=== PATIENT | male | born 2000 | race African-American/Black ===

== ENCOUNTER 2021-05-29 21:47 | Inpatient (IN) | payer OTHER, MEDICAID ==
[~2021-05-29] VITALS: Ht 195.6 cm; Wt 68.0 kg
[2021-05-29] MEDS ORDERED: LACTATED RINGER'S 2,000 ML IV ONE (22:15)
[2021-05-29 22:47] LABS: Basophils # (auto) 0 10 ^3/uL (0-0.2); Basophils % (auto) 0.7 % (0.0-2.0); Eosinophils # (auto) 0 10 ^3/uL (0-0.8); Hematocrit 45.6 % (41.0-53.0); Hemoglobin 15.2 g/dL (13.5-17.5); Lymphocytes # (auto) 0.6 10 ^3/uL (0.4-5.4); Mean Corpuscular Hemoglobin 27.8 pg (28.0-32.0); Mean Corpuscular Hgb Conc. 33.3 g/dL (32.0-36.0); Mean Corpuscular Volume 83.5 fL (80.0-100.0); Monocytes # (auto) 0.2 10 ^3/uL (0-1.3); Monocytes % (auto) 5.1 % (0.0-12.0); Neutrophils # (auto) 3.6 10 ^3/uL (1.6-8.6); Neutrophils % (auto) 81.2 % (37.0-80.0); Nucleated Red Blood Cells % 0.1 %; Red Blood Cells 5.46 10^6/uL (4.5-5.90); Red Cell Distribution Width 15.4 % (11.8-14.3); White Blood Cell 4.4 10^3/uL (4.4-10.8)
[2021-05-29 23:05] LABS: Albumin 3.8 g/dL (3.4-5.0); Calcium 9.1 mg/dL (8.5-10.1); Magnesium 2.1 mg/dL (1.6-2.6); Potassium 4.6 mmol/L (3.5-5.1)
[2021-05-29 23:06] LABS: BUN/Creatinine Ratio 9.9
[2021-05-29 23:19] LABS: Bilirubin, Total 0.6 mg/dL (0.2-1.0); Total Protein 8.1 g/dL (6.4-8.2)
[2021-05-29] MEDS ORDERED: InsuLIN R (HUMAN) 100 UNITS in SODIUM CHL 0.9% 99 ML IV SCH (23:30)
[2021-05-29] MEDS ORDERED: DEXTROSE (50%) 50ML SYRG IV PRN ×2 (23:30→23:45)
[2021-05-29 23:43] LABS: Urine Bacteria NONE SEEN /hpf (None Seen); Urine Blood Negative /uL (Negative); Urine Specific Gravity 1.028 (1.001-1.035); Urine WBC 1 /hpf (0 - 3)
[2021-05-29] MEDS ORDERED: MORPHINE SULFATE INJECTION 2 MG/ML SYRG IV PRN (23:45)
[2021-05-29] MEDS ORDERED: INSULIN LANTUS (GLARGINE) 1 /0.01ml (100units/ml) SC ONE (23:45)
[2021-05-29] MEDS ORDERED: NITROGLYCERIN 0.4 MG SL TAB SL PRN (23:45)
[2021-05-29] MEDS ORDERED: ONDANSETRON HCL 4 MG/2 ML VIAL IV PRN (23:45)
[2021-05-30] VITALS (36 sets, daily range): BP systolic 108–143; BP diastolic 52–94
[2021-05-30] MEDS ORDERED: InsuLIN REG 1unit/0.01ml Soln (100units/ml) ONE ×2 (00:53→00:57)
[2021-05-30] MEDS: ACCU-CHEK COMFORT CURVE STRIP VI SCH ×12 (01:03→20:23)
[2021-05-30] MEDS: SOD CHL 0.9%/ KCL 20MEQ 1,000 ML IV SCH ×3 (01:13→10:27)
[2021-05-30] MEDS: SODIUM CHLORIDE 0.9% 1,000 ML IV SCH ×2 (01:20→01:45)
[2021-05-30] MEDS ORDERED: SODIUM CHLORIDE 0.9% 1,000 ML IV SCH ×2 (03:45→05:45)
[2021-05-30 04:13] LABS: Basophils # (auto) 0 10 ^3/uL (0-0.2); Basophils % (auto) 0.7 % (0.0-2.0); Eosinophils # (auto) 0 10 ^3/uL (0-0.8); Eosinophils % (auto) 0.1 % (0.0-7.0); Hematocrit 38.3 % (41.0-53.0); Hemoglobin 13.4 g/dL (13.5-17.5); Lymphocytes # (auto) 1.7 10 ^3/uL (0.4-5.4); Lymphocytes % (auto) 29.3 % (10.0-50.0); Mean Corpuscular Hemoglobin 28.6 pg (28.0-32.0); Mean Corpuscular Hgb Conc. 34.9 g/dL (32.0-36.0); Mean Corpuscular Volume 81.9 fL (80.0-100.0); Monocytes # (auto) 0.5 10 ^3/uL (0-1.3); Monocytes % (auto) 8.9 % (0.0-12.0); Neutrophils # (auto) 3.5 10 ^3/uL (1.6-8.6); Red Blood Cells 4.68 10^6/uL (4.5-5.90); White Blood Cell 5.7 10^3/uL (4.4-10.8)
[2021-05-30 04:51] LABS: Bilirubin, Total 0.4 mg/dL (0.2-1.0); Calcium 7.8 mg/dL (8.5-10.1); Total Protein 6.5 g/dL (6.4-8.2)
[2021-05-30] MEDS: D5W/SOD CHL 0.45%/KCL 20MEQ 1,000 ML IV SCH ×2 (12:23→21:30)
[2021-05-30 12:43] LABS: BUN/Creatinine Ratio 5.8; Magnesium 1.8 mg/dL (1.6-2.6); Potassium 3.7 mmol/L (3.5-5.1)
[2021-05-30 12:58] LABS: Alcohol, Urine < 3.0 mg/dL (0-10); Amphetamine Screen, Urine POSITIVE (NEGATIVE); Barbiturate Scree,Urine NEGATIVE (NEGATIVE); Benzodiazephine Screen, Urine NEGATIVE (NEGATIVE); Cannabinoid Screen, Urine NEGATIVE (NEGATIVE); Cocaine Screen, Urine NEGATIVE (NEGATIVE); Phencyclidine Screen, Urine NEGATIVE (NEGATIVE)
[2021-05-30 13:07] LABS: Opiate Scree,Urine NEGATIVE (NEGATIVE)
[2021-05-30] MEDS ORDERED: DEXTROSE (50%) 50ML SYRG IV PRN (14:00)
[2021-05-30] MEDS: InsuLIN REG 1unit/0.01ml Soln (100units/ml) SC SCH ×2 (16:00→20:29)
[2021-05-30 18:29] LABS: Calcium 8.4 mg/dL (8.5-10.1); Potassium 3.6 mmol/L (3.5-5.1)
[2021-05-30 18:32] LABS: BUN/Creatinine Ratio 5.9
[2021-05-30] MEDS ORDERED: INSULIN LANTUS (GLARGINE) 1 /0.01ml (100units/ml) SC SCH ×2 (22:00)
[2021-05-31] MEDS: ACCU-CHEK COMFORT CURVE STRIP VI SCH ×2 (00:12→04:09)
[2021-05-31] MEDS: InsuLIN REG 1unit/0.01ml Soln (100units/ml) SC SCH ×2 (00:13→04:00)
[2021-05-31] MEDS: HYDROcodone-ACET 5/325MG TAB PO PRN ×2 (00:47→10:24)
[2021-05-31 05:00] VITALS: BP 115/65
[2021-05-31 06:28] LABS: Basophils # (auto) 0 10 ^3/uL (0-0.2); Basophils % (auto) 0.7 % (0.0-2.0); Eosinophils # (auto) 0 10 ^3/uL (0-0.8); Eosinophils % (auto) 0.7 % (0.0-7.0); Hematocrit 38.9 % (41.0-53.0); Hemoglobin 13.4 g/dL (13.5-17.5); Lymphocytes # (auto) 1.7 10 ^3/uL (0.4-5.4); Lymphocytes % (auto) 38.7 % (10.0-50.0); Mean Corpuscular Hemoglobin 27.5 pg (28.0-32.0); Mean Corpuscular Hgb Conc. 34.4 g/dL (32.0-36.0); Mean Corpuscular Volume 79.9 fL (80.0-100.0); Monocytes # (auto) 0.4 10 ^3/uL (0-1.3); Monocytes % (auto) 9.4 % (0.0-12.0); Neutrophils # (auto) 2.2 10 ^3/uL (1.6-8.6); Neutrophils % (auto) 50.5 % (37.0-80.0); Nucleated Red Blood Cells % 0.1 %; Red Blood Cells 4.87 10^6/uL (4.5-5.90); Red Cell Distribution Width 15.2 % (11.8-14.3); White Blood Cell 4.4 10^3/uL (4.4-10.8)
[2021-05-31 06:57] LABS: Calcium 8.6 mg/dL (8.5-10.1)
[2021-05-31 07:29] LABS: BUN/Creatinine Ratio 6.6
[2021-05-31 07:36] LABS: Potassium 2.7 mmol/L (3.5-5.1)
[2021-05-31 08:00] VITALS: BP 127/65
[2021-05-31] MEDS ORDERED: POTASSIUM CHL 20 Meq TABLET PO ONE (08:15)
[2021-05-31] MEDS ORDERED: INSLANTI SC (08:41)
[2021-05-31] MEDS ORDERED: INSU100I43 SC (08:41)
[2021-05-31] MEDS ORDERED: POTASSIUM CHL 20MEQ/100ML 100 ML IV ONE (08:45)
[2021-05-31] MEDS ORDERED: DEXTROSE (50%) 50ML SYRG IV PRN (08:45)
[2021-05-31] MEDS ORDERED: ACCU-CHEK COMFORT CURVE STRIP VI SCH (11:30)
[2021-05-31] MEDS ORDERED: InsuLIN REG 1unit/0.01ml Soln (100units/ml) SC SCH (11:30)
[2021-05-31 12:00] VITALS: BP 132/80
== END 2021-05-31 14:40 | disposition home health service (06) | DRG 420 ==
LOC: EDBD 21:47 → ER 21:50 → TELE 23:38 → ICU WEST 05-30 00:30 → TELE-CENTR 05-30 15:53
PROVIDERS: ADMIT Nurse Practitioner; ATTEND Hospitalist
DX: E11.10 Type 2 diabetes mellitus with ketoacidosis without coma (principal); E86.0 Dehydration; R00.0 Tachycardia, unspecified; Z20.822 Contact with and (suspected) exposure to COVID-19; Z79.4 Long term (current) use of insulin; Z91.19 Patient's noncompliance with other medical treatment and regimen
CPT/HCPCS: 36415; 36600; 71045; 80048; 80053; 80307; 81001; 82010; 82805; 82962; 83735; 83930; 84100; 85025; 87081; 87493; 96361; 96365; 96372; 99291; G0378; J1815; J2405; J3480

== ENCOUNTER 2021-06-22 20:47 | Inpatient (IN) | payer MEDICAID, OTHER ==
[~2021-06-22] VITALS: Ht 182.9 cm; Wt 68.0 kg
[~2021-06-22 20:47] MED LIST: INSLANTI SC; INSU100I43 SC
[2021-06-22] MEDS ORDERED: IOHEXOL 300 MG/ML 100ML BOTTLE IJ ONE (21:53)
[2021-06-22] MEDS ORDERED: fentaNYL CITRATE 100 MCG/2 ML VL IV ONE ×2 (22:00→23:30)
[2021-06-22 22:24] LABS: Urine Bacteria NONE SEEN /hpf (None Seen); Urine Blood Negative /uL (Negative); Urine Mucus FEW (None Seen); Urine Specific Gravity 1.028 (1.001-1.035); Urine WBC <1 /hpf (0 - 3)
[2021-06-22 22:29] LABS: Basophils # (auto) 0 10 ^3/uL (0-0.2); Basophils % (auto) 0.7 % (0.0-2.0); Eosinophils # (auto) 0 10 ^3/uL (0-0.8); Hematocrit 47.6 % (41.0-53.0); Hemoglobin 15.9 g/dL (13.5-17.5); Lymphocytes # (auto) 0.9 10 ^3/uL (0.4-5.4); Lymphocytes % (auto) 17.8 % (10.0-50.0); Mean Corpuscular Hemoglobin 27.8 pg (28.0-32.0); Mean Corpuscular Hgb Conc. 33.3 g/dL (32.0-36.0); Mean Corpuscular Volume 83.4 fL (80.0-100.0); Monocytes # (auto) 0.2 10 ^3/uL (0-1.3); Monocytes % (auto) 4.5 % (0.0-12.0); Neutrophils # (auto) 3.9 10 ^3/uL (1.6-8.6); Nucleated Red Blood Cells % 0.3 %; Red Blood Cells 5.71 10^6/uL (4.5-5.90); Red Cell Distribution Width 15.5 % (11.8-14.3); White Blood Cell 5.1 10^3/uL (4.4-10.8)
[2021-06-22 22:41] LABS: Potassium 4.6 mmol/L (3.5-5.1)
[2021-06-22 22:51] LABS: Albumin 3.7 g/dL (3.4-5.0); BUN/Creatinine Ratio 9.3; Bilirubin, Total 0.6 mg/dL (0.2-1.0); Calcium 8.7 mg/dL (8.5-10.1); Total Protein 7.9 g/dL (6.4-8.2)
[2021-06-22] MEDS ORDERED: SODIUM CHLORIDE 0.9% 1,000 ML IV ONE ×2 (23:15→23:30)
[2021-06-22] MEDS ORDERED: DEXTROSE (50%) 50ML SYRG IV PRN (23:30)
[2021-06-23] VITALS (16 sets, daily range): BP systolic 110–139; BP diastolic 66–92
[2021-06-23 00:17] LABS: Alcohol, Urine < 3.0 mg/dL (0-10); Amphetamine Screen, Urine NEGATIVE (NEGATIVE); Barbiturate Scree,Urine NEGATIVE (NEGATIVE); Benzodiazephine Screen, Urine NEGATIVE (NEGATIVE); Cannabinoid Screen, Urine NEGATIVE (NEGATIVE); Cocaine Screen, Urine NEGATIVE (NEGATIVE); Opiate Scree,Urine NEGATIVE (NEGATIVE); Phencyclidine Screen, Urine NEGATIVE (NEGATIVE)
[2021-06-23] MEDS ORDERED: InsuLIN REG 1unit/0.01ml Soln (100units/ml) ONE (00:20)
[2021-06-23] MEDS: InsuLIN R (HUMAN) 100 UNITS in SODIUM CHL 0.9% 99 ML IV SCH ×2 (00:25→01:40)
[2021-06-23] MEDS ORDERED: PIPERACILLIN-TAZOB 3.375GM 100 ML IV ONE ×2 (01:45→03:45)
[2021-06-23] MEDS ORDERED: ONDANSETRON HCL 4 MG/2 ML VIAL IV PRN ×2 (02:15→03:45)
[2021-06-23] MEDS ORDERED: NITROGLYCERIN 0.4 MG SL TAB SL PRN ×2 (02:15→03:45)
[2021-06-23] MEDS ORDERED: INSULIN LANTUS (GLARGINE) 1 /0.01ml (100units/ml) SC ONE ×2 (02:15→11:30)
[2021-06-23] MEDS ORDERED: DEXTROSE (50%) 50ML SYRG IV PRN ×3 (02:15→19:15)
[2021-06-23] MEDS ORDERED: MORPHINE SULFATE INJECTION 2 MG/ML SYRG IV PRN ×4 (02:15→14:00)
[2021-06-23 02:50] LABS: Calcium 8.1 mg/dL (8.5-10.1); Potassium 4.6 mmol/L (3.5-5.1)
[2021-06-23] MEDS ORDERED: ACCU-CHEK COMFORT CURVE STRIP VI SCH ×2 (03:00)
[2021-06-23] MEDS: ACCU-CHEK COMFORT CURVE STRIP VI SCH ×5 (03:37→20:57)
[2021-06-23] MEDS ORDERED: InsuLIN R (HUMAN) 100 UNITS in SODIUM CHL 0.9% 99 ML IV SCH (03:45)
[2021-06-23] MEDS: MORPHINE SULFATE INJECTION 2 MG/ML SYRG IV PRN ×4 (03:50→19:59)
[2021-06-23] MEDS ORDERED: SODIUM CHLORIDE 0.9% 1,000 ML IV SCH ×4 (06:15→08:15)
[2021-06-23] MEDS ORDERED: GOLYTELY 4L KIT PO ONE (09:45)
[2021-06-23] MEDS ORDERED: PANTOPRAZOLE 40 MG/10 ML VIAL INJ IV SCH ×2 (10:00)
[2021-06-23] MEDS ORDERED: D5W/SOD CHLO 0.9% 1,000 ML IV SCH ×2 (10:30→15:30)
[2021-06-23 11:03] LABS: BUN/Creatinine Ratio 8.9; Calcium 8.2 mg/dL (8.5-10.1)
[2021-06-23 11:07] LABS: INR 1.06 (0.9-1.15)
[2021-06-23] MEDS ORDERED: metroNIDAZOLE 500MG/100ML 100 ML IV ONE (15:30)
[2021-06-23] MEDS: InsuLIN REG 1unit/0.01ml Soln (100units/ml) SC SCH ×2 (19:00→21:07)
[2021-06-23] MEDS: VANCOMYCIN HCL 125MG/5ML ORAL SOL PO SCH (19:04)
[2021-06-23] MEDS: metroNIDAZOLE 500MG/100ML 100 ML IV SCH (20:57)
[2021-06-24] MEDS: VANCOMYCIN HCL 125MG/5ML ORAL SOL PO SCH ×4 (00:16→18:40)
[2021-06-24] MEDS: MORPHINE SULFATE INJECTION 2 MG/ML SYRG IV PRN ×2 (00:29→04:33)
[2021-06-24 05:00] VITALS: BP 127/83
[2021-06-24] MEDS: metroNIDAZOLE 500MG/100ML 100 ML IV SCH ×2 (05:33→14:11)
[2021-06-24] MEDS: ACCU-CHEK COMFORT CURVE STRIP VI SCH ×4 (06:48→22:00)
[2021-06-24] MEDS: InsuLIN REG 1unit/0.01ml Soln (100units/ml) SC SCH ×4 (06:50→23:11)
[2021-06-24] MEDS ORDERED: DexAMETHasone SOD PHOS 10MG/1ML VIAL INJ IV ONE (07:30)
[2021-06-24] MEDS ORDERED: SODIUM CHLORIDE LOCK 10 ML ONE (07:31)
[2021-06-24] MEDS ORDERED: PROPOFOL 10 MG/ML 20 ML IV ONE (07:31)
[2021-06-24] MEDS ORDERED: ONDANSETRON HCL 4 MG/2 ML VIAL ONE (07:31)
[2021-06-24] MEDS ORDERED: MIDAZOLAM HCL 2MG/2ML 2ml VIAL (1mg/ml) ONE (07:31)
[2021-06-24] MEDS ORDERED: fentaNYL CITRATE 100 MCG/2 ML VL ONE (07:31)
[2021-06-24 08:49] VITALS: BP 116/75
[2021-06-24] MEDS ORDERED: INSULIN LANTUS (GLARGINE) 1 /0.01ml (100units/ml) SC SCH ×3 (10:00→22:00)
[2021-06-24 13:00] VITALS: BP 127/89
[2021-06-24] MEDS: HYDROcodone-ACET 5/325MG TAB PO PRN ×2 (15:23→22:05)
[2021-06-24 17:00] VITALS: BP 105/67
[2021-06-24 21:47] VITALS: BP 123/80
[2021-06-25] MEDS: metroNIDAZOLE 500MG/100ML 100 ML IV SCH ×2 (00:24→06:30)
[2021-06-25] MEDS: VANCOMYCIN HCL 125MG/5ML ORAL SOL PO SCH ×3 (00:26→12:00)
[2021-06-25 05:00] VITALS: BP 114/68
[2021-06-25] MEDS: HYDROcodone-ACET 5/325MG TAB PO PRN ×2 (06:29→12:29)
[2021-06-25] MEDS: InsuLIN REG 1unit/0.01ml Soln (100units/ml) SC SCH ×3 (06:40→17:00)
[2021-06-25] MEDS: ACCU-CHEK COMFORT CURVE STRIP VI SCH ×3 (06:42→17:00)
[2021-06-25 08:19] VITALS: BP 126/89
[2021-06-25 12:56] VITALS: BP 131/87
[2021-06-25 16:38] VITALS: BP 131/87
[2021-06-25 17:08] VITALS: BP 131/99
== END 2021-06-25 18:20 | disposition home or self-care (01) | DRG 420 ==
LOC: ER 20:47 → EDBD 20:47 → ICU WEST 06-23 02:12 → ER 06-23 03:05 → TELE-EAST 06-23 22:15 → EAST 06-24 23:58
PROVIDERS: ADMIT Nurse Practitioner; ATTEND Internal Medicine
PROC: 0DJD8ZZ Inspection of Lower Intestinal Tract, Via Natural or Artificial Opening Endoscopic (ICD-10-PCS; principal; 2021-06-24 09:30)
PROC: 0DJ08ZZ Inspection of Upper Intestinal Tract, Via Natural or Artificial Opening Endoscopic (ICD-10-PCS; 2021-06-24 09:30)
DX: E11.10 Type 2 diabetes mellitus with ketoacidosis without coma (principal); F12.90 Cannabis use, unspecified, uncomplicated; K64.8 Other hemorrhoids; K92.1 Melena; R00.0 Tachycardia, unspecified; Z20.822 Contact with and (suspected) exposure to COVID-19
CPT/HCPCS: 36415; 36600; 74177; 80048; 80053; 80307; 81001; 82010; 82805; 82962; 83036; 83690; 83735; 83930; 84100; 85025; 85610; 87081; 87493; 93005; 96361; 96374; 96376; 99291; C9113; G0378; J1100; J1815; J2250; J2405; J2543; J2704; J3490

== ENCOUNTER 2021-07-02 11:50 | Inpatient (IN) | payer OTHER, MEDICAID ==
[2021-07-02] VITALS (11 sets, daily range): BP systolic 129–154; BP diastolic 79–112
[~2021-07-02] VITALS: Ht 190.5 cm; Wt 97.4 kg
[2021-07-02 13:05] LABS: Basophils # (auto) 0.1 10 ^3/uL (0-0.2); Eosinophils # (auto) 0 10 ^3/uL (0-0.8); Eosinophils % (auto) 0.4 % (0.0-7.0); Hematocrit 45.2 % (41.0-53.0); Hemoglobin 14.4 g/dL (13.5-17.5); Lymphocytes # (auto) 0.6 10 ^3/uL (0.4-5.4); Mean Corpuscular Hgb Conc. 31.9 g/dL (32.0-36.0); Mean Corpuscular Volume 84.5 fL (80.0-100.0); Monocytes # (auto) 0.2 10 ^3/uL (0-1.3); Neutrophils # (auto) 3.2 10 ^3/uL (1.6-8.6); Neutrophils % (auto) 78.6 % (37.0-80.0); Nucleated Red Blood Cells % 0.3 %; Red Blood Cells 5.35 10^6/uL (4.5-5.90); Red Cell Distribution Width 16.1 % (11.8-14.3); White Blood Cell 4.1 10^3/uL (4.4-10.8)
[2021-07-02 13:21] LABS: Total Protein 7.3 g/dL (6.4-8.2)
[2021-07-02] MEDS ORDERED: SODIUM CHLORIDE 0.9% 1,000 ML IV ONE ×2 (13:30→14:15)
[2021-07-02 13:45] LABS: Albumin 3.4 g/dL (3.4-5.0); BUN/Creatinine Ratio 13.3; Bilirubin, Total 0.7 mg/dL (0.2-1.0); Calcium 8.9 mg/dL (8.5-10.1); Magnesium 2.3 mg/dL (1.6-2.6); Potassium 5.2 mmol/L (3.5-5.1)
[2021-07-02 14:02] LABS: Urine Bacteria NONE SEEN /hpf (None Seen); Urine Blood Negative /uL (Negative); Urine Mucus FEW (None Seen); Urine Specific Gravity 1.026 (1.001-1.035); Urine WBC <1 /hpf (0 - 3)
[2021-07-02 14:08] LABS: Phosphorus 3.1 mg/dL (2.5-4.90)
[2021-07-02] MEDS ORDERED: fentaNYL CITRATE 100 MCG/2 ML VL IV ONE (14:15)
[2021-07-02] MEDS ORDERED: DEXTROSE (50%) 50ML SYRG IV PRN (14:15)
[2021-07-02] MEDS ORDERED: InsuLIN R (HUMAN) 100 UNITS in SODIUM CHL 0.9% 99 ML IV SCH (14:15)
[2021-07-02] MEDS ORDERED: SODIUM CHLORIDE 0.9% 1,000 ML IV SCH ×3 (14:15→20:15)
[2021-07-02] MEDS ORDERED: MORPHINE SULFATE INJECTION 2 MG/ML SYRG IV PRN (15:00)
[2021-07-02] MEDS ORDERED: D5W/SOD CHLO 0.9% 1,000 ML IV PRN (15:00)
[2021-07-02] MEDS ORDERED: LACTATED RINGER'S 2,000 ML IV ONE (15:00)
[2021-07-02] MEDS ORDERED: cefTRIAXone 1GM/50ML D5W 50 ML IV ONE (15:00)
[2021-07-02] MEDS ORDERED: NITROGLYCERIN 0.4 MG SL TAB SL PRN (15:00)
[2021-07-02] MEDS ORDERED: SODIUM CHLORIDE 0.9% 2,000 ML IV ONE (15:00)
[2021-07-02] MEDS ORDERED: SOD CHL 0.9%/ KCL 20MEQ 1,000 ML IV PRN (15:00)
[2021-07-02] MEDS: ACCU-CHEK COMFORT CURVE STRIP VI SCH ×6 (15:54→23:16)
[2021-07-02 16:35] LABS: INR 0.96 (0.9-1.15); Partial Thromboplastin Time 27.6 sec (23.6-33.0)
[2021-07-02 16:59] LABS: Anion Gap 29 (5-15); BUN/Creatinine Ratio 12.7; Blood Urea Nitrogen 15 mg/dL (7-18); Calcium 8.4 mg/dL (8.5-10.1); Chloride 100 mmol/L (98-107); GFR African American 101 mL/min; GFR Non-African American 84 mL/min; Potassium 5.1 mmol/L (3.5-5.1); Sodium 133 mmol/L (136-145)
[2021-07-02 17:06] LABS: Carbon Dioxide 4 mmol/L (21-32); Glucose 455 mg/dL (74-106)
[2021-07-02] MEDS ORDERED: LORazepam 0.5 MG TAB PO PRN (17:30)
[2021-07-02] MEDS ORDERED: DOCUSATE SOD 100 MG CAP PO PRN (17:30)
[2021-07-02] MEDS ORDERED: ACETAMINOPHEN 325 MG TAB PO PRN (17:30)
[2021-07-02] MEDS ORDERED: METOCLOPRAMIDE HCL 5MG/ml INJ 2ml VIAL IV PRN (17:30)
[2021-07-02] MEDS ORDERED: hydrALAZINE HCL 20 MG/ML VL IV PRN (17:30)
[2021-07-02] MEDS: SODIUM CHLORIDE 0.9% 1,000 ML IV SCH ×2 (18:24→21:33)
[2021-07-02] MEDS: MORPHINE SULFATE INJECTION 2 MG/ML SYRG IV PRN (19:02)
[2021-07-02 20:19] LABS: Calcium 7.8 mg/dL (8.5-10.1)
[2021-07-02 20:21] LABS: BUN/Creatinine Ratio 11.3
[2021-07-02] MEDS: ATORVASTATIN 20 MG TAB PO SCH (21:43)
[2021-07-03] VITALS (48 sets, daily range): BP systolic 104–144; BP diastolic 54–99
[2021-07-03] MEDS: MORPHINE SULFATE INJECTION 2 MG/ML SYRG IV PRN ×3 (00:44→16:39)
[2021-07-03] MEDS: ACCU-CHEK COMFORT CURVE STRIP VI SCH ×10 (01:03→17:29)
[2021-07-03 02:17] LABS: BUN/Creatinine Ratio 6.9; Calcium 8.2 mg/dL (8.5-10.1); Potassium 3.8 mmol/L (3.5-5.1)
[2021-07-03] MEDS: SODIUM CHLORIDE 0.9% 1,000 ML IV SCH ×5 (02:30→21:00)
[2021-07-03 03:50] LABS: Basophils # (auto) 0 10 ^3/uL (0-0.2); Basophils % (auto) 0.7 % (0.0-2.0); Eosinophils # (auto) 0 10 ^3/uL (0-0.8); Eosinophils % (auto) 0.3 % (0.0-7.0); Hematocrit 39.4 % (41.0-53.0); Hemoglobin 13.2 g/dL (13.5-17.5); Lymphocytes # (auto) 1.5 10 ^3/uL (0.4-5.4); Lymphocytes % (auto) 33.1 % (10.0-50.0); Mean Corpuscular Hemoglobin 27.1 pg (28.0-32.0); Mean Corpuscular Hgb Conc. 33.4 g/dL (32.0-36.0); Mean Corpuscular Volume 81.1 fL (80.0-100.0); Monocytes # (auto) 0.5 10 ^3/uL (0-1.3); Monocytes % (auto) 10.4 % (0.0-12.0); Neutrophils # (auto) 2.6 10 ^3/uL (1.6-8.6); Neutrophils % (auto) 55.5 % (37.0-80.0); Nucleated Red Blood Cells % 0.1 %; Red Blood Cells 4.86 10^6/uL (4.5-5.90); Red Cell Distribution Width 15.6 % (11.8-14.3); White Blood Cell 4.6 10^3/uL (4.4-10.8)
[2021-07-03 04:12] LABS: Potassium 3.6 mmol/L (3.5-5.1)
[2021-07-03 04:25] LABS: Albumin 2.8 g/dL (3.4-5.0); BUN/Creatinine Ratio 8.8; Bilirubin, Total 0.5 mg/dL (0.2-1.0); CRP High Sensitivity 0.02 mg/dL (< 0.3); Calcium 8.2 mg/dL (8.5-10.1); Magnesium 1.7 mg/dL (1.6-2.6); Phosphorus 1.7 mg/dL (2.5-4.90)
[2021-07-03 04:27] LABS: Thyroid Stimulating Hormone 0.63 uIU/mL (0.358-3.74)
[2021-07-03] MEDS: cefTRIAXone 1GM/50ML D5W 50 ML IV SCH (09:06)
[2021-07-03] MEDS: THIAMINE HCL 100 MG TAB PO SCH (10:00)
[2021-07-03] MEDS: ASPirin 81 mg TAB PO SCH (10:00)
[2021-07-03] MEDS: ENOXAPARIN SOD 40 MG/0.4 ML SYRINGE SC SCH (10:17)
[2021-07-03] MEDS ORDERED: DEXTROSE (50%) 50ML SYRG IV PRN (11:00)
[2021-07-03] MEDS: NEUTRA-PHOS TABLET PO SCH ×2 (12:00→18:00)
[2021-07-03] MEDS: InsuLIN REG 1unit/0.01ml Soln (100units/ml) SC SCH ×2 (12:00→17:28)
[2021-07-03] MEDS: DIPHENOXYLATE W/ATROPINE 2.5 MG TAB PO PRN ×2 (17:21→20:38)
[2021-07-03] MEDS: CALCIUM W/VIT D (600MG/400IU) TAB PO SCH (18:12)
[2021-07-03] MEDS: HYDROcodone-ACET 5/325MG TAB PO PRN (20:40)
[2021-07-03] MEDS: ATORVASTATIN 20 MG TAB PO SCH (22:09)
[2021-07-03] MEDS: INSULIN LANTUS (GLARGINE) 1 /0.01ml (100units/ml) SC SCH (22:10)
[2021-07-04] VITALS: BP 113/62
[2021-07-04] MEDS: SODIUM CHLORIDE 0.9% 1,000 ML IV SCH ×3 (02:00→12:00)
[2021-07-04] MEDS: HYDROcodone-ACET 5/325MG TAB PO PRN ×2 (03:40→09:54)
[2021-07-04] MEDS: DIPHENOXYLATE W/ATROPINE 2.5 MG TAB PO PRN (03:40)
[2021-07-04 04:00] VITALS: BP 114/71
[2021-07-04 04:15] LABS: Basophils # (auto) 0 10 ^3/uL (0-0.2); Basophils % (auto) 0.7 % (0.0-2.0); Eosinophils # (auto) 0 10 ^3/uL (0-0.8); Eosinophils % (auto) 0.3 % (0.0-7.0); Hematocrit 37.9 % (41.0-53.0); Hemoglobin 12.9 g/dL (13.5-17.5); Lymphocytes # (auto) 2.1 10 ^3/uL (0.4-5.4); Lymphocytes % (auto) 51.1 % (10.0-50.0); Mean Corpuscular Hemoglobin 27.3 pg (28.0-32.0); Mean Corpuscular Hgb Conc. 34.1 g/dL (32.0-36.0); Mean Corpuscular Volume 80.2 fL (80.0-100.0); Monocytes # (auto) 0.3 10 ^3/uL (0-1.3); Monocytes % (auto) 8.2 % (0.0-12.0); Neutrophils # (auto) 1.7 10 ^3/uL (1.6-8.6); Neutrophils % (auto) 39.7 % (37.0-80.0); Nucleated Red Blood Cells % 0.2 %; Red Blood Cells 4.73 10^6/uL (4.5-5.90); Red Cell Distribution Width 15.3 % (11.8-14.3); White Blood Cell 4.2 10^3/uL (4.4-10.8)
[2021-07-04 04:22] LABS: Potassium 3.4 mmol/L (3.5-5.1)
[2021-07-04 04:29] LABS: Albumin 2.5 g/dL (3.4-5.0); BUN/Creatinine Ratio 12.2; Bilirubin, Total 0.4 mg/dL (0.2-1.0); Calcium 8.3 mg/dL (8.5-10.1); INR 0.99 (0.9-1.15); Magnesium 1.9 mg/dL (1.6-2.6); Partial Thromboplastin Time 21.9 sec (23.6-33.0); Phosphorus 1.3 mg/dL (2.5-4.90); Total Protein 5.7 g/dL (6.4-8.2)
[2021-07-04] MEDS: InsuLIN REG 1unit/0.01ml Soln (100units/ml) SC SCH ×3 (06:00→12:33)
[2021-07-04] MEDS: ACCU-CHEK COMFORT CURVE STRIP VI SCH ×3 (06:00→12:00)
[2021-07-04] MEDS: INSULIN LANTUS (GLARGINE) 1 /0.01ml (100units/ml) SC SCH (06:42)
[2021-07-04] MEDS: CALCIUM W/VIT D (600MG/400IU) TAB PO SCH (08:00)
[2021-07-04] MEDS: NEUTRA-PHOS TABLET PO SCH ×2 (08:00→12:00)
[2021-07-04 09:00] VITALS: BP 132/91
[2021-07-04] MEDS: cefTRIAXone 1GM/50ML D5W 50 ML IV SCH (09:52)
[2021-07-04] MEDS: ASPirin 81 mg TAB PO SCH (09:53)
[2021-07-04] MEDS: ENOXAPARIN SOD 40 MG/0.4 ML SYRINGE SC SCH (09:53)
[2021-07-04] MEDS: THIAMINE HCL 100 MG TAB PO SCH (09:53)
[2021-07-04] MEDS ORDERED: FLORASTOR (S. BOULARDII) 250 MG CAP PO SCH (10:00)
[2021-07-04 12:00] VITALS: BP 136/92
[2021-07-04] MEDS ORDERED: NEUTRA PO (12:59)
[2021-07-04] MEDS ORDERED: PANT40TA2 PO (13:02)
[2021-07-04] MEDS ORDERED: METO-281 PO (13:02)
[2021-07-04] MEDS ORDERED: LOP2C PO (13:05)
[2021-07-04 13:36] VITALS: BP 131/96
== END 2021-07-04 14:15 | disposition home or self-care (01) | DRG 420 ==
LOC: EDBD 11:50 → ER 11:50 → ICU WEST 14:55 → DOU IN ICU 07-04 09:10
PROVIDERS: ADMIT Hospitalist; ATTEND Internal Medicine
DX: E10.10 Type 1 diabetes mellitus with ketoacidosis without coma (principal); K31.84 Gastroparesis; E10.43 Type 1 diabetes mellitus with diabetic autonomic (poly)neuropathy; E78.5 Hyperlipidemia, unspecified; Z20.822 Contact with and (suspected) exposure to COVID-19; F12.90 Cannabis use, unspecified, uncomplicated; K21.9 Gastro-esophageal reflux disease without esophagitis; G89.29 Other chronic pain; Z79.4 Long term (current) use of insulin; Z91.19 Patient's noncompliance with other medical treatment and regimen; Z68.26 Body mass index [BMI] 26.0-26.9, adult
CPT/HCPCS: 36415; 36600; 71045; 80048; 80053; 80061; 81001; 82010; 82270; 82550; 82728; 82805; 82962; 83605; 83615; 83690; 83735; 83880; 83930; 84100; 84443; 84484; 85025; 85379; 85610; 85652; 85730; 86141; 87040; 87081; 87086; 87493; 93005; 96361; 96365; 96368; 96375; G0378; J0696; J1815

== ENCOUNTER 2021-07-09 14:45 | Inpatient (IN) | payer MEDICAID, OTHER ==
[~2021-07-09] VITALS: Ht 190.5 cm; Wt 69.5 kg
[2021-07-09] MEDS: ACCU-CHEK COMFORT CURVE STRIP VI SCH ×3 (03:00→22:30)
[~2021-07-09 14:45] MED LIST changes: +LOP2C PO; +METO-281 PO; +NEUTRA PO; +PANT40TA2 PO
[2021-07-09] MEDS ORDERED: SODIUM CHLORIDE 0.9% 3,000 ML IV ONE (16:00)
[2021-07-09 16:21] LABS: Basophils # (auto) 0 10 ^3/uL (0-0.2); Basophils % (auto) 0.9 % (0.0-2.0); Eosinophils # (auto) 0 10 ^3/uL (0-0.8); Eosinophils % (auto) 0.1 % (0.0-7.0); Hematocrit 47.5 % (41.0-53.0); Hemoglobin 14.9 g/dL (13.5-17.5); Lymphocytes # (auto) 0.8 10 ^3/uL (0.4-5.4); Mean Corpuscular Hemoglobin 27.6 pg (28.0-32.0); Mean Corpuscular Hgb Conc. 31.4 g/dL (32.0-36.0); Mean Corpuscular Volume 88.2 fL (80.0-100.0); Monocytes # (auto) 0.1 10 ^3/uL (0-1.3); Monocytes % (auto) 2.7 % (0.0-12.0); Neutrophils % (auto) 80.3 % (37.0-80.0); Red Blood Cells 5.39 10^6/uL (4.5-5.90); Red Cell Distribution Width 16.5 % (11.8-14.3)
[2021-07-09] MEDS ORDERED: SODIUM CHLORIDE 0.9% 1,000 ML IVB ONE (16:30)
[2021-07-09] MEDS ORDERED: ONDANSETRON HCL 4 MG/2 ML VIAL IV ONE (16:30)
[2021-07-09 18:02] LABS: BUN/Creatinine Ratio 17.1; Bilirubin, Total 0.5 mg/dL (0.2-1.0); Calcium 8.6 mg/dL (8.5-10.1); Total Protein 7.2 g/dL (6.4-8.2)
[2021-07-09 18:03] LABS: Albumin 3.3 g/dL (3.4-5.0)
[2021-07-09 18:04] LABS: Potassium 5.9 mmol/L (3.5-5.1)
[2021-07-09 18:12] LABS: Magnesium 2.5 mg/dL (1.6-2.6)
[2021-07-09] MEDS ORDERED: InsuLIN REG 1unit/0.01ml Soln (100units/ml) IV ONE (18:15)
[2021-07-09] MEDS ORDERED: DEXTROSE (50%) 50ML SYRG IV PRN (18:15)
[2021-07-09] MEDS ORDERED: SODIUM BICARBONATE 8.4 % INJ 50ML VIAL IV ONE (18:30)
[2021-07-09] MEDS: InsuLIN R (HUMAN) 100 UNITS in SODIUM CHL 0.9% 99 ML IV SCH ×3 (19:43→23:17)
[2021-07-09] MEDS ORDERED: LABETALOL HCL 5 MG/ML 4ML SYRINGE IV PRN (19:45)
[2021-07-09] MEDS ORDERED: ACETAMINOPHEN 500 MG TAB PO PRN (19:45)
[2021-07-09] MEDS ORDERED: ONDANSETRON HCL 4 MG/2 ML VIAL IV PRN (19:45)
[2021-07-09] MEDS ORDERED: NITROGLYCERIN 0.4 MG SL TAB SL PRN (19:45)
[2021-07-09] MEDS ORDERED: MORPHINE SULFATE INJECTION 2 MG/ML SYRG IV PRN (19:45)
[2021-07-09] MEDS ORDERED: SODIUM CHLORIDE 0.9% 1,000 ML IV SCH (20:00)
[2021-07-09] MEDS: HYDROCORTISONE ACET 25 MG RECTAL SUPP PR SCH (22:00)
[2021-07-09 22:18] LABS: BUN/Creatinine Ratio 15.2; Calcium 8.9 mg/dL (8.5-10.1); Potassium 4.8 mmol/L (3.5-5.1)
[2021-07-10] MEDS: InsuLIN R (HUMAN) 100 UNITS in SODIUM CHL 0.9% 99 ML IV SCH ×3 (00:30→05:24)
[2021-07-10] MEDS: ACCU-CHEK COMFORT CURVE STRIP VI SCH ×10 (01:30→23:27)
[2021-07-10 01:38] LABS: BUN/Creatinine Ratio 15.5; Calcium 8.8 mg/dL (8.5-10.1); Potassium 4.6 mmol/L (3.5-5.1)
[2021-07-10] MEDS: D5W/SOD CHL 0.45% 1,000 ML IV SCH ×2 (02:52→12:57)
[2021-07-10] MEDS: MORPHINE SULFATE INJECTION 2 MG/ML SYRG IV PRN ×3 (02:55→12:46)
[2021-07-10 06:45] LABS: Basophils # (auto) 0.1 10 ^3/uL (0-0.2); Basophils % (auto) 1.3 % (0.0-2.0); Eosinophils # (auto) 0 10 ^3/uL (0-0.8); Eosinophils % (auto) 0.1 % (0.0-7.0); Hematocrit 37.3 % (41.0-53.0); Hemoglobin 12.5 g/dL (13.5-17.5); Lymphocytes # (auto) 1.2 10 ^3/uL (0.4-5.4); Lymphocytes % (auto) 22.4 % (10.0-50.0); Mean Corpuscular Hemoglobin 27.7 pg (28.0-32.0); Mean Corpuscular Hgb Conc. 33.5 g/dL (32.0-36.0); Mean Corpuscular Volume 82.7 fL (80.0-100.0); Monocytes # (auto) 0.5 10 ^3/uL (0-1.3); Monocytes % (auto) 10.1 % (0.0-12.0); Neutrophils # (auto) 3.5 10 ^3/uL (1.6-8.6); Neutrophils % (auto) 66.1 % (37.0-80.0); Red Blood Cells 4.52 10^6/uL (4.5-5.90); Red Cell Distribution Width 16.1 % (11.8-14.3); White Blood Cell 5.3 10^3/uL (4.4-10.8)
[2021-07-10 06:59] LABS: Albumin 2.9 g/dL (3.4-5.0); Calcium 8.4 mg/dL (8.5-10.1)
[2021-07-10 07:02] LABS: BUN/Creatinine Ratio 16.7
[2021-07-10 07:04] LABS: Bilirubin, Total 0.4 mg/dL (0.2-1.0); Total Protein 6.5 g/dL (6.4-8.2)
[2021-07-10 08:50] LABS: Urine Bacteria NONE SEEN /hpf (None Seen); Urine Blood Negative /uL (Negative); Urine Specific Gravity 1.019 (1.001-1.035); Urine WBC 1 /hpf (0 - 3)
[2021-07-10] MEDS ORDERED: INSULIN LANTUS (GLARGINE) 1 /0.01ml (100units/ml) SC SCH (10:00)
[2021-07-10] MEDS: PANTOPRAZOLE 40 MG/10 ML VIAL INJ IV SCH (10:35)
[2021-07-10] MEDS: ENOXAPARIN SOD 40 MG/0.4 ML SYRINGE SC SCH (10:36)
[2021-07-10] MEDS: HYDROCORTISONE ACET 25 MG RECTAL SUPP PR SCH ×2 (10:36→22:00)
[2021-07-10] MEDS ORDERED: DEXTROSE (50%) 50ML SYRG IV PRN (11:15)
[2021-07-10] MEDS ORDERED: ACCU-CHEK COMFORT CURVE STRIP VI SCH ×2 (12:00→16:00)
[2021-07-10] MEDS ORDERED: INSULIN LANTUS (GLARGINE) 1 /0.01ml (100units/ml) SC ONE (12:00)
[2021-07-10 12:37] VITALS: BP 114/73
[2021-07-10] MEDS: InsuLIN REG 1unit/0.01ml Soln (100units/ml) SC SCH ×4 (12:43→23:29)
[2021-07-10] MEDS ORDERED: LIDOCAINE HCL 5 % TOP OINT 35 GM TOP PRN (14:00)
[2021-07-10 14:22] LABS: BUN/Creatinine Ratio 15.2; Calcium 8.8 mg/dL (8.5-10.1); Potassium 3.9 mmol/L (3.5-5.1)
[2021-07-10 14:51] VITALS: BP 3/58
[2021-07-10 14:56] VITALS: BP 103/58
[2021-07-10 17:47] VITALS: BP 130/82
[2021-07-10 22:00] VITALS: BP 124/87
[2021-07-10] MEDS: INSULIN LANTUS (GLARGINE) 1 /0.01ml (100units/ml) SC SCH (23:28)
[2021-07-11] MEDS: ACCU-CHEK COMFORT CURVE STRIP VI SCH ×3 (04:32→11:53)
[2021-07-11] MEDS: InsuLIN REG 1unit/0.01ml Soln (100units/ml) SC SCH ×3 (04:49→11:52)
[2021-07-11 05:00] VITALS: BP 115/73
[2021-07-11] MEDS: INSULIN LANTUS (GLARGINE) 1 /0.01ml (100units/ml) SC SCH (06:49)
[2021-07-11] MEDS: PANTOPRAZOLE 40 MG/10 ML VIAL INJ IV SCH (08:59)
[2021-07-11] MEDS: ENOXAPARIN SOD 40 MG/0.4 ML SYRINGE SC SCH (08:59)
[2021-07-11] MEDS: HYDROCORTISONE ACET 25 MG RECTAL SUPP PR SCH (08:59)
[2021-07-11 09:00] VITALS: BP 110/56
[2021-07-11] MEDS ORDERED: NEUTRA PO (11:12)
[2021-07-11] MEDS: MORPHINE SULFATE INJECTION 2 MG/ML SYRG IV PRN (11:52)
[2021-07-11 12:22] VITALS: BP 110/82
== END 2021-07-11 15:35 | disposition home or self-care (01) | DRG 420 ==
LOC: ER 14:45 → EDBD 14:45 → TELE 19:38 → TELE-EAST 07-10 12:14
PROVIDERS: ADMIT Family Medicine; ATTEND Internal Medicine
DX: E10.11 Type 1 diabetes mellitus with ketoacidosis with coma (principal); E86.0 Dehydration; E86.1 Hypovolemia; E87.5 Hyperkalemia; K62.89 Other specified diseases of anus and rectum; Z20.822 Contact with and (suspected) exposure to COVID-19; Z91.19 Patient's noncompliance with other medical treatment and regimen; Z79.4 Long term (current) use of insulin
CPT/HCPCS: 36415; 36600; 71045; 80048; 80053; 81001; 82010; 82805; 82962; 83605; 83690; 83735; 84443; 85025; 93005; 96361; 96374; 96375; 99291; C9113; G0378; J1815; J2405

== ENCOUNTER 2021-08-14 09:07 | Inpatient (IN) | payer OTHER, MEDICAID ==
[~2021-08-14] VITALS: Ht 190.5 cm; Wt 72.1 kg
[2021-08-14] MEDS ORDERED: ACCU-CHEK COMFORT CURVE STRIP VI SCH (10:30)
[2021-08-14] MEDS ORDERED: SODIUM CHLORIDE 0.9% 1,000 ML IV ONE ×2 (10:30)
[2021-08-14] MEDS ORDERED: INSULIN LANTUS (GLARGINE) 1 /0.01ml (100units/ml) SC ONE ×2 (10:30→15:45)
[2021-08-14] MEDS ORDERED: InsuLIN R (HUMAN) 100 UNITS in SODIUM CHL 0.9% 99 ML IV SCH ×5 (10:30→15:45)
[2021-08-14] MEDS ORDERED: DEXTROSE (50%) 50ML SYRG IV PRN ×4 (10:30→23:30)
[2021-08-14] MEDS: SODIUM CHLORIDE 0.9% 1,000 ML IV SCH ×4 (12:38→18:31)
[2021-08-14] MEDS: ACCU-CHEK COMFORT CURVE STRIP VI SCH ×7 (12:40→22:52)
[2021-08-14] MEDS ORDERED: ONDANSETRON HCL 4 MG/2 ML VIAL IV ONE (12:45)
[2021-08-14 12:59] LABS: Basophils # (auto) 0.4 10 ^3/uL (0-0.2); Basophils % (auto) 3.7 % (0.0-2.0); Eosinophils # (auto) 0 10 ^3/uL (0-0.8); Eosinophils % (auto) 0.1 % (0.0-7.0); Hematocrit 45.8 % (41.0-53.0); Hemoglobin 14.5 g/dL (13.5-17.5); Lymphocytes # (auto) 0.9 10 ^3/uL (0.4-5.4); Lymphocytes % (auto) 8.2 % (10.0-50.0); Mean Corpuscular Hemoglobin 27.8 pg (28.0-32.0); Mean Corpuscular Hgb Conc. 31.7 g/dL (32.0-36.0); Mean Corpuscular Volume 87.9 fL (80.0-100.0); Monocytes # (auto) 0.8 10 ^3/uL (0-1.3); Monocytes % (auto) 7.4 % (0.0-12.0); Neutrophils # (auto) 8.4 10 ^3/uL (1.6-8.6); Neutrophils % (auto) 80.6 % (37.0-80.0); Red Blood Cells 5.21 10^6/uL (4.5-5.90); Red Cell Distribution Width 16.1 % (11.8-14.3); White Blood Cell 10.4 10^3/uL (4.4-10.8)
[2021-08-14 13:15] LABS: Calcium 9.2 mg/dL (8.5-10.1); Magnesium 3.3 mg/dL (1.6-2.6); Phosphorus 8.3 mg/dL (2.5-4.90)
[2021-08-14 13:23] LABS: BUN/Creatinine Ratio 17.6
[2021-08-14 13:53] LABS: Potassium 6.3 mmol/L (3.5-5.1)
[2021-08-14] MEDS ORDERED: SODIUM CHLORIDE 0.9% 1,000 ML IV SCH ×4 (14:30→21:45)
[2021-08-14] MEDS ORDERED: POTASSIUM CHL 20MEQ/100ML 200 ML IV PRN (15:45)
[2021-08-14] MEDS ORDERED: ALUM & MAG HYDROX-SIMETH LIQ(MAALOX) 30 ML PO PRN (15:45)
[2021-08-14] MEDS ORDERED: DOCUSATE SOD 100 MG CAP PO PRN (15:45)
[2021-08-14] MEDS ORDERED: MORPHINE SULFATE INJ 2 MG/ml SYRG IV PRN (15:45)
[2021-08-14] MEDS ORDERED: HYDROcodone-ACET 5/325MG TAB PO PRN (15:45)
[2021-08-14] MEDS ORDERED: MAGNESIUM SULFATE 1GM/100ML 200 ML IV ONE (15:45)
[2021-08-14] MEDS ORDERED: NITROGLYCERIN 0.4 MG SL TAB SL PRN (15:45)
[2021-08-14] MEDS ORDERED: ACETAMINOPHEN 325 MG TAB PO PRN (15:45)
[2021-08-14 16:28] LABS: Basophils # (auto) 0.1 10 ^3/uL (0-0.2); Basophils % (auto) 0.7 % (0.0-2.0); Eosinophils # (auto) 0 10 ^3/uL (0-0.8); Hematocrit 38.5 % (41.0-53.0); Hemoglobin 12.8 g/dL (13.5-17.5); Lymphocytes # (auto) 1.7 10 ^3/uL (0.4-5.4); Lymphocytes % (auto) 17.3 % (10.0-50.0); Mean Corpuscular Hemoglobin 27.6 pg (28.0-32.0); Mean Corpuscular Hgb Conc. 33.2 g/dL (32.0-36.0); Mean Corpuscular Volume 83.1 fL (80.0-100.0); Monocytes # (auto) 0.8 10 ^3/uL (0-1.3); Monocytes % (auto) 8.6 % (0.0-12.0); Neutrophils # (auto) 7.2 10 ^3/uL (1.6-8.6); Neutrophils % (auto) 73.4 % (37.0-80.0); Nucleated Red Blood Cells % 0.1 %; Red Blood Cells 4.63 10^6/uL (4.5-5.90); Red Cell Distribution Width 15.6 % (11.8-14.3); White Blood Cell 9.9 10^3/uL (4.4-10.8)
[2021-08-14 16:46] LABS: Calcium 7.4 mg/dL (8.5-10.1); Magnesium 2.4 mg/dL (1.6-2.6); Potassium 4.5 mmol/L (3.5-5.1)
[2021-08-14 16:48] LABS: BUN/Creatinine Ratio 19.1; Phosphorus 3.4 mg/dL (2.5-4.90)
[2021-08-14] MEDS ORDERED: InsuLIN REG 1unit/0.01ml Soln (100units/ml) SC SCH (17:00)
[2021-08-14 17:18] LABS: Cholesterol 227 mg/dL (< 200); HDL Cholesterol 71 mg/dL (40-59); Triglycerides 444 mg/dL (< 150)
[2021-08-14] MEDS: MORPHINE SULFATE INJ 2 MG/ml SYRG IV PRN (18:42)
[2021-08-14] MEDS: ONDANSETRON HCL 4 MG/2 ML VIAL IV PRN (18:43)
[2021-08-14] MEDS ORDERED: D5W/SOD CHL 0.45% 1,000 ML IV SCH (19:00)
[2021-08-14 21:29] LABS: BUN/Creatinine Ratio 16.8; Potassium 4.2 mmol/L (3.5-5.1)
[2021-08-15] MEDS: ACCU-CHEK COMFORT CURVE STRIP VI SCH ×4 (00:33→12:13)
[2021-08-15 01:32] LABS: Urine Bacteria FEW /hpf (None Seen); Urine Blood Negative /uL (Negative); Urine Hyaline Cast FEW /lpf (0 - 2); Urine Mucus FEW (None Seen); Urine Specific Gravity 1.018 (1.001-1.035); Urine WBC 24 /hpf (0 - 3); Urine WBC Clumps PRESENT /hpf (None Seen)
[2021-08-15] MEDS: InsuLIN REG 1unit/0.01ml Soln (100units/ml) SC SCH ×4 (04:00→12:13)
[2021-08-15] MEDS: ONDANSETRON HCL 4 MG/2 ML VIAL IV PRN (04:20)
[2021-08-15] MEDS: MORPHINE SULFATE INJ 2 MG/ml SYRG IV PRN ×2 (04:21→11:11)
[2021-08-15] MEDS ORDERED: INSULIN LANTUS (GLARGINE) 1 /0.01ml (100units/ml) SC SCH ×3 (07:00→10:00)
[2021-08-15 08:21] LABS: Basophils # (auto) 0.1 10 ^3/uL (0-0.2); Basophils % (auto) 1.2 % (0.0-2.0); Eosinophils # (auto) 0 10 ^3/uL (0-0.8); Eosinophils % (auto) 0.2 % (0.0-7.0); Hematocrit 36.8 % (41.0-53.0); Hemoglobin 12.8 g/dL (13.5-17.5); Lymphocytes # (auto) 1.1 10 ^3/uL (0.4-5.4); Lymphocytes % (auto) 16.7 % (10.0-50.0); Mean Corpuscular Hemoglobin 28.1 pg (28.0-32.0); Mean Corpuscular Hgb Conc. 34.7 g/dL (32.0-36.0); Mean Corpuscular Volume 81.1 fL (80.0-100.0); Monocytes # (auto) 0.8 10 ^3/uL (0-1.3); Monocytes % (auto) 11.9 % (0.0-12.0); Neutrophils # (auto) 4.4 10 ^3/uL (1.6-8.6); Nucleated Red Blood Cells % 0.1 %; Red Blood Cells 4.54 10^6/uL (4.5-5.90); White Blood Cell 6.4 10^3/uL (4.4-10.8)
[2021-08-15 08:41] LABS: Potassium 3.8 mmol/L (3.5-5.1)
[2021-08-15 08:49] LABS: BUN/Creatinine Ratio 16.3; Bilirubin, Total 0.4 mg/dL (0.2-1.0); Calcium 8.2 mg/dL (8.5-10.1); Total Protein 6.5 g/dL (6.4-8.2)
[2021-08-15] MEDS ORDERED: INSU100I43 SC (14:11)
[2021-08-15] MEDS ORDERED: INSLANTI SC (14:11)
[2021-08-15 14:18] VITALS: BP 127/85
== END 2021-08-15 14:47 | disposition home or self-care (01) | DRG 420 ==
LOC: EDBD 09:07 → ER 09:07 → TELE 15:45
PROVIDERS: ADMIT Family Medicine; ATTEND Hospitalist
DX: E10.10 Type 1 diabetes mellitus with ketoacidosis without coma (principal); N17.0 Acute kidney failure with tubular necrosis; E83.39 Other disorders of phosphorus metabolism; Z20.822 Contact with and (suspected) exposure to COVID-19; E86.0 Dehydration; K21.9 Gastro-esophageal reflux disease without esophagitis; E10.65 Type 1 diabetes mellitus with hyperglycemia; E83.41 Hypermagnesemia; Z79.4 Long term (current) use of insulin; Z91.14 Patient's other noncompliance with medication regimen; Z83.3 Family history of diabetes mellitus; Z91.19 Patient's noncompliance with other medical treatment and regimen
CPT/HCPCS: 36415; 36600; 51702; 71045; 74176; 80048; 80053; 80061; 81001; 82010; 82805; 82962; 83036; 83735; 83930; 84100; 84443; 85025; 93005; 96361; 96365; 96375; 99291; G0378; J1815; J2405

== ENCOUNTER 2021-09-14 08:24 | Inpatient (IN) | payer MEDICAID, OTHER ==
[~2021-09-14] VITALS: Ht 193 cm; Wt 74.7 kg
[2021-09-14] MEDS ORDERED: LACTATED RINGER'S 2,000 ML IV ONE (08:30)
[2021-09-14 09:34] LABS: Lactic Acid w/Reflex 3.3 mmol/L (0.4-2.0)
[2021-09-14 09:45] LABS: Albumin 3.5 g/dL (3.4-5.0)
[2021-09-14 09:49] LABS: BUN/Creatinine Ratio 17.4; Bilirubin, Total 0.5 mg/dL (0.2-1.0); Total Protein 8.1 g/dL (6.4-8.2)
[2021-09-14 09:51] LABS: Basophils # (auto) 0.1 10 ^3/uL (0-0.2); Eosinophils # (auto) 0 10 ^3/uL (0-0.8); Eosinophils % (auto) 0.4 % (0.0-7.0); Hematocrit 45.5 % (41.0-53.0); Hemoglobin 13.5 g/dL (13.5-17.5); Mean Corpuscular Hgb Conc. 29.6 g/dL (32.0-36.0); Mean Corpuscular Volume 87.9 fL (80.0-100.0); Monocytes # (auto) 0.6 10 ^3/uL (0-1.3); Monocytes % (auto) 5.3 % (0.0-12.0); Neutrophils # (auto) 8.8 10 ^3/uL (1.6-8.6); Neutrophils % (auto) 76.3 % (37.0-80.0); Nucleated Red Blood Cells % 0.1 %; Red Blood Cells 5.18 10^6/uL (4.5-5.90); Red Cell Distribution Width 15.8 % (11.8-14.3); White Blood Cell 11.5 10^3/uL (4.4-10.8)
[2021-09-14 10:24] LABS: Potassium 5.7 mmol/L (3.5-5.1)
[2021-09-14] MEDS ORDERED: InsuLIN R (HUMAN) 100 UNITS in SODIUM CHL 0.9% 99 ML IV SCH (10:30)
[2021-09-14] MEDS ORDERED: CALCIUM CHL 100MG/ML 1,000 MG in D5W 5% 100 ML IV ONE (11:30)
[2021-09-14] MEDS ORDERED: InsuLIN REG 1unit/0.01ml Soln (100units/ml) IV ONE (11:30)
[2021-09-14] MEDS ORDERED: ACETAMINOPHEN 325 MG TAB PO PRN (11:30)
[2021-09-14] MEDS ORDERED: ONDANSETRON HCL 4 MG/2 ML VIAL IV PRN (11:30)
[2021-09-14] MEDS ORDERED: D5W/SOD CHLO 0.9% 1,000 ML IV ONE (11:30)
[2021-09-14] MEDS ORDERED: SODIUM CHLORIDE 0.9% 1,000 ML IV ONE (11:30)
[2021-09-14] MEDS ORDERED: ALBUTEROL SULF 2.5 MG/0.5ML(0.5%) NEB SOLN NEB ONE (11:30)
[2021-09-14] MEDS ORDERED: SODIUM ZIRCONIUM CYCL 10 GM PAK PO ONE (11:30)
[2021-09-14] MEDS ORDERED: SODIUM BICARBONATE 8.4 % INJ 50ML VIAL IV ONE ×3 (11:30→14:41)
[2021-09-14 11:38] LABS: Urine Bacteria NONE SEEN /hpf (None Seen); Urine Blood Negative /uL (Negative); Urine Specific Gravity 1.023 (1.001-1.035); Urine WBC <1 /hpf (0 - 3)
[2021-09-14] MEDS: ACCU-CHEK COMFORT CURVE STRIP VI SCH ×9 (11:42→22:40)
[2021-09-14] MEDS ORDERED: ALBUTEROL SULF 2.5 MG/0.5ML(0.5%) NEB SOLN ONE (12:11)
[2021-09-14 13:01] LABS: Potassium 5.5 mmol/L (3.5-5.1)
[2021-09-14 13:09] LABS: BUN/Creatinine Ratio 16.7
[2021-09-14] MEDS ORDERED: METOPROLOL TARTRATE 1MG/1ML-5ML VIAL IV PRN (14:15)
[2021-09-14] MEDS: METOPROLOL TARTRATE 25 MG TAB PO SCH ×2 (14:15→22:32)
[2021-09-14] MEDS ORDERED: VANCOMYCIN 1GM/250ML 250 ML IV ONE (14:45)
[2021-09-14] MEDS: cefTRIAXone 1GM/50ML D5W 50 ML IV SCH (14:45)
[2021-09-14] MEDS ORDERED: VANCOMYCIN PER PHARMACY 0 MG IV SCH (14:45)
[2021-09-14] MEDS ORDERED: IOHEXOL 300 MG/ML 100ML BOTTLE IJ ONE (14:56)
[2021-09-14] MEDS ORDERED: SODIUM BICARBONATE 8.4% INJ 50ML SYRINGE ONE (15:03)
[2021-09-14 15:34] LABS: Magnesium 2.9 mg/dL (1.6-2.6); Phosphorus 7.3 mg/dL (2.5-4.90)
[2021-09-14] MEDS: HYDROcodone-ACET 5/325MG TAB PO PRN ×2 (15:43→21:39)
[2021-09-14 18:54] LABS: BUN/Creatinine Ratio 16.5; Potassium 4.1 mmol/L (3.5-5.1)
[2021-09-14] MEDS ORDERED: SODIUM BICARBONATE 50ML VIAL 100 ML in D5W 5% 1,000 ML IV ONE (20:45)
[2021-09-14 21:41] LABS: Alcohol, Urine < 3.0 mg/dL (0-10); Amphetamine Screen, Urine NEGATIVE (NEGATIVE); Barbiturate Scree,Urine NEGATIVE (NEGATIVE); Benzodiazephine Screen, Urine NEGATIVE (NEGATIVE); Cannabinoid Screen, Urine NEGATIVE (NEGATIVE); Cocaine Screen, Urine NEGATIVE (NEGATIVE); Opiate Scree,Urine NEGATIVE (NEGATIVE); Phencyclidine Screen, Urine NEGATIVE (NEGATIVE)
[2021-09-14 21:42] LABS: Protein, Urine 47.7 mg/dL (0.0-11.9)
[2021-09-14 21:46] LABS: Creatinine, Urine 22 mg/dL (30.0-125.0); Sodium Urine 59 mmol/L (40-220)
[2021-09-15] MEDS: ACCU-CHEK COMFORT CURVE STRIP VI SCH ×11 (00:35→20:51)
[2021-09-15] MEDS ORDERED: VANCOMYCIN 1GM/250ML 250 ML IV SCH (01:00)
[2021-09-15 01:11] LABS: BUN/Creatinine Ratio 15.2; Potassium 3.6 mmol/L (3.5-5.1)
[2021-09-15] MEDS: HYDROcodone-ACET 5/325MG TAB PO PRN ×3 (06:11→22:00)
[2021-09-15 07:08] LABS: BUN/Creatinine Ratio 15.6; Calcium 8.2 mg/dL (8.5-10.1); Phosphorus 1.9 mg/dL (2.5-4.90); Potassium 3.3 mmol/L (3.5-5.1)
[2021-09-15] MEDS ORDERED: POTASSIUM PHOSPHATE 26.4 MEQ in SODIUM CHL 0.9% 100 ML IV ONE (08:45)
[2021-09-15] MEDS: cefTRIAXone 1GM/50ML D5W 50 ML IV SCH (09:11)
[2021-09-15] MEDS: METOPROLOL TARTRATE 25 MG TAB PO SCH ×2 (09:11→21:59)
[2021-09-15] MEDS ORDERED: INSULIN LANTUS (GLARGINE) 1 /0.01ml (100units/ml) SC ONE (11:30)
[2021-09-15] MEDS ORDERED: DEXTROSE (50%) 50ML SYRG IV PRN (11:30)
[2021-09-15] MEDS: InsuLIN REG 1unit/0.01ml Soln (100units/ml) SC SCH ×3 (12:18→20:52)
[2021-09-15 12:50] LABS: BUN/Creatinine Ratio 15.1; Calcium 8.1 mg/dL (8.5-10.1); Potassium 3.3 mmol/L (3.5-5.1)
[2021-09-15] MEDS ORDERED: LOPERAMIDE 1 mg/7.5ml ORAL soln GT ONE (14:30)
[2021-09-15] MEDS ORDERED: POTASSIUM EFFERVESENT TAB 25 MEQ GT ONE (14:30)
[2021-09-15] MEDS ORDERED: LOPERAMIDE 1 mg/7.5ml ORAL soln GT PRN (14:30)
[2021-09-15] MEDS: POTASSIUM CHL 20MEQ/100ML 100 ML IV SCH ×2 (14:32→14:33)
[2021-09-15] MEDS ORDERED: LOPERAMIDE HCL 2 MG CAP/TAB PO ONE (14:45)
[2021-09-15 18:32] LABS: BUN/Creatinine Ratio 11.1; Calcium 8.2 mg/dL (8.5-10.1); Potassium 3.9 mmol/L (3.5-5.1)
[2021-09-15 22:00] VITALS: BP 144/93
[2021-09-16] MEDS: InsuLIN REG 1unit/0.01ml Soln (100units/ml) SC SCH ×7 (00:35→23:58)
[2021-09-16] MEDS: ACCU-CHEK COMFORT CURVE STRIP VI SCH ×7 (00:36→23:57)
[2021-09-16 01:29] LABS: BUN/Creatinine Ratio 14.6; Calcium 8.8 mg/dL (8.5-10.1); Potassium 3.7 mmol/L (3.5-5.1)
[2021-09-16 05:00] VITALS: BP 112/63
[2021-09-16 05:30] LABS: Basophils # (auto) 0 10 ^3/uL (0-0.2); Eosinophils # (auto) 0 10 ^3/uL (0-0.8); Eosinophils % (auto) 0.3 % (0.0-7.0); Monocytes # (auto) 0.4 10 ^3/uL (0-1.3); Nucleated Red Blood Cells % 0.1 %
[2021-09-16 05:33] LABS: Basophils % (auto) 0.6 % (0.0-2.0); Hematocrit 35.5 % (41.0-53.0); Lymphocytes # (auto) 1.3 10 ^3/uL (0.4-5.4); Mean Corpuscular Hemoglobin 27.2 pg (28.0-32.0); Mean Corpuscular Hgb Conc. 33.7 g/dL (32.0-36.0); Mean Corpuscular Volume 80.7 fL (80.0-100.0); Monocytes % (auto) 6.5 % (0.0-12.0); Neutrophils % (auto) 69.6 % (37.0-80.0); White Blood Cell 5.8 10^3/uL (4.4-10.8)
[2021-09-16 05:43] LABS: Calcium 8.3 mg/dL (8.5-10.1); Potassium 3.6 mmol/L (3.5-5.1)
[2021-09-16 05:44] LABS: BUN/Creatinine Ratio 17.3
[2021-09-16 08:00] VITALS: BP 118/70
[2021-09-16] MEDS: HYDROcodone-ACET 5/325MG TAB PO PRN ×2 (08:42→17:53)
[2021-09-16] MEDS: cefTRIAXone 1GM/50ML D5W 50 ML IV SCH (08:42)
[2021-09-16] MEDS: ASPirin 325 MG TAB PO SCH (08:42)
[2021-09-16] MEDS: METOPROLOL TARTRATE 25 MG TAB PO SCH ×2 (08:42→21:39)
[2021-09-16 09:00] VITALS: BP 118/70
[2021-09-16 12:48] VITALS: BP 121/76
[2021-09-16 17:00] VITALS: BP 117/78
[2021-09-16 21:59] VITALS: BP 146/108
[2021-09-17] MEDS: ACCU-CHEK COMFORT CURVE STRIP VI SCH ×3 (03:36→11:20)
[2021-09-17] MEDS: InsuLIN REG 1unit/0.01ml Soln (100units/ml) SC SCH ×3 (03:37→11:21)
[2021-09-17] MEDS: HYDROcodone-ACET 5/325MG TAB PO PRN ×2 (03:39→11:20)
[2021-09-17 04:50] VITALS: BP 120/83
[2021-09-17 05:46] LABS: Basophils # (auto) 0 10 ^3/uL (0-0.2); Eosinophils # (auto) 0 10 ^3/uL (0-0.8); Eosinophils % (auto) 0.6 % (0.0-7.0); Hemoglobin 12.7 g/dL (13.5-17.5); Lymphocytes # (auto) 1.2 10 ^3/uL (0.4-5.4); Lymphocytes % (auto) 31.5 % (10.0-50.0); Mean Corpuscular Hgb Conc. 32.8 g/dL (32.0-36.0); Monocytes # (auto) 0.3 10 ^3/uL (0-1.3); Neutrophils # (auto) 2.3 10 ^3/uL (1.6-8.6); White Blood Cell 3.9 10^3/uL (4.4-10.8)
[2021-09-17 05:49] LABS: Basophils % (auto) 0.9 % (0.0-2.0); Hematocrit 38.7 % (41.0-53.0); Mean Corpuscular Hemoglobin 26.6 pg (28.0-32.0); Mean Corpuscular Volume 81.1 fL (80.0-100.0); Monocytes % (auto) 7.7 % (0.0-12.0); Neutrophils % (auto) 59.3 % (37.0-80.0); Nucleated Red Blood Cells % 0.2 %; Red Blood Cells 4.77 10^6/uL (4.5-5.90); Red Cell Distribution Width 15.7 % (11.8-14.3)
[2021-09-17 05:59] LABS: Potassium 3.8 mmol/L (3.5-5.1)
[2021-09-17 06:05] LABS: BUN/Creatinine Ratio 22.7; Calcium 8.1 mg/dL (8.5-10.1)
[2021-09-17] MEDS ORDERED: LOPERAMIDE 1 mg/7.5ml ORAL soln PO PRN (08:30)
[2021-09-17] MEDS ORDERED: LOPERAMIDE HCL 2 MG CAP/TAB PO ONE (08:30)
[2021-09-17 09:00] VITALS: BP 132/84
[2021-09-17] MEDS: ASPirin 325 MG TAB PO SCH (09:08)
[2021-09-17] MEDS: cefTRIAXone 1GM/50ML D5W 50 ML IV SCH (09:08)
[2021-09-17] MEDS: METOPROLOL TARTRATE 25 MG TAB PO SCH (09:45)
[2021-09-17 12:09] VITALS: BP 132/84
[2021-09-17 13:00] VITALS: BP 138/94
== END 2021-09-17 14:06 | disposition home or self-care (01) | DRG 420 ==
LOC: ER 08:24 → EDBD 08:24 → EDUNIT# 08:24 → TELE 11:37 → TELE-WESTW 09-15 17:25
PROVIDERS: ADMIT Internal Medicine; ATTEND Internal Medicine Pulmonary Disease
DX: E10.10 Type 1 diabetes mellitus with ketoacidosis without coma (principal); N17.0 Acute kidney failure with tubular necrosis; I47.2 Ventricular tachycardia; E87.1 Hypo-osmolality and hyponatremia; E86.0 Dehydration; I48.91 Unspecified atrial fibrillation; N13.30 Unspecified hydronephrosis; Z20.822 Contact with and (suspected) exposure to COVID-19; N13.4 Hydroureter; E87.5 Hyperkalemia; R33.9 Retention of urine, unspecified; G89.29 Other chronic pain; E87.6 Hypokalemia; K21.9 Gastro-esophageal reflux disease without esophagitis; N17.9 Acute kidney failure, unspecified; N18.9 Chronic kidney disease, unspecified; K31.84 Gastroparesis; E10.65 Type 1 diabetes mellitus with hyperglycemia; E10.22 Type 1 diabetes mellitus with diabetic chronic kidney disease; E10.43 Type 1 diabetes mellitus with diabetic autonomic (poly)neuropathy; Z79.4 Long term (current) use of insulin; Z91.19 Patient's noncompliance with other medical treatment and regimen
CPT/HCPCS: 36415; 36600; 71045; 71250; 74176; 76775; 80048; 80053; 80202; 80307; 81001; 82306; 82570; 82805; 82962; 83036; 83605; 83690; 83735; 83880; 83970; 84100; 84156; 84300; 84484; 85025; 87040; 93005; 94640; 96365; 96375; 99291; G0378; J0696; J1815; J7060

== ENCOUNTER 2021-10-26 15:12 | Inpatient (IN) | payer MEDICAID ==
[~2021-10-26] VITALS: Ht 182.9 cm; Wt 62.0 kg
[~2021-10-26 15:12] MED LIST changes: -LOP2C PO; -METO-281 PO; -NEUTRA PO; -PANT40TA2 PO
[2021-10-26] MEDS ORDERED: SODIUM CHLORIDE 0.9% 3,000 ML IV ONE (16:20)
[2021-10-26 18:02] LABS: Eosinophils # (auto) 0 10 ^3/uL (0-0.8); Hemoglobin 12.7 g/dL (13.5-17.5); Mean Corpuscular Hemoglobin 26.2 pg (28.0-32.0); Monocytes # (auto) 0.3 10 ^3/uL (0-1.3); Neutrophils # (auto) 3.9 10 ^3/uL (1.6-8.6); Nucleated Red Blood Cells % 0.1 %; Red Cell Distribution Width 14.2 % (11.8-14.3); White Blood Cell 5.6 10^3/uL (4.4-10.8)
[2021-10-26 18:04] LABS: Basophils # (auto) 0.1 10 ^3/uL (0-0.2); Basophils % (auto) 1.2 % (0.0-2.0); Eosinophils % (auto) 0.5 % (0.0-7.0); Hematocrit 39.9 % (41.0-53.0); Lymphocytes # (auto) 1.2 10 ^3/uL (0.4-5.4); Lymphocytes % (auto) 21.8 % (10.0-50.0); Mean Corpuscular Volume 81.9 fL (80.0-100.0); Monocytes % (auto) 6.2 % (0.0-12.0); Neutrophils % (auto) 70.3 % (37.0-80.0); Red Blood Cells 4.87 10^6/uL (4.5-5.90)
[2021-10-26 18:19] LABS: Albumin 3.5 g/dL (3.4-5.0); BUN/Creatinine Ratio 17.8; Calcium 8.8 mg/dL (8.5-10.1); Potassium 4.2 mmol/L (3.5-5.1)
[2021-10-26 18:21] LABS: Bilirubin, Total 0.6 mg/dL (0.2-1.0); Total Protein 7.5 g/dL (6.4-8.2)
[2021-10-26] MEDS ORDERED: InsuLIN R (HUMAN) 100 UNITS in SODIUM CHL 0.9% 99 ML IV SCH (18:45)
[2021-10-26] MEDS ORDERED: DEXTROSE (50%) 50ML SYRG IV PRN (18:45)
[2021-10-26] MEDS ORDERED: SODIUM BICARBONATE 8.4 % INJ 50ML VIAL IV ONE (18:45)
[2021-10-26] MEDS ORDERED: InsuLIN REG 1unit/0.01ml Soln (100units/ml) IV ONE (19:00)
[2021-10-26] MEDS ORDERED: SODIUM CHLORIDE 0.9% 2,000 ML IV ONE (19:00)
[2021-10-26] MEDS ORDERED: ACETAMINOPHEN 325 MG TAB PO PRN (19:15)
[2021-10-26] MEDS ORDERED: D5W/SOD CHLO 0.9% 1,000 ML IV ONE (19:15)
[2021-10-26] MEDS ORDERED: DOCUSATE SOD 100 MG CAP PO PRN (19:15)
[2021-10-26] MEDS ORDERED: MORPHINE SULFATE INJ 2 MG/ml SYRG IV PRN (19:15)
[2021-10-26] MEDS: SODIUM CHLORIDE 0.9% 1,000 ML IV SCH ×2 (19:45→20:45)
[2021-10-26] MEDS: ACCU-CHEK COMFORT CURVE STRIP VI SCH ×3 (20:12→22:46)
[2021-10-26 21:29] LABS: Urine Bacteria NONE SEEN /hpf (None Seen); Urine Blood Negative /uL (Negative); Urine Specific Gravity 1.029 (1.001-1.035); Urine WBC <1 /hpf (0 - 3)
[2021-10-26 21:33] LABS: Magnesium 2.1 mg/dL (1.6-2.6); Phosphorus 2.9 mg/dL (2.5-4.90)
[2021-10-26] MEDS ORDERED: SODIUM CHLORIDE 0.9% 1,000 ML IV SCH (22:45)
[2021-10-27] MEDS ORDERED: SODIUM CHLORIDE 0.9% 1,000 ML IV SCH (00:45)
[2021-10-27] MEDS: ACCU-CHEK COMFORT CURVE STRIP VI SCH ×6 (01:34→16:00)
[2021-10-27 01:44] LABS: BUN/Creatinine Ratio 12.2; Potassium 3.7 mmol/L (3.5-5.1)
[2021-10-27] MEDS: HYDROcodone-ACET 5/325MG TAB PO PRN ×2 (02:41→09:44)
[2021-10-27] MEDS ORDERED: DEXTROSE (50%) 50ML SYRG IV PRN (02:45)
[2021-10-27] MEDS: InsuLIN REG 1unit/0.01ml Soln (100units/ml) SC SCH ×4 (04:20→16:00)
[2021-10-27 05:20] LABS: Basophils # (auto) 0.1 10 ^3/uL (0-0.2); Eosinophils # (auto) 0.1 10 ^3/uL (0-0.8); Eosinophils % (auto) 0.8 % (0.0-7.0); Monocytes # (auto) 0.7 10 ^3/uL (0-1.3); Red Cell Distribution Width 14.2 % (11.8-14.3)
[2021-10-27 05:24] LABS: Basophils % (auto) 0.8 % (0.0-2.0); Hematocrit 38.4 % (41.0-53.0); Hemoglobin 12.4 g/dL (13.5-17.5); Lymphocytes # (auto) 1.5 10 ^3/uL (0.4-5.4); Lymphocytes % (auto) 21.1 % (10.0-50.0); Mean Corpuscular Hemoglobin 26.3 pg (28.0-32.0); Mean Corpuscular Hgb Conc. 32.4 g/dL (32.0-36.0); Mean Corpuscular Volume 81.3 fL (80.0-100.0); Monocytes % (auto) 9.4 % (0.0-12.0); Neutrophils # (auto) 4.9 10 ^3/uL (1.6-8.6); Neutrophils % (auto) 67.9 % (37.0-80.0); Nucleated Red Blood Cells % 0.1 %; Red Blood Cells 4.72 10^6/uL (4.5-5.90); White Blood Cell 7.2 10^3/uL (4.4-10.8)
[2021-10-27 05:36] VITALS: BP 123/76
[2021-10-27 06:40] LABS: Potassium 3.5 mmol/L (3.5-5.1)
[2021-10-27 06:52] LABS: Albumin 2.8 g/dL (3.4-5.0); BUN/Creatinine Ratio 13.5; Bilirubin, Total 0.4 mg/dL (0.2-1.0); Calcium 7.9 mg/dL (8.5-10.1); Total Protein 6.4 g/dL (6.4-8.2)
[2021-10-27 08:40] VITALS: BP 145/106
[2021-10-27] MEDS ORDERED: ENOXAPARIN SOD 40 MG/0.4 ML SYRINGE SC SCH (10:00)
[2021-10-27] MEDS ORDERED: INSULIN LANTUS (GLARGINE) 1 /0.01ml (100units/ml) SC SCH (10:30)
[2021-10-27 12:00] VITALS: BP 136/91
[2021-10-27] MEDS ORDERED: BLOOKIT79 XX (12:48)
[2021-10-27 14:45] LABS: BUN/Creatinine Ratio 11.4; Calcium 8.8 mg/dL (8.5-10.1); Potassium 3.7 mmol/L (3.5-5.1)
[2021-10-27 16:38] VITALS: BP 158/118
[2021-10-27] MEDS ORDERED: MUPI2OIN2 EACHNOSTRI (17:11)
[2021-10-27 18:22] VITALS: BP 125/90
[2021-10-27] MEDS ORDERED: MUPIROCIN 2% OINT 15gm or 22gm FOR MRSA NARES EACHNOSTRI SCH (22:00)
== END 2021-10-27 19:00 | disposition home or self-care (01) | DRG 420 ==
LOC: ER 15:12 → EDBD 15:12 → TELE 19:05 → TELE-WESTW 10-27 05:57
PROVIDERS: ADMIT Internal Medicine; ATTEND Internal Medicine
DX: E10.10 Type 1 diabetes mellitus with ketoacidosis without coma (principal); E87.1 Hypo-osmolality and hyponatremia; E86.0 Dehydration; Z20.822 Contact with and (suspected) exposure to COVID-19; K21.9 Gastro-esophageal reflux disease without esophagitis; Z79.4 Long term (current) use of insulin; Z91.19 Patient's noncompliance with other medical treatment and regimen
CPT/HCPCS: 36415; 36600; 80048; 80053; 81001; 82010; 82805; 82962; 83735; 83930; 84100; 85025; 87081; 93005; 96360; G0378; J1815

== ENCOUNTER 2021-11-03 04:22 | Inpatient (IN) | payer OTHER, MEDICAID ==
[~2021-11-03] VITALS: Ht 193 cm; Wt 71.7 kg
[~2021-11-03 04:22] MED LIST changes: +BLOOKIT79 XX; +MUPI2OIN2 EACHNOSTRI
[2021-11-03] MEDS ORDERED: SODIUM CHLORIDE 0.9% 3,000 ML IV ONE (05:00)
[2021-11-03] MEDS ORDERED: InsuLIN REG 1unit/0.01ml Soln (100units/ml) IV ONE (05:00)
[2021-11-03 05:14] LABS: Urine Bacteria NONE SEEN /hpf (None Seen); Urine Blood Negative /uL (Negative); Urine Specific Gravity 1.027 (1.001-1.035); Urine WBC <1 /hpf (0 - 3)
[2021-11-03] MEDS ORDERED: SODIUM BICARBONATE 8.4 % INJ 50ML VIAL IV ONE (05:15)
[2021-11-03] MEDS ORDERED: SODIUM BICARBONATE 8.4% INJ 50ML SYRINGE ONE (05:17)
[2021-11-03 05:45] LABS: Basophils # (auto) 0.1 10 ^3/uL (0-0.2); Eosinophils # (auto) 0 10 ^3/uL (0-0.8); Lymphocytes # (auto) 0.9 10 ^3/uL (0.4-5.4); Mean Corpuscular Hemoglobin 26.2 pg (28.0-32.0); Monocytes # (auto) 0.3 10 ^3/uL (0-1.3)
[2021-11-03 05:49] LABS: Hematocrit 46.5 % (41.0-53.0); Hemoglobin 14.2 g/dL (13.5-17.5); Lymphocytes % (auto) 9.2 % (10.0-50.0); Mean Corpuscular Hgb Conc. 30.7 g/dL (32.0-36.0); Mean Corpuscular Volume 85.6 fL (80.0-100.0); Monocytes % (auto) 3.4 % (0.0-12.0); Neutrophils # (auto) 8.4 10 ^3/uL (1.6-8.6); Neutrophils % (auto) 86.4 % (37.0-80.0); Red Blood Cells 5.43 10^6/uL (4.5-5.90); Red Cell Distribution Width 14.7 % (11.8-14.3); White Blood Cell 9.7 10^3/uL (4.4-10.8)
[2021-11-03 05:56] LABS: Albumin 4.4 g/dL (3.4-5.0); Calcium 10.1 mg/dL (8.5-10.1); Potassium 5.3 mmol/L (3.5-5.1)
[2021-11-03 06:00] LABS: Bilirubin, Total 0.7 mg/dL (0.2-1.0); Total Protein 8.8 g/dL (6.4-8.2)
[2021-11-03] MEDS ORDERED: DEXTROSE (50%) 50ML SYRG IV PRN (07:00)
[2021-11-03] MEDS ORDERED: InsuLIN R (HUMAN) 100 UNITS in SODIUM CHL 0.9% 99 ML IV SCH (07:00)
[2021-11-03] MEDS: SODIUM CHLORIDE 0.9% 1,000 ML IV SCH ×4 (07:43→23:00)
[2021-11-03] MEDS: ACCU-CHEK COMFORT CURVE STRIP VI SCH ×11 (07:45→22:38)
[2021-11-03] MEDS ORDERED: SODIUM CHLORIDE 0.9% 1,000 ML IV SCH ×2 (11:00→13:00)
[2021-11-03] MEDS ORDERED: D5W/SOD CHLO 0.9% 1,000 ML IV PRN (13:00)
[2021-11-03] MEDS ORDERED: ONDANSETRON HCL 4 MG/2 ML VIAL IV PRN (13:00)
[2021-11-03] MEDS ORDERED: ACETAMINOPHEN 325 MG TAB PO PRN (13:00)
[2021-11-03 13:22] LABS: Calcium 8.4 mg/dL (8.5-10.1); Potassium 4.3 mmol/L (3.5-5.1)
[2021-11-03 19:27] LABS: BUN/Creatinine Ratio 13.4; Calcium 8.7 mg/dL (8.5-10.1)
[2021-11-03] MEDS: HYDROcodone-ACET 5/325MG TAB PO PRN (23:48)
[2021-11-04] MEDS: ACCU-CHEK COMFORT CURVE STRIP VI SCH ×9 (00:04→20:37)
[2021-11-04 01:40] LABS: BUN/Creatinine Ratio 14.1; Calcium 8.6 mg/dL (8.5-10.1); Potassium 3.5 mmol/L (3.5-5.1)
[2021-11-04] MEDS ORDERED: DEXTROSE (50%) 50ML SYRG IV PRN ×2 (05:00→14:15)
[2021-11-04] MEDS ORDERED: INSULIN LANTUS (GLARGINE) 1 /0.01ml (100units/ml) SC ONE (05:00)
[2021-11-04 07:29] LABS: Calcium 8.6 mg/dL (8.5-10.1); Potassium 3.2 mmol/L (3.5-5.1)
[2021-11-04 07:30] LABS: Basophils # (auto) 0.1 10 ^3/uL (0-0.2); Eosinophils # (auto) 0 10 ^3/uL (0-0.8); Mean Corpuscular Hgb Conc. 32.3 g/dL (32.0-36.0); Nucleated Red Blood Cells % 0.1 %
[2021-11-04 07:31] LABS: BUN/Creatinine Ratio 14.4
[2021-11-04 07:32] LABS: Eosinophils % (auto) 0.5 % (0.0-7.0); Hematocrit 38.2 % (41.0-53.0); Hemoglobin 12.3 g/dL (13.5-17.5); Lymphocytes # (auto) 1.7 10 ^3/uL (0.4-5.4); Lymphocytes % (auto) 22.3 % (10.0-50.0); Mean Corpuscular Volume 80.3 fL (80.0-100.0); Monocytes # (auto) 0.5 10 ^3/uL (0-1.3); Monocytes % (auto) 7.3 % (0.0-12.0); Neutrophils # (auto) 5.1 10 ^3/uL (1.6-8.6); Neutrophils % (auto) 68.9 % (37.0-80.0); Red Blood Cells 4.75 10^6/uL (4.5-5.90); Red Cell Distribution Width 14.4 % (11.8-14.3); White Blood Cell 7.5 10^3/uL (4.4-10.8)
[2021-11-04] MEDS: InsuLIN REG 1unit/0.01ml Soln (100units/ml) SC SCH ×4 (08:43→20:38)
[2021-11-04] MEDS: HYDROcodone-ACET 5/325MG TAB PO PRN ×2 (08:44→18:14)
[2021-11-04] MEDS: SODIUM CHLORIDE 0.9% 1,000 ML IV SCH (09:27)
[2021-11-04 17:14] VITALS: BP 153/110
[2021-11-04] MEDS ORDERED: hydrALAZINE HCL 20 MG/ML VL IV PRN (18:00)
[2021-11-04] MEDS ORDERED: POTASSIUM CHL 20 Meq TABLET PO ONE (18:00)
[2021-11-04 22:00] VITALS: BP 129/85
[2021-11-05] MEDS: HYDROcodone-ACET 5/325MG TAB PO PRN ×2 (01:11→08:12)
[2021-11-05] MEDS: ACCU-CHEK COMFORT CURVE STRIP VI SCH ×4 (01:12→11:50)
[2021-11-05] MEDS: InsuLIN REG 1unit/0.01ml Soln (100units/ml) SC SCH ×4 (01:14→11:58)
[2021-11-05 05:00] VITALS: BP 114/78
[2021-11-05 09:00] VITALS: BP 114/69
[2021-11-05] MEDS ORDERED: INSLANTI SC (10:50)
== END 2021-11-05 13:00 | disposition home or self-care (01) | DRG 420 ==
LOC: EDBD 04:22 → ER 04:22 → TELE 13:18 → TELE-WESTW 11-04 16:57
PROVIDERS: ADMIT Internal Medicine; ATTEND Family Medicine
DX: E10.10 Type 1 diabetes mellitus with ketoacidosis without coma (principal); E86.0 Dehydration; K21.9 Gastro-esophageal reflux disease without esophagitis; Z20.822 Contact with and (suspected) exposure to COVID-19; Z91.14 Patient's other noncompliance with medication regimen; Z79.4 Long term (current) use of insulin; Z91.19 Patient's noncompliance with other medical treatment and regimen; Z59.00 Homelessness unspecified
CPT/HCPCS: 36415; 36600; 74176; 80048; 80053; 81001; 82010; 82805; 82962; 83036; 83690; 83735; 83930; 84100; 85025; 87040; 96361; 96365; 96375; 99291; G0378; J1815; J7042

== ENCOUNTER 2021-11-20 10:50 | Inpatient (IN) | payer MEDICAID ==
[~2021-11-20] VITALS: Ht 182.9 cm; Wt 67.7 kg
[2021-11-20] MEDS ORDERED: SODIUM CHLORIDE 0.9% 1,000 ML IV ONE ×2 (11:00→13:15)
[2021-11-20] MEDS ORDERED: MORPHINE SULFATE 4 MG/ML SYR/VIAL IV ONE (11:00)
[2021-11-20] MEDS ORDERED: InsuLIN REG 1unit/0.01ml Soln (100units/ml) IV ONE (11:00)
[2021-11-20] MEDS ORDERED: PANTOPRAZOLE 40 MG/10 ML VIAL INJ IV ONE (11:00)
[2021-11-20] MEDS ORDERED: ONDANSETRON HCL 4 MG/2 ML VIAL IV ONE (11:00)
[2021-11-20 11:30] LABS: Urine WBC None Seen /hpf (0 - 3)
[2021-11-20 11:33] LABS: Eosinophils # (auto) 0 10 ^3/uL (0-0.8); Lymphocytes # (auto) 0.9 10 ^3/uL (0.4-5.4); Monocytes # (auto) 0.2 10 ^3/uL (0-1.3); Red Blood Cells 5.73 10^6/uL (4.5-5.90); White Blood Cell 5.2 10^3/uL (4.4-10.8)
[2021-11-20 11:35] LABS: Basophils # (auto) 0 10 ^3/uL (0-0.2); Basophils % (auto) 0.9 % (0.0-2.0); Eosinophils % (auto) 0.1 % (0.0-7.0); Hematocrit 46.7 % (41.0-53.0); Hemoglobin 14.9 g/dL (13.5-17.5); Lymphocytes % (auto) 16.7 % (10.0-50.0); Mean Corpuscular Hgb Conc. 31.9 g/dL (32.0-36.0); Mean Corpuscular Volume 81.5 fL (80.0-100.0); Monocytes % (auto) 3.8 % (0.0-12.0); Neutrophils # (auto) 4.1 10 ^3/uL (1.6-8.6); Neutrophils % (auto) 78.5 % (37.0-80.0); Nucleated Red Blood Cells % 0.2 %
[2021-11-20 11:48] LABS: BUN/Creatinine Ratio 12.3; Calcium 9.7 mg/dL (8.5-10.1); Magnesium 2.5 mg/dL (1.6-2.6)
[2021-11-20 11:58] LABS: Bilirubin, Total 0.7 mg/dL (0.2-1.0); INR 0.94 (0.9-1.15); Partial Thromboplastin Time 26.2 sec (24.6-33.4); Potassium 4.9 mmol/L (3.5-5.1); Total Protein 8.1 g/dL (6.4-8.2)
[2021-11-20] MEDS ORDERED: DEXTROSE (50%) 50ML SYRG IV PRN (12:15)
[2021-11-20] MEDS ORDERED: InsuLIN R (HUMAN) 100 UNITS in SODIUM CHL 0.9% 99 ML IV SCH (12:15)
[2021-11-20] MEDS ORDERED: INSULIN LANTUS (GLARGINE) 1 /0.01ml (100units/ml) SC ONE (12:15)
[2021-11-20 13:18] LABS: Urine Bacteria NONE SEEN /hpf (None Seen); Urine Blood Negative /uL (Negative); Urine Mucus FEW (None Seen); Urine Specific Gravity 1.029 (1.001-1.035)
[2021-11-20] MEDS: ACCU-CHEK COMFORT CURVE STRIP VI SCH ×7 (13:30→22:28)
[2021-11-20] MEDS ORDERED: DOCUSATE SOD 100 MG CAP PO PRN (15:30)
[2021-11-20] MEDS ORDERED: ONDANSETRON HCL 4 MG/2 ML VIAL IV PRN (15:30)
[2021-11-20] MEDS ORDERED: ACETAMINOPHEN 325 MG TAB PO PRN (15:30)
[2021-11-20] MEDS ORDERED: METOCLOPRAMIDE HCL 5MG/ml INJ 2ml VIAL IV PRN (15:30)
[2021-11-20] MEDS ORDERED: NITROGLYCERIN 0.4 MG SL TAB SL PRN (15:30)
[2021-11-20] MEDS ORDERED: MORPHINE SULFATE INJ 2 MG/ml SYRG IV PRN (15:30)
[2021-11-20] MEDS: SODIUM CHLORIDE 0.9% 1,000 ML IV SCH ×2 (16:15→22:30)
[2021-11-20 18:33] LABS: BUN/Creatinine Ratio 12.1; Calcium 8.6 mg/dL (8.5-10.1); Potassium 4.2 mmol/L (3.5-5.1)
[2021-11-21] MEDS: ACCU-CHEK COMFORT CURVE STRIP VI SCH ×9 (00:04→22:08)
[2021-11-21 01:26] LABS: Albumin 3.2 g/dL (3.4-5.0); Calcium 8.5 mg/dL (8.5-10.1); Potassium 3.8 mmol/L (3.5-5.1)
[2021-11-21 01:28] LABS: BUN/Creatinine Ratio 13.9
[2021-11-21 01:30] LABS: Bilirubin, Total 0.5 mg/dL (0.2-1.0); Total Protein 6.9 g/dL (6.4-8.2)
[2021-11-21 04:20] LABS: Basophils # (auto) 0.1 10 ^3/uL (0-0.2); Basophils % (auto) 1.2 % (0.0-2.0); Eosinophils # (auto) 0 10 ^3/uL (0-0.8); Eosinophils % (auto) 0.6 % (0.0-7.0); Hematocrit 40.8 % (41.0-53.0); Hemoglobin 13.1 g/dL (13.5-17.5); Lymphocytes # (auto) 1.3 10 ^3/uL (0.4-5.4); Lymphocytes % (auto) 29.3 % (10.0-50.0); Mean Corpuscular Hemoglobin 25.6 pg (28.0-32.0); Mean Corpuscular Hgb Conc. 32.2 g/dL (32.0-36.0); Mean Corpuscular Volume 79.5 fL (80.0-100.0); Monocytes # (auto) 0.4 10 ^3/uL (0-1.3); Monocytes % (auto) 7.8 % (0.0-12.0); Neutrophils # (auto) 2.8 10 ^3/uL (1.6-8.6); Neutrophils % (auto) 61.1 % (37.0-80.0); Nucleated Red Blood Cells % 0.1 %; Red Blood Cells 5.14 10^6/uL (4.5-5.90); Red Cell Distribution Width 14.1 % (11.8-14.3); White Blood Cell 4.5 10^3/uL (4.4-10.8)
[2021-11-21 04:39] LABS: Potassium 3.6 mmol/L (3.5-5.1)
[2021-11-21 04:44] LABS: Albumin 3.1 g/dL (3.4-5.0); BUN/Creatinine Ratio 13.5; Calcium 8.5 mg/dL (8.5-10.1)
[2021-11-21 04:47] LABS: Bilirubin, Total 0.5 mg/dL (0.2-1.0); Total Protein 6.8 g/dL (6.4-8.2)
[2021-11-21] MEDS: SODIUM CHLORIDE 0.9% 1,000 ML IV SCH (05:20)
[2021-11-21 06:10] LABS: BUN/Creatinine Ratio 13.5; Calcium 8.6 mg/dL (8.5-10.1); Potassium 3.5 mmol/L (3.5-5.1)
[2021-11-21] MEDS ORDERED: DEXTROSE (50%) 50ML SYRG IV PRN (09:15)
[2021-11-21] MEDS ORDERED: INSULIN LANTUS (GLARGINE) 1 /0.01ml (100units/ml) SC ONE (09:15)
[2021-11-21] MEDS ORDERED: INSULIN LANTUS (GLARGINE) 1 /0.01ml (100units/ml) SC SCH ×2 (10:00→22:00)
[2021-11-21] MEDS: InsuLIN REG 1unit/0.01ml Soln (100units/ml) SC SCH ×2 (11:47→17:00)
[2021-11-21 22:00] VITALS: BP 158/112
[2021-11-21] MEDS ORDERED: InsuLIN REG 1unit/0.01ml Soln (100units/ml) SC SCH (22:00)
[2021-11-21] MEDS: traMADol HCL 50 MG TAB PO PRN (22:53)
[2021-11-22 05:00] VITALS: BP 152/112
[2021-11-22 05:52] LABS: Calcium 8.9 mg/dL (8.5-10.1); Potassium 3.5 mmol/L (3.5-5.1)
[2021-11-22] MEDS: InsuLIN REG 1unit/0.01ml Soln (100units/ml) SC SCH ×2 (05:53→11:38)
[2021-11-22 05:56] LABS: BUN/Creatinine Ratio 13.5
[2021-11-22] MEDS: ACCU-CHEK COMFORT CURVE STRIP VI SCH ×2 (06:06→16:12)
[2021-11-22] MEDS: traMADol HCL 50 MG TAB PO PRN (06:17)
[2021-11-22] MEDS ORDERED: INSULIN LANTUS (GLARGINE) 1 /0.01ml (100units/ml) SC SCH ×3 (07:00→22:00)
[2021-11-22 09:00] VITALS: BP 164/120
[2021-11-22] MEDS ORDERED: cloNIDine HCL 0.1 MG TAB PO PRN (09:15)
[2021-11-22 13:00] VITALS: BP 153/110
[2021-11-22] MEDS ORDERED: VANC125C3 PO (13:58)
[2021-11-22 15:08] VITALS: BP 136/86
[2021-11-22] MEDS ORDERED: INSULIN LISPRO (HUMAN) 100 UNITS/ML ML SC SCH (18:00)
== END 2021-11-22 15:30 | disposition home or self-care (01) | DRG 420 ==
LOC: EDBD 10:50 → ER 10:55 → TELE 15:26 → TELE-WESTW 11-21 15:38
PROVIDERS: ADMIT Hospitalist; ATTEND Hospitalist
DX: E10.10 Type 1 diabetes mellitus with ketoacidosis without coma (principal); F17.210 Nicotine dependence, cigarettes, uncomplicated; J45.909 Unspecified asthma, uncomplicated; K21.9 Gastro-esophageal reflux disease without esophagitis; Z20.822 Contact with and (suspected) exposure to COVID-19; Z79.4 Long term (current) use of insulin; Z91.19 Patient's noncompliance with other medical treatment and regimen; Z83.3 Family history of diabetes mellitus; Z91.14 Patient's other noncompliance with medication regimen
CPT/HCPCS: 36415; 36600; 71045; 74176; 80048; 80053; 81001; 82010; 82805; 82962; 83735; 83930; 85025; 85610; 85730; 87493; 96361; 96374; 96375; 99291; C9113; G0378; J1815; J2405

== ENCOUNTER 2021-11-27 08:22 | Inpatient (IN) | payer OTHER, MEDICAID ==
[~2021-11-27] VITALS: Ht 188 cm; Wt 70.0 kg
[2021-11-27] VITALS (31 sets, daily range): BP systolic 84–133; BP diastolic 38–71
[~2021-11-27 08:22] MED LIST changes: +VANC125C3 PO
[2021-11-27] MEDS ORDERED: SODIUM CHLORIDE 0.9% 2,000 ML IV ONE ×2 (09:30→15:45)
[2021-11-27 10:19] LABS: Basophils # (auto) 0.1 10 ^3/uL (0-0.2); Eosinophils # (auto) 0 10 ^3/uL (0-0.8); Eosinophils % (auto) 0.1 % (0.0-7.0); Hematocrit 49.8 % (41.0-53.0); Hemoglobin 14.6 g/dL (13.5-17.5); Mean Corpuscular Hemoglobin 26.7 pg (28.0-32.0)
[2021-11-27 10:21] LABS: Basophils % (auto) 0.9 % (0.0-2.0); Lymphocytes % (auto) 9.2 % (10.0-50.0); Mean Corpuscular Hgb Conc. 29.3 g/dL (32.0-36.0); Mean Corpuscular Volume 91.1 fL (80.0-100.0); Neutrophils # (auto) 8.5 10 ^3/uL (1.6-8.6); Neutrophils % (auto) 80.8 % (37.0-80.0); Nucleated Red Blood Cells % 0.2 %; Red Blood Cells 5.47 10^6/uL (4.5-5.90); Red Cell Distribution Width 14.9 % (11.8-14.3); White Blood Cell 10.5 10^3/uL (4.4-10.8)
[2021-11-27] MEDS ORDERED: SODIUM CHLORIDE 0.9% 1,000 ML IVB ONE (10:30)
[2021-11-27] MEDS ORDERED: SODIUM BICARBONATE 50ML VIAL 100 ML in SOD CHL 0.45% 1,000 ML IV ONE (10:30)
[2021-11-27] MEDS ORDERED: ONDANSETRON HCL 4 MG/2 ML VIAL IV ONE (10:30)
[2021-11-27 11:34] LABS: Magnesium 3.2 mg/dL (1.6-2.6)
[2021-11-27] MEDS ORDERED: MIDAZOLAM HCL 5 MG/ML-1ML VIAL ONE (13:59)
[2021-11-27] MEDS ORDERED: MIDAZOLAM DRIP 50 mg/50mL 50 ML IV ONE (14:00)
[2021-11-27] MEDS ORDERED: SUCCINYLCHOLINE CHLORIDE 20 MG/ML 10ML VIAL IV ONE ×3 (14:06→14:30)
[2021-11-27] MEDS: MIDAZOLAM DRIP 50 mg/50mL 50 ML IV SCH ×2 (14:10→17:32)
[2021-11-27] MEDS ORDERED: MIDAZOLAM HCL 5 MG/ML-1ML VIAL IV ONE (14:30)
[2021-11-27] MEDS ORDERED: SODIUM CHLORIDE 0.9% 1,000 ML IV SCH (15:15)
[2021-11-27] MEDS ORDERED: DOCUSATE SOD 100 MG CAP PO PRN (15:15)
[2021-11-27] MEDS ORDERED: InsuLIN REG 1unit/0.01ml Soln (100units/ml) IV ONE (15:15)
[2021-11-27] MEDS ORDERED: ONDANSETRON HCL 4 MG/2 ML VIAL IV PRN (15:15)
[2021-11-27 15:18] LABS: Urine Bacteria NONE SEEN /hpf (None Seen); Urine Blood Negative /uL (Negative); Urine Hyaline Cast FEW /lpf (0 - 2); Urine Specific Gravity 1.025 (1.001-1.035); Urine WBC 2 /hpf (0 - 3)
[2021-11-27] MEDS: NOREPINEPHRINE 8 MG/250ML KIT 250 ML IV SCH ×2 (15:45→21:49)
[2021-11-27] MEDS ORDERED: INSULIN LANTUS (GLARGINE) 1 /0.01ml (100units/ml) SC ONE (16:30)
[2021-11-27] MEDS: SODIUM CHLORIDE 0.9% 1,000 ML IV SCH (16:30)
[2021-11-27 17:59] LABS: Potassium 3.7 mmol/L (3.5-5.1)
[2021-11-27 18:00] LABS: BUN/Creatinine Ratio 13.3; Bilirubin, Total 1.4 mg/dL (0.2-1.0)
[2021-11-27] MEDS: PROPOFOL 100 ML IV SCH (18:00)
[2021-11-27 18:01] LABS: Albumin 2.7 g/dL (3.4-5.0)
[2021-11-27 19:48] LABS: Anion Gap 15 (5-15); Blood Urea Nitrogen 34 mg/dL (7-18); Carbon Dioxide 27 mmol/L (21-32); Chloride 103 mmol/L (98-107); Potassium 4.2 mmol/L (3.5-5.1); Sodium 145 mmol/L (136-145)
[2021-11-27 19:56] LABS: GFR African American 100 mL/min; GFR Non-African American 83 mL/min
[2021-11-27 20:00] LABS: Glucose 586 mg/dL (74-106)
[2021-11-27 20:52] LABS: BUN/Creatinine Ratio 28.6
[2021-11-27 20:56] LABS: Calcium < 5.0 mg/dL (8.5-10.1)
[2021-11-27] MEDS ORDERED: SODIUM BICARBONATE 8.4 % INJ 50ML VIAL IV ONE (21:15)
[2021-11-27] MEDS ORDERED: DEXTROSE (50%) 50ML SYRG IV PRN (21:30)
[2021-11-27] MEDS ORDERED: SODIUM BICARBONATE 50ML VIAL 100 ML in SOD CHL 0.45% 1,000 ML IV SCH (21:30)
[2021-11-27] MEDS: CALCIUM GLUC 1,000mg/50ml-NS 50 ML IV SCH ×2 (23:00→23:30)
[2021-11-28] VITALS (94 sets, daily range): BP systolic 82–114; BP diastolic 44–69
[2021-11-28] MEDS ORDERED: InsuLIN REG 1unit/0.01ml Soln (100units/ml) SC SCH
[2021-11-28 00:20] LABS: BUN/Creatinine Ratio 22.6; Calcium 11.8 mg/dL (8.5-10.1)
[2021-11-28 00:31] LABS: Potassium 6.2 mmol/L (3.5-5.1)
[2021-11-28] MEDS ORDERED: DEXTROSE (50%) 50ML SYRG IV PRN ×3 (00:45→11:45)
[2021-11-28] MEDS ORDERED: InsuLIN R (HUMAN) 100 UNITS in SODIUM CHL 0.9% 99 ML IV SCH (00:45)
[2021-11-28] MEDS ORDERED: SODIUM BICARBONATE 50ML VIAL 150 ML in SOD CHL 0.45% 1,000 ML IV SCH (00:45)
[2021-11-28] MEDS ORDERED: SODIUM BICARBONATE 8.4 % INJ 50ML VIAL IV ONE (00:55)
[2021-11-28] MEDS ORDERED: ACCU-CHEK COMFORT CURVE STRIP VI SCH ×2 (01:30)
[2021-11-28] MEDS: SODIUM CHLORIDE 0.9% 1,000 ML IV SCH ×4 (01:30→10:42)
[2021-11-28] MEDS ORDERED: DexmedeTOMIDine 4 ML IV ONE (02:51)
[2021-11-28] MEDS: InsuLIN R (HUMAN) 100 UNITS in SODIUM CHL 0.9% 99 ML IV SCH ×2 (03:20→04:49)
[2021-11-28 04:35] LABS: Basophils # (auto) 0.1 10 ^3/uL (0-0.2); Eosinophils # (auto) 0 10 ^3/uL (0-0.8); Eosinophils % (auto) 0.1 % (0.0-7.0); Hemoglobin 12.6 g/dL (13.5-17.5); Monocytes # (auto) 0.8 10 ^3/uL (0-1.3); Red Cell Distribution Width 14.1 % (11.8-14.3)
[2021-11-28 04:37] LABS: Basophils % (auto) 0.7 % (0.0-2.0); Hematocrit 38.7 % (41.0-53.0); Lymphocytes # (auto) 2.1 10 ^3/uL (0.4-5.4); Lymphocytes % (auto) 21.8 % (10.0-50.0); Mean Corpuscular Hgb Conc. 32.6 g/dL (32.0-36.0); Mean Corpuscular Volume 79.7 fL (80.0-100.0); Monocytes % (auto) 8.3 % (0.0-12.0); Neutrophils # (auto) 6.7 10 ^3/uL (1.6-8.6); Neutrophils % (auto) 69.1 % (37.0-80.0); Nucleated Red Blood Cells % 0.1 %; Red Blood Cells 4.85 10^6/uL (4.5-5.90); White Blood Cell 9.6 10^3/uL (4.4-10.8)
[2021-11-28 04:43] LABS: INR 0.99 (0.9-1.15); Partial Thromboplastin Time 23.4 sec (24.6-33.4)
[2021-11-28 04:46] LABS: BUN/Creatinine Ratio 20.4; Calcium 8.7 mg/dL (8.5-10.1); Magnesium 2.7 mg/dL (1.6-2.6)
[2021-11-28] MEDS: ACCU-CHEK COMFORT CURVE STRIP VI SCH ×9 (04:55→23:34)
[2021-11-28] MEDS: MIDAZOLAM DRIP 50 mg/50mL 50 ML IV SCH (06:04)
[2021-11-28] MEDS ORDERED: D5W/SOD CHL 0.45% 1,000 ML IV SCH ×2 (07:45→12:15)
[2021-11-28] MEDS: ENOXAPARIN SOD 40 MG/0.4 ML SYRINGE SC SCH (09:57)
[2021-11-28] MEDS ORDERED: INSULIN LANTUS (GLARGINE) 1 /0.01ml (100units/ml) SC SCH (10:00)
[2021-11-28 10:19] LABS: Eosinophils # (auto) 0 10 ^3/uL (0-0.8); Eosinophils % (auto) 0.2 % (0.0-7.0); Hemoglobin 12.4 g/dL (13.5-17.5); Lymphocytes # (auto) 1.5 10 ^3/uL (0.4-5.4); Mean Corpuscular Hemoglobin 25.7 pg (28.0-32.0); Red Blood Cells 4.81 10^6/uL (4.5-5.90)
[2021-11-28 10:23] LABS: Basophils # (auto) 0.1 10 ^3/uL (0-0.2); Hematocrit 37.9 % (41.0-53.0); Lymphocytes % (auto) 16.1 % (10.0-50.0); Mean Corpuscular Hgb Conc. 32.6 g/dL (32.0-36.0); Mean Corpuscular Volume 78.8 fL (80.0-100.0); Neutrophils # (auto) 6.8 10 ^3/uL (1.6-8.6); Neutrophils % (auto) 71.7 % (37.0-80.0); Nucleated Red Blood Cells % 0.7 %; Red Cell Distribution Width 14.4 % (11.8-14.3); White Blood Cell 9.5 10^3/uL (4.4-10.8)
[2021-11-28 10:39] LABS: Albumin 2.8 g/dL (3.4-5.0); Calcium 8.4 mg/dL (8.5-10.1); Potassium 4.1 mmol/L (3.5-5.1)
[2021-11-28 10:44] LABS: BUN/Creatinine Ratio 19.4; Bilirubin, Total 0.3 mg/dL (0.2-1.0); Total Protein 5.9 g/dL (6.4-8.2)
[2021-11-28] MEDS ORDERED: D5W/SOD CHLO 0.9% 1,000 ML IV SCH (11:30)
[2021-11-28] MEDS: InsuLIN REG 1unit/0.01ml Soln (100units/ml) SC SCH ×4 (12:00→23:33)
[2021-11-28] MEDS: PROPOFOL 100 ML IV SCH ×2 (12:40→22:34)
[2021-11-28] MEDS: D5W/SOD CHL 0.45% 1,000 ML IV SCH ×2 (14:15→23:39)
[2021-11-28 15:58] LABS: Potassium 3.8 mmol/L (3.5-5.1)
[2021-11-28 17:10] LABS: BUN/Creatinine Ratio 19.9; Calcium 8.5 mg/dL (8.5-10.1)
[2021-11-28 20:59] LABS: Alcohol, Urine < 3.0 mg/dL (0-10); Amphetamine Screen, Urine NEGATIVE (NEGATIVE); Barbiturate Scree,Urine NEGATIVE (NEGATIVE); Benzodiazephine Screen, Urine POSITIVE (NEGATIVE); Cannabinoid Screen, Urine POSITIVE (NEGATIVE); Cocaine Screen, Urine NEGATIVE (NEGATIVE); Opiate Scree,Urine NEGATIVE (NEGATIVE); Phencyclidine Screen, Urine NEGATIVE (NEGATIVE)
[2021-11-29] VITALS (95 sets, daily range): BP systolic 91–153; BP diastolic 56–102
[2021-11-29] MEDS: MIDAZOLAM DRIP 50 mg/50mL 50 ML IV SCH (00:32)
[2021-11-29] MEDS: D5W/SOD CHL 0.45% 1,000 ML IV SCH ×3 (03:35→18:26)
[2021-11-29] MEDS: PROPOFOL 100 ML IV SCH ×3 (04:00→22:22)
[2021-11-29] MEDS: InsuLIN REG 1unit/0.01ml Soln (100units/ml) SC SCH ×6 (04:00→23:33)
[2021-11-29 04:20] LABS: Basophils # (auto) 0 10 ^3/uL (0-0.2); Eosinophils # (auto) 0 10 ^3/uL (0-0.8); Hemoglobin 11.6 g/dL (13.5-17.5); Monocytes # (auto) 0.3 10 ^3/uL (0-1.3); Neutrophils # (auto) 2.7 10 ^3/uL (1.6-8.6); White Blood Cell 3.7 10^3/uL (4.4-10.8)
[2021-11-29 04:28] LABS: Eosinophils % (auto) 0.3 % (0.0-7.0); Hematocrit 34.9 % (41.0-53.0); Lymphocytes # (auto) 0.7 10 ^3/uL (0.4-5.4); Lymphocytes % (auto) 17.9 % (10.0-50.0); Mean Corpuscular Hemoglobin 26.1 pg (28.0-32.0); Mean Corpuscular Hgb Conc. 33.3 g/dL (32.0-36.0); Mean Corpuscular Volume 78.4 fL (80.0-100.0); Monocytes % (auto) 8.2 % (0.0-12.0); Neutrophils % (auto) 72.6 % (37.0-80.0); Red Blood Cells 4.44 10^6/uL (4.5-5.90); Red Cell Distribution Width 14.3 % (11.8-14.3)
[2021-11-29 04:40] LABS: BUN/Creatinine Ratio 18.3; Calcium 8.6 mg/dL (8.5-10.1); Potassium 3.7 mmol/L (3.5-5.1)
[2021-11-29] MEDS: ACCU-CHEK COMFORT CURVE STRIP VI SCH ×6 (04:49→23:32)
[2021-11-29] MEDS: PANTOPRAZOLE 40 MG/10 ML VIAL INJ IV SCH (09:04)
[2021-11-29] MEDS: ENOXAPARIN SOD 40 MG/0.4 ML SYRINGE SC SCH (09:04)
[2021-11-29] MEDS ORDERED: INSULIN LANTUS (GLARGINE) 1 /0.01ml (100units/ml) SC SCH (10:00)
[2021-11-29] MEDS ORDERED: FUROSEMIDE 100 MG/10ML VIAL IV ONE (10:30)
[2021-11-29] MEDS: NOREPINEPHRINE 8 MG/250ML KIT 250 ML IV SCH ×2 (11:24→17:15)
[2021-11-29] MEDS: FREE WATER GT SCH (22:07)
[2021-11-30] VITALS (99 sets, daily range): BP systolic 102–175; BP diastolic 63–125
[2021-11-30] MEDS: SOD CHL 0.45% 1,000 ML IV SCH ×4 (01:01→16:03)
[2021-11-30] MEDS: FREE WATER GT SCH ×6 (01:32→22:00)
[2021-11-30] MEDS: ACCU-CHEK COMFORT CURVE STRIP VI SCH ×6 (03:58→23:42)
[2021-11-30] MEDS: InsuLIN REG 1unit/0.01ml Soln (100units/ml) SC SCH ×6 (04:00→23:37)
[2021-11-30 04:44] LABS: Basophils # (auto) 0 10 ^3/uL (0-0.2); Basophils % (auto) 0.5 % (0.0-2.0); Eosinophils # (auto) 0 10 ^3/uL (0-0.8); Eosinophils % (auto) 1.1 % (0.0-7.0); Hematocrit 36.2 % (41.0-53.0); Lymphocytes # (auto) 0.6 10 ^3/uL (0.4-5.4); Lymphocytes % (auto) 13.6 % (10.0-50.0); Mean Corpuscular Hemoglobin 26.6 pg (28.0-32.0); Mean Corpuscular Hgb Conc. 33.1 g/dL (32.0-36.0); Mean Corpuscular Volume 80.3 fL (80.0-100.0); Monocytes # (auto) 0.3 10 ^3/uL (0-1.3); Neutrophils # (auto) 3.2 10 ^3/uL (1.6-8.6); Neutrophils % (auto) 77.8 % (37.0-80.0); Red Cell Distribution Width 15.2 % (11.8-14.3); White Blood Cell 4.2 10^3/uL (4.4-10.8)
[2021-11-30] MEDS: PROPOFOL 100 ML IV SCH (04:48)
[2021-11-30 04:58] LABS: BUN/Creatinine Ratio 23.4; Calcium 8.7 mg/dL (8.5-10.1); Potassium 3.5 mmol/L (3.5-5.1)
[2021-11-30] MEDS: PANTOPRAZOLE 40 MG/10 ML VIAL INJ IV SCH (08:26)
[2021-11-30] MEDS: ENOXAPARIN SOD 40 MG/0.4 ML SYRINGE SC SCH (08:27)
[2021-11-30] MEDS ORDERED: EPINEPHrine HCL 0.5 ML NEB ONE (11:19)
[2021-11-30] MEDS ORDERED: methylPREDNISolone SOD SUCC 40 MG/ML VL IV ONE (11:30)
[2021-11-30] MEDS ORDERED: ALBUTEROL SULF 2.5 MG/0.5ML(0.5%) NEB SOLN ONE (11:30)
[2021-11-30] MEDS ORDERED: IPRATROPIUM BROM 0.5 MG/2.5ML INH SOL ONE (11:30)
[2021-11-30] MEDS ORDERED: methylPREDNISolone SOD SUCC 40 MG/ML VL ONE (11:35)
[2021-11-30] MEDS ORDERED: IPRATROPIUM BROM 0.5 MG/2.5ML INH SOL NEB PRN (11:45)
[2021-11-30] MEDS ORDERED: EPINEPHrine HCL 0.5 ML NEB NEB ONE (11:45)
[2021-11-30] MEDS: cefTRIAXone 1GM/50ML D5W 50 ML IV SCH (11:57)
[2021-11-30] MEDS: INSULIN LANTUS (GLARGINE) 1 /0.01ml (100units/ml) SC SCH (12:30)
[2021-11-30] MEDS ORDERED: METOPROLOL TARTRATE 25 MG TAB PO ONE (15:00)
[2021-11-30] MEDS: IPRATROPIUM BROM 0.5 MG/2.5ML INH SOL NEB SCH ×3 (15:48→22:02)
[2021-11-30] MEDS: ALBUTEROL SULF 2.5 MG/0.5ML(0.5%) NEB SOLN HHN SCH ×3 (15:48→22:02)
[2021-11-30] MEDS: METOPROLOL TARTRATE 1MG/1ML-5ML VIAL IV PRN (19:23)
[2021-11-30] MEDS: MORPHINE SULFATE INJ 2 MG/ml SYRG IV PRN (19:42)
[2021-11-30] MEDS: METOPROLOL TARTRATE 25 MG TAB PO SCH (22:16)
[2021-11-30] MEDS: methylPREDNISolone SOD SUCC 40 MG/ML VL IV SCH (22:16)
[2021-12-01] VITALS (29 sets, daily range): BP systolic 117–162; BP diastolic 59–108
[2021-12-01] MEDS: MORPHINE SULFATE INJ 2 MG/ml SYRG IV PRN ×5 (00:09→21:58)
[2021-12-01] MEDS: FREE WATER GT SCH ×6 (01:46→21:58)
[2021-12-01] MEDS: InsuLIN REG 1unit/0.01ml Soln (100units/ml) SC SCH ×4 (03:43→16:33)
[2021-12-01] MEDS: ACCU-CHEK COMFORT CURVE STRIP VI SCH ×5 (03:46→22:11)
[2021-12-01 05:04] LABS: Basophils # (auto) 0 10 ^3/uL (0-0.2); Eosinophils # (auto) 0 10 ^3/uL (0-0.8); Hemoglobin 11.9 g/dL (13.5-17.5); Lymphocytes # (auto) 0.3 10 ^3/uL (0.4-5.4)
[2021-12-01 05:06] LABS: Basophils % (auto) 0.1 % (0.0-2.0); Hematocrit 36.9 % (41.0-53.0); Lymphocytes % (auto) 4.7 % (10.0-50.0); Mean Corpuscular Hemoglobin 26.1 pg (28.0-32.0); Mean Corpuscular Hgb Conc. 32.4 g/dL (32.0-36.0); Mean Corpuscular Volume 80.5 fL (80.0-100.0); Monocytes # (auto) 0.2 10 ^3/uL (0-1.3); Monocytes % (auto) 4.4 % (0.0-12.0); Neutrophils % (auto) 90.8 % (37.0-80.0); Nucleated Red Blood Cells % 0.2 %; Red Blood Cells 4.58 10^6/uL (4.5-5.90); Red Cell Distribution Width 15.3 % (11.8-14.3); White Blood Cell 5.5 10^3/uL (4.4-10.8)
[2021-12-01 05:25] LABS: BUN/Creatinine Ratio 22.9; Calcium 9.7 mg/dL (8.5-10.1); Potassium 3.3 mmol/L (3.5-5.1)
[2021-12-01] MEDS: IPRATROPIUM BROM 0.5 MG/2.5ML INH SOL NEB SCH (07:53)
[2021-12-01] MEDS: ALBUTEROL SULF 2.5 MG/0.5ML(0.5%) NEB SOLN HHN SCH (07:53)
[2021-12-01] MEDS: SOD CHL 0.45% 1,000 ML IV SCH (09:10)
[2021-12-01] MEDS: cefTRIAXone 1GM/50ML D5W 50 ML IV SCH (09:10)
[2021-12-01] MEDS: METOPROLOL TARTRATE 25 MG TAB PO SCH ×2 (09:11→21:57)
[2021-12-01] MEDS: PANTOPRAZOLE 40 MG/10 ML VIAL INJ IV SCH (09:11)
[2021-12-01] MEDS: methylPREDNISolone SOD SUCC 40 MG/ML VL IV SCH (09:11)
[2021-12-01] MEDS ORDERED: ALBUTEROL SULF 2.5 MG/0.5ML(0.5%) NEB SOLN NEB PRN (09:15)
[2021-12-01] MEDS ORDERED: IPRATROPIUM BROM 0.5 MG/2.5ML INH SOL NEB PRN (09:15)
[2021-12-01] MEDS: ENOXAPARIN SOD 40 MG/0.4 ML SYRINGE SC SCH (11:02)
[2021-12-01] MEDS: INSULIN LANTUS (GLARGINE) 1 /0.01ml (100units/ml) SC SCH (11:06)
[2021-12-01] MEDS: POTASSIUM CHL 20MEQ/100ML 100 ML IV SCH ×2 (13:15→15:55)
[2021-12-01] MEDS ORDERED: INSULIN LANTUS (GLARGINE) 1 /0.01ml (100units/ml) SC ONE (14:30)
[2021-12-01] MEDS ORDERED: METOPROLOL TARTRATE 25 MG TAB PO ONE (14:30)
[2021-12-01] MEDS ORDERED: DEXTROSE (50%) 50ML SYRG IV PRN (14:30)
[2021-12-01] MEDS ORDERED: LABE100T4 PO (14:39)
[2021-12-01] MEDS ORDERED: VANC125C3 PO (14:51)
[2021-12-01] MEDS: VANCOMYCIN HCL 125MG/5ML ORAL SOL PO SCH ×3 (15:57→21:58)
[2021-12-01] MEDS: METOPROLOL TARTRATE 1MG/1ML-5ML VIAL IV PRN (16:49)
[2021-12-01] MEDS ORDERED: InsuLIN REG 1unit/0.01ml Soln (100units/ml) SC SCH (22:00)
[2021-12-02] VITALS (21 sets, daily range): BP systolic 134–182; BP diastolic 74–132
[2021-12-02] MEDS: FREE WATER GT SCH ×5 (02:00→17:25)
[2021-12-02] MEDS: MORPHINE SULFATE INJ 2 MG/ml SYRG IV PRN (02:23)
[2021-12-02] MEDS: METOPROLOL TARTRATE 1MG/1ML-5ML VIAL IV PRN ×2 (02:25→14:29)
[2021-12-02] MEDS: ACCU-CHEK COMFORT CURVE STRIP VI SCH ×3 (06:17→17:26)
[2021-12-02] MEDS: VANCOMYCIN HCL 125MG/5ML ORAL SOL PO SCH ×3 (06:17→17:26)
[2021-12-02] MEDS: InsuLIN REG 1unit/0.01ml Soln (100units/ml) SC SCH ×3 (06:20→17:39)
[2021-12-02 07:39] LABS: Basophils # (auto) 0 10 ^3/uL (0-0.2); Eosinophils # (auto) 0 10 ^3/uL (0-0.8); Eosinophils % (auto) 0.1 % (0.0-7.0); Lymphocytes # (auto) 1.4 10 ^3/uL (0.4-5.4); Lymphocytes % (auto) 23.3 % (10.0-50.0); Monocytes # (auto) 0.6 10 ^3/uL (0-1.3)
[2021-12-02 07:42] LABS: Basophils % (auto) 0.5 % (0.0-2.0); Hemoglobin 11.9 g/dL (13.5-17.5); Mean Corpuscular Hemoglobin 26.4 pg (28.0-32.0); Mean Corpuscular Volume 79.9 fL (80.0-100.0); Monocytes % (auto) 10.1 % (0.0-12.0); Neutrophils # (auto) 3.8 10 ^3/uL (1.6-8.6); Red Cell Distribution Width 14.9 % (11.8-14.3); White Blood Cell 5.8 10^3/uL (4.4-10.8)
[2021-12-02 07:54] LABS: Potassium 3.2 mmol/L (3.5-5.1)
[2021-12-02 07:59] LABS: BUN/Creatinine Ratio 28.2; Calcium 9.7 mg/dL (8.5-10.1)
[2021-12-02] MEDS: PANTOPRAZOLE 40 MG/10 ML VIAL INJ IV SCH (09:49)
[2021-12-02] MEDS: METOPROLOL TARTRATE 25 MG TAB PO SCH (09:49)
[2021-12-02] MEDS: ENOXAPARIN SOD 40 MG/0.4 ML SYRINGE SC SCH (09:50)
[2021-12-02] MEDS ORDERED: INSULIN LANTUS (GLARGINE) 1 /0.01ml (100units/ml) SC SCH (10:00)
[2021-12-02] MEDS ORDERED: POTASSIUM CHL 20 Meq TABLET PO ONE (18:15)
[2021-12-02] MEDS ORDERED: METOPROLOL TARTRATE 1MG/1ML-5ML VIAL IV PRN (18:15)
[2021-12-02] MEDS ORDERED: LISINOPRIL 20 MG TAB PO SCH (18:15)
[2021-12-02] MEDS ORDERED: LABETALOL HCL 200 MG TAB PO SCH (18:15)
[2021-12-02] MEDS ORDERED: POTASSIUM CHL 20MEQ/100ML 100 ML IV ONE (18:15)
== END 2021-12-02 20:29 | disposition home or self-care (01) | DRG 52 ==
LOC: ER 08:22 → EDBD 08:22 → ICU WEST 15:18
PROVIDERS: ADMIT Internal Medicine; ATTEND Internal Medicine
PROC: 5A1945Z Respiratory Ventilation, 24-96 Consecutive Hours (ICD-10-PCS; principal; 2021-11-27)
PROC: 0BH17EZ Insertion of Endotracheal Airway into Trachea, Via Natural or Artificial Opening (ICD-10-PCS; 2021-11-27)
DX: G93.41 Metabolic encephalopathy (principal); J96.01 Acute respiratory failure with hypoxia; R57.1 Hypovolemic shock; E10.11 Type 1 diabetes mellitus with ketoacidosis with coma; K85.90 Acute pancreatitis without necrosis or infection, unspecified; A04.72 Enterocolitis due to Clostridium difficile, not specified as recurrent; E87.0 Hyperosmolality and hypernatremia; J81.1 Chronic pulmonary edema; Z20.822 Contact with and (suspected) exposure to COVID-19; N17.9 Acute kidney failure, unspecified; F17.210 Nicotine dependence, cigarettes, uncomplicated; J45.909 Unspecified asthma, uncomplicated; K21.9 Gastro-esophageal reflux disease without esophagitis; E87.5 Hyperkalemia; I10 Essential (primary) hypertension; Z83.3 Family history of diabetes mellitus; Z79.4 Long term (current) use of insulin; Z91.19 Patient's noncompliance with other medical treatment and regimen; Z91.14 Patient's other noncompliance with medication regimen; Z82.49 Family history of ischemic heart disease and other diseases of the circulatory system
CPT/HCPCS: 31500; 36415; 36600; 71045; 80048; 80053; 80307; 81001; 82010; 82805; 82962; 83605; 83690; 83735; 83930; 85025; 85610; 85730; 87040; 87070; 87077; 87081; 87186; 87205; 92610; 94003; 94640; 96361; 96374; 96375; 97116; 97163; 97530; 99291; C9113; G0378; J0330; J0696; J1815; J2250; J2405; J2704; J3480; J7060

== ENCOUNTER 2021-12-22 18:00 | Inpatient (IN) | payer OTHER, MEDICAID ==
[~2021-12-22] VITALS: Ht 190.5 cm; Wt 66.8 kg
[~2021-12-22 18:00] MED LIST changes: +LABE100T4 PO
[2021-12-22] MEDS ORDERED: SODIUM CHLORIDE 0.9% 1,000 ML IV ONE ×3 (18:15→20:15)
[2021-12-22] MEDS ORDERED: InsuLIN REG 1unit/0.01ml Soln (100units/ml) IV ONE ×2 (18:15→21:15)
[2021-12-22] MEDS ORDERED: ONDANSETRON HCL 4 MG/2 ML VIAL IV ONE (18:30)
[2021-12-22 19:10] LABS: Basophils # (auto) 0.1 10 ^3/uL (0-0.2); Eosinophils # (auto) 0 10 ^3/uL (0-0.8); Eosinophils % (auto) 0.1 % (0.0-7.0); Hemoglobin 13.5 g/dL (13.5-17.5); Lymphocytes # (auto) 0.7 10 ^3/uL (0.4-5.4); Lymphocytes % (auto) 13.6 % (10.0-50.0); Monocytes # (auto) 0.2 10 ^3/uL (0-1.3); Neutrophils # (auto) 4.4 10 ^3/uL (1.6-8.6); White Blood Cell 5.4 10^3/uL (4.4-10.8)
[2021-12-22 19:12] LABS: Basophils % (auto) 1.2 % (0.0-2.0); Hematocrit 43.7 % (41.0-53.0); Mean Corpuscular Hemoglobin 25.4 pg (28.0-32.0); Mean Corpuscular Volume 81.9 fL (80.0-100.0); Monocytes % (auto) 4.2 % (0.0-12.0); Neutrophils % (auto) 80.9 % (37.0-80.0); Red Blood Cells 5.33 10^6/uL (4.5-5.90); Red Cell Distribution Width 14.3 % (11.8-14.3)
[2021-12-22] MEDS ORDERED: SODIUM BICARBONATE 8.4 % INJ 50ML VIAL IV ONE ×3 (19:15→23:45)
[2021-12-22 19:43] LABS: Lactic Acid w/Reflex 3.2 mmol/L (0.4-2.0)
[2021-12-22 20:16] LABS: Sodium 128 mmol/L (136-145)
[2021-12-22 20:24] LABS: Alanine Aminotransferase 53 U/L (16-61); Alkaline Phosphatase 130 U/L (45-117); Anion Gap 32 (5-15); Aspartate Aminotransferase 24 U/L (15-37); BUN/Creatinine Ratio 26.7; Blood Urea Nitrogen 36 mg/dL (7-18); Chloride 91 mmol/L (98-107); GFR African American 87 mL/min; GFR Non-African American 72 mL/min; Phosphorus 6.2 mg/dL (2.5-4.90)
[2021-12-22 20:25] LABS: Albumin 3.7 g/dL (3.4-5.0); Bilirubin, Total 0.7 mg/dL (0.2-1.0); Lipase 162 U/L (73-393); Magnesium 2.4 mg/dL (1.6-2.6)
[2021-12-22 20:27] LABS: Carbon Dioxide 5 mmol/L (21-32); Potassium 6.3 mmol/L (3.5-5.1)
[2021-12-22 20:28] LABS: Glucose 583 mg/dL (74-106)
[2021-12-22] MEDS ORDERED: DEXTROSE (50%) 50ML SYRG IV PRN (20:45)
[2021-12-22] MEDS ORDERED: InsuLIN R (HUMAN) 100 UNITS in SODIUM CHL 0.9% 99 ML IV SCH (20:45)
[2021-12-22] MEDS ORDERED: MORPHINE SULFATE INJ 2 MG/ml SYRG IV PRN (21:00)
[2021-12-22] MEDS ORDERED: NITROGLYCERIN 0.4 MG SL TAB SL PRN (21:00)
[2021-12-22] MEDS ORDERED: PANTOPRAZOLE 40 MG/10 ML VIAL INJ IV ONE (21:00)
[2021-12-22] MEDS ORDERED: ONDANSETRON HCL 4 MG/2 ML VIAL IV PRN (21:00)
[2021-12-22] MEDS ORDERED: SODIUM ZIRCONIUM CYCL 10 GM PAK PO ONE (21:15)
[2021-12-22] MEDS ORDERED: ALBUTEROL SULF 2.5 MG/0.5ML(0.5%) NEB SOLN NEB ONE (21:15)
[2021-12-22] MEDS ORDERED: FUROSEMIDE 20 MG/2 ML VIAL IV ONE (21:15)
[2021-12-22] MEDS ORDERED: DEXTROSE (50%) 50ML SYRG IV ONE (21:15)
[2021-12-22] MEDS ORDERED: SODIUM BICARBONATE 8.4% INJ 50ML SYRINGE IV ONE (21:15)
[2021-12-22] MEDS ORDERED: CALCIUM GLUC 1,000mg/50ml-NS 50 ML IV ONE (21:30)
[2021-12-22 23:15] LABS: Potassium 4.9 mmol/L (3.5-5.1)
[2021-12-23] VITALS (34 sets, daily range): BP systolic 110–153; BP diastolic 48–102
[2021-12-23] MEDS: SODIUM CHLORIDE 0.9% 1,000 ML IV SCH ×3 (00:42→07:00)
[2021-12-23] MEDS ORDERED: SODIUM CHLORIDE 0.9% 1,000 ML IV SCH ×2 (00:45→02:45)
[2021-12-23 01:21] LABS: Urine Bacteria NONE SEEN /hpf (None Seen); Urine Blood Negative /uL (Negative); Urine Specific Gravity 1.022 (1.001-1.035); Urine WBC 1 /hpf (0 - 3)
[2021-12-23 01:38] LABS: Amphetamine Screen, Urine NEGATIVE (NEGATIVE); Barbiturate Scree,Urine NEGATIVE (NEGATIVE); Benzodiazephine Screen, Urine NEGATIVE (NEGATIVE); Cannabinoid Screen, Urine NEGATIVE (NEGATIVE); Cocaine Screen, Urine NEGATIVE (NEGATIVE); Opiate Scree,Urine NEGATIVE (NEGATIVE); Phencyclidine Screen, Urine NEGATIVE (NEGATIVE)
[2021-12-23] MEDS: ACCU-CHEK COMFORT CURVE STRIP VI SCH ×8 (03:31→21:54)
[2021-12-23 03:35] LABS: BUN/Creatinine Ratio 19.9; Calcium 8.3 mg/dL (8.5-10.1)
[2021-12-23 04:57] LABS: Basophils # (auto) 0.1 10 ^3/uL (0-0.2); Basophils % (auto) 1.1 % (0.0-2.0); Eosinophils # (auto) 0 10 ^3/uL (0-0.8); Hemoglobin 11.7 g/dL (13.5-17.5); Monocytes # (auto) 0.8 10 ^3/uL (0-1.3); Nucleated Red Blood Cells % 0.1 %; Red Blood Cells 4.61 10^6/uL (4.5-5.90); White Blood Cell 8.2 10^3/uL (4.4-10.8)
[2021-12-23 05:00] LABS: Lymphocytes # (auto) 1.3 10 ^3/uL (0.4-5.4); Lymphocytes % (auto) 16.1 % (10.0-50.0); Mean Corpuscular Hemoglobin 25.3 pg (28.0-32.0); Mean Corpuscular Hgb Conc. 32.4 g/dL (32.0-36.0); Mean Corpuscular Volume 78.1 fL (80.0-100.0); Monocytes % (auto) 9.8 % (0.0-12.0); Neutrophils # (auto) 5.9 10 ^3/uL (1.6-8.6); Red Cell Distribution Width 14.6 % (11.8-14.3)
[2021-12-23 05:17] LABS: Albumin 2.9 g/dL (3.4-5.0); Calcium 8.4 mg/dL (8.5-10.1); Potassium 3.8 mmol/L (3.5-5.1)
[2021-12-23 05:30] LABS: Bilirubin, Total 0.4 mg/dL (0.2-1.0); Total Protein 6.5 g/dL (6.4-8.2)
[2021-12-23] MEDS ORDERED: DEXTROSE (50%) 50ML SYRG IV PRN (10:30)
[2021-12-23] MEDS: ENOXAPARIN SOD 40 MG/0.4 ML SYRINGE SC SCH (10:53)
[2021-12-23] MEDS: PANTOPRAZOLE 40 MG/10 ML VIAL INJ IV SCH (10:53)
[2021-12-23] MEDS: LACTATED RINGER'S 1,000 ML IV SCH ×2 (10:53→18:31)
[2021-12-23] MEDS: INSULIN LANTUS (GLARGINE) 1 /0.01ml (100units/ml) SC SCH (10:54)
[2021-12-23] MEDS: InsuLIN REG 1unit/0.01ml Soln (100units/ml) SC SCH ×3 (11:42→21:54)
[2021-12-23 14:44] LABS: BUN/Creatinine Ratio 19.8; Calcium 8.3 mg/dL (8.5-10.1); Potassium 3.7 mmol/L (3.5-5.1)
[2021-12-24] MEDS: LACTATED RINGER'S 1,000 ML IV SCH ×2 (02:41→11:36)
[2021-12-24 04:38] LABS: BUN/Creatinine Ratio 17.4; Calcium 8.4 mg/dL (8.5-10.1)
[2021-12-24 05:00] VITALS: BP 119/81
[2021-12-24] MEDS: ACCU-CHEK COMFORT CURVE STRIP VI SCH ×2 (06:31→11:46)
[2021-12-24] MEDS: InsuLIN REG 1unit/0.01ml Soln (100units/ml) SC SCH ×2 (06:35→11:30)
[2021-12-24 09:00] VITALS: BP 148/101
[2021-12-24] MEDS: ENOXAPARIN SOD 40 MG/0.4 ML SYRINGE SC SCH (09:59)
[2021-12-24] MEDS: PANTOPRAZOLE 40 MG/10 ML VIAL INJ IV SCH (09:59)
[2021-12-24] MEDS: INSULIN LANTUS (GLARGINE) 1 /0.01ml (100units/ml) SC SCH (10:00)
[2021-12-24] MEDS ORDERED: LABETALOL HCL 200 MG TAB PO ONE (12:00)
[2021-12-24 12:10] VITALS: BP 157/113
[2021-12-24 14:54] VITALS: BP 157/113
== END 2021-12-24 16:10 | disposition home or self-care (01) | DRG 420 ==
LOC: EDBD 18:00 → ER 18:00 → TELE 21:00 → ICU WEST 12-23 06:25 → TELE-CENTR 12-23 15:42
PROVIDERS: ADMIT Nurse Practitioner Family; ATTEND Nurse Practitioner Acute Care
DX: E10.10 Type 1 diabetes mellitus with ketoacidosis without coma (principal); N17.9 Acute kidney failure, unspecified; R64 Cachexia; E83.39 Other disorders of phosphorus metabolism; E86.0 Dehydration; E87.1 Hypo-osmolality and hyponatremia; E87.5 Hyperkalemia; F17.210 Nicotine dependence, cigarettes, uncomplicated; J45.909 Unspecified asthma, uncomplicated; K52.9 Noninfective gastroenteritis and colitis, unspecified; Z79.4 Long term (current) use of insulin; Z83.3 Family history of diabetes mellitus; Z91.14 Patient's other noncompliance with medication regimen; Z91.199 Patient's noncompliance with other medical treatment and regimen due to unspecified reason; Z68.1 Body mass index [BMI] 19.9 or less, adult; Z88.8 Allergy status to other drugs, medicaments and biological substances; Z82.49 Family history of ischemic heart disease and other diseases of the circulatory system
CPT/HCPCS: 36415; 36600; 80048; 80053; 80307; 81001; 82010; 82805; 82962; 83605; 83690; 83735; 83930; 84100; 85025; 87081; 87426; 93005; 94640; 96361; 96365; 96375; 99291; C9113; G0378; J1815; J2405

== ENCOUNTER 2022-01-28 08:16 | Inpatient (IN) | payer OTHER, MEDICAID ==
[~2022-01-28] VITALS: Ht 188 cm; Wt 70.1 kg
[2022-01-28] MEDS ORDERED: SODIUM CHLORIDE 0.9% 1,000 ML IV ONE (09:30)
[2022-01-28] MEDS ORDERED: ONDANSETRON HCL 4 MG/2 ML VIAL IV ONE (09:30)
[2022-01-28 10:37] LABS: Basophils # (auto) 0 10 ^3/uL (0-0.2); Basophils % (auto) 0.5 % (0.0-2.0); Eosinophils # (auto) 0 10 ^3/uL (0-0.8); Hemoglobin 13.9 g/dL (13.5-17.5); Monocytes # (auto) 0.3 10 ^3/uL (0-1.3)
[2022-01-28 10:38] LABS: Eosinophils % (auto) 0.1 % (0.0-7.0); Hematocrit 46.7 % (41.0-53.0); Lymphocytes # (auto) 0.9 10 ^3/uL (0.4-5.4); Lymphocytes % (auto) 11.6 % (10.0-50.0); Mean Corpuscular Hemoglobin 25.7 pg (28.0-32.0); Mean Corpuscular Hgb Conc. 29.8 g/dL (32.0-36.0); Mean Corpuscular Volume 86.2 fL (80.0-100.0); Neutrophils # (auto) 6.6 10 ^3/uL (1.6-8.6); Neutrophils % (auto) 83.8 % (37.0-80.0); Nucleated Red Blood Cells % 0.1 %; Red Blood Cells 5.41 10^6/uL (4.5-5.90); Red Cell Distribution Width 16.3 % (11.8-14.3); White Blood Cell 7.9 10^3/uL (4.4-10.8)
[2022-01-28 11:21] LABS: Albumin 3.6 g/dL (3.4-5.0); Calcium 9.6 mg/dL (8.5-10.1)
[2022-01-28 11:22] LABS: Bilirubin, Total 0.6 mg/dL (0.2-1.0); Total Protein 7.8 g/dL (6.4-8.2)
[2022-01-28 11:40] LABS: Potassium 6.7 mmol/L (3.5-5.1)
[2022-01-28] MEDS ORDERED: InsuLIN REG 1unit/0.01ml Soln (100units/ml) IV ONE (11:45)
[2022-01-28] MEDS ORDERED: DEXTROSE (50%) 50ML SYRG IV PRN (11:45)
[2022-01-28] MEDS ORDERED: SODIUM BICARBONATE 8.4 % INJ 50ML VIAL IV ONE ×2 (11:51→23:58)
[2022-01-28 12:01] LABS: Urine Bacteria FEW /hpf (None Seen); Urine Blood Negative /uL (Negative); Urine Specific Gravity 1.022 (1.001-1.035); Urine WBC 1 /hpf (0 - 3)
[2022-01-28] MEDS: SODIUM CHLORIDE 0.9% 1,000 ML IV SCH ×3 (12:07→17:52)
[2022-01-28] MEDS: ACCU-CHEK COMFORT CURVE STRIP VI SCH ×8 (12:09→22:36)
[2022-01-28] MEDS: SODIUM BICARB 50ML SYR 100 ML in SOD CHL 0.45% 1,000 ML IV SCH ×2 (12:15→18:31)
[2022-01-28] MEDS: InsuLIN R (HUMAN) 100 UNITS in SODIUM CHL 0.9% 99 ML IV SCH ×2 (12:15→13:15)
[2022-01-28] MEDS ORDERED: SODIUM CHLORIDE 0.9% 1,000 ML IV SCH (15:45)
[2022-01-28 16:42] LABS: Basophils # (auto) 0.1 10 ^3/uL (0-0.2); Eosinophils # (auto) 0 10 ^3/uL (0-0.8); Lymphocytes # (auto) 1.6 10 ^3/uL (0.4-5.4); Mean Corpuscular Hemoglobin 25.4 pg (28.0-32.0)
[2022-01-28 16:43] LABS: Basophils % (auto) 1.1 % (0.0-2.0); Hematocrit 41.1 % (41.0-53.0); Hemoglobin 12.9 g/dL (13.5-17.5); Lymphocytes % (auto) 13.4 % (10.0-50.0); Mean Corpuscular Hgb Conc. 31.5 g/dL (32.0-36.0); Mean Corpuscular Volume 80.7 fL (80.0-100.0); Monocytes # (auto) 0.9 10 ^3/uL (0-1.3); Monocytes % (auto) 7.3 % (0.0-12.0); Neutrophils # (auto) 9.5 10 ^3/uL (1.6-8.6); Neutrophils % (auto) 78.2 % (37.0-80.0); Red Cell Distribution Width 15.9 % (11.8-14.3); White Blood Cell 12.2 10^3/uL (4.4-10.8)
[2022-01-28 17:00] LABS: Albumin 3.1 g/dL (3.4-5.0); BUN/Creatinine Ratio 23.7; Calcium 8.4 mg/dL (8.5-10.1); Potassium 4.4 mmol/L (3.5-5.1)
[2022-01-28 17:03] LABS: Bilirubin, Total 0.4 mg/dL (0.2-1.0); Total Protein 6.8 g/dL (6.4-8.2)
[2022-01-28 18:18] LABS: BUN/Creatinine Ratio 21.6; Calcium 8.4 mg/dL (8.5-10.1); Potassium 4.3 mmol/L (3.5-5.1)
[2022-01-28] MEDS ORDERED: ACETAMINOPHEN 325 MG TAB PO PRN (18:30)
[2022-01-28] MEDS ORDERED: MORPHINE SULFATE INJ 2 MG/ml SYRG IV PRN (18:30)
[2022-01-28] MEDS ORDERED: ONDANSETRON HCL 4 MG/2 ML VIAL IV PRN (18:30)
[2022-01-28] MEDS ORDERED: NITROGLYCERIN 0.4 MG SL TAB SL PRN (18:30)
[2022-01-28 23:56] LABS: BUN/Creatinine Ratio 22.4; Calcium 8.3 mg/dL (8.5-10.1); Potassium 4.1 mmol/L (3.5-5.1)
[2022-01-29] MEDS: ACCU-CHEK COMFORT CURVE STRIP VI SCH ×10 (00:05→23:28)
[2022-01-29] MEDS: SODIUM BICARB 50ML SYR 100 ML in SOD CHL 0.45% 1,000 ML IV SCH ×5 (00:39→21:28)
[2022-01-29] MEDS: SODIUM CHLORIDE 0.9% 1,000 ML IV SCH (02:37)
[2022-01-29] MEDS ORDERED: SODIUM BICARBONATE 8.4 % INJ 50ML VIAL IV ONE (05:34)
[2022-01-29 05:52] LABS: Basophils # (auto) 0 10 ^3/uL (0-0.2); Basophils % (auto) 0.4 % (0.0-2.0); Eosinophils # (auto) 0 10 ^3/uL (0-0.8); Eosinophils % (auto) 0.1 % (0.0-7.0); Hemoglobin 11.5 g/dL (13.5-17.5); Lymphocytes # (auto) 1.6 10 ^3/uL (0.4-5.4); Neutrophils # (auto) 6.5 10 ^3/uL (1.6-8.6)
[2022-01-29 05:54] LABS: Hematocrit 35.2 % (41.0-53.0); Lymphocytes % (auto) 17.2 % (10.0-50.0); Mean Corpuscular Hemoglobin 25.6 pg (28.0-32.0); Mean Corpuscular Hgb Conc. 32.6 g/dL (32.0-36.0); Mean Corpuscular Volume 78.4 fL (80.0-100.0); Monocytes # (auto) 0.9 10 ^3/uL (0-1.3); Monocytes % (auto) 10.1 % (0.0-12.0); Neutrophils % (auto) 72.2 % (37.0-80.0); Red Blood Cells 4.48 10^6/uL (4.5-5.90); Red Cell Distribution Width 16.2 % (11.8-14.3)
[2022-01-29 06:02] LABS: Albumin 2.7 g/dL (3.4-5.0); BUN/Creatinine Ratio 20.7; Calcium 8.3 mg/dL (8.5-10.1); Potassium 3.7 mmol/L (3.5-5.1)
[2022-01-29 06:04] LABS: Bilirubin, Total 0.3 mg/dL (0.2-1.0); Total Protein 5.9 g/dL (6.4-8.2)
[2022-01-29] MEDS ORDERED: D5W/SOD CHL 0.45% 1,000 ML IV SCH (07:00)
[2022-01-29] MEDS ORDERED: DEXTROSE (50%) 50ML SYRG IV PRN (07:00)
[2022-01-29] MEDS: InsuLIN REG 1unit/0.01ml Soln (100units/ml) SC SCH ×5 (08:21→23:26)
[2022-01-29] MEDS: ENOXAPARIN SOD 40 MG/0.4 ML SYRINGE SC SCH (10:00)
[2022-01-29] MEDS ORDERED: SODIUM CHLORIDE 0.9% 1,000 ML IV ONE (14:00)
[2022-01-29] MEDS ORDERED: INSULIN LANTUS (GLARGINE) 1 /0.01ml (100units/ml) SC ONE ×2 (14:00→15:15)
[2022-01-29 17:41] LABS: Calcium 8.1 mg/dL (8.5-10.1); Potassium 3.9 mmol/L (3.5-5.1)
[2022-01-29 20:53] VITALS: BP 144/96
[2022-01-29 21:04] VITALS: BP 144/96
[2022-01-29 22:00] VITALS: BP 133/39
[2022-01-29] MEDS ORDERED: HYDROcodone-ACET 5/325MG TAB PO PRN (22:15)
[2022-01-30] MEDS: SODIUM BICARB 50ML SYR 100 ML in SOD CHL 0.45% 1,000 ML IV SCH ×3 (02:30→13:30)
[2022-01-30] MEDS: InsuLIN REG 1unit/0.01ml Soln (100units/ml) SC SCH ×4 (03:59→16:00)
[2022-01-30] MEDS: ACCU-CHEK COMFORT CURVE STRIP VI SCH ×4 (03:59→16:00)
[2022-01-30 05:00] VITALS: BP 145/104
[2022-01-30 08:32] VITALS: BP 145/109
[2022-01-30] MEDS: ENOXAPARIN SOD 40 MG/0.4 ML SYRINGE SC SCH (10:00)
[2022-01-30 13:00] VITALS: BP 121/86
[2022-01-30 16:30] VITALS: BP 145/114
[2022-01-30] MEDS ORDERED: INSULIN LANTUS (GLARGINE) 1 /0.01ml (100units/ml) SC SCH (22:00)
== END 2022-01-30 19:05 | disposition home or self-care (01) | DRG 420 ==
LOC: ER 08:16 → EDUNIT# 08:16 → EDBD 08:16 → TELE 18:25 → WEST WING 01-29 19:12 → TELE-WESTW 01-29 20:23
PROVIDERS: ADMIT Nurse Practitioner Family; ATTEND Student in an Organized Health Care Education/Training Program
PROC: 05HA33Z Insertion of Infusion Device into Left Brachial Vein, Percutaneous Approach (ICD-10-PCS; principal; 2022-01-28)
PROC: B54NZZA Ultrasonography of Left Upper Extremity Veins, Guidance (ICD-10-PCS; 2022-01-28)
DX: E10.10 Type 1 diabetes mellitus with ketoacidosis without coma (principal); N17.9 Acute kidney failure, unspecified; E46 Unspecified protein-calorie malnutrition; R65.10 Systemic inflammatory response syndrome (SIRS) of non-infectious origin without acute organ dysfunction; E10.21 Type 1 diabetes mellitus with diabetic nephropathy; E87.5 Hyperkalemia; Z68.1 Body mass index [BMI] 19.9 or less, adult; Z20.822 Contact with and (suspected) exposure to COVID-19; F17.210 Nicotine dependence, cigarettes, uncomplicated; I10 Essential (primary) hypertension; J45.909 Unspecified asthma, uncomplicated; E87.6 Hypokalemia; K21.9 Gastro-esophageal reflux disease without esophagitis; K52.9 Noninfective gastroenteritis and colitis, unspecified; Z82.49 Family history of ischemic heart disease and other diseases of the circulatory system; Z83.3 Family history of diabetes mellitus; Z91.14 Patient's other noncompliance with medication regimen; Z88.1 Allergy status to other antibiotic agents; Z88.8 Allergy status to other drugs, medicaments and biological substances
CPT/HCPCS: 36415; 36600; 71045; 80048; 80053; 81001; 82010; 82805; 82962; 83036; 83690; 83735; 83930; 84100; 85025; 85652; 86141; 87040; 87045; 87081; 87177; 87426; 87427; 87493; 93005; 96361; 96374; 96375; G0378; J1815; J2405

== ENCOUNTER 2022-05-28 10:59 | Inpatient (IN) | payer MEDICAID ==
[~2022-05-28] VITALS: Ht 190.5 cm; Wt 63.0 kg
[2022-05-28] MEDS: InsuLIN R (HUMAN) 100 UNITS in SODIUM CHL 0.9% 99 ML IV SCH ×2 (11:15→14:43)
[2022-05-28] MEDS ORDERED: SODIUM CHLORIDE 0.9% 1,000 ML IVB ONE (11:15)
[2022-05-28] MEDS ORDERED: DEXTROSE (50%) 50ML SYRG IV PRN (11:15)
[2022-05-28] MEDS ORDERED: INSULIN LANTUS (GLARGINE) 1 /0.01ml (100units/ml) SC ONE (11:15)
[2022-05-28] MEDS: ACCU-CHEK COMFORT CURVE STRIP VI SCH ×8 (12:00→23:02)
[2022-05-28 12:04] LABS: Albumin 3.4 g/dL (3.4-5.0); Anion Gap 28 (5-15); Blood Alcohol < 3.0 mg/dL (0-5); Blood Urea Nitrogen 20 mg/dL (7-18); Calcium 9.8 mg/dL (8.5-10.1); Chloride 92 mmol/L (98-107); Potassium 5.1 mmol/L (3.5-5.1); Sodium 129 mmol/L (136-145)
[2022-05-28 12:08] LABS: Alanine Aminotransferase 36 U/L (16-61); Alkaline Phosphatase 159 U/L (45-117); Aspartate Aminotransferase 16 U/L (15-37); BUN/Creatinine Ratio 16.9; Bilirubin, Total 0.8 mg/dL (0.2-1.0); GFR African American 100 mL/min; GFR Non-African American 83 mL/min; Total Protein 8.6 g/dL (6.4-8.2)
[2022-05-28 12:12] LABS: Basophils # (auto) 0.1 10 ^3/uL (0-0.2); Eosinophils # (auto) 0 10 ^3/uL (0-0.8); Hemoglobin 14.1 g/dL (13.5-17.5); Lymphocytes # (auto) 1.2 10 ^3/uL (0.4-5.4); Red Cell Distribution Width 17.8 % (11.8-14.3)
[2022-05-28 12:14] LABS: Basophils % (auto) 0.8 % (0.0-2.0); Hematocrit 45.9 % (41.0-53.0); Lymphocytes % (auto) 11.8 % (10.0-50.0); Mean Corpuscular Hemoglobin 25.4 pg (28.0-32.0); Mean Corpuscular Hgb Conc. 30.7 g/dL (32.0-36.0); Mean Corpuscular Volume 82.8 fL (80.0-100.0); Monocytes # (auto) 0.6 10 ^3/uL (0-1.3); Monocytes % (auto) 5.5 % (0.0-12.0); Neutrophils # (auto) 8.5 10 ^3/uL (1.6-8.6); Neutrophils % (auto) 81.9 % (37.0-80.0); Red Blood Cells 5.55 10^6/uL (4.5-5.90); White Blood Cell 10.3 10^3/uL (4.4-10.8)
[2022-05-28 12:47] LABS: Carbon Dioxide 9 mmol/L (21-32); Glucose 461 mg/dL (74-106)
[2022-05-28 12:53] LABS: Urine Bacteria NONE SEEN /hpf (None Seen); Urine Blood Negative /uL (Negative); Urine Specific Gravity 1.025 (1.001-1.035); Urine WBC <1 /hpf (0 - 3)
[2022-05-28 13:22] LABS: Cholesterol 183 mg/dL (< 200)
[2022-05-28 13:24] LABS: HDL Cholesterol 78 mg/dL (40-59); LDL Cholesterol 55 mg/dL (< 100); Triglycerides 272 mg/dL (< 150)
[2022-05-28] MEDS ORDERED: MORPHINE SULFATE INJ 2 MG/ml SYRG IV PRN (14:15)
[2022-05-28] MEDS ORDERED: ALBUTEROL SULF 2.5 MG/0.5ML(0.5%) NEB SOLN NEB PRN (14:15)
[2022-05-28] MEDS ORDERED: NITROGLYCERIN 0.4 MG SL TAB SL PRN (14:15)
[2022-05-28] MEDS ORDERED: hydrALAZINE HCL 20 MG/ML VL IV PRN (14:15)
[2022-05-28] MEDS ORDERED: PANTOPRAZOLE 40 MG/10 ML VIAL INJ IV ONE ×2 (14:15→14:30)
[2022-05-28] MEDS ORDERED: NICOTINE 7MG/24HR TOPICAL PATCH TD ONE (14:30)
[2022-05-28] MEDS: SODIUM CHLORIDE 0.9% 1,000 ML IV SCH ×2 (14:30→21:31)
[2022-05-28] MEDS ORDERED: IOHEXOL 350 MG/ML 100ML IJ ONE (15:07)
[2022-05-28 19:13] LABS: Anion Gap 16 (5-15); Blood Urea Nitrogen 17 mg/dL (7-18); Calcium 9.1 mg/dL (8.5-10.1); Carbon Dioxide 16 mmol/L (21-32); Chloride 103 mmol/L (98-107); GFR African American 89 mL/min; GFR Non-African American 73 mL/min; Glucose 206 mg/dL (74-106); Potassium 4.5 mmol/L (3.5-5.1); Sodium 135 mmol/L (136-145)
[2022-05-28 20:40] LABS: Eosinophils # (auto) 0 10 ^3/uL (0-0.8); Hemoglobin 15.3 g/dL (13.5-17.5); Lymphocytes # (auto) 1.6 10 ^3/uL (0.4-5.4); Lymphocytes % (auto) 17.7 % (10.0-50.0)
[2022-05-28 20:43] LABS: Basophils # (auto) 0.1 10 ^3/uL (0-0.2); Basophils % (auto) 0.8 % (0.0-2.0); Eosinophils % (auto) 0.1 % (0.0-7.0); Mean Corpuscular Hemoglobin 25.3 pg (28.0-32.0); Mean Corpuscular Hgb Conc. 32.5 g/dL (32.0-36.0); Mean Corpuscular Volume 77.6 fL (80.0-100.0); Monocytes # (auto) 0.9 10 ^3/uL (0-1.3); Monocytes % (auto) 9.4 % (0.0-12.0); Neutrophils # (auto) 6.5 10 ^3/uL (1.6-8.6); Nucleated Red Blood Cells % 0.1 %; Red Blood Cells 6.05 10^6/uL (4.5-5.90); Red Cell Distribution Width 17.8 % (11.8-14.3)
[2022-05-28 20:53] VITALS: BP 126/89
[2022-05-28 21:00] LABS: Potassium 4.2 mmol/L (3.5-5.1)
[2022-05-28 21:04] LABS: Albumin 3.6 g/dL (3.4-5.0); BUN/Creatinine Ratio 13.3
[2022-05-28 21:07] LABS: Bilirubin, Total 0.5 mg/dL (0.2-1.0); Total Protein 9.6 g/dL (6.4-8.2)
[2022-05-29] MEDS: ACCU-CHEK COMFORT CURVE STRIP VI SCH ×7 (00:31→22:00)
[2022-05-29 00:55] LABS: BUN/Creatinine Ratio 18.5; Calcium 9.1 mg/dL (8.5-10.1); Potassium 4.2 mmol/L (3.5-5.1)
[2022-05-29] MEDS ORDERED: DEXTROSE (50%) 50ML SYRG IV PRN ×2 (01:45→15:30)
[2022-05-29] MEDS: D5W/SOD CHLO 0.9% 1,000 ML IV SCH ×2 (02:54→11:45)
[2022-05-29] MEDS: InsuLIN REG 1unit/0.01ml Soln (100units/ml) SC SCH ×4 (04:00→17:26)
[2022-05-29 05:43] LABS: Hematocrit 39.6 % (41.0-53.0); Hemoglobin 12.7 g/dL (13.5-17.5); Mean Corpuscular Hemoglobin 25.1 pg (28.0-32.0); Mean Corpuscular Hgb Conc. 32.2 g/dL (32.0-36.0); Red Blood Cells 5.07 10^6/uL (4.5-5.90); Red Cell Distribution Width 17.7 % (11.8-14.3); White Blood Cell 10.5 10^3/uL (4.4-10.8)
[2022-05-29 05:45] LABS: Band Neutrophils % (manual) 0; Basophils % (manual) 0 (0.0-2.0); Blast Cells 0; Metamyelocytes % 0; Myelocytes % 0; Promyelocytes % 0; Reactive Lymphocytes 0
[2022-05-29 06:13] LABS: Albumin 2.9 g/dL (3.4-5.0); BUN/Creatinine Ratio 22.2; Bilirubin, Total 0.6 mg/dL (0.2-1.0); Calcium 8.9 mg/dL (8.5-10.1); Total Protein 7.1 g/dL (6.4-8.2)
[2022-05-29] MEDS ORDERED: PANTOPRAZOLE 40 MG/10 ML VIAL INJ IV SCH ×2 (10:00)
[2022-05-29] MEDS ORDERED: ENOXAPARIN SOD 40 MG/0.4 ML SYRINGE SC SCH (10:00)
[2022-05-29] MEDS ORDERED: INSULIN LANTUS (GLARGINE) 1 /0.01ml (100units/ml) SC SCH ×2 (10:00→22:00)
[2022-05-29 10:34] LABS: Eosinophils % (manual) 1 (0-7); Lymphocytes % (manual) 11 (10.0-50.0); Monocytes % (manual) 11 (0-12)
[2022-05-29] MEDS: NICOTINE 7MG/24HR TOPICAL PATCH TD SCH (10:58)
[2022-05-29] MEDS: SODIUM CHLORIDE 0.9% 1,000 ML IV SCH (15:30)
[2022-05-29] MEDS ORDERED: InsuLIN REG 1unit/0.01ml Soln (100units/ml) SC SCH (22:00)
[2022-05-29 22:18] VITALS: BP 140/88
[2022-05-30] MEDS: SODIUM CHLORIDE 0.9% 1,000 ML IV SCH ×2 (01:30→11:30)
[2022-05-30 05:00] VITALS: BP 136/92
[2022-05-30 06:19] LABS: Calcium 8.4 mg/dL (8.5-10.1); Potassium 3.6 mmol/L (3.5-5.1)
[2022-05-30 06:22] LABS: BUN/Creatinine Ratio 20.3 (10.0-20.0)
[2022-05-30] MEDS: ACCU-CHEK COMFORT CURVE STRIP VI SCH ×2 (06:30→12:23)
[2022-05-30] MEDS: InsuLIN REG 1unit/0.01ml Soln (100units/ml) SC SCH ×2 (06:32→12:24)
[2022-05-30 08:00] VITALS: BP 139/88
[2022-05-30] MEDS: NICOTINE 7MG/24HR TOPICAL PATCH TD SCH (08:45)
[2022-05-30] MEDS ORDERED: LEVO500T31 PO (10:44)
[2022-05-30] MEDS ORDERED: levoFLOXacin 500MG 100 ML IV ONE (10:45)
[2022-05-30 13:00] VITALS: BP 136/90
== END 2022-05-30 17:30 | disposition home or self-care (01) | DRG 420 ==
LOC: EDBD 10:59 → ER 10:59 → TELE 14:19 → EAST 05-29 21:52
PROVIDERS: ADMIT Registered Nurse; ATTEND Internal Medicine
DX: E11.10 Type 2 diabetes mellitus with ketoacidosis without coma (principal); N17.0 Acute kidney failure with tubular necrosis; J18.9 Pneumonia, unspecified organism; E87.8 Other disorders of electrolyte and fluid balance, not elsewhere classified; E87.1 Hypo-osmolality and hyponatremia; F17.210 Nicotine dependence, cigarettes, uncomplicated; I10 Essential (primary) hypertension; R19.7 Diarrhea, unspecified; Z20.822 Contact with and (suspected) exposure to COVID-19; J45.909 Unspecified asthma, uncomplicated; K21.9 Gastro-esophageal reflux disease without esophagitis; Z88.6 Allergy status to analgesic agent; Z83.3 Family history of diabetes mellitus; Z91.199 Patient's noncompliance with other medical treatment and regimen due to unspecified reason; Z71.6 Tobacco abuse counseling
CPT/HCPCS: 36415; 36600; 71045; 71275; 80048; 80053; 80061; 80320; 81001; 82010; 82805; 82962; 83036; 83605; 84443; 85007; 85025; 85027; 87040; 87426; 93005; 96360; 96372; C9113; G0378; J1815; J1956

== ENCOUNTER 2022-08-25 09:36 | Emergency (ER) | payer MEDICAID ==
[~2022-08-25] VITALS: Ht 190.5 cm; Wt 56.8 kg
[~2022-08-25 09:36] MED LIST changes: +LEVO500T31 PO
[2022-08-25 10:39] VITALS: BP 136/87
[2022-08-25] MEDS ORDERED: cefTRIAXone 1GM/50ML D5W 50 ML IV ONE (11:15)
[2022-08-25] MEDS ORDERED: KETOROLAC TROMETH 30 MG/ML 1ML VIAL IV ONE (11:15)
[2022-08-25] MEDS ORDERED: HYDR-4902 PO (12:36)
[2022-08-25] MEDS ORDERED: CLIN300C70 PO (12:36)
== END 2022-08-25 12:57 | disposition home or self-care (01) ==
LOC: EDBD 09:36 → ER 09:36
DX: K04.7 Periapical abscess without sinus (principal); F17.210 Nicotine dependence, cigarettes, uncomplicated; F12.10 Cannabis abuse, uncomplicated; J45.909 Unspecified asthma, uncomplicated; E11.9 Type 2 diabetes mellitus without complications; K21.9 Gastro-esophageal reflux disease without esophagitis; I10 Essential (primary) hypertension; Z88.1 Allergy status to other antibiotic agents
CPT/HCPCS: 96365; 96375; 99284; J0696; J1885

== ENCOUNTER 2022-10-19 18:59 | Inpatient (IN) | payer MEDICAID ==
[~2022-10-19] VITALS: Ht 182.9 cm; Wt 55.1 kg
[~2022-10-19 18:59] MED LIST changes: +CLIN300C70 PO; +HYDR-4902 PO
[2022-10-19] MEDS ORDERED: InsuLIN R (HUMAN) 100 UNITS in SODIUM CHL 0.9% 99 ML IV SCH (19:15)
[2022-10-19] MEDS ORDERED: SODIUM CHLORIDE 0.9% 1,000 ML IVB ONE (19:15)
[2022-10-19] MEDS ORDERED: DEXTROSE (50%) 50ML SYRG IV PRN (19:15)
[2022-10-19] MEDS ORDERED: INSULIN LANTUS (GLARGINE) 1 /0.01ml (100units/ml) SC ONE (19:15)
[2022-10-19 19:20] VITALS: PULSE 116; RESP 30; O2SAT 99
[2022-10-19] MEDS ORDERED: SODIUM BICARBONATE 8.4 % INJ 50ML VIAL IV ONE (19:45)
[2022-10-19] MEDS: ACCU-CHEK COMFORT CURVE STRIP VI SCH ×3 (19:53→22:55)
[2022-10-19 20:01] LABS: Albumin 3.6 g/dL (3.4-5.0); Anion Gap 43 (5-15); Blood Urea Nitrogen 42 mg/dL (7-18); Calcium 8.9 mg/dL (8.5-10.1); Chloride 86 mmol/L (98-107); Magnesium 3.9 mg/dL (1.6-2.6); Sodium 134 mmol/L (136-145)
[2022-10-19 20:05] LABS: Lactic Acid w/Reflex 8.4 mmol/L (0.4-2.0)
[2022-10-19 20:07] LABS: Carbon Dioxide 5 mmol/L (21-32); Potassium 5.7 mmol/L (3.5-5.1)
[2022-10-19 20:10] LABS: Alanine Aminotransferase 38 U/L (16-61); Alkaline Phosphatase 143 U/L (45-117); Aspartate Aminotransferase 15 U/L (15-37); BUN/Creatinine Ratio 15.9 (10.0-20.0); Bilirubin, Total 0.6 mg/dL (0.2-1.0); Blood Alcohol < 3.0 mg/dL (<10); GFR African American 40 mL/min; GFR Non-African American 33 mL/min; Total Protein 7.4 g/dL (6.4-8.2)
[2022-10-19 20:11] LABS: Basophils # (auto) 0 10 ^3/uL (0-0.2); Basophils % (auto) 0.3 % (0.0-2.0); Eosinophils # (auto) 0 10 ^3/uL (0-0.8); Mean Corpuscular Volume 92.7 fL (80.0-100.0); Monocytes # (auto) 0.7 10 ^3/uL (0-1.3)
[2022-10-19 20:13] LABS: Eosinophils % (auto) 0.1 % (0.0-7.0); Hematocrit 46.9 % (41.0-53.0); Lymphocytes # (auto) 0.5 10 ^3/uL (0.4-5.4); Lymphocytes % (auto) 5.2 % (10.0-50.0); Mean Corpuscular Hemoglobin 25.6 pg (28.0-32.0); Mean Corpuscular Hgb Conc. 27.6 g/dL (32.0-36.0); Neutrophils # (auto) 9.2 10 ^3/uL (1.6-8.6); Neutrophils % (auto) 87.4 % (37.0-80.0); Red Blood Cells 5.06 10^6/uL (4.5-5.90); Red Cell Distribution Width 18.4 % (11.8-14.3); White Blood Cell 10.5 10^3/uL (4.4-10.8)
[2022-10-19 20:16] LABS: Glucose 1485 mg/dL (74-106)
[2022-10-19] MEDS ORDERED: InsuLIN REG 1unit/0.01ml Soln (100units/ml) IV ONE ×2 (20:30→23:45)
[2022-10-19] MEDS ORDERED: SODIUM CHLORIDE 0.9% 1,000 ML IV ONE ×2 (20:30→21:00)
[2022-10-19] MEDS: InsuLIN R (HUMAN) 100 UNITS in SODIUM CHL 0.9% 99 ML IV SCH (20:33)
[2022-10-19] MEDS: SODIUM CHLORIDE 0.9% 1,000 ML IV SCH (20:45)
[2022-10-19] MEDS ORDERED: ACETAMINOPHEN 325 MG TAB PO PRN (20:45)
[2022-10-19] MEDS ORDERED: ONDANSETRON HCL 4 MG/2 ML VIAL IV PRN (20:45)
[2022-10-19] MEDS ORDERED: MORPHINE SULFATE INJ 2 MG/ml SYRG IV PRN (20:45)
[2022-10-19] MEDS ORDERED: NITROGLYCERIN 0.4 MG SL TAB SL PRN (20:45)
[2022-10-19] MEDS ORDERED: VANCOMYCIN PER PHARMACY 0 MG IV SCH (21:00)
[2022-10-19] MEDS ORDERED: CEFEPIME 1GM/ 50ML 50 ML IV ONE (21:00)
[2022-10-19] MEDS ORDERED: PANTOPRAZOLE 40 MG/10 ML VIAL INJ IV ONE (21:00)
[2022-10-19] MEDS ORDERED: ALBUTEROL SULF 2.5 MG/0.5ML(0.5%) NEB SOLN NEB PRN (21:00)
[2022-10-19] MEDS ORDERED: hydrALAZINE HCL 20 MG/ML VL IV PRN (21:15)
[2022-10-19 21:30] VITALS: BP 98/39; PULSE 122; RESP 18; O2SAT 100
[2022-10-19] MEDS ORDERED: VANCOMYCIN 1GM/250ML 250 ML IV ONE (21:30)
[2022-10-19 21:38] LABS: Urine Bacteria FEW /hpf (None Seen); Urine Blood Negative /uL (Negative); Urine Clarity Clear (Clear); Urine Color Colorless (Yellow); Urine Hyaline Cast FEW /lpf (0 - 2); Urine Protein, UAD Negative (Negative); Urine Specific Gravity 1.025 (1.001-1.035); Urine Urobilinogen Normal (Negative); Urine WBC 1 /hpf (0 - 3)
[2022-10-19] MEDS ORDERED: VANCOMYCIN 750mg/250ml 250 ML IV ONE (21:45)
[2022-10-19 21:52] LABS: Alcohol, Urine < 3.0 mg/dL (0-10); Amphetamine Screen, Urine NEGATIVE (NEGATIVE); Barbiturate Scree,Urine NEGATIVE (NEGATIVE); Benzodiazephine Screen, Urine NEGATIVE (NEGATIVE); Cannabinoid Screen, Urine NEGATIVE (NEGATIVE); Cocaine Screen, Urine NEGATIVE (NEGATIVE); Opiate Scree,Urine NEGATIVE (NEGATIVE); Phencyclidine Screen, Urine NEGATIVE (NEGATIVE)
[2022-10-19] MEDS: HEPARIN SODIUM (PORCINE) 5000 UNITS/ML 1ML VIAL SC SCH (23:23)
[2022-10-20] VITALS (55 sets, daily range): BP systolic 120–166; BP diastolic 71–114; PULSE 104–128; RESP 10–23; TEMP 97.8–98.3; O2SAT 91–100
[2022-10-20] MEDS: ACCU-CHEK COMFORT CURVE STRIP VI SCH ×11 (00:11→21:13)
[2022-10-20 00:21] LABS: Base Excess -5.6 mmol/L (-2.0-2.0)
[2022-10-20 02:30] LABS: Lactic Acid w/Reflex 2.8 mmol/L (0.4-2.0)
[2022-10-20 04:22] LABS: Basophils # (auto) 0 10 ^3/uL (0-0.2); Basophils % (auto) 0.4 % (0.0-2.0); Eosinophils # (auto) 0 10 ^3/uL (0-0.8); Hematocrit 38.2 % (41.0-53.0); Hemoglobin 12.5 g/dL (13.5-17.5); Lymphocytes # (auto) 1.6 10 ^3/uL (0.4-5.4); Mean Corpuscular Hemoglobin 25.6 pg (28.0-32.0); Mean Corpuscular Hgb Conc. 32.8 g/dL (32.0-36.0); Mean Corpuscular Volume 78.1 fL (80.0-100.0); Monocytes # (auto) 1.4 10 ^3/uL (0-1.3); Monocytes % (auto) 11.7 % (0.0-12.0); Neutrophils % (auto) 74.9 % (37.0-80.0); Nucleated Red Blood Cells % 0.1 %; Red Blood Cells 4.89 10^6/uL (4.5-5.90); Red Cell Distribution Width 16.9 % (11.8-14.3)
[2022-10-20 04:33] LABS: Calcium 8.5 mg/dL (8.5-10.1); Potassium 3.3 mmol/L (3.5-5.1)
[2022-10-20 04:36] LABS: BUN/Creatinine Ratio 19.9 (10.0-20.0); Bilirubin, Total 0.3 mg/dL (0.2-1.0)
[2022-10-20] MEDS: InsuLIN R (HUMAN) 100 UNITS in SODIUM CHL 0.9% 99 ML IV SCH (04:41)
[2022-10-20] MEDS ORDERED: POTASSIUM CHL 20MEQ/100ML 100 ML IV ONE (07:00)
[2022-10-20] MEDS: SODIUM CHLORIDE 0.9% 1,000 ML IV SCH (07:30)
[2022-10-20] MEDS: CEFEPIME 1GM/ 50ML 50 ML IV SCH ×2 (10:24→22:11)
[2022-10-20] MEDS: PANTOPRAZOLE 40 MG/10 ML VIAL INJ IV SCH (10:24)
[2022-10-20] MEDS: HEPARIN SODIUM (PORCINE) 5000 UNITS/ML 1ML VIAL SC SCH ×2 (10:25→21:16)
[2022-10-20] MEDS: INSULIN LANTUS (GLARGINE) 1 /0.01ml (100units/ml) SC SCH (10:26)
[2022-10-20] MEDS: SOD CHL 0.45% 1,000 ML IV SCH ×2 (10:45→21:13)
[2022-10-20 11:27] LABS: Calcium 8.5 mg/dL (8.5-10.1); Potassium 3.7 mmol/L (3.5-5.1)
[2022-10-20] MEDS: InsuLIN REG 1unit/0.01ml Soln (100units/ml) SC SCH ×2 (11:58→21:15)
[2022-10-20] MEDS ORDERED: VANCOMYCIN 1GM/250ML 250 ML IV SCH (15:00)
[2022-10-20] MEDS ORDERED: VANCOMYCIN PER PHARMACY 0 MG IV SCH (19:45)
[2022-10-20] MEDS ORDERED: VANCOMYCIN 1GM/250ML 250 ML IV ONE (20:15)
[2022-10-20] MEDS: oxyCODONE HCL 5MG TAB PO PRN (20:50)
[2022-10-20] MEDS: MUPIROCIN 2% OINT 15gm or 22gm FOR MRSA NARES EACHNOSTRI SCH (22:12)
[2022-10-21] VITALS (38 sets, daily range): BP systolic 121–161; BP diastolic 71–125; PULSE 86–114; RESP 8–20; TEMP 97.6–98.8; O2SAT 93–100
[2022-10-21] MEDS: ACCU-CHEK COMFORT CURVE STRIP VI SCH ×6 (00:50→20:00)
[2022-10-21] MEDS: InsuLIN REG 1unit/0.01ml Soln (100units/ml) SC SCH ×6 (04:00→20:42)
[2022-10-21 04:09] LABS: Basophils # (auto) 0 10 ^3/uL (0-0.2); Eosinophils # (auto) 0 10 ^3/uL (0-0.8); Lymphocytes # (auto) 1.9 10 ^3/uL (0.4-5.4); Monocytes # (auto) 0.5 10 ^3/uL (0-1.3); Monocytes % (auto) 6.2 % (0.0-12.0)
[2022-10-21 04:12] LABS: Basophils % (auto) 0.5 % (0.0-2.0); Eosinophils % (auto) 0.1 % (0.0-7.0); Hematocrit 36.3 % (41.0-53.0); Hemoglobin 11.7 g/dL (13.5-17.5); Lymphocytes % (auto) 22.1 % (10.0-50.0); Mean Corpuscular Hemoglobin 25.6 pg (28.0-32.0); Mean Corpuscular Hgb Conc. 32.4 g/dL (32.0-36.0); Mean Corpuscular Volume 79.1 fL (80.0-100.0); Neutrophils % (auto) 71.1 % (37.0-80.0); Nucleated Red Blood Cells % 0.1 %; Red Blood Cells 4.59 10^6/uL (4.5-5.90); Red Cell Distribution Width 17.1 % (11.8-14.3); White Blood Cell 8.5 10^3/uL (4.4-10.8)
[2022-10-21 04:32] LABS: Potassium 3.7 mmol/L (3.5-5.1)
[2022-10-21 04:39] LABS: Albumin 2.7 g/dL (3.4-5.0); BUN/Creatinine Ratio 19.8 (10.0-20.0); Bilirubin, Total 0.3 mg/dL (0.2-1.0); Calcium 8.7 mg/dL (8.5-10.1); Total Protein 6.1 g/dL (6.4-8.2)
[2022-10-21] MEDS: oxyCODONE HCL 5MG TAB PO PRN ×3 (05:10→22:24)
[2022-10-21] MEDS: SOD CHL 0.45% 1,000 ML IV SCH (06:28)
[2022-10-21] MEDS: MUPIROCIN 2% OINT 15gm or 22gm FOR MRSA NARES EACHNOSTRI SCH ×3 (09:24→22:24)
[2022-10-21 09:42] LABS: Erythrocyte Sedimentation Rate 9 mm/hr (0-20)
[2022-10-21] MEDS: PANTOPRAZOLE 40 MG/10 ML VIAL INJ IV SCH (09:47)
[2022-10-21] MEDS: CEFEPIME 1GM/ 50ML 50 ML IV SCH ×2 (09:48→22:33)
[2022-10-21] MEDS: HEPARIN SODIUM (PORCINE) 5000 UNITS/ML 1ML VIAL SC SCH ×2 (09:51→22:26)
[2022-10-21] MEDS: INSULIN LANTUS (GLARGINE) 1 /0.01ml (100units/ml) SC SCH (09:51)
[2022-10-21] MEDS ORDERED: VANCOMYCIN 1GM/250ML 250 ML IV SCH (13:00)
[2022-10-22] VITALS (9 sets, daily range): BP systolic 124–156; BP diastolic 80–114; PULSE 86–91; RESP 16–21; TEMP 36.5; O2SAT 96–100
[2022-10-22] MEDS: InsuLIN REG 1unit/0.01ml Soln (100units/ml) SC SCH ×4 (00:50→12:00)
[2022-10-22] MEDS: ACCU-CHEK COMFORT CURVE STRIP VI SCH ×4 (04:00→12:00)
[2022-10-22] MEDS: MUPIROCIN 2% OINT 15gm or 22gm FOR MRSA NARES EACHNOSTRI SCH (09:30)
[2022-10-22] MEDS: PANTOPRAZOLE 40 MG/10 ML VIAL INJ IV SCH (09:30)
[2022-10-22] MEDS: CEFEPIME 1GM/ 50ML 50 ML IV SCH (09:30)
[2022-10-22] MEDS: INSULIN LANTUS (GLARGINE) 1 /0.01ml (100units/ml) SC SCH (09:31)
[2022-10-22] MEDS: HEPARIN SODIUM (PORCINE) 5000 UNITS/ML 1ML VIAL SC SCH (09:31)
== END 2022-10-22 15:25 | disposition home or self-care (01) | DRG 420 ==
LOC: EDBD 18:59 → ER 19:17 → TELE 20:46 → ICU WEST 10-20 03:13 → TELE-EAST 10-21 17:35
PROVIDERS: ADMIT Internal Medicine; ATTEND Internal Medicine
DX: E11.10 Type 2 diabetes mellitus with ketoacidosis without coma (principal); N17.0 Acute kidney failure with tubular necrosis; G92.8 Other toxic encephalopathy; E87.0 Hyperosmolality and hypernatremia; E86.0 Dehydration; E87.5 Hyperkalemia; J45.909 Unspecified asthma, uncomplicated; K21.9 Gastro-esophageal reflux disease without esophagitis; F17.210 Nicotine dependence, cigarettes, uncomplicated; E87.6 Hypokalemia; Z82.49 Family history of ischemic heart disease and other diseases of the circulatory system; Z83.3 Family history of diabetes mellitus; Z88.6 Allergy status to analgesic agent; Z91.199 Patient's noncompliance with other medical treatment and regimen due to unspecified reason; Z88.1 Allergy status to other antibiotic agents
CPT/HCPCS: 36415; 36600; 71045; 72070; 80048; 80053; 80307; 80320; 81001; 82150; 82805; 82962; 83036; 83605; 83690; 83735; 84132; 85025; 85652; 86141; 87040; 87081; 93005; 94640; C9113; G0378; J1815; J2405; J3480

== ENCOUNTER 2022-11-02 04:19 | Inpatient (IN) | payer MEDICAID ==
[~2022-11-02] VITALS: Ht 182.9 cm; Wt 58.7 kg
[2022-11-02 04:45] VITALS: PULSE 117; RESP 24; O2SAT 100
[2022-11-02] MEDS ORDERED: SODIUM CHLORIDE 0.9% 1,000 ML IV ONE ×2 (04:45)
[2022-11-02 05:07] LABS: Basophils # (auto) 0.1 10 ^3/uL (0-0.2); Eosinophils # (auto) 0 10 ^3/uL (0-0.8); Monocytes # (auto) 0.5 10 ^3/uL (0-1.3); Red Cell Distribution Width 17.5 % (11.8-14.3)
[2022-11-02 05:10] LABS: Basophils % (auto) 0.6 % (0.0-2.0); Hemoglobin 13.3 g/dL (13.5-17.5); Lymphocytes # (auto) 0.7 10 ^3/uL (0.4-5.4); Lymphocytes % (auto) 5.8 % (10.0-50.0); Mean Corpuscular Hemoglobin 25.8 pg (28.0-32.0); Mean Corpuscular Volume 83.5 fL (80.0-100.0); Neutrophils # (auto) 11.2 10 ^3/uL (1.6-8.6); Neutrophils % (auto) 89.6 % (37.0-80.0); Red Blood Cells 5.15 10^6/uL (4.5-5.90); White Blood Cell 12.6 10^3/uL (4.4-10.8)
[2022-11-02 05:19] LABS: Alanine Aminotransferase 61 U/L (7-40); Albumin 4.7 g/dL (3.2-4.8); Alkaline Phosphatase 157 U/L (46-116); Anion Gap 30.00001 (5-15); Aspartate Aminotransferase 20 U/L (13-40); BUN/Creatinine Ratio 13.8 (10.0-20.0); Blood Urea Nitrogen 21 mg/dL (9-23); Calcium 9.5 mg/dL (8.7-10.4); Chloride 96 mmol/L (98-107); Potassium 5.5 mmol/L (3.5-5.1); Sodium 136 mmol/L (136-145)
[2022-11-02 05:20] LABS: Bilirubin, Total 0.4 mg/dL (0.2-1.0); Lactic Acid w/Reflex 3.3 mmol/L (0.4-2.0); Total Protein 7.8 g/dL (5.7-8.2)
[2022-11-02 05:39] LABS: Carbon Dioxide < 10.0 mmol/L (20-30); Glucose 638 mg/dL (74-106)
[2022-11-02] MEDS ORDERED: INSULIN LANTUS (GLARGINE) 1 /0.01ml (100units/ml) SC ONE (05:45)
[2022-11-02] MEDS ORDERED: InsuLIN R (HUMAN) 100 UNITS in SODIUM CHL 0.9% 99 ML IV SCH (05:45)
[2022-11-02] MEDS ORDERED: DEXTROSE (50%) 50ML SYRG IV PRN (05:45)
[2022-11-02 05:58] LABS: Urine Bacteria NONE SEEN /hpf (None Seen); Urine Blood Negative /uL (Negative); Urine Clarity Clear (Clear); Urine Color Colorless (Yellow); Urine Protein, UAD Negative (Negative); Urine Specific Gravity 1.021 (1.001-1.035); Urine Urobilinogen Normal (Negative); Urine WBC <1 /hpf (0 - 3)
[2022-11-02] MEDS ORDERED: LORazepam 2MG/ML-1ML VIAL ONE (06:18)
[2022-11-02] MEDS ORDERED: LORazepam 2MG/ML-1ML VIAL IV ONE (06:18)
[2022-11-02] MEDS ORDERED: InsuLIN REG 1unit/0.01ml Soln (100units/ml) ONE (06:26)
[2022-11-02] MEDS: ACCU-CHEK COMFORT CURVE STRIP VI SCH ×10 (06:33→20:04)
[2022-11-02 07:55] VITALS: PULSE 115; RESP 25; O2SAT 100
[2022-11-02] MEDS ORDERED: ONDANSETRON HCL 4 MG/2 ML VIAL IV PRN (09:45)
[2022-11-02] MEDS ORDERED: DOCUSATE SOD 100 MG CAP PO PRN (09:45)
[2022-11-02] MEDS ORDERED: MORPHINE SULFATE INJ 2 MG/ml SYRG IV PRN (09:45)
[2022-11-02 10:40] LABS: Eosinophils # (auto) 0 10 ^3/uL (0-0.8); Hemoglobin 12.9 g/dL (13.5-17.5); Monocytes # (auto) 0.6 10 ^3/uL (0-1.3); Red Cell Distribution Width 17.5 % (11.8-14.3)
[2022-11-02 10:42] LABS: Basophils # (auto) 0.1 10 ^3/uL (0-0.2); Basophils % (auto) 1.1 % (0.0-2.0); Hematocrit 43.3 % (41.0-53.0); Lymphocytes # (auto) 0.8 10 ^3/uL (0.4-5.4); Lymphocytes % (auto) 6.4 % (10.0-50.0); Mean Corpuscular Hemoglobin 25.5 pg (28.0-32.0); Mean Corpuscular Hgb Conc. 29.7 g/dL (32.0-36.0); Mean Corpuscular Volume 85.8 fL (80.0-100.0); Monocytes % (auto) 5.1 % (0.0-12.0); Neutrophils # (auto) 10.8 10 ^3/uL (1.6-8.6); Neutrophils % (auto) 87.4 % (37.0-80.0); Nucleated Red Blood Cells % 0.1 %; Red Blood Cells 5.05 10^6/uL (4.5-5.90); White Blood Cell 12.4 10^3/uL (4.4-10.8)
[2022-11-02] MEDS: SODIUM CHLORIDE 0.9% 1,000 ML IV SCH ×2 (10:49→13:06)
[2022-11-02] MEDS: PANTOPRAZOLE 40 MG/10 ML VIAL INJ IV SCH (10:49)
[2022-11-02 12:10] LABS: Potassium 3.9 mmol/L (3.5-5.1); Sodium 144 mmol/L (136-145)
[2022-11-02 12:11] LABS: Anion Gap 22.00001 (5-15)
[2022-11-02 12:12] LABS: Calcium 8.7 mg/dL (8.5-10.1)
[2022-11-02 12:17] LABS: Blood Urea Nitrogen 16 mg/dL (9-23)
[2022-11-02 12:39] LABS: Chloride 112 mmol/L (98-107); Glucose 209 mg/dL (74-106)
[2022-11-02 12:40] LABS: Carbon Dioxide < 10.0 mmol/L (20-30)
[2022-11-02 13:43] LABS: Chloride 98 mmol/L (98-107); Sodium 137 mmol/L (136-145)
[2022-11-02 13:44] LABS: Anion Gap 29.00001 (5-15); Calcium 9.6 mg/dL (8.7-10.4)
[2022-11-02] MEDS ORDERED: SODIUM CHLORIDE 0.9% 1,000 ML IV SCH ×2 (13:45→15:45)
[2022-11-02 13:49] LABS: BUN/Creatinine Ratio 14.7 (10.0-20.0); Blood Urea Nitrogen 22 mg/dL (9-23)
[2022-11-02 13:50] LABS: Magnesium 2.2 mg/dL (1.6-2.6)
[2022-11-02 13:51] LABS: Phosphorus 6.7 mg/dL (2.4-5.1)
[2022-11-02 14:03] LABS: Glucose 645 mg/dL (74-106); Potassium 5.6 mmol/L (3.5-5.1)
[2022-11-02 14:04] LABS: Carbon Dioxide < 10.0 mmol/L (20-30)
[2022-11-02] MEDS ORDERED: D5W/SOD CHL 0.45% 1,000 ML IV ONE (14:45)
[2022-11-02 14:50] LABS: Base Excess -11.5 mmol/L (-2.0-2.0)
[2022-11-02 15:29] LABS: Anion Gap 15.6 (5-15); Carbon Dioxide 14.4 mmol/L (20-30); Chloride 116 mmol/L (98-107); Potassium 4.1 mmol/L (3.5-5.1); Sodium 146 mmol/L (136-145)
[2022-11-02 15:30] LABS: Calcium 8.6 mg/dL (8.7-10.4)
[2022-11-02 15:35] LABS: BUN/Creatinine Ratio 22.4 (10.0-20.0); Blood Urea Nitrogen 22 mg/dL (9-23); Glucose 83 mg/dL (74-106)
[2022-11-02 18:43] LABS: Chloride 115 mmol/L (98-107); Potassium 3.8 mmol/L (3.5-5.1); Sodium 145 mmol/L (136-145)
[2022-11-02 18:44] LABS: Calcium 8.4 mg/dL (8.7-10.4)
[2022-11-02 18:49] LABS: BUN/Creatinine Ratio 17.7 (10.0-20.0); Blood Urea Nitrogen 17 mg/dL (9-23); Glucose 152 mg/dL (74-106)
[2022-11-02] MEDS ORDERED: D5W/SOD CHL 0.45% 1,000 ML IV SCH (19:00)
[2022-11-02 20:00] VITALS: PULSE 116; RESP 15; O2SAT 100
[2022-11-03] LABS: Chloride 116 mmol/L (98-107); Potassium 3.5 mmol/L (3.5-5.1); Sodium 146 mmol/L (136-145)
[2022-11-03] MEDS ORDERED: ACCU-CHEK COMFORT CURVE STRIP VI SCH
[2022-11-03] MEDS ORDERED: D5W/SOD CHL 0.45% 1,000 ML IV SCH
[2022-11-03 00:01] LABS: Anion Gap 9.7 (5-15); Carbon Dioxide 20.3 mmol/L (20-30)
[2022-11-03 00:02] LABS: Calcium 8.6 mg/dL (8.5-10.1)
[2022-11-03 00:06] LABS: BUN/Creatinine Ratio 17.9 (10.0-20.0); Blood Urea Nitrogen 15 mg/dL (9-23); Glucose 138 mg/dL (74-106)
[2022-11-03] MEDS: ACCU-CHEK COMFORT CURVE STRIP VI SCH ×6 (02:10→20:00)
[2022-11-03] MEDS: InsuLIN REG 1unit/0.01ml Soln (100units/ml) SC SCH ×6 (06:00→23:44)
[2022-11-03 06:08] LABS: Basophils # (auto) 0.1 10 ^3/uL (0-0.2); Eosinophils # (auto) 0 10 ^3/uL (0-0.8); Eosinophils % (auto) 0.1 % (0.0-7.0); Hemoglobin 12.3 g/dL (13.5-17.5); Red Cell Distribution Width 17.4 % (11.8-14.3)
[2022-11-03 06:10] LABS: Basophils % (auto) 0.8 % (0.0-2.0); Lymphocytes # (auto) 1.2 10 ^3/uL (0.4-5.4); Lymphocytes % (auto) 15.1 % (10.0-50.0); Mean Corpuscular Hemoglobin 25.6 pg (28.0-32.0); Mean Corpuscular Hgb Conc. 32.4 g/dL (32.0-36.0); Mean Corpuscular Volume 79.1 fL (80.0-100.0); Monocytes # (auto) 0.5 10 ^3/uL (0-1.3); Monocytes % (auto) 5.6 % (0.0-12.0); Neutrophils # (auto) 6.3 10 ^3/uL (1.6-8.6); Neutrophils % (auto) 78.4 % (37.0-80.0); White Blood Cell 8.1 10^3/uL (4.4-10.8)
[2022-11-03 06:21] LABS: Alanine Aminotransferase 93 U/L (7-40); Albumin 3.8 g/dL (3.2-4.8); Alkaline Phosphatase 141 U/L (46-116); Anion Gap 9.6 (5-15); Aspartate Aminotransferase 74 U/L (13-40); BUN/Creatinine Ratio 16.9 (10.0-20.0); Blood Urea Nitrogen 14 mg/dL (9-23); Carbon Dioxide 21.4 mmol/L (20-30); Chloride 113 mmol/L (98-107); Glucose 136 mg/dL (74-106); Potassium 3.4 mmol/L (3.5-5.1); Sodium 144 mmol/L (136-145)
[2022-11-03 06:23] LABS: Bilirubin, Total 0.3 mg/dL (0.2-1.0); Total Protein 6.3 g/dL (5.7-8.2)
[2022-11-03] MEDS ORDERED: DEXTROSE (50%) 50ML SYRG IV PRN ×2 (07:30)
[2022-11-03] MEDS ORDERED: POTASSIUM EFFERVESENT TAB 25 MEQ PO ONE (07:45)
[2022-11-03 08:00] VITALS: PULSE 105; RESP 19; O2SAT 96
[2022-11-03] MEDS: PANTOPRAZOLE 40 MG/10 ML VIAL INJ IV SCH (08:21)
[2022-11-03] MEDS ORDERED: INSULIN LANTUS (GLARGINE) 1 /0.01ml (100units/ml) SC SCH (10:00)
[2022-11-03] MEDS: SOD CHL 0.45% 1,000 ML IV SCH ×2 (12:39→21:45)
[2022-11-03 13:40] VITALS: BP 156/117; PULSE 110; RESP 18; TEMP 97.6; O2SAT 100
[2022-11-03 16:00] VITALS: BP 127/88; PULSE 98; RESP 16; TEMP 98.1; O2SAT 99
[2022-11-03 22:00] VITALS: BP 126/83; PULSE 102; RESP 17; TEMP 97.9; O2SAT 100
[2022-11-04] MEDS: InsuLIN REG 1unit/0.01ml Soln (100units/ml) SC SCH ×2 (03:38→08:00)
[2022-11-04] MEDS: ACCU-CHEK COMFORT CURVE STRIP VI SCH ×3 (04:00→08:46)
[2022-11-04 05:00] VITALS: BP 175/126; PULSE 96; RESP 18; TEMP 98; O2SAT 100
[2022-11-04 05:58] LABS: Basophils # (auto) 0 10 ^3/uL (0-0.2); Basophils % (auto) 0.9 % (0.0-2.0); Eosinophils # (auto) 0 10 ^3/uL (0-0.8); Eosinophils % (auto) 0.5 % (0.0-7.0); Lymphocytes # (auto) 1.3 10 ^3/uL (0.4-5.4); Monocytes # (auto) 0.4 10 ^3/uL (0-1.3); Nucleated Red Blood Cells % 0.1 %
[2022-11-04 06:01] LABS: Hemoglobin 12.6 g/dL (13.5-17.5); Lymphocytes % (auto) 32.2 % (10.0-50.0); Mean Corpuscular Hemoglobin 25.9 pg (28.0-32.0); Mean Corpuscular Hgb Conc. 32.2 g/dL (32.0-36.0); Mean Corpuscular Volume 80.4 fL (80.0-100.0); Monocytes % (auto) 9.5 % (0.0-12.0); Neutrophils # (auto) 2.2 10 ^3/uL (1.6-8.6); Neutrophils % (auto) 56.9 % (37.0-80.0); Red Blood Cells 4.85 10^6/uL (4.5-5.90); Red Cell Distribution Width 17.2 % (11.8-14.3); White Blood Cell 3.9 10^3/uL (4.4-10.8)
[2022-11-04 06:13] LABS: Chloride 109 mmol/L (98-107); Sodium 139 mmol/L (136-145)
[2022-11-04 06:14] LABS: Anion Gap 7.8 (5-15); Calcium 8.8 mg/dL (8.7-10.4); Carbon Dioxide 22.2 mmol/L (20-30)
[2022-11-04 06:19] LABS: BUN/Creatinine Ratio 9.5 (10.0-20.0); Blood Urea Nitrogen 7 mg/dL (9-23); Glucose 118 mg/dL (74-106); Magnesium 1.8 mg/dL (1.6-2.6)
[2022-11-04 06:21] LABS: Phosphorus 1.8 mg/dL (2.4-5.1)
[2022-11-04] MEDS: SOD CHL 0.45% 1,000 ML IV SCH (07:45)
[2022-11-04 08:00] VITALS: BP 123/77; PULSE 95; RESP 18; TEMP 98.2; O2SAT 97
== END 2022-11-04 08:45 | disposition left against medical advice (07) | DRG 420 ==
LOC: ER 04:19 → EDBD 04:19 → TELE 09:52 → EAST 11-03 12:46
PROVIDERS: ADMIT Nurse Practitioner Family; ATTEND Nurse Practitioner Acute Care
DX: E10.10 Type 1 diabetes mellitus with ketoacidosis without coma (principal); N17.0 Acute kidney failure with tubular necrosis; G93.41 Metabolic encephalopathy; R64 Cachexia; E87.5 Hyperkalemia; E87.1 Hypo-osmolality and hyponatremia; F17.210 Nicotine dependence, cigarettes, uncomplicated; I10 Essential (primary) hypertension; J45.909 Unspecified asthma, uncomplicated; Z53.29 Procedure and treatment not carried out because of patient's decision for other reasons; K21.9 Gastro-esophageal reflux disease without esophagitis; R74.01 Elevation of levels of liver transaminase levels; Z88.6 Allergy status to analgesic agent; Z91.148 Patient's other noncompliance with medication regimen for other reason; Z88.1 Allergy status to other antibiotic agents; Z68.1 Body mass index [BMI] 19.9 or less, adult
CPT/HCPCS: 36415; 36600; 71045; 80048; 80053; 81001; 82010; 82805; 82962; 83605; 83735; 83930; 84100; 85025; 87040; 87081; 93005; 99291; C9113; G0378; J1815

== ENCOUNTER 2022-11-07 09:09 | Inpatient (IN) | payer MEDICAID ==
[2022-11-07] VITALS (10 sets, daily range): BP systolic 136–155; BP diastolic 93–115; PULSE 94–108; RESP 10–22; TEMP 98–98.2; O2SAT 92–100
[~2022-11-07] VITALS: Ht 182.9 cm; Wt 65.8 kg
[2022-11-07] MEDS ORDERED: DEXTROSE (50%) 50ML SYRG IV PRN (09:15)
[2022-11-07] MEDS ORDERED: SODIUM CHLORIDE 0.9% 1,000 ML IV ONE ×4 (09:15→09:45)
[2022-11-07] MEDS ORDERED: INSULIN LANTUS (GLARGINE) 1 /0.01ml (100units/ml) SC ONE (09:15)
[2022-11-07] MEDS ORDERED: InsuLIN R (HUMAN) 100 UNITS in SODIUM CHL 0.9% 99 ML IV SCH (09:15)
[2022-11-07] MEDS ORDERED: SODIUM BICARBONATE 8.4 % INJ 50ML VIAL IV ONE (09:45)
[2022-11-07 10:15] LABS: Basophils # (auto) 0 10 ^3/uL (0-0.2); Eosinophils # (auto) 0 10 ^3/uL (0-0.8); Lymphocytes # (auto) 0.8 10 ^3/uL (0.4-5.4); Monocytes # (auto) 0.4 10 ^3/uL (0-1.3)
[2022-11-07 10:21] LABS: Basophils % (auto) 0.5 % (0.0-2.0); Hematocrit 41.5 % (41.0-53.0); Hemoglobin 12.5 g/dL (13.5-17.5); Lymphocytes % (auto) 10.6 % (10.0-50.0); Mean Corpuscular Hemoglobin 25.5 pg (28.0-32.0); Mean Corpuscular Hgb Conc. 30.2 g/dL (32.0-36.0); Mean Corpuscular Volume 84.5 fL (80.0-100.0); Monocytes % (auto) 5.7 % (0.0-12.0); Neutrophils # (auto) 6.5 10 ^3/uL (1.6-8.6); Neutrophils % (auto) 83.2 % (37.0-80.0); Nucleated Red Blood Cells % 0.1 %; Red Blood Cells 4.91 10^6/uL (4.5-5.90); Red Cell Distribution Width 16.7 % (11.8-14.3); White Blood Cell 7.8 10^3/uL (4.4-10.8)
[2022-11-07] MEDS: SODIUM CHLORIDE 0.9% 1,000 ML IV SCH ×4 (10:44→21:55)
[2022-11-07 10:45] LABS: Urine WBC None Seen /hpf (0 - 3)
[2022-11-07] MEDS: ACCU-CHEK COMFORT CURVE STRIP VI SCH ×9 (10:48→22:36)
[2022-11-07 11:05] LABS: Urine Bacteria FEW /hpf (None Seen); Urine Blood Negative /uL (Negative); Urine Clarity Clear (Clear); Urine Protein, UAD TRACE (Negative); Urine Specific Gravity 1.022 (1.001-1.035); Urine Urobilinogen Normal (Negative); Urine pH 5.5 (5.0-8.0)
[2022-11-07 11:07] LABS: Urine Color Straw (Yellow)
[2022-11-07] MEDS ORDERED: MORPHINE SULFATE INJ 2 MG/ml SYRG IV PRN (11:30)
[2022-11-07] MEDS ORDERED: PANTOPRAZOLE 40 MG/10 ML VIAL INJ IV ONE (11:30)
[2022-11-07] MEDS ORDERED: NITROGLYCERIN 0.4 MG SL TAB SL PRN (11:30)
[2022-11-07] MEDS ORDERED: ONDANSETRON HCL 4 MG/2 ML VIAL IV PRN (11:30)
[2022-11-07] MEDS ORDERED: SODIUM CHLORIDE 0.9% 1,000 ML IV SCH ×2 (11:30→13:15)
[2022-11-07] MEDS ORDERED: ACETAMINOPHEN 325 MG TAB PO PRN (11:30)
[2022-11-07 13:09] LABS: Anion Gap 24.00001 (5-15); BUN/Creatinine Ratio 13.1 (10.0-20.0); Blood Urea Nitrogen 16 mg/dL (9-23); Calcium 8.4 mg/dL (8.5-10.1); Chloride 105 mmol/L (98-107); Magnesium 2.2 mg/dL (1.6-2.6); Potassium 4.6 mmol/L (3.5-5.1); Sodium 139 mmol/L (136-145)
[2022-11-07 13:14] LABS: Glucose 506 mg/dL (74-106)
[2022-11-07 13:15] LABS: Carbon Dioxide < 10.0 mmol/L (20-30)
[2022-11-07] MEDS ORDERED: D5W/SOD CHL 0.45% 1,000 ML IV SCH (16:45)
[2022-11-07 17:55] LABS: Chloride 113 mmol/L (98-107); Sodium 141 mmol/L (136-145)
[2022-11-07 17:58] LABS: Calcium 7.5 mg/dL (8.7-10.4)
[2022-11-07 18:03] LABS: Blood Urea Nitrogen 9 mg/dL (9-23)
[2022-11-07 18:04] LABS: Alkaline Phosphatase 115 U/L (46-116)
[2022-11-07 18:05] LABS: Alanine Aminotransferase 39 U/L (7-40); Albumin 3.4 g/dL (3.2-4.8); Aspartate Aminotransferase < 8 U/L (13-40)
[2022-11-07 18:06] LABS: Bilirubin, Total 0.2 mg/dL (0.2-1.0); Total Protein 5.6 g/dL (5.7-8.2)
[2022-11-07 18:18] LABS: Glucose 141 mg/dL (74-106)
[2022-11-07 18:20] LABS: Anion Gap 14.2 (5-15); Carbon Dioxide 13.8 mmol/L (20-30); Potassium 3.6 mmol/L (3.5-5.1)
[2022-11-07] MEDS ORDERED: POTASSIUM EFFERVESENT TAB 25 MEQ ONE (18:27)
[2022-11-07] MEDS ORDERED: POTASSIUM EFFERVESENT TAB 25 MEQ PO ONE (18:30)
[2022-11-07 18:44] LABS: Chloride 112 mmol/L (98-107); Potassium 3.8 mmol/L (3.5-5.1); Sodium 140 mmol/L (136-145)
[2022-11-07 18:45] LABS: Anion Gap 12.3 (5-15); Calcium 7.7 mg/dL (8.7-10.4); Carbon Dioxide 15.7 mmol/L (20-30)
[2022-11-07 18:50] LABS: BUN/Creatinine Ratio 11.5 (10.0-20.0); Blood Urea Nitrogen 9 mg/dL (9-23); Glucose 129 mg/dL (74-106)
[2022-11-07] MEDS: D5W/SOD CHL 0.45% 1,000 ML IV SCH ×2 (21:31→22:36)
[2022-11-07 22:13] LABS: Chloride 108 mmol/L (98-107); Sodium 136 mmol/L (136-145)
[2022-11-07 22:14] LABS: Anion Gap 11.1 (5-15); Calcium 7.9 mg/dL (8.7-10.4); Carbon Dioxide 16.9 mmol/L (20-30)
[2022-11-07 22:19] LABS: BUN/Creatinine Ratio 9.9 (10.0-20.0); Blood Urea Nitrogen 8 mg/dL (9-23); Glucose 271 mg/dL (74-106)
[2022-11-08] VITALS (40 sets, daily range): BP systolic 122–174; BP diastolic 35–118; PULSE 90–111; RESP 12–21; TEMP 98–99; O2SAT 89–100
[2022-11-08] MEDS ORDERED: DEXTROSE (50%) 50ML SYRG IV PRN (00:45)
[2022-11-08 01:02] LABS: Chloride 108 mmol/L (98-107); Potassium 3.7 mmol/L (3.5-5.1); Sodium 135 mmol/L (136-145)
[2022-11-08 01:03] LABS: Anion Gap 7.3 (5-15); Calcium 8.2 mg/dL (8.7-10.4); Carbon Dioxide 19.7 mmol/L (20-30)
[2022-11-08 01:08] LABS: BUN/Creatinine Ratio 7.3 (10.0-20.0); Blood Urea Nitrogen 6 mg/dL (9-23); Glucose 223 mg/dL (74-106)
[2022-11-08] MEDS: ACCU-CHEK COMFORT CURVE STRIP VI SCH ×4 (03:45→11:42)
[2022-11-08] MEDS: InsuLIN REG 1unit/0.01ml Soln (100units/ml) SC SCH ×3 (03:46→11:44)
[2022-11-08 05:47] LABS: Basophils # (auto) 0 10 ^3/uL (0-0.2); Eosinophils # (auto) 0 10 ^3/uL (0-0.8); Hemoglobin 11.8 g/dL (13.5-17.5); Lymphocytes # (auto) 1.3 10 ^3/uL (0.4-5.4); Mean Corpuscular Hemoglobin 25.6 pg (28.0-32.0); Monocytes # (auto) 0.5 10 ^3/uL (0-1.3); Neutrophils # (auto) 4.2 10 ^3/uL (1.6-8.6)
[2022-11-08 05:49] LABS: Basophils % (auto) 0.3 % (0.0-2.0); Eosinophils % (auto) 0.8 % (0.0-7.0); Hematocrit 36.3 % (41.0-53.0); Lymphocytes % (auto) 21.1 % (10.0-50.0); Mean Corpuscular Hgb Conc. 32.4 g/dL (32.0-36.0); Monocytes % (auto) 7.9 % (0.0-12.0); Neutrophils % (auto) 69.9 % (37.0-80.0); Nucleated Red Blood Cells % 0.3 %; Red Cell Distribution Width 16.5 % (11.8-14.3)
[2022-11-08 05:55] LABS: Base Excess -4.8 mmol/L (-2.0-2.0)
[2022-11-08 06:04] LABS: Alanine Aminotransferase 38 U/L (7-40); Albumin 3.4 g/dL (3.2-4.8); Alkaline Phosphatase 119 U/L (46-116); Anion Gap 9.1 (5-15); Aspartate Aminotransferase 8 U/L (13-40); BUN/Creatinine Ratio 7.2 (10.0-20.0); Bilirubin, Total 0.3 mg/dL (0.2-1.0); Blood Urea Nitrogen 6 mg/dL (9-23); Calcium 8.5 mg/dL (8.7-10.4); Carbon Dioxide 20.9 mmol/L (20-30); Chloride 108 mmol/L (98-107); Potassium 3.3 mmol/L (3.5-5.1); Sodium 138 mmol/L (136-145); Total Protein 5.7 g/dL (5.7-8.2)
[2022-11-08 06:25] LABS: Glucose 206 mg/dL (74-106)
[2022-11-08] MEDS ORDERED: PANTOPRAZOLE 40 MG/10 ML VIAL INJ IV SCH (10:00)
[2022-11-08] MEDS ORDERED: ENOXAPARIN SOD 40 MG/0.4 ML SYRINGE SC SCH (10:00)
[2022-11-08] MEDS ORDERED: INSULIN LANTUS (GLARGINE) 1 /0.01ml (100units/ml) SC SCH (10:00)
[2022-11-08 12:36] LABS: Chloride 107 mmol/L (98-107); Potassium 3.4 mmol/L (3.5-5.1); Sodium 135 mmol/L (136-145)
[2022-11-08 12:37] LABS: Anion Gap 7.4 (5-15); Carbon Dioxide 20.6 mmol/L (20-30)
[2022-11-08 12:38] LABS: Calcium 8.2 mg/dL (8.5-10.1)
[2022-11-08 12:43] LABS: BUN/Creatinine Ratio 6.1 (10.0-20.0); Blood Urea Nitrogen 5 mg/dL (9-23); Glucose 259 mg/dL (74-106)
[2022-11-08] MEDS ORDERED: POTASSIUM CHL 20 Meq TABLET PO ONE (14:15)
== END 2022-11-08 16:49 | disposition left against medical advice (07) | DRG 420 ==
LOC: ER 09:09 → EDBD 09:09 → TELE 11:29 → DOU IN ICU 22:10
PROVIDERS: ADMIT Nurse Practitioner Family; ATTEND Family Medicine
DX: E10.10 Type 1 diabetes mellitus with ketoacidosis without coma (principal); E86.0 Dehydration; I10 Essential (primary) hypertension; K21.9 Gastro-esophageal reflux disease without esophagitis; J45.909 Unspecified asthma, uncomplicated; Z53.29 Procedure and treatment not carried out because of patient's decision for other reasons; Z91.199 Patient's noncompliance with other medical treatment and regimen due to unspecified reason; Z88.8 Allergy status to other drugs, medicaments and biological substances
CPT/HCPCS: 36415; 36600; 80048; 80053; 81001; 82010; 82805; 82962; 83735; 83930; 84100; 85025; 87081; 93005; 99291; C9113; G0378; J1815

== ENCOUNTER 2022-11-28 10:54 | Inpatient (IN) | payer MEDICAID ==
[~2022-11-28] VITALS: Ht 175.3 cm; Wt 54.5 kg
[2022-11-28 11:04] VITALS: RESP 97; O2SAT 100
[2022-11-28] MEDS ORDERED: SODIUM CHLORIDE 0.9% 2,000 ML IV ONE (11:15)
[2022-11-28] MEDS ORDERED: InsuLIN REG 1unit/0.01ml Soln (100units/ml) IV ONE (11:15)
[2022-11-28] MEDS ORDERED: DEXTROSE (50%) 50ML SYRG IV PRN (11:30)
[2022-11-28] MEDS: ACCU-CHEK COMFORT CURVE STRIP VI SCH ×8 (12:05→22:32)
[2022-11-28] MEDS ORDERED: SODIUM BICARBONATE 8.4 % INJ 50ML VIAL IV ONE (12:30)
[2022-11-28 12:32] LABS: Eosinophils # (auto) 0 10 ^3/uL (0-0.8); Hemoglobin 13.7 g/dL (13.5-17.5); Monocytes # (auto) 0.2 10 ^3/uL (0-1.3); Neutrophils # (auto) 5.1 10 ^3/uL (1.6-8.6)
[2022-11-28 12:33] LABS: Basophils # (auto) 0 10 ^3/uL (0-0.2); Basophils % (auto) 0.4 % (0.0-2.0); Eosinophils % (auto) 0.2 % (0.0-7.0); Lymphocytes % (auto) 15.4 % (10.0-50.0); Mean Corpuscular Hemoglobin 26.4 pg (28.0-32.0); Mean Corpuscular Hgb Conc. 29.1 g/dL (32.0-36.0); Mean Corpuscular Volume 90.5 fL (80.0-100.0); Monocytes % (auto) 3.5 % (0.0-12.0); Neutrophils % (auto) 80.5 % (37.0-80.0); Nucleated Red Blood Cells % 0.3 %; Red Blood Cells 5.19 10^6/uL (4.5-5.90); Red Cell Distribution Width 19.1 % (11.8-14.3); White Blood Cell 6.3 10^3/uL (4.4-10.8)
[2022-11-28 12:35] LABS: Alanine Aminotransferase 77 U/L (7-40); Albumin 4.4 g/dL (3.2-4.8); Alkaline Phosphatase 129 U/L (46-116); Aspartate Aminotransferase 42 U/L (13-40); BUN/Creatinine Ratio 9.9 (10.0-20.0); Blood Urea Nitrogen 18 mg/dL (9-23); Calcium 9.5 mg/dL (8.5-10.1)
[2022-11-28 12:36] LABS: Bilirubin, Total 0.2 mg/dL (0.2-1.0); Total Protein 7.5 g/dL (5.7-8.2)
[2022-11-28 12:47] LABS: Urine Bacteria NONE SEEN /hpf (None Seen); Urine Blood TRACE /uL (Negative); Urine Clarity Clear (Clear); Urine Color Colorless (Yellow); Urine Protein, UAD TRACE (Negative); Urine Specific Gravity 1.025 (1.001-1.035); Urine Urobilinogen Normal (Negative); Urine WBC 1 /hpf (0 - 3); Urine pH 5.5 (5.0-8.0)
[2022-11-28 12:59] LABS: Large Platelets FEW; Platelet Estimate Decreased; RBC Morphology Normal
[2022-11-28 13:10] LABS: Carbon Dioxide < 10 mmol/L (20-30); Glucose 754 mg/dL (74-106)
[2022-11-28 13:13] LABS: Anion Gap 24.00001 (5-15); Chloride 100 mmol/L (98-107); Sodium 134 mmol/L (136-145)
[2022-11-28] MEDS: InsuLIN R (HUMAN) 100 UNITS in SODIUM CHL 0.9% 99 ML IV SCH (13:14)
[2022-11-28 13:29] LABS: Potassium 6.4 mmol/L (3.5-5.1)
[2022-11-28] MEDS ORDERED: ACETAMINOPHEN 325 MG TAB PO PRN (17:00)
[2022-11-28] MEDS ORDERED: NITROGLYCERIN 0.4 MG SL TAB SL PRN (17:00)
[2022-11-28] MEDS ORDERED: ONDANSETRON HCL 4 MG/2 ML VIAL IV PRN (17:00)
[2022-11-28] MEDS ORDERED: MORPHINE SULFATE INJ 2 MG/ml SYRG IV PRN (17:00)
[2022-11-28] MEDS ORDERED: PANTOPRAZOLE 40 MG/10 ML VIAL INJ IV ONE (17:30)
[2022-11-28 17:57] LABS: Potassium 3.9 mmol/L (3.5-5.1)
[2022-11-28 17:58] LABS: Anion Gap 25 (5-15); Carbon Dioxide 10 mmol/L (20-30)
[2022-11-28 17:59] LABS: Calcium 8.9 mg/dL (8.7-10.4)
[2022-11-28] MEDS ORDERED: VANCOMYCIN HCL 125 MG PO SCH (18:00)
[2022-11-28 18:03] LABS: BUN/Creatinine Ratio 15.1 (10.0-20.0); Blood Urea Nitrogen 19 mg/dL (9-23)
[2022-11-28 18:19] LABS: Chloride 112 mmol/L (98-107); Glucose 266 mg/dL (74-106); Sodium 147 mmol/L (136-145)
[2022-11-28 19:30] VITALS: PULSE 112; RESP 18; O2SAT 95
[2022-11-28] MEDS ORDERED: D5W/SOD CHL 0.45% 1,000 ML IV SCH (20:00)
[2022-11-28] MEDS ORDERED: CLINDAMYCIN HCL PO SCH (22:00)
[2022-11-28] MEDS ORDERED: HEPARIN SODIUM (PORCINE) 5000 UNITS/ML 1ML VIAL SC SCH (22:00)
[2022-11-28 22:30] LABS: Chloride 115 mmol/L (98-107); Sodium 147 mmol/L (136-145)
[2022-11-28 22:31] LABS: Anion Gap 11 (5-15); Calcium 9.1 mg/dL (8.7-10.4); Carbon Dioxide 21 mmol/L (20-30)
[2022-11-28 22:36] LABS: BUN/Creatinine Ratio 11.8 (10.0-20.0); Blood Urea Nitrogen 14 mg/dL (9-23); Glucose 180 mg/dL (74-106)
[2022-11-28] MEDS: D5W/SOD CHL 0.45% 1,000 ML IV SCH (23:26)
[2022-11-29] MEDS: ACCU-CHEK COMFORT CURVE STRIP VI SCH ×12 (00:15→23:21)
[2022-11-29 02:21] LABS: Chloride 115 mmol/L (98-107); Potassium 3.7 mmol/L (3.5-5.1); Sodium 147 mmol/L (136-145)
[2022-11-29 02:22] LABS: Anion Gap 9 (5-15); Carbon Dioxide 23 mmol/L (20-30)
[2022-11-29 02:23] LABS: Calcium 8.9 mg/dL (8.7-10.4)
[2022-11-29 02:27] LABS: Glucose 152 mg/dL (74-106)
[2022-11-29 02:28] LABS: BUN/Creatinine Ratio 15.3 (10.0-20.0); Blood Urea Nitrogen 17 mg/dL (9-23)
[2022-11-29 05:54] LABS: Basophils # (auto) 0 10 ^3/uL (0-0.2); Eosinophils # (auto) 0 10 ^3/uL (0-0.8); Lymphocytes # (auto) 1.3 10 ^3/uL (0.4-5.4); Monocytes # (auto) 0.5 10 ^3/uL (0-1.3); Neutrophils # (auto) 4.7 10 ^3/uL (1.6-8.6); White Blood Cell 6.6 10^3/uL (4.4-10.8)
[2022-11-29 05:57] LABS: Basophils % (auto) 0.3 % (0.0-2.0); Eosinophils % (auto) 0.2 % (0.0-7.0); Hematocrit 34.8 % (41.0-53.0); Hemoglobin 11.8 g/dL (13.5-17.5); Lymphocytes % (auto) 19.6 % (10.0-50.0); Mean Corpuscular Hemoglobin 26.9 pg (28.0-32.0); Mean Corpuscular Hgb Conc. 33.8 g/dL (32.0-36.0); Mean Corpuscular Volume 79.6 fL (80.0-100.0); Monocytes % (auto) 7.9 % (0.0-12.0); Red Blood Cells 4.37 10^6/uL (4.5-5.90); Red Cell Distribution Width 17.9 % (11.8-14.3)
[2022-11-29 06:14] LABS: Alanine Aminotransferase 52 U/L (7-40); Albumin 4.1 g/dL (3.2-4.8); Alkaline Phosphatase 98 U/L (46-116); Anion Gap 9 (5-15); Aspartate Aminotransferase 15 U/L (13-40); BUN/Creatinine Ratio 14.4 (10.0-20.0); Bilirubin, Total 0.2 mg/dL (0.2-1.0); Blood Urea Nitrogen 15 mg/dL (9-23); Calcium 8.9 mg/dL (8.7-10.4); Carbon Dioxide 24 mmol/L (20-30); Chloride 115 mmol/L (98-107); Glucose 110 mg/dL (74-106); Potassium 3.5 mmol/L (3.5-5.1); Sodium 148 mmol/L (136-145); Total Protein 6.2 g/dL (5.7-8.2)
[2022-11-29 08:00] VITALS: PULSE 93; RESP 13; O2SAT 100
[2022-11-29] MEDS: InsuLIN R (HUMAN) 100 UNITS in SODIUM CHL 0.9% 99 ML IV SCH ×2 (08:09→09:42)
[2022-11-29] MEDS: D5W/SOD CHL 0.45% 1,000 ML IV SCH (08:12)
[2022-11-29 10:52] LABS: Chloride 112 mmol/L (98-107); Potassium 3.6 mmol/L (3.5-5.1); Sodium 143 mmol/L (136-145)
[2022-11-29 10:53] LABS: Anion Gap 9 (5-15); Calcium 9.1 mg/dL (8.7-10.4); Carbon Dioxide 22 mmol/L (20-30)
[2022-11-29 10:58] LABS: BUN/Creatinine Ratio 11.1 (10.0-20.0); Blood Urea Nitrogen 11 mg/dL (9-23); Glucose 173 mg/dL (74-106)
[2022-11-29] MEDS ORDERED: DEXTROSE (50%) 50ML SYRG IV PRN (11:30)
[2022-11-29] MEDS: PANTOPRAZOLE 40 MG/10 ML VIAL INJ IV SCH (11:57)
[2022-11-29] MEDS: LABETALOL HCL 200 MG TAB PO SCH (11:58)
[2022-11-29] MEDS: InsuLIN REG 1unit/0.01ml Soln (100units/ml) SC SCH ×4 (12:56→23:44)
[2022-11-29 15:02] VITALS: PULSE 85; RESP 20; O2SAT 100
[2022-11-29 15:03] VITALS: BP 142/91; PULSE 85; RESP 20; TEMP 97.5; O2SAT 100
[2022-11-29] MEDS ORDERED: KETOROLAC TROMETH 30 MG/ML 1ML VIAL IV PRN (16:15)
[2022-11-29] MEDS ORDERED: traMADol HCL 50 MG TAB PO PRN (17:30)
[2022-11-29 18:23] LABS: Calcium 8.9 mg/dL (8.7-10.4); Chloride 107 mmol/L (98-107); Potassium 3.4 mmol/L (3.5-5.1); Sodium 136 mmol/L (136-145)
[2022-11-29 18:24] LABS: Anion Gap 9 (5-15); Carbon Dioxide 20 mmol/L (20-30)
[2022-11-29 18:29] LABS: BUN/Creatinine Ratio 9.3 (10.0-20.0); Blood Urea Nitrogen 10 mg/dL (9-23)
[2022-11-29 18:53] LABS: Glucose 330 mg/dL (74-106)
[2022-11-29 21:50] LABS: Chloride 105 mmol/L (98-107); Potassium 3.6 mmol/L (3.5-5.1); Sodium 133 mmol/L (136-145)
[2022-11-29 21:51] LABS: Anion Gap 11 (5-15); Carbon Dioxide 17 mmol/L (20-30)
[2022-11-29 21:52] LABS: Calcium 8.4 mg/dL (8.7-10.4)
[2022-11-29 21:57] LABS: Blood Urea Nitrogen 10 mg/dL (9-23); Glucose 346 mg/dL (74-106)
[2022-11-29 22:00] VITALS: BP 121/77; PULSE 96; RESP 17; TEMP 98.4; O2SAT 100
[2022-11-30 01:21] LABS: Chloride 108 mmol/L (98-107); Potassium 3.3 mmol/L (3.5-5.1); Sodium 136 mmol/L (136-145)
[2022-11-30 01:22] LABS: Anion Gap 9 (5-15); Carbon Dioxide 19 mmol/L (20-30)
[2022-11-30 01:23] LABS: Calcium 8.7 mg/dL (8.7-10.4)
[2022-11-30 01:27] LABS: BUN/Creatinine Ratio 6.7 (10.0-20.0); Blood Urea Nitrogen 7 mg/dL (9-23)
[2022-11-30 01:32] LABS: Glucose 243 mg/dL (74-106)
[2022-11-30] MEDS: ACCU-CHEK COMFORT CURVE STRIP VI SCH ×3 (04:46→12:25)
[2022-11-30] MEDS: InsuLIN REG 1unit/0.01ml Soln (100units/ml) SC SCH ×3 (04:56→12:26)
[2022-11-30 05:00] VITALS: BP 111/66; PULSE 89; RESP 17; TEMP 98.4; O2SAT 98
[2022-11-30 08:00] VITALS: PULSE 86; RESP 19; O2SAT 99
[2022-11-30 09:00] VITALS: BP 124/92; PULSE 86; RESP 19; TEMP 98.1; O2SAT 99
[2022-11-30] MEDS: LABETALOL HCL 200 MG TAB PO SCH (12:29)
[2022-11-30] MEDS: PANTOPRAZOLE 40 MG/10 ML VIAL INJ IV SCH (12:29)
[2022-11-30 13:00] VITALS: BP 149/114; PULSE 90; RESP 19; TEMP 97.6; O2SAT 100
[2022-11-30 14:14] VITALS: BP 142/89; PULSE 86; RESP 17; TEMP 36.4; O2SAT 100
== END 2022-11-30 14:50 | disposition home or self-care (01) | DRG 420 ==
LOC: ER 10:54 → EDBD 10:54 → TELE 16:51 → EAST 11-29 14:58
PROVIDERS: ADMIT Nurse Practitioner Family; ATTEND Nurse Practitioner Acute Care
DX: E11.10 Type 2 diabetes mellitus with ketoacidosis without coma (principal); N17.0 Acute kidney failure with tubular necrosis; E87.5 Hyperkalemia; F17.210 Nicotine dependence, cigarettes, uncomplicated; F32.A Depression, unspecified; F41.1 Generalized anxiety disorder; I10 Essential (primary) hypertension; J45.909 Unspecified asthma, uncomplicated; K21.9 Gastro-esophageal reflux disease without esophagitis; Z91.148 Patient's other noncompliance with medication regimen for other reason; Z88.8 Allergy status to other drugs, medicaments and biological substances; Z79.4 Long term (current) use of insulin; Z83.3 Family history of diabetes mellitus; Z88.6 Allergy status to analgesic agent; Z91.199 Patient's noncompliance with other medical treatment and regimen due to unspecified reason
CPT/HCPCS: 36415; 36600; 80048; 80053; 81001; 82010; 82805; 82962; 83036; 85025; 87077; 87186; 87205; 96361; 96365; 96375; 99291; 99292; C9113; G0378; J1815

== ENCOUNTER 2023-02-03 01:55 | Inpatient (IN) | payer MEDICAID ==
[~2023-02-03] VITALS: Ht 193 cm; Wt 72.2 kg
[2023-02-03 03:04] LABS: Basophils # (auto) 0.1 10 ^3/uL (0-0.2); Eosinophils # (auto) 0 10 ^3/uL (0-0.8); Hematocrit 43.5 % (41.0-53.0); Hemoglobin 12.6 g/dL (13.5-17.5); Lymphocytes # (auto) 0.7 10 ^3/uL (0.4-5.4); Mean Corpuscular Hemoglobin 26.8 pg (28.0-32.0); Monocytes # (auto) 0.2 10 ^3/uL (0-1.3); Nucleated Red Blood Cells % 0.1 %; Red Cell Distribution Width 18.6 % (11.8-14.3)
[2023-02-03 03:06] LABS: Basophils % (auto) 1.3 % (0.0-2.0); Eosinophils % (auto) 0.1 % (0.0-7.0); Lymphocytes % (auto) 11.5 % (10.0-50.0); Mean Corpuscular Hgb Conc. 28.9 g/dL (32.0-36.0); Mean Corpuscular Volume 92.8 fL (80.0-100.0); Neutrophils # (auto) 5.4 10 ^3/uL (1.6-8.6); Neutrophils % (auto) 84.1 % (37.0-80.0); Red Blood Cells 4.69 10^6/uL (4.5-5.90); White Blood Cell 6.5 10^3/uL (4.4-10.8)
[2023-02-03 03:15] LABS: Alanine Aminotransferase 104 U/L (7-40); Albumin 4.8 g/dL (3.2-4.8); Alkaline Phosphatase 185 U/L (46-116); Anion Gap 27.00001 (5-15); Aspartate Aminotransferase 38 U/L (13-40); BUN/Creatinine Ratio 15.3 (10.0-20.0); Bilirubin, Total 0.2 mg/dL (0.2-1.0); Blood Urea Nitrogen 23 mg/dL (9-23); Calcium 9.3 mg/dL (8.7-10.4); Chloride 96 mmol/L (98-107); Potassium 5.4 mmol/L (3.5-5.1); Sodium 133 mmol/L (136-145)
[2023-02-03 03:40] LABS: Carbon Dioxide < 10 mmol/L (20-30); Glucose 705 mg/dL (74-106)
[2023-02-03] MEDS ORDERED: POTASSIUM CHL 20MEQ/100ML 200 ML IV PRN (05:00)
[2023-02-03] MEDS ORDERED: MAGNESIUM SULFATE 1GM/100ML 200 ML IV ONE ×2 (05:00→10:15)
[2023-02-03] MEDS ORDERED: InsuLIN REG 1unit/0.01ml Soln (100units/ml) IV ONE (05:00)
[2023-02-03] MEDS ORDERED: DEXTROSE (50%) 50ML SYRG IV PRN ×2 (05:00→10:15)
[2023-02-03] MEDS ORDERED: SODIUM CHLORIDE 0.9% 1,000 ML IV ONE (05:00)
[2023-02-03] MEDS ORDERED: INSULIN DRIP 100 UNIT/100ML 100 ML IV SCH ×2 (05:00→10:15)
[2023-02-03 05:04] LABS: Lactic Acid w/Reflex 4.7 mmol/L (0.4-2.0)
[2023-02-03 05:42] LABS: Base Excess -31.9 mmol/L (-2.0-2.0)
[2023-02-03 05:44] LABS: Blood Alcohol 3.6 mg/dL (<10); Magnesium 2.7 mg/dL (1.6-2.6)
[2023-02-03] MEDS ORDERED: ACCU-CHEK COMFORT CURVE STRIP VI SCH (06:00)
[2023-02-03] MEDS: SODIUM CHLORIDE 0.9% 1,000 ML IV SCH ×5 (06:15→14:55)
[2023-02-03] MEDS ORDERED: NITROGLYCERIN 0.4 MG SL TAB SL PRN (07:00)
[2023-02-03] MEDS ORDERED: SODIUM BICARBONATE 8.4 % INJ 50ML VIAL IV ONE ×3 (07:00→12:45)
[2023-02-03] MEDS ORDERED: SODIUM CHLORIDE 0.9% 1,000 ML IV SCH ×3 (07:00→16:15)
[2023-02-03] MEDS ORDERED: DOCUSATE SOD 100 MG CAP PO PRN (07:00)
[2023-02-03 07:44] LABS: Alanine Aminotransferase 101 U/L (7-40); Alkaline Phosphatase 146 U/L (46-116); Anion Gap 27.00001 (5-15); BUN/Creatinine Ratio 17.1 (10.0-20.0); Blood Urea Nitrogen 27 mg/dL (9-23); Calcium 9.4 mg/dL (8.5-10.1); Chloride 97 mmol/L (98-107); Sodium 134 mmol/L (136-145)
[2023-02-03 07:45] LABS: Albumin 4.1 g/dL (3.2-4.8); Aspartate Aminotransferase 35 U/L (13-40); Bilirubin, Total < 0.2 mg/dL (0.2-1.0); Total Protein 6.6 g/dL (5.7-8.2)
[2023-02-03 07:50] LABS: INR 0.98 (0.9-1.15); Partial Thromboplastin Time 37.1 SEC (24.5-34.5); Prothrombin Time 10.3 sec (9.3-11.8)
[2023-02-03 07:59] LABS: Carbon Dioxide < 10 mmol/L (20-30); Glucose 849 mg/dL (74-106); Potassium 5.8 mmol/L (3.5-5.1)
[2023-02-03] MEDS: ACCU-CHEK COMFORT CURVE STRIP VI SCH ×11 (08:29→22:22)
[2023-02-03 08:45] VITALS: PULSE 105; RESP 15; O2SAT 100
[2023-02-03] MEDS ORDERED: NOREPINEPHRINE 8 MG/250ML KIT 250 ML IV ONE (08:55)
[2023-02-03] MEDS ORDERED: NOREPINEPHRINE 8 MG/250ML KIT 250 ML IV SCH (09:00)
[2023-02-03 09:39] LABS: Urine Bacteria NONE SEEN /hpf (None Seen); Urine Blood Negative /uL (Negative); Urine Clarity Clear (Clear); Urine Color Colorless (Yellow); Urine Mucus FEW (None Seen); Urine Protein, UAD TRACE (Negative); Urine Specific Gravity 1.023 (1.001-1.035); Urine Urobilinogen Normal (Negative); Urine WBC <1 /hpf (0 - 3)
[2023-02-03 09:40] LABS: Amphetamine Screen, Urine Neg (NEGATIVE); Barbiturate Scree,Urine Neg (NEGATIVE); Benzodiazephine Screen, Urine Neg (NEGATIVE); Cocaine Screen, Urine Neg (NEGATIVE); Opiate Scree,Urine Neg (NEGATIVE)
[2023-02-03 09:41] LABS: Cannabinoid Screen, Urine Neg (NEGATIVE); Phencyclidine Screen, Urine Neg (NEGATIVE)
[2023-02-03] MEDS ORDERED: SODIUM CHLORIDE 0.9% 2,000 ML IV ONE (10:15)
[2023-02-03] MEDS ORDERED: INSULIN LANTUS (GLARGINE) 1 /0.01ml (100units/ml) SC ONE (10:15)
[2023-02-03 10:28] LABS: Base Excess -24.7 mmol/L (-2.0-2.0)
[2023-02-03] MEDS ORDERED: MAGNESIUM SULFATE 1GM/100ML 100 ML IV SCH (11:00)
[2023-02-03] MEDS ORDERED: SODIUM BICARBONATE 50ML VIAL 150 ML in SOD CHL 0.45% 1,000 ML IV ONE (11:00)
[2023-02-03 11:01] LABS: Chloride 103 mmol/L (98-107); Potassium 4.3 mmol/L (3.5-5.1); Sodium 139 mmol/L (136-145)
[2023-02-03 11:02] LABS: Anion Gap 26.00001 (5-15); Calcium 8.6 mg/dL (8.7-10.4)
[2023-02-03] MEDS: SODIUM CHLORIDE 0.9% 2,000 ML IV ONE ×2 (11:04→15:06)
[2023-02-03 11:07] LABS: BUN/Creatinine Ratio 15.8 (10.0-20.0); Blood Urea Nitrogen 28 mg/dL (9-23); Magnesium 2.6 mg/dL (1.6-2.6)
[2023-02-03 11:09] LABS: Phosphorus 8.4 mg/dL (2.4-5.1)
[2023-02-03 11:24] LABS: Basophils # (auto) 0.1 10 ^3/uL (0-0.2); Eosinophils # (auto) 0 10 ^3/uL (0-0.8); Hemoglobin 12.4 g/dL (13.5-17.5); Lymphocytes # (auto) 1.3 10 ^3/uL (0.4-5.4)
[2023-02-03 11:26] LABS: Basophils % (auto) 1.1 % (0.0-2.0); Eosinophils % (auto) 0.1 % (0.0-7.0); Hematocrit 43.2 % (41.0-53.0); Lymphocytes % (auto) 10.4 % (10.0-50.0); Mean Corpuscular Hemoglobin 26.8 pg (28.0-32.0); Mean Corpuscular Hgb Conc. 28.8 g/dL (32.0-36.0); Mean Corpuscular Volume 92.8 fL (80.0-100.0); Monocytes # (auto) 0.5 10 ^3/uL (0-1.3); Monocytes % (auto) 3.8 % (0.0-12.0); Neutrophils # (auto) 10.6 10 ^3/uL (1.6-8.6); Neutrophils % (auto) 84.6 % (37.0-80.0); Nucleated Red Blood Cells % 0.1 %; Red Blood Cells 4.65 10^6/uL (4.5-5.90); Red Cell Distribution Width 18.2 % (11.8-14.3); White Blood Cell 12.6 10^3/uL (4.4-10.8)
[2023-02-03 11:28] LABS: Carbon Dioxide < 10 mmol/L (20-30); Glucose 745 mg/dL (74-106)
[2023-02-03] MEDS ORDERED: AMIODARONE BOLUS KIT 100 ML IV ONE (12:15)
[2023-02-03] MEDS ORDERED: AMIODARONE 450mg/250ml AE 250 ML IV SCH (12:30)
[2023-02-03 12:32] LABS: Base Excess -19.9 mmol/L (-2.0-2.0)
[2023-02-03] MEDS ORDERED: MAGNESIUM SULFATE 1GM/100ML 100 ML IV ONE (12:45)
[2023-02-03 14:08] LABS: Chloride 111 mmol/L (98-107); Potassium 3.7 mmol/L (3.5-5.1)
[2023-02-03 14:09] LABS: Anion Gap 25.00001 (5-15); Calcium 8.1 mg/dL (8.5-10.1)
[2023-02-03 14:14] LABS: BUN/Creatinine Ratio 15.8 (10.0-20.0); Blood Urea Nitrogen 21 mg/dL (9-23)
[2023-02-03 14:15] LABS: Sodium 146 mmol/L (136-145)
[2023-02-03 14:16] LABS: Carbon Dioxide < 10 mmol/L (20-30)
[2023-02-03 14:17] LABS: Glucose 513 mg/dL (74-106)
[2023-02-03 16:04] LABS: Base Excess -7.4 mmol/L (-2.0-2.0)
[2023-02-03 17:02] LABS: Chloride 115 mmol/L (98-107); Potassium 3.5 mmol/L (3.5-5.1); Sodium 149 mmol/L (136-145)
[2023-02-03 17:04] LABS: Anion Gap 15 (5-15); Carbon Dioxide 19 mmol/L (20-30)
[2023-02-03 17:09] LABS: BUN/Creatinine Ratio 18.3 (10.0-20.0); Blood Urea Nitrogen 22 mg/dL (9-23); Glucose 246 mg/dL (74-106)
[2023-02-03] MEDS: D5W/SOD CHL 0.45% 1,000 ML IV SCH (19:51)
[2023-02-03] MEDS: ONDANSETRON HCL 4 MG/2 ML VIAL IV PRN (20:21)
[2023-02-03] MEDS: MORPHINE SULFATE INJ 2 MG/ml SYRG IV PRN (20:22)
[2023-02-04 01:06] LABS: Chloride 112 mmol/L (98-107); Potassium 3.4 mmol/L (3.5-5.1); Sodium 146 mmol/L (136-145)
[2023-02-04 01:07] LABS: Anion Gap 8 (5-15); Calcium 7.8 mg/dL (8.7-10.4); Carbon Dioxide 26 mmol/L (20-30)
[2023-02-04] MEDS: ACCU-CHEK COMFORT CURVE STRIP VI SCH ×8 (01:08→20:14)
[2023-02-04 01:12] LABS: BUN/Creatinine Ratio 21.4 (10.0-20.0); Blood Urea Nitrogen 22 mg/dL (9-23)
[2023-02-04 01:15] LABS: Glucose 108 mg/dL (74-106)
[2023-02-04] MEDS: D5W/SOD CHL 0.45% 1,000 ML IV SCH ×3 (03:35→20:48)
[2023-02-04 04:01] LABS: Basophils # (auto) 0 10 ^3/uL (0-0.2); Basophils % (auto) 0.5 % (0.0-2.0); Eosinophils # (auto) 0 10 ^3/uL (0-0.8); Hematocrit 31.9 % (41.0-53.0); Hemoglobin 10.5 g/dL (13.5-17.5); Lymphocytes # (auto) 1.5 10 ^3/uL (0.4-5.4); Lymphocytes % (auto) 17.3 % (10.0-50.0); Mean Corpuscular Hemoglobin 27.1 pg (28.0-32.0); Mean Corpuscular Volume 82.1 fL (80.0-100.0); Monocytes # (auto) 0.6 10 ^3/uL (0-1.3); Monocytes % (auto) 6.6 % (0.0-12.0); Neutrophils # (auto) 6.7 10 ^3/uL (1.6-8.6); Neutrophils % (auto) 75.6 % (37.0-80.0); Red Blood Cells 3.88 10^6/uL (4.5-5.90); Red Cell Distribution Width 17.2 % (11.8-14.3); White Blood Cell 8.9 10^3/uL (4.4-10.8)
[2023-02-04 04:39] LABS: Alanine Aminotransferase 98 U/L (7-40); Albumin 3.6 g/dL (3.2-4.8); Alkaline Phosphatase 133 U/L (46-116); Anion Gap 7 (5-15); Aspartate Aminotransferase 233 U/L (13-40); BUN/Creatinine Ratio 18.4 (10.0-20.0); Blood Urea Nitrogen 19 mg/dL (9-23); Calcium 7.8 mg/dL (8.7-10.4); Carbon Dioxide 27 mmol/L (20-30); Chloride 111 mmol/L (98-107); Glucose 123 mg/dL (74-106); Potassium 3.2 mmol/L (3.5-5.1); Sodium 145 mmol/L (136-145)
[2023-02-04 04:40] LABS: Bilirubin, Total 0.2 mg/dL (0.2-1.0); Total Protein 5.8 g/dL (5.7-8.2)
[2023-02-04] MEDS ORDERED: DEXTROSE (50%) 50ML SYRG IV PRN (05:15)
[2023-02-04] MEDS ORDERED: POTASSIUM CHLORIDE 60 MEQ, LIDOCAINE 1% (LOCAL ANESTH.) 6 ML in SODIUM CHL 0.9% 500 ML IV ONE (08:00)
[2023-02-04 08:20] VITALS: PULSE 83; RESP 12; O2SAT 100
[2023-02-04] MEDS: InsuLIN REG 1unit/0.01ml Soln (100units/ml) SC SCH ×4 (08:26→20:00)
[2023-02-04] MEDS: INSULIN LANTUS (GLARGINE) 1 /0.01ml (100units/ml) SC SCH (08:27)
[2023-02-04 08:33] LABS: Base Excess -0.7 mmol/L (-2.0-2.0)
[2023-02-04 09:26] VITALS: PULSE 83; RESP 12; O2SAT 100
[2023-02-04] MEDS: ENOXAPARIN SOD 40 MG/0.4 ML SYRINGE SC SCH (10:17)
[2023-02-04] MEDS: ONDANSETRON HCL 4 MG/2 ML VIAL IV PRN (18:13)
[2023-02-04] MEDS: MORPHINE SULFATE INJ 2 MG/ml SYRG IV PRN (18:17)
[2023-02-04 19:25] VITALS: PULSE 94; RESP 9; O2SAT 97
[2023-02-05] MEDS: InsuLIN REG 1unit/0.01ml Soln (100units/ml) SC SCH ×6 (00:03→21:02)
[2023-02-05] MEDS: ACCU-CHEK COMFORT CURVE STRIP VI SCH ×6 (04:09→20:59)
[2023-02-05] MEDS: D5W/SOD CHL 0.45% 1,000 ML IV SCH ×2 (04:51→12:55)
[2023-02-05 08:10] VITALS: PULSE 104; RESP 20; O2SAT 97
[2023-02-05] MEDS ORDERED: FUROSEMIDE 20 MG/2 ML VIAL IV ONE (09:00)
[2023-02-05] MEDS: INSULIN LANTUS (GLARGINE) 1 /0.01ml (100units/ml) SC SCH (10:38)
[2023-02-05] MEDS: ENOXAPARIN SOD 40 MG/0.4 ML SYRINGE SC SCH (10:38)
[2023-02-05] MEDS: KETOROLAC TROMETH 30 MG/ML 1ML VIAL IV PRN ×2 (10:59→20:10)
[2023-02-05] MEDS: LOPERAMIDE HCL 2 MG CAP/TAB PO PRN ×2 (11:26→20:19)
[2023-02-05 18:56] VITALS: PULSE 92; RESP 18
[2023-02-05 20:00] VITALS: BP 130/95; PULSE 101; PULSE 104; RESP 16; TEMP 98.1; O2SAT 100
[2023-02-05 21:10] VITALS: BP 111/71; PULSE 93; RESP 18; TEMP 98.1; O2SAT 100
[2023-02-05 21:38] VITALS: BP 111/71; PULSE 93; RESP 18; TEMP 98.1
[2023-02-05 22:00] VITALS: BP 130/95; PULSE 104; RESP 16; TEMP 98.1; O2SAT 100
[2023-02-06] MEDS: ACCU-CHEK COMFORT CURVE STRIP VI SCH ×3 (00:53→08:37)
[2023-02-06] MEDS: InsuLIN REG 1unit/0.01ml Soln (100units/ml) SC SCH ×3 (00:55→08:37)
[2023-02-06] MEDS: KETOROLAC TROMETH 30 MG/ML 1ML VIAL IV PRN (03:30)
[2023-02-06 05:00] VITALS: BP 111/62; PULSE 89; RESP 18; TEMP 98.2; O2SAT 97
[2023-02-06 08:00] VITALS: PULSE 83
[2023-02-06 08:52] VITALS: BP 120/88; PULSE 86; RESP 17; TEMP 97.8; O2SAT 99
[2023-02-06] MEDS: INSULIN LANTUS (GLARGINE) 1 /0.01ml (100units/ml) SC SCH (10:27)
[2023-02-06 13:00] VITALS: BP 148/119; PULSE 89; RESP 17; TEMP 97.6; O2SAT 96
[2023-02-06 13:19] VITALS: BP 148/81; PULSE 89; RESP 17; TEMP 97.6; O2SAT 96
== END 2023-02-06 15:36 | disposition home or self-care (01) | DRG 420 ==
LOC: ER 01:55 → EDBD 01:55 → TELE 06:52 → TELE-CENTR 02-05 07:12
PROVIDERS: ADMIT Nurse Practitioner Family; ATTEND Family Medicine
PROC: 06HM33Z Insertion of Infusion Device into Right Femoral Vein, Percutaneous Approach (ICD-10-PCS; principal; 2023-02-03)
DX: E10.10 Type 1 diabetes mellitus with ketoacidosis without coma (principal); R57.1 Hypovolemic shock; I21.A1 Myocardial infarction type 2; N17.9 Acute kidney failure, unspecified; G93.41 Metabolic encephalopathy; E87.1 Hypo-osmolality and hyponatremia; R00.0 Tachycardia, unspecified; I10 Essential (primary) hypertension; R64 Cachexia; F17.210 Nicotine dependence, cigarettes, uncomplicated; J45.909 Unspecified asthma, uncomplicated; K21.9 Gastro-esophageal reflux disease without esophagitis; E86.0 Dehydration; R07.89 Other chest pain; Z91.148 Patient's other noncompliance with medication regimen for other reason; Z68.1 Body mass index [BMI] 19.9 or less, adult; Z82.49 Family history of ischemic heart disease and other diseases of the circulatory system; Z88.6 Allergy status to analgesic agent; Z88.1 Allergy status to other antibiotic agents
CPT/HCPCS: 36415; 36600; 71045; 80048; 80053; 80307; 80320; 81001; 82010; 82805; 82962; 83036; 83605; 83735; 83880; 83930; 84100; 84484; 85025; 85610; 85730; 87040; 87086; 93005; 93306; 97163; 99291; G0378; J1815; J1885; J2001; J2405

== ENCOUNTER → 2023-03-01 | Outpatient (CLI) | payer MEDICAID ==
[~2023-03-01] MED LIST changes: -CLIN300C70 PO; -LEVO500T31 PO; -MUPI2OIN2 EACHNOSTRI; -VANC125C3 PO
== END | disposition home or self-care (01) ==
LOC: XYW 10:58
DX: R10.9 Unspecified abdominal pain (principal)
CPT/HCPCS: 78264; A9541

== ENCOUNTER 2023-03-19 11:50 | Inpatient (IN) | payer MEDICAID ==
[~2023-03-19] VITALS: Ht 193 cm; Wt 70.0 kg
[2023-03-19] MEDS ORDERED: InsuLIN REG 1unit/0.01ml Soln (100units/ml) IV ONE (12:30)
[2023-03-19] MEDS ORDERED: SODIUM CHLORIDE 0.9% 1,000 ML IV ONE ×4 (12:30→15:30)
[2023-03-19 14:05] LABS: Basophils # (auto) 0 10 ^3/uL (0-0.2); Basophils % (auto) 0.7 % (0.0-2.0); Eosinophils # (auto) 0 10 ^3/uL (0-0.8); Eosinophils % (auto) 0.2 % (0.0-7.0); Hematocrit 38.2 % (41.0-53.0); Hemoglobin 11.6 g/dL (13.5-17.5); Lymphocytes # (auto) 0.8 10 ^3/uL (0.4-5.4); Lymphocytes % (auto) 17.9 % (10.0-50.0); Mean Corpuscular Hemoglobin 26.3 pg (28.0-32.0); Mean Corpuscular Hgb Conc. 30.3 g/dL (32.0-36.0); Mean Corpuscular Volume 86.8 fL (80.0-100.0); Monocytes # (auto) 0.2 10 ^3/uL (0-1.3); Monocytes % (auto) 5.6 % (0.0-12.0); Neutrophils # (auto) 3.3 10 ^3/uL (1.6-8.6); Neutrophils % (auto) 75.6 % (37.0-80.0); Nucleated Red Blood Cells % 0.2 %; Red Cell Distribution Width 18.1 % (11.8-14.3); White Blood Cell 4.4 10^3/uL (4.4-10.8)
[2023-03-19 14:18] LABS: Chloride 92 mmol/L (98-107); Potassium 4.5 mmol/L (3.5-5.1); Sodium 129 mmol/L (136-145)
[2023-03-19 14:19] LABS: Anion Gap 27.00001 (5-15); Calcium 9.3 mg/dL (8.5-10.1)
[2023-03-19 14:24] LABS: BUN/Creatinine Ratio 8.5 (10.0-20.0); Blood Urea Nitrogen 13 mg/dL (9-23)
[2023-03-19 14:45] LABS: Carbon Dioxide < 10 mmol/L (20-30); Glucose 599 mg/dL (74-106)
[2023-03-19] MEDS ORDERED: DEXTROSE (50%) 50ML SYRG IV PRN ×2 (15:30→19:00)
[2023-03-19] MEDS ORDERED: INSULIN DRIP 100 UNIT/100ML 100 ML IV SCH (15:30)
[2023-03-19] MEDS ORDERED: INSULIN LANTUS (GLARGINE) 1 /0.01ml (100units/ml) SC ONE (15:30)
[2023-03-19] MEDS ORDERED: SODIUM BICARBONATE 8.4 % INJ 50ML VIAL IV ONE (15:30)
[2023-03-19 15:54] VITALS: PULSE 95; RESP 12; O2SAT 100
[2023-03-19] MEDS: ACCU-CHEK COMFORT CURVE STRIP VI SCH ×5 (16:57→23:36)
[2023-03-19] MEDS: SODIUM CHLORIDE 0.9% 1,000 ML IV SCH ×2 (19:00→20:31)
[2023-03-19] MEDS ORDERED: ALBUTEROL SULF 2.5 MG/0.5ML(0.5%) NEB SOLN NEB PRN (19:00)
[2023-03-19] MEDS ORDERED: DOCUSATE SOD 100 MG CAP PO PRN (19:00)
[2023-03-19] MEDS ORDERED: IPRATROPIUM BROM 0.5 MG/2.5ML INH SOL NEB PRN (19:00)
[2023-03-19 19:35] VITALS: PULSE 99; RESP 16; O2SAT 99
[2023-03-19 19:35] LABS: Base Excess -9.8 mmol/L (-2.0-2.0)
[2023-03-19 20:10] VITALS: PULSE 97; RESP 16; O2SAT 100
[2023-03-19 20:11] LABS: Chloride 102 mmol/L (98-107); Potassium 3.3 mmol/L (3.5-5.1); Sodium 138 mmol/L (136-145)
[2023-03-19 20:12] LABS: Anion Gap 23 (5-15); Calcium 8.5 mg/dL (8.7-10.4); Carbon Dioxide 13 mmol/L (20-30)
[2023-03-19 20:17] LABS: BUN/Creatinine Ratio 9.6 (10.0-20.0); Blood Urea Nitrogen 12 mg/dL (9-23); Glucose 333 mg/dL (74-106); Magnesium 1.6 mg/dL (1.6-2.6)
[2023-03-19] MEDS: ONDANSETRON HCL 4 MG/2 ML VIAL IV PRN (20:26)
[2023-03-19] MEDS: ENOXAPARIN SOD 40 MG/0.4 ML SYRINGE SC SCH (20:26)
[2023-03-19] MEDS: MORPHINE SULFATE INJ 2 MG/ml SYRG IV PRN (20:27)
[2023-03-19] MEDS ORDERED: SODIUM CHLORIDE 0.9% 1,000 ML IV SCH (23:00)
[2023-03-20] MEDS: ACCU-CHEK COMFORT CURVE STRIP VI SCH ×10 (00:30→22:00)
[2023-03-20 00:57] LABS: Potassium 3.4 mmol/L (3.5-5.1); Sodium 143 mmol/L (136-145)
[2023-03-20 00:58] LABS: Anion Gap 14 (5-15); Carbon Dioxide 17 mmol/L (20-30)
[2023-03-20 01:03] LABS: BUN/Creatinine Ratio 7.4 (10.0-20.0); Blood Urea Nitrogen 10 mg/dL (9-23); Glucose 339 mg/dL (74-106)
[2023-03-20 01:17] LABS: Chloride 112 mmol/L (98-107)
[2023-03-20] MEDS: SODIUM CHLORIDE 0.9% 1,000 ML IV SCH ×4 (01:40→23:29)
[2023-03-20] MEDS: ONDANSETRON HCL 4 MG/2 ML VIAL IV PRN ×2 (01:42→08:56)
[2023-03-20] MEDS: MORPHINE SULFATE INJ 2 MG/ml SYRG IV PRN ×2 (01:42→08:57)
[2023-03-20 05:56] LABS: COVID19 ANTIGEN SOFIA FIA NEGATIVE (NEGATIVE); Rapid Influenza A Negative (Negative); Rapid Influenza B Negative (Negative)
[2023-03-20] MEDS: LORazepam 2MG/ML-1ML VIAL IV PRN (05:56)
[2023-03-20 06:12] LABS: Urine Epithelial Cast None Seen /hpf (<5)
[2023-03-20 06:30] LABS: Urine Bacteria NONE SEEN /hpf (None Seen); Urine Blood Negative /uL (Negative); Urine Clarity Clear (Clear); Urine Protein, UAD Negative (Negative); Urine Specific Gravity 1.026 (1.001-1.035); Urine Urobilinogen Normal (Negative); Urine WBC 2 /hpf (0 - 3)
[2023-03-20 06:40] LABS: Urine Color Straw (Yellow)
[2023-03-20 06:43] LABS: Amphetamine Screen, Urine Neg (NEGATIVE)
[2023-03-20 06:44] LABS: Barbiturate Scree,Urine Neg (NEGATIVE); Benzodiazephine Screen, Urine Neg (NEGATIVE); Cocaine Screen, Urine Neg (NEGATIVE); Opiate Scree,Urine Neg (NEGATIVE); Phencyclidine Screen, Urine Neg (NEGATIVE)
[2023-03-20 06:45] LABS: Cannabinoid Screen, Urine Neg (NEGATIVE)
[2023-03-20 07:29] VITALS: PULSE 88; RESP 17; O2SAT 97
[2023-03-20 07:29] LABS: Anion Gap 7 (5-15); Carbon Dioxide 25 mmol/L (20-30); Chloride 112 mmol/L (98-107); Potassium 3.7 mmol/L (3.5-5.1); Sodium 144 mmol/L (136-145)
[2023-03-20 07:30] LABS: Calcium 8.7 mg/dL (8.5-10.1)
[2023-03-20 07:34] LABS: Glucose 79 mg/dL (74-106)
[2023-03-20 07:35] LABS: BUN/Creatinine Ratio 9.8 (10.0-20.0); Blood Urea Nitrogen 12 mg/dL (9-23)
[2023-03-20] MEDS: PANTOPRAZOLE 40 MG/10 ML VIAL INJ IV SCH (09:28)
[2023-03-20] MEDS: ENOXAPARIN SOD 40 MG/0.4 ML SYRINGE SC SCH (09:28)
[2023-03-20 09:30] VITALS: O2SAT 97
[2023-03-20] MEDS ORDERED: INSULIN LANTUS (GLARGINE) 1 /0.01ml (100units/ml) SC SCH ×3 (10:00→22:00)
[2023-03-20] MEDS ORDERED: DEXTROSE (50%) 50ML SYRG IV PRN (11:15)
[2023-03-20] MEDS ORDERED: InsuLIN REG 1unit/0.01ml Soln (100units/ml) SC SCH (11:30)
[2023-03-20 14:27] LABS: Chloride 109 mmol/L (98-107); Potassium 3.2 mmol/L (3.5-5.1); Sodium 142 mmol/L (136-145)
[2023-03-20 14:28] LABS: Anion Gap 13 (5-15); Calcium 8.6 mg/dL (8.7-10.4); Carbon Dioxide 20 mmol/L (20-30)
[2023-03-20 14:33] LABS: BUN/Creatinine Ratio 8.3 (10.0-20.0); Blood Urea Nitrogen 9 mg/dL (9-23); Glucose 134 mg/dL (74-106)
[2023-03-20] MEDS: InsuLIN REG 1unit/0.01ml Soln (100units/ml) SC SCH (17:00)
[2023-03-20 20:25] VITALS: O2SAT 97
[2023-03-20] MEDS ORDERED: CITALOPRAM HYDROBR 20 MG TAB PO ONE (21:45)
[2023-03-20] MEDS ORDERED: LABETALOL HCL 5 MG/ML 4ML SYRINGE IV ONE (22:15)
[2023-03-20] MEDS: traZODone HCL 50 MG TAB PO SCH (23:27)
[2023-03-21] VITALS (9 sets, daily range): BP systolic 142–165; BP diastolic 90–121; PULSE 87–109; RESP 16–20; TEMP 97.4–98.7; O2SAT 98–100
[2023-03-21] MEDS: MORPHINE SULFATE INJ 2 MG/ml SYRG IV PRN ×4 (01:35→22:17)
[2023-03-21] MEDS: SODIUM CHLORIDE 0.9% 1,000 ML IV SCH ×2 (03:40→10:20)
[2023-03-21 05:59] LABS: Alanine Aminotransferase 44 U/L (7-40); Albumin 3.4 g/dL (3.2-4.8); Alkaline Phosphatase 123 U/L (46-116); Anion Gap 11 (5-15); Aspartate Aminotransferase 49 U/L (13-40); BUN/Creatinine Ratio 9.6 (10.0-20.0); Blood Urea Nitrogen 9 mg/dL (9-23); Calcium 8.6 mg/dL (8.5-10.1); Carbon Dioxide 22 mmol/L (20-30); Chloride 106 mmol/L (98-107); Potassium 3.9 mmol/L (3.5-5.1); Sodium 139 mmol/L (136-145)
[2023-03-21 06:00] LABS: Basophils # (auto) 0 10 ^3/uL (0-0.2); Basophils % (auto) 0.5 % (0.0-2.0); Bilirubin, Total 0.2 mg/dL (0.2-1.0); Eosinophils # (auto) 0 10 ^3/uL (0-0.8); Eosinophils % (auto) 0.3 % (0.0-7.0); Hematocrit 30.5 % (41.0-53.0); Hemoglobin 9.9 g/dL (13.5-17.5); Lymphocytes % (auto) 31.7 % (10.0-50.0); Mean Corpuscular Hemoglobin 26.8 pg (28.0-32.0); Mean Corpuscular Hgb Conc. 32.5 g/dL (32.0-36.0); Mean Corpuscular Volume 82.6 fL (80.0-100.0); Monocytes # (auto) 0.4 10 ^3/uL (0-1.3); Monocytes % (auto) 11.6 % (0.0-12.0); Neutrophils # (auto) 1.7 10 ^3/uL (1.6-8.6); Neutrophils % (auto) 55.9 % (37.0-80.0); Nucleated Red Blood Cells % 0.1 %; Red Cell Distribution Width 17.2 % (11.8-14.3); Total Protein 5.5 g/dL (5.7-8.2)
[2023-03-21 06:04] LABS: Glucose 331 mg/dL (74-106)
[2023-03-21] MEDS: ACCU-CHEK COMFORT CURVE STRIP VI SCH ×4 (06:12→22:19)
[2023-03-21] MEDS: InsuLIN REG 1unit/0.01ml Soln (100units/ml) SC SCH ×3 (06:38→17:05)
[2023-03-21] MEDS: PANTOPRAZOLE 40 MG/10 ML VIAL INJ IV SCH (09:55)
[2023-03-21] MEDS: ENOXAPARIN SOD 40 MG/0.4 ML SYRINGE SC SCH (09:55)
[2023-03-21] MEDS ORDERED: DEXTROSE (50%) 50ML SYRG IV PRN (11:00)
[2023-03-21] MEDS ORDERED: LABETALOL HCL 200 MG TAB PO ONE (11:15)
[2023-03-21] MEDS ORDERED: InsuLIN REG 1unit/0.01ml Soln (100units/ml) SC SCH (11:30)
[2023-03-21] MEDS ORDERED: INSLANTI SC (14:24)
[2023-03-21] MEDS ORDERED: INSULIN LANTUS (GLARGINE) 1 /0.01ml (100units/ml) SC SCH ×2 (22:00)
[2023-03-21] MEDS: levoFLOXacin 500 MG TAB PO SCH (22:16)
[2023-03-21] MEDS: metroNIDAZOLE 500 MG TAB PO SCH (22:16)
[2023-03-21] MEDS: traZODone HCL 50 MG TAB PO SCH (22:16)
[2023-03-22] VITALS (8 sets, daily range): BP systolic 117–153; BP diastolic 69–113; PULSE 93–105; RESP 16–20; TEMP 97.6–98.5; O2SAT 96–100
[2023-03-22] MEDS ORDERED: LABETALOL HCL 5 MG/ML 4ML SYRINGE IV PRN (01:45)
[2023-03-22 05:49] LABS: Basophils # (auto) 0 10 ^3/uL (0-0.2); Eosinophils # (auto) 0 10 ^3/uL (0-0.8); Eosinophils % (auto) 0.2 % (0.0-7.0); Hemoglobin 10.3 g/dL (13.5-17.5); Monocytes # (auto) 0.4 10 ^3/uL (0-1.3); Neutrophils # (auto) 1.6 10 ^3/uL (1.6-8.6)
[2023-03-22 05:52] LABS: Hematocrit 31.9 % (41.0-53.0); Lymphocytes # (auto) 1.1 10 ^3/uL (0.4-5.4); Lymphocytes % (auto) 35.9 % (10.0-50.0); Mean Corpuscular Hemoglobin 26.4 pg (28.0-32.0); Mean Corpuscular Hgb Conc. 32.2 g/dL (32.0-36.0); Monocytes % (auto) 12.3 % (0.0-12.0); Neutrophils % (auto) 50.6 % (37.0-80.0); Nucleated Red Blood Cells % 0.4 %; Red Blood Cells 3.89 10^6/uL (4.5-5.90); White Blood Cell 3.1 10^3/uL (4.4-10.8)
[2023-03-22 06:06] LABS: Alanine Aminotransferase 53 U/L (7-40); Albumin 3.7 g/dL (3.2-4.8); Alkaline Phosphatase 131 U/L (46-116); Anion Gap 9 (5-15); Aspartate Aminotransferase 102 U/L (13-40); Bilirubin, Total 0.2 mg/dL (0.2-1.0); Blood Urea Nitrogen 10 mg/dL (9-23); Calcium 9.4 mg/dL (8.5-10.1); Carbon Dioxide 29 mmol/L (20-30); Chloride 99 mmol/L (98-107); Glucose 383 mg/dL (74-106); Potassium 4.3 mmol/L (3.5-5.1); Sodium 137 mmol/L (136-145); Total Protein 6.1 g/dL (5.7-8.2)
[2023-03-22] MEDS: metroNIDAZOLE 500 MG TAB PO SCH ×3 (06:43→21:03)
[2023-03-22] MEDS: MORPHINE SULFATE INJ 2 MG/ml SYRG IV PRN ×2 (06:44→21:04)
[2023-03-22] MEDS: ACCU-CHEK COMFORT CURVE STRIP VI SCH ×4 (06:44→21:03)
[2023-03-22] MEDS: InsuLIN REG 1unit/0.01ml Soln (100units/ml) SC SCH ×4 (06:45→21:02)
[2023-03-22 08:33] LABS: Hepatitis B Surface Antigen Negative (Negative)
[2023-03-22 08:35] LABS: Hepatitis B Surface Antigen Negative (Negative)
[2023-03-22 08:54] LABS: Hepatitis A Ab IgM Negative
[2023-03-22 08:55] LABS: Hepatitis B Core IgM Negative; Hepatitis C Antibody Negative (Negative)
[2023-03-22 08:56] LABS: Hepatitis C Antibody Negative (Negative)
[2023-03-22] MEDS: ENOXAPARIN SOD 40 MG/0.4 ML SYRINGE SC SCH (09:01)
[2023-03-22] MEDS: levoFLOXacin 500 MG TAB PO SCH (09:01)
[2023-03-22] MEDS: PANTOPRAZOLE 40 MG/10 ML VIAL INJ IV SCH (09:01)
[2023-03-22] MEDS: FLUoxetine HCL 20 MG CAP PO SCH (09:02)
[2023-03-22] MEDS: dilTIAZem 120MG ER CAP PO SCH ×2 (09:03→10:00)
[2023-03-22] MEDS: LORazepam 2MG/ML-1ML VIAL IV PRN (12:49)
[2023-03-22] MEDS: INSULIN LANTUS (GLARGINE) 1 /0.01ml (100units/ml) SC SCH (21:02)
[2023-03-22] MEDS: traZODone HCL 50 MG TAB PO SCH (21:03)
[2023-03-23] VITALS (9 sets, daily range): BP systolic 115–143; BP diastolic 78–100; PULSE 56–95; RESP 16–19; TEMP 98.1–98.6; O2SAT 97–100
[2023-03-23] MEDS: InsuLIN REG 1unit/0.01ml Soln (100units/ml) SC SCH ×4 (06:37→21:35)
[2023-03-23] MEDS: metroNIDAZOLE 500 MG TAB PO SCH ×3 (06:37→21:29)
[2023-03-23] MEDS: ACCU-CHEK COMFORT CURVE STRIP VI SCH ×4 (06:37→21:48)
[2023-03-23] MEDS: MORPHINE SULFATE INJ 2 MG/ml SYRG IV PRN ×3 (06:38→21:49)
[2023-03-23 07:03] LABS: Basophils # (auto) 0 10 ^3/uL (0-0.2); Eosinophils # (auto) 0 10 ^3/uL (0-0.8); Lymphocytes # (auto) 1.3 10 ^3/uL (0.4-5.4); Monocytes # (auto) 0.4 10 ^3/uL (0-1.3); Neutrophils # (auto) 1.2 10 ^3/uL (1.6-8.6); White Blood Cell 2.9 10^3/uL (4.4-10.8)
[2023-03-23 07:06] LABS: Basophils % (auto) 0.9 % (0.0-2.0); Eosinophils % (auto) 0.6 % (0.0-7.0); Hematocrit 32.1 % (41.0-53.0); Hemoglobin 10.4 g/dL (13.5-17.5); Mean Corpuscular Hemoglobin 26.8 pg (28.0-32.0); Mean Corpuscular Hgb Conc. 32.2 g/dL (32.0-36.0); Mean Corpuscular Volume 83.1 fL (80.0-100.0); Monocytes % (auto) 13.5 % (0.0-12.0); Nucleated Red Blood Cells % 0.3 %; Red Blood Cells 3.86 10^6/uL (4.5-5.90)
[2023-03-23 07:40] LABS: Alanine Aminotransferase 115 U/L (7-40); Alkaline Phosphatase 137 U/L (46-116); Anion Gap 10 (5-15); Aspartate Aminotransferase 399 U/L (13-40); Bilirubin, Total 0.2 mg/dL (0.2-1.0); Blood Urea Nitrogen 13 mg/dL (9-23); Calcium 9.2 mg/dL (8.7-10.4); Carbon Dioxide 29 mmol/L (20-30); Chloride 100 mmol/L (98-107); Potassium 4.4 mmol/L (3.5-5.1); Sodium 139 mmol/L (136-145); Total Protein 6.1 g/dL (5.7-8.2)
[2023-03-23 07:44] LABS: Glucose 192 mg/dL (74-106)
[2023-03-23 08:01] LABS: Albumin 3.7 g/dL (3.2-4.8)
[2023-03-23] MEDS: PANTOPRAZOLE 40 MG/10 ML VIAL INJ IV SCH (09:14)
[2023-03-23] MEDS: ENOXAPARIN SOD 40 MG/0.4 ML SYRINGE SC SCH (09:14)
[2023-03-23] MEDS: levoFLOXacin 500 MG TAB PO SCH (09:14)
[2023-03-23] MEDS: dilTIAZem 120MG ER CAP PO SCH (09:15)
[2023-03-23] MEDS: FLUoxetine HCL 20 MG CAP PO SCH (09:15)
[2023-03-23] MEDS ORDERED: OMNIPAQUE 12mg/ml 500ml ORAL SOLUTION PO ONE (13:40)
[2023-03-23] MEDS ORDERED: IOHEXOL 300 MG/ML 100ML BOTTLE IJ ONE (15:39)
[2023-03-23] MEDS: traZODone HCL 50 MG TAB PO SCH (21:29)
[2023-03-23] MEDS: INSULIN LANTUS (GLARGINE) 1 /0.01ml (100units/ml) SC SCH (21:48)
[2023-03-24] VITALS (8 sets, daily range): BP systolic 112–147; BP diastolic 72–102; PULSE 87–93; RESP 18–19; TEMP 97.6–98.1; O2SAT 98–100
[2023-03-24] MEDS: metroNIDAZOLE 500 MG TAB PO SCH ×2 (05:56→13:31)
[2023-03-24] MEDS: ACCU-CHEK COMFORT CURVE STRIP VI SCH ×2 (05:58→11:30)
[2023-03-24] MEDS: InsuLIN REG 1unit/0.01ml Soln (100units/ml) SC SCH ×2 (06:19→11:30)
[2023-03-24 09:21] LABS: Basophils # (auto) 0 10 ^3/uL (0-0.2); Eosinophils # (auto) 0 10 ^3/uL (0-0.8); Eosinophils % (auto) 0.8 % (0.0-7.0); Hemoglobin 10.8 g/dL (13.5-17.5); Monocytes # (auto) 0.3 10 ^3/uL (0-1.3); White Blood Cell 3.2 10^3/uL (4.4-10.8)
[2023-03-24 09:23] LABS: Basophils % (auto) 0.7 % (0.0-2.0); Hematocrit 34.7 % (41.0-53.0); Lymphocytes # (auto) 1.3 10 ^3/uL (0.4-5.4); Lymphocytes % (auto) 41.1 % (10.0-50.0); Mean Corpuscular Hemoglobin 26.1 pg (28.0-32.0); Mean Corpuscular Hgb Conc. 31.2 g/dL (32.0-36.0); Mean Corpuscular Volume 83.4 fL (80.0-100.0); Neutrophils # (auto) 1.5 10 ^3/uL (1.6-8.6); Neutrophils % (auto) 47.4 % (37.0-80.0); Nucleated Red Blood Cells % 0.2 %; Red Blood Cells 4.16 10^6/uL (4.5-5.90)
[2023-03-24 09:38] LABS: Alanine Aminotransferase 115 U/L (7-40); Albumin 3.9 g/dL (3.2-4.8); Alkaline Phosphatase 126 U/L (46-116); Anion Gap 4 (5-15); Aspartate Aminotransferase 232 U/L (13-40); BUN/Creatinine Ratio 14.4 (10.0-20.0); Blood Urea Nitrogen 13 mg/dL (9-23); Calcium 9.4 mg/dL (8.5-10.1); Carbon Dioxide 34 mmol/L (20-30); Chloride 102 mmol/L (98-107); Glucose 78 mg/dL (74-106); Potassium 4.3 mmol/L (3.5-5.1); Sodium 140 mmol/L (136-145)
[2023-03-24 09:39] LABS: Bilirubin, Total 0.3 mg/dL (0.2-1.0); Total Protein 6.4 g/dL (5.7-8.2)
[2023-03-24] MEDS: FLUoxetine HCL 20 MG CAP PO SCH (10:00)
[2023-03-24] MEDS ORDERED: LEVO500T91 PO (13:25)
[2023-03-24] MEDS ORDERED: METR-344 PO (13:26)
[2023-03-24] MEDS: ENOXAPARIN SOD 40 MG/0.4 ML SYRINGE SC SCH (13:30)
[2023-03-24] MEDS: PANTOPRAZOLE 40 MG/10 ML VIAL INJ IV SCH (13:30)
[2023-03-24] MEDS: dilTIAZem 120MG ER CAP PO SCH (13:30)
[2023-03-24] MEDS: levoFLOXacin 500 MG TAB PO SCH (13:31)
[2023-03-24] MEDS ORDERED: DILT120T8 PO (19:50)
== END 2023-03-24 18:25 | disposition home or self-care (01) | DRG 248 ==
LOC: EDBD 11:50 → ER 11:50 → TELE 19:04 → TELE-EAST 03-20 23:16 → EAST 03-21 17:04
PROVIDERS: ADMIT Internal Medicine; ATTEND Internal Medicine
DX: E86.0 Dehydration (principal); A04.72 Enterocolitis due to Clostridium difficile, not specified as recurrent; N17.0 Acute kidney failure with tubular necrosis; E10.10 Type 1 diabetes mellitus with ketoacidosis without coma; R45.851 Suicidal ideations; R65.10 Systemic inflammatory response syndrome (SIRS) of non-infectious origin without acute organ dysfunction; E87.1 Hypo-osmolality and hyponatremia; F32.A Depression, unspecified; D64.9 Anemia, unspecified; I10 Essential (primary) hypertension; F17.210 Nicotine dependence, cigarettes, uncomplicated; K21.9 Gastro-esophageal reflux disease without esophagitis; J45.909 Unspecified asthma, uncomplicated; F41.1 Generalized anxiety disorder; Z88.6 Allergy status to analgesic agent; R79.89 Other specified abnormal findings of blood chemistry; R74.01 Elevation of levels of liver transaminase levels
CPT/HCPCS: 36415; 36600; 74177; 80048; 80053; 80074; 80307; 81001; 82010; 82533; 82550; 82805; 82962; 83036; 83735; 83930; 83935; 84100; 84439; 84443; 85025; 86803; 87045; 87340; 87426; 87427; 87493; 87804; 96361; 96372; 96374; 96375; C9113; G0378; J1815; J2405; J3490

== ENCOUNTER 2023-04-12 21:22 | Inpatient (IN) | payer MEDICAID ==
[~2023-04-12] VITALS: Ht 193 cm; Wt 55.9 kg
[~2023-04-12 21:22] MED LIST changes: +DILT120T8 PO; -INSU100I43 SC; +LEVO500T91 PO; +METR-344 PO
[2023-04-12] MEDS ORDERED: SODIUM CHLORIDE 0.9% 1,000 ML IV ONE (21:45)
[2023-04-12] MEDS ORDERED: INSULIN LISPRO (HUMAN) 100 UNITS/ML ML SC ONE (21:45)
[2023-04-12 22:13] LABS: Basophils # (auto) 0.1 10 ^3/uL (0-0.2); Basophils % (auto) 0.9 % (0.0-2.0); Eosinophils # (auto) 0 10 ^3/uL (0-0.8); Hematocrit 41.2 % (41.0-53.0); Hemoglobin 12.1 g/dL (13.5-17.5); Lymphocytes # (auto) 0.8 10 ^3/uL (0.4-5.4); Lymphocytes % (auto) 12.5 % (10.0-50.0); Mean Corpuscular Hemoglobin 26.4 pg (28.0-32.0); Mean Corpuscular Hgb Conc. 29.2 g/dL (32.0-36.0); Mean Corpuscular Volume 90.3 fL (80.0-100.0); Monocytes # (auto) 0.5 10 ^3/uL (0-1.3); Monocytes % (auto) 7.5 % (0.0-12.0); Neutrophils # (auto) 5.3 10 ^3/uL (1.6-8.6); Neutrophils % (auto) 79.1 % (37.0-80.0); Red Blood Cells 4.57 10^6/uL (4.5-5.90); Red Cell Distribution Width 16.9 % (11.8-14.3); White Blood Cell 6.7 10^3/uL (4.4-10.8)
[2023-04-12 22:20] LABS: Alanine Aminotransferase 94 U/L (7-40); Albumin 4.7 g/dL (3.2-4.8); Alkaline Phosphatase 242 U/L (46-116); Anion Gap 26.00001 (5-15); Aspartate Aminotransferase 39 U/L (13-40); BUN/Creatinine Ratio 12.3 (10.0-20.0); Bilirubin, Total 0.2 mg/dL (0.2-1.0); Blood Urea Nitrogen 21 mg/dL (9-23); Calcium 9.4 mg/dL (8.7-10.4); Chloride 91 mmol/L (98-107); Lipase 25 U/L (12-53); Sodium 127 mmol/L (136-145); Total Protein 8.1 g/dL (5.7-8.2)
[2023-04-12 22:22] VITALS: PULSE 103; RESP 17; O2SAT 100
[2023-04-12 22:39] LABS: Carbon Dioxide < 10 mmol/L (20-30); Glucose 829 mg/dL (74-106); Potassium 5.6 mmol/L (3.5-5.1)
[2023-04-12] MEDS ORDERED: INSULIN LANTUS (GLARGINE) 1 /0.01ml (100units/ml) SC ONE (23:15)
[2023-04-12] MEDS ORDERED: INSULIN DRIP 100 UNIT/100ML 100 ML IV SCH (23:15)
[2023-04-12] MEDS ORDERED: DEXTROSE (50%) 50ML SYRG IV PRN (23:15)
[2023-04-12 23:25] LABS: Magnesium 2.5 mg/dL (1.6-2.6)
[2023-04-12 23:26] LABS: Phosphorus 7.1 mg/dL (2.4-5.1)
[2023-04-12 23:39] LABS: Urine Bacteria FEW /hpf (None Seen); Urine Blood Negative /uL (Negative); Urine Clarity Clear (Clear); Urine Protein, UAD Negative (Negative); Urine Specific Gravity 1.023 (1.001-1.035); Urine Urobilinogen Normal (Negative); Urine WBC 13 /hpf (0 - 3)
[2023-04-12 23:45] LABS: Amphetamine Screen, Urine Neg (NEGATIVE); Barbiturate Scree,Urine Neg (NEGATIVE); Benzodiazephine Screen, Urine Neg (NEGATIVE); Cocaine Screen, Urine Neg (NEGATIVE)
[2023-04-12] MEDS ORDERED: ONDANSETRON HCL 4 MG/2 ML VIAL IV PRN (23:45)
[2023-04-12] MEDS ORDERED: DOCUSATE SOD 100 MG CAP PO PRN (23:45)
[2023-04-12] MEDS ORDERED: MORPHINE SULFATE INJ 2 MG/ml SYRG IV PRN (23:45)
[2023-04-12] MEDS ORDERED: NITROGLYCERIN 0.4 MG SL TAB SL PRN (23:45)
[2023-04-12 23:46] LABS: Cannabinoid Screen, Urine Neg (NEGATIVE); Opiate Scree,Urine Neg (NEGATIVE); Phencyclidine Screen, Urine Neg (NEGATIVE); Urine Color STRAW (Yellow)
[2023-04-12] MEDS: SODIUM CHLORIDE 0.9% 1,000 ML IV SCH (23:49)
[2023-04-12] MEDS: ACCU-CHEK COMFORT CURVE STRIP VI SCH (23:52)
[2023-04-13] MEDS ORDERED: InsuLIN REG 1unit/0.01ml Soln (100units/ml) ONE (00:07)
[2023-04-13] MEDS: SODIUM CHLORIDE 0.9% 1,000 ML IV SCH ×5 (01:15→20:00)
[2023-04-13] MEDS: ACCU-CHEK COMFORT CURVE STRIP VI SCH ×11 (01:38→20:00)
[2023-04-13] MEDS ORDERED: SODIUM CHLORIDE 0.9% 1,000 ML IV SCH (03:15)
[2023-04-13 05:23] LABS: Eosinophils # (auto) 0 10 ^3/uL (0-0.8); Eosinophils % (auto) 0.1 % (0.0-7.0); Monocytes # (auto) 1.1 10 ^3/uL (0-1.3); Neutrophils # (auto) 5.5 10 ^3/uL (1.6-8.6); White Blood Cell 8.7 10^3/uL (4.4-10.8)
[2023-04-13 05:26] LABS: Basophils # (auto) 0.1 10 ^3/uL (0-0.2); Basophils % (auto) 0.7 % (0.0-2.0); Hematocrit 33.4 % (41.0-53.0); Hemoglobin 10.9 g/dL (13.5-17.5); Mean Corpuscular Hgb Conc. 32.5 g/dL (32.0-36.0); Mean Corpuscular Volume 79.9 fL (80.0-100.0); Monocytes % (auto) 12.7 % (0.0-12.0); Neutrophils % (auto) 63.5 % (37.0-80.0); Red Blood Cells 4.18 10^6/uL (4.5-5.90)
[2023-04-13 05:31] LABS: Alanine Aminotransferase 79 U/L (7-40); Albumin 4.3 g/dL (3.2-4.8); Alkaline Phosphatase 203 U/L (46-116); Anion Gap 15 (5-15); Aspartate Aminotransferase 27 U/L (13-40); BUN/Creatinine Ratio 14.2 (10.0-20.0); Blood Urea Nitrogen 17 mg/dL (9-23); Calcium 8.8 mg/dL (8.7-10.4); Carbon Dioxide 17 mmol/L (20-30); Potassium 4.1 mmol/L (3.5-5.1); Sodium 142 mmol/L (136-145)
[2023-04-13 05:32] LABS: Bilirubin, Total 0.2 mg/dL (0.2-1.0); Total Protein 7.4 g/dL (5.7-8.2)
[2023-04-13 05:42] LABS: Chloride 110 mmol/L (98-107); Glucose 214 mg/dL (74-106)
[2023-04-13 07:30] VITALS: PULSE 95; RESP 11; O2SAT 99
[2023-04-13] MEDS ORDERED: DEXTROSE (50%) 50ML SYRG IV PRN (10:00)
[2023-04-13] MEDS: INSULIN LANTUS (GLARGINE) 1 /0.01ml (100units/ml) SC SCH (10:26)
[2023-04-13 11:35] LABS: Chloride 111 mmol/L (98-107); Sodium 142 mmol/L (136-145)
[2023-04-13 11:36] LABS: Anion Gap 8 (5-15); Carbon Dioxide 23 mmol/L (20-30)
[2023-04-13 11:37] LABS: Calcium 9.2 mg/dL (8.5-10.1)
[2023-04-13 11:41] LABS: BUN/Creatinine Ratio 12.7 (10.0-20.0); Blood Urea Nitrogen 14 mg/dL (9-23); Glucose 131 mg/dL (74-106)
[2023-04-13] MEDS: InsuLIN REG 1unit/0.01ml Soln (100units/ml) SC SCH ×3 (12:26→20:00)
[2023-04-13] MEDS ORDERED: HYDROcodone-ACET 5/325MG TAB PO PRN (14:00)
[2023-04-13] MEDS ORDERED: ACETAMINOPHEN 500 MG TAB PO PRN (14:00)
[2023-04-13] MEDS ORDERED: HYDR-4798 PO (14:02)
[2023-04-13] MEDS ORDERED: TRAZ1TAB12 PO (14:02)
[2023-04-13 14:18] VITALS: BP 127/91; PULSE 98; RESP 16; TEMP 97.5; O2SAT 99
[2023-04-13] MEDS: MORPHINE SULFATE INJ 2 MG/ml SYRG IV PRN (14:57)
[2023-04-13 16:00] VITALS: BP 117/64; PULSE 95; RESP 16; TEMP 97.6; O2SAT 98
[2023-04-13 17:45] LABS: Chloride 107 mmol/L (98-107); Potassium 4.5 mmol/L (3.5-5.1); Sodium 137 mmol/L (136-145)
[2023-04-13] MEDS ORDERED: hydrOXYzine 25 MG TAB or CAP PO ONE (17:45)
[2023-04-13 17:46] LABS: Anion Gap 9 (5-15); Carbon Dioxide 21 mmol/L (20-30)
[2023-04-13 17:51] LABS: BUN/Creatinine Ratio 13.4 (10.0-20.0); Blood Urea Nitrogen 15 mg/dL (9-23)
[2023-04-13 18:01] LABS: Glucose 270 mg/dL (74-106)
[2023-04-13 20:00] VITALS: BP 141/102; PULSE 94; RESP 18; TEMP 97.5
[2023-04-13 22:25] VITALS: BP 141/102; PULSE 94; RESP 18; TEMP 97.5; O2SAT 100
[2023-04-14] MEDS: ACCU-CHEK COMFORT CURVE STRIP VI SCH ×4 (00:25→11:25)
[2023-04-14] MEDS: InsuLIN REG 1unit/0.01ml Soln (100units/ml) SC SCH ×4 (04:31→11:24)
[2023-04-14 05:22] VITALS: BP 122/75; PULSE 97; RESP 18; TEMP 98.5; O2SAT 99
[2023-04-14] MEDS: SODIUM CHLORIDE 0.9% 1,000 ML IV SCH ×2 (05:55→06:55)
[2023-04-14 08:00] VITALS: PULSE 89; RESP 18
[2023-04-14] MEDS: MORPHINE SULFATE INJ 2 MG/ml SYRG IV PRN (08:32)
[2023-04-14] MEDS: INSULIN LANTUS (GLARGINE) 1 /0.01ml (100units/ml) SC SCH (08:40)
[2023-04-14 09:00] VITALS: BP 140/107; PULSE 89; RESP 20; TEMP 97.4; O2SAT 100
[2023-04-14 12:55] VITALS: BP 138/82; PULSE 90; RESP 20; TEMP 97.8; O2SAT 100
== END 2023-04-14 14:50 | disposition home or self-care (01) | DRG 420 ==
LOC: EDSEX 21:22 → ER 21:22 → EDBD 21:22 → TELE 23:46 → EAST 23:46 → TELE-EAST 04-13 13:19 → EAST 04-13 13:37
PROVIDERS: ADMIT Nurse Practitioner Family; ATTEND Nurse Practitioner Acute Care
DX: E11.10 Type 2 diabetes mellitus with ketoacidosis without coma (principal); N17.0 Acute kidney failure with tubular necrosis; R64 Cachexia; I10 Essential (primary) hypertension; J45.909 Unspecified asthma, uncomplicated; K21.9 Gastro-esophageal reflux disease without esophagitis; F17.210 Nicotine dependence, cigarettes, uncomplicated; E87.5 Hyperkalemia; Z88.6 Allergy status to analgesic agent; Z83.3 Family history of diabetes mellitus; Z91.148 Patient's other noncompliance with medication regimen for other reason; Z68.1 Body mass index [BMI] 19.9 or less, adult
CPT/HCPCS: 36415; 36600; 80048; 80053; 80307; 81001; 82010; 82805; 82962; 83690; 83735; 83880; 83930; 84100; 84484; 85025; 87081; 87493; 93005; 99291; G0378; J1815

== ENCOUNTER 2023-09-15 05:31 | Inpatient (IN) | payer MEDICAID ==
[~2023-09-15] VITALS: Ht 193 cm; Wt 75.0 kg
[~2023-09-15 05:31] MED LIST changes: +HYDR-4798 PO; -HYDR-4902 PO; -LABE100T4 PO; +LABE100T7 PO; -LEVO500T91 PO; -METR-344 PO; +TRAZ1TAB12 PO
[2023-09-15 06:07] LABS: Base Excess -7.9 mmol/L (-2.0-2.0)
[2023-09-15 06:15] VITALS: PULSE 112; RESP 18; O2SAT 86
[2023-09-15 06:17] LABS: Basophils # (auto) 0 10 ^3/uL (0-0.2); Basophils % (auto) 0.7 % (0.0-2.0); Eosinophils # (auto) 0 10 ^3/uL (0-0.8); Lymphocytes # (auto) 0.9 10 ^3/uL (0.4-5.4); Mean Corpuscular Volume 72.9 fL (80.0-100.0); Monocytes # (auto) 0.2 10 ^3/uL (0-1.3); White Blood Cell 3.3 10^3/uL (4.4-10.8)
[2023-09-15 06:20] LABS: Eosinophils % (auto) 0.3 % (0.0-7.0); Hematocrit 39.6 % (41.0-53.0); Hemoglobin 12.6 g/dL (13.5-17.5); Mean Corpuscular Hemoglobin 23.3 pg (28.0-32.0); Mean Corpuscular Hgb Conc. 31.9 g/dL (32.0-36.0); Monocytes % (auto) 6.8 % (0.0-12.0); Neutrophils # (auto) 2.2 10 ^3/uL (1.6-8.6); Neutrophils % (auto) 65.2 % (37.0-80.0); Nucleated Red Blood Cells % 0.2 %; Red Blood Cells 5.44 10^6/uL (4.5-5.90); Red Cell Distribution Width 18.6 % (11.8-14.3)
[2023-09-15 06:33] LABS: Alanine Aminotransferase 33 U/L (7-40); Alkaline Phosphatase 111 U/L (46-116); Anion Gap 16 (5-15); Aspartate Aminotransferase 24 U/L (13-40); BUN/Creatinine Ratio 23.4 (10.0-20.0); Bilirubin, Total 0.3 mg/dL (0.2-1.0); Blood Urea Nitrogen 34 mg/dL (9-23); Calcium 9.9 mg/dL (8.7-10.4); Carbon Dioxide 18 mmol/L (20-30); Chloride 98 mmol/L (98-107); Potassium 4.5 mmol/L (3.5-5.1); Sodium 132 mmol/L (136-145); Total Protein 6.4 g/dL (5.7-8.2)
[2023-09-15] MEDS: SODIUM CHLORIDE 0.9% 1,000 ML IV ONE ×2 (06:42→07:58)
[2023-09-15] MEDS ORDERED: DEXTROSE (50%) 50ML SYRG IV PRN ×3 (06:45→13:15)
[2023-09-15] MEDS: INSULIN LANTUS (GLARGINE) 1 /0.01ml (100units/ml) SC ONE (06:48)
[2023-09-15 07:07] LABS: Glucose 615 mg/dL (74-106)
[2023-09-15 07:40] VITALS: PULSE 101; RESP 15; O2SAT 97
[2023-09-15 07:46] LABS: Urine Bacteria None Seen /hpf (None Seen)
[2023-09-15] MEDS: ACCU-CHEK COMFORT CURVE STRIP VI SCH ×3 (07:58→16:10)
[2023-09-15] MEDS: INSULIN DRIP 100 UNIT/100ML 100 ML IV SCH (08:00)
[2023-09-15 08:07] LABS: Urine Blood TRACE /uL (Negative); Urine Clarity Clear (Clear); Urine Color Colorless (Yellow); Urine Protein, UAD Negative (Negative); Urine Specific Gravity 1.026 (1.001-1.035); Urine Urobilinogen Normal (Negative); Urine WBC <1 /hpf (0 - 3)
[2023-09-15] MEDS: ONDANSETRON HCL 4 MG/2 ML VIAL IV ONE (08:18)
[2023-09-15] MEDS: MORPHINE SULFATE 4 MG/ML SYR/VIAL IV ONE (08:18)
[2023-09-15] MEDS: D5W/SOD CHLO 0.9% 1,000 ML IV ONE (10:37)
[2023-09-15] MEDS ORDERED: NITROGLYCERIN 0.4 MG SL TAB SL PRN (11:00)
[2023-09-15] MEDS ORDERED: MORPHINE SULFATE INJ 2 MG/ml SYRG IV PRN (11:00)
[2023-09-15] MEDS ORDERED: ONDANSETRON HCL 4 MG/2 ML VIAL IV PRN (11:00)
[2023-09-15] MEDS: PANTOPRAZOLE 40 MG/10 ML VIAL INJ IV ONE (11:12)
[2023-09-15 11:30] LABS: Basophils # (auto) 0.1 10 ^3/uL (0-0.2); Basophils % (auto) 1.7 % (0.0-2.0); Eosinophils # (auto) 0 10 ^3/uL (0-0.8); Eosinophils % (auto) 0.9 % (0.0-7.0); Hematocrit 37.7 % (41.0-53.0); Hemoglobin 12.2 g/dL (13.5-17.5); Lymphocytes # (auto) 1.3 10 ^3/uL (0.4-5.4); Lymphocytes % (auto) 38.3 % (10.0-50.0); Mean Corpuscular Hemoglobin 23.2 pg (28.0-32.0); Mean Corpuscular Hgb Conc. 32.5 g/dL (32.0-36.0); Mean Corpuscular Volume 71.5 fL (80.0-100.0); Monocytes # (auto) 0.4 10 ^3/uL (0-1.3); Neutrophils # (auto) 1.6 10 ^3/uL (1.6-8.6); Neutrophils % (auto) 46.1 % (37.0-80.0); Nucleated Red Blood Cells % 0.4 %; Red Blood Cells 5.27 10^6/uL (4.5-5.90); Red Cell Distribution Width 19.3 % (11.8-14.3); White Blood Cell 3.4 10^3/uL (4.4-10.8)
[2023-09-15 11:46] LABS: Sodium 139 mmol/L (136-145)
[2023-09-15 11:47] LABS: Anion Gap 6 (5-15); Calcium 9.4 mg/dL (8.7-10.4); Carbon Dioxide 25 mmol/L (20-30)
[2023-09-15 11:52] LABS: BUN/Creatinine Ratio 22.2 (10.0-20.0); Blood Urea Nitrogen 20 mg/dL (9-23); Magnesium 1.9 mg/dL (1.6-2.6)
[2023-09-15 11:54] LABS: Phosphorus 4.8 mg/dL (2.4-5.1)
[2023-09-15 12:05] LABS: Chloride 108 mmol/L (98-107); Glucose 173 mg/dL (74-106)
[2023-09-15] MEDS: SODIUM CHLORIDE 0.9% 1,000 ML IV SCH (13:48)
[2023-09-15] MEDS: InsuLIN REG 1unit/0.01ml Soln (100units/ml) SC SCH (16:11)
[2023-09-15 17:51] LABS: Chloride 103 mmol/L (98-107); Potassium 4.7 mmol/L (3.5-5.1)
[2023-09-15 17:52] LABS: Anion Gap 8 (5-15); Carbon Dioxide 23 mmol/L (20-30)
[2023-09-15 17:53] LABS: Calcium 9.4 mg/dL (8.7-10.4)
[2023-09-15 17:58] LABS: BUN/Creatinine Ratio 15.8 (10.0-20.0); Blood Urea Nitrogen 18 mg/dL (9-23)
[2023-09-15 18:01] LABS: Glucose 338 mg/dL (74-106); Sodium 134 mmol/L (136-145)
[2023-09-15 19:30] VITALS: PULSE 112; RESP 14; O2SAT 96
[2023-09-15] MEDS: MORPHINE SULFATE 4 MG/ML SYR/VIAL IV PRN (20:29)
[2023-09-15 22:07] VITALS: PULSE 102; RESP 18
[2023-09-15 23:13] LABS: Chloride 104 mmol/L (98-107); Sodium 135 mmol/L (136-145)
[2023-09-15 23:14] LABS: Anion Gap 8 (5-15); Calcium 9.7 mg/dL (8.7-10.4); Carbon Dioxide 23 mmol/L (20-30)
[2023-09-15 23:19] LABS: BUN/Creatinine Ratio 12.7 (10.0-20.0); Blood Urea Nitrogen 17 mg/dL (9-23)
[2023-09-15 23:30] LABS: Glucose 509 mg/dL (74-106)
[2023-09-16] VITALS (8 sets, daily range): BP systolic 143–159; BP diastolic 90–107; PULSE 93–102; RESP 17–20; TEMP 98–98.5; O2SAT 98–100
[2023-09-16 05:53] LABS: Basophils # (auto) 0 10 ^3/uL (0-0.2); Basophils % (auto) 0.6 % (0.0-2.0); Eosinophils # (auto) 0.1 10 ^3/uL (0-0.8); Lymphocytes # (auto) 1.6 10 ^3/uL (0.4-5.4); Neutrophils # (auto) 1.8 10 ^3/uL (1.6-8.6); Nucleated Red Blood Cells % 0.1 %; White Blood Cell 3.9 10^3/uL (4.4-10.8)
[2023-09-16 06:03] LABS: Eosinophils % (auto) 1.5 % (0.0-7.0); Hemoglobin 12.1 g/dL (13.5-17.5); Lymphocytes % (auto) 41.1 % (10.0-50.0); Mean Corpuscular Hemoglobin 23.3 pg (28.0-32.0); Mean Corpuscular Hgb Conc. 32.7 g/dL (32.0-36.0); Mean Corpuscular Volume 71.3 fL (80.0-100.0); Monocytes # (auto) 0.4 10 ^3/uL (0-1.3); Monocytes % (auto) 11.1 % (0.0-12.0); Neutrophils % (auto) 45.7 % (37.0-80.0); Red Blood Cells 5.18 10^6/uL (4.5-5.90); Red Cell Distribution Width 18.8 % (11.8-14.3)
[2023-09-16 06:19] LABS: Alanine Aminotransferase 23 U/L (7-40); Albumin 3.7 g/dL (3.2-4.8); Alkaline Phosphatase 101 U/L (46-116); Anion Gap 6 (5-15); Aspartate Aminotransferase 13 U/L (13-40); BUN/Creatinine Ratio 16.2 (10.0-20.0); Blood Urea Nitrogen 16 mg/dL (9-23); Calcium 9.3 mg/dL (8.5-10.1); Carbon Dioxide 24 mmol/L (20-30); Chloride 103 mmol/L (98-107); Sodium 133 mmol/L (136-145)
[2023-09-16 06:20] LABS: Bilirubin, Total 0.3 mg/dL (0.2-1.0)
[2023-09-16 06:48] LABS: Glucose 315 mg/dL (74-106)
[2023-09-16 09:35] LABS: Base Excess -3.6 mmol/L (-2.0-2.0)
[2023-09-16] MEDS ORDERED: INSULIN LANTUS (GLARGINE) 1 /0.01ml (100units/ml) SC SCH (10:00)
[2023-09-16] MEDS: dilTIAZem 120MG ER CAP PO SCH (10:38)
[2023-09-16] MEDS: PANTOPRAZOLE 40 MG/10 ML VIAL INJ IV SCH (10:39)
[2023-09-16] MEDS: LABETALOL HCL 200 MG TAB PO SCH (10:39)
[2023-09-16] MEDS: INSULIN LANTUS (GLARGINE) 1 /0.01ml (100units/ml) SC SCH (10:52)
[2023-09-16] MEDS: MUPIROCIN 2% OINT 15gm or 22gm EACHNOSTRI SCH (16:19)
[2023-09-17] VITALS (9 sets, daily range): BP systolic 128–154; BP diastolic 83–110; PULSE 91–102; RESP 16–20; TEMP 97.3–98.3; O2SAT 95–100
[2023-09-18 01:00] VITALS: BP 135/90; PULSE 86; RESP 18; TEMP 98.1; O2SAT 99
[2023-09-18 05:00] VITALS: BP 158/110; PULSE 94; RESP 18; TEMP 97.9; O2SAT 97
[2023-09-18 05:54] VITALS: BP 158/110; PULSE 94; RESP 18; TEMP 97.9; O2SAT 97
[2023-09-18 06:18] VITALS: BP 134/84
[2023-09-18 08:00] VITALS: BP 125/78; PULSE 96; RESP 20; TEMP 97.6; O2SAT 100
== END 2023-09-18 07:55 | disposition home or self-care (01) | DRG 420 ==
LOC: EDUNIT# 05:31 → EDBD 05:31 → ER 05:31 → TELE 10:59 → TELE-EAST 22:00
PROVIDERS: ADMIT Nurse Practitioner Family; ATTEND Internal Medicine
DX: E10.10 Type 1 diabetes mellitus with ketoacidosis without coma (principal); N17.0 Acute kidney failure with tubular necrosis; E87.1 Hypo-osmolality and hyponatremia; E86.0 Dehydration; I10 Essential (primary) hypertension; J45.909 Unspecified asthma, uncomplicated; K21.9 Gastro-esophageal reflux disease without esophagitis; F12.10 Cannabis abuse, uncomplicated; K62.89 Other specified diseases of anus and rectum; F17.210 Nicotine dependence, cigarettes, uncomplicated; Z88.1 Allergy status to other antibiotic agents; Z79.891 Long term (current) use of opiate analgesic; Z79.899 Other long term (current) drug therapy; Z79.4 Long term (current) use of insulin; Z91.199 Patient's noncompliance with other medical treatment and regimen due to unspecified reason; Z88.6 Allergy status to analgesic agent
CPT/HCPCS: 36415; 36600; 80048; 80053; 81001; 82010; 82805; 82962; 83036; 83605; 83735; 83930; 84100; 84484; 85025; 87040; 87081; 96361; 96365; 96372; 96375; 99291; G0378; J1815; J2405; J2470

== ENCOUNTER 2023-09-21 16:01 | Inpatient (IN) | payer MEDICAID ==
[~2023-09-21] VITALS: Ht 182.9 cm; Wt 68.0 kg
[2023-09-21 16:43] LABS: Basophils # (auto) 0 10 ^3/uL (0-0.2); Eosinophils # (auto) 0 10 ^3/uL (0-0.8); Hematocrit 38.2 % (41.0-53.0); Hemoglobin 12.3 g/dL (13.5-17.5); Mean Corpuscular Hemoglobin 23.6 pg (28.0-32.0); Mean Corpuscular Hgb Conc. 32.2 g/dL (32.0-36.0)
[2023-09-21 16:45] LABS: Basophils % (auto) 0.6 % (0.0-2.0); Eosinophils % (auto) 0.2 % (0.0-7.0); Lymphocytes % (auto) 18.1 % (10.0-50.0); Mean Corpuscular Volume 73.1 fL (80.0-100.0); Monocytes # (auto) 0.2 10 ^3/uL (0-1.3); Monocytes % (auto) 4.4 % (0.0-12.0); Neutrophils % (auto) 76.7 % (37.0-80.0); Nucleated Red Blood Cells % 0.1 %; Red Blood Cells 5.23 10^6/uL (4.5-5.90); Red Cell Distribution Width 19.6 % (11.8-14.3); White Blood Cell 5.3 10^3/uL (4.4-10.8)
[2023-09-21 16:46] LABS: Base Excess -11.6 mmol/L (-2.0-2.0)
[2023-09-21 17:04] LABS: Alanine Aminotransferase 34 U/L (7-40); Albumin 4.3 g/dL (3.2-4.8); Alkaline Phosphatase 117 U/L (46-116); Anion Gap 21 (5-15); Aspartate Aminotransferase 24 U/L (13-40); BUN/Creatinine Ratio 13.9 (10.0-20.0); Blood Urea Nitrogen 17 mg/dL (9-23); Calcium 10.1 mg/dL (8.7-10.4); Chloride 99 mmol/L (98-107); Potassium 4.7 mmol/L (3.5-5.1); Sodium 134 mmol/L (136-145)
[2023-09-21 17:05] LABS: Bilirubin, Total 0.6 mg/dL (0.2-1.0)
[2023-09-21 17:06] LABS: Carbon Dioxide 14 mmol/L (20-30)
[2023-09-21 17:08] LABS: Glucose 544 mg/dL (74-106)
[2023-09-21 17:40] LABS: Urine Bacteria None Seen /hpf (None Seen)
[2023-09-21] MEDS: SODIUM CHLORIDE 0.9% 1,000 ML IV ONE (17:48)
[2023-09-21] MEDS ORDERED: DEXTROSE (50%) 50ML SYRG IV PRN (18:00)
[2023-09-21 18:12] LABS: Amphetamine Screen, Urine Neg (NEGATIVE)
[2023-09-21 18:13] LABS: Barbiturate Scree,Urine Neg (NEGATIVE); Benzodiazephine Screen, Urine Neg (NEGATIVE); Cannabinoid Screen, Urine Neg (NEGATIVE); Cocaine Screen, Urine Neg (NEGATIVE); Opiate Scree,Urine Neg (NEGATIVE); Phencyclidine Screen, Urine Neg (NEGATIVE)
[2023-09-21] MEDS: INSULIN LANTUS (GLARGINE) 1 /0.01ml (100units/ml) SC ONE (18:14)
[2023-09-21 18:21] LABS: Urine Blood TRACE /uL (Negative); Urine Clarity Clear (Clear); Urine Color Light-Yellow (Yellow); Urine Protein, UAD TRACE (Negative); Urine Specific Gravity 1.031 (1.001-1.035); Urine Urobilinogen Normal (Negative); Urine WBC <1 /hpf (0 - 3); Urine pH 5.5 (5.0-9.0)
[2023-09-21] MEDS: INSULIN DRIP 100 UNIT/100ML 100 ML IV SCH (18:50)
[2023-09-21] MEDS: ACCU-CHEK COMFORT CURVE STRIP VI SCH (18:50)
[2023-09-21 19:45] VITALS: PULSE 115; RESP 22; O2SAT 98
[2023-09-21] MEDS ORDERED: ACETAMINOPHEN 325 MG TAB PO PRN (22:30)
[2023-09-21] MEDS ORDERED: DOCUSATE SOD 100 MG CAP PO PRN (22:30)
[2023-09-21] MEDS: SODIUM CHLORIDE 0.9% 1,000 ML IV SCH (22:49)
[2023-09-22] VITALS: BP 157/109; PULSE 91; RESP 17; TEMP 98.3; O2SAT 99
[2023-09-22] MEDS ORDERED: NITROGLYCERIN 0.4 MG SL TAB SL PRN
[2023-09-22 03:01] LABS: Alanine Aminotransferase 33 U/L (7-40); Albumin 4.1 g/dL (3.2-4.8); Alkaline Phosphatase 110 U/L (46-116); Anion Gap 17 (5-15); Aspartate Aminotransferase 21 U/L (13-40); BUN/Creatinine Ratio 16.2 (10.0-20.0); Bilirubin, Total 0.4 mg/dL (0.2-1.0); Blood Urea Nitrogen 16 mg/dL (9-23); Calcium 9.6 mg/dL (8.7-10.4); Carbon Dioxide 17 mmol/L (20-30); Chloride 105 mmol/L (98-107); Potassium 3.8 mmol/L (3.5-5.1); Sodium 139 mmol/L (136-145); Total Protein 6.8 g/dL (5.7-8.2)
[2023-09-22 03:05] LABS: Glucose 162 mg/dL (74-106)
[2023-09-22] MEDS: D5W/SOD CHLO 0.9% 1,000 ML IV SCH (03:53)
[2023-09-22] MEDS: HYDROcodone-ACET 5/325MG TAB PO PRN (04:14)
[2023-09-22] MEDS: ONDANSETRON HCL 4 MG/2 ML VIAL IV PRN (04:14)
[2023-09-22 05:04] LABS: Basophils # (auto) 0.1 10 ^3/uL (0-0.2); Basophils % (auto) 0.7 % (0.0-2.0); Eosinophils # (auto) 0 10 ^3/uL (0-0.8); Eosinophils % (auto) 0.1 % (0.0-7.0); Hemoglobin 12.2 g/dL (13.5-17.5); Monocytes # (auto) 0.7 10 ^3/uL (0-1.3); Monocytes % (auto) 8.7 % (0.0-12.0); Nucleated Red Blood Cells % 0.1 %
[2023-09-22 05:06] LABS: Hematocrit 37.9 % (41.0-53.0); Lymphocytes # (auto) 1.5 10 ^3/uL (0.4-5.4); Lymphocytes % (auto) 19.5 % (10.0-50.0); Mean Corpuscular Hemoglobin 23.2 pg (28.0-32.0); Mean Corpuscular Hgb Conc. 32.2 g/dL (32.0-36.0); Mean Corpuscular Volume 72.2 fL (80.0-100.0); Neutrophils # (auto) 5.6 10 ^3/uL (1.6-8.6); Red Blood Cells 5.24 10^6/uL (4.5-5.90); Red Cell Distribution Width 19.5 % (11.8-14.3); White Blood Cell 7.9 10^3/uL (4.4-10.8)
[2023-09-22 05:30] LABS: Alanine Aminotransferase 34 U/L (7-40); Albumin 4.2 g/dL (3.2-4.8); Alkaline Phosphatase 110 U/L (46-116); Anion Gap 19 (5-15); Aspartate Aminotransferase 17 U/L (13-40); BUN/Creatinine Ratio 15.2 (10.0-20.0); Bilirubin, Total 0.5 mg/dL (0.2-1.0); Blood Urea Nitrogen 16 mg/dL (9-23); Calcium 9.6 mg/dL (8.7-10.4); Carbon Dioxide 16 mmol/L (20-30); Chloride 104 mmol/L (98-107); Glucose 206 mg/dL (74-106); Potassium 3.9 mmol/L (3.5-5.1); Sodium 139 mmol/L (136-145); Total Protein 6.8 g/dL (5.7-8.2)
[2023-09-22] MEDS: FAMOTIDINE (10MG/ML) 2ML VL IV SCH (10:50)
[2023-09-22] MEDS: INSULIN LANTUS (GLARGINE) 1 /0.01ml (100units/ml) SC SCH ×2 (10:50→17:25)
[2023-09-22 16:09] LABS: Chloride 104 mmol/L (98-107); Potassium 3.5 mmol/L (3.5-5.1); Sodium 137 mmol/L (136-145)
[2023-09-22 16:10] LABS: Calcium 9.6 mg/dL (8.7-10.4); Carbon Dioxide 24 mmol/L (20-30)
[2023-09-22 16:15] LABS: BUN/Creatinine Ratio 13.7 (10.0-20.0); Blood Urea Nitrogen 13 mg/dL (9-23); Glucose 118 mg/dL (74-106)
[2023-09-22 16:45] LABS: Anion Gap 9 (5-15)
[2023-09-22] MEDS ORDERED: DEXTROSE (50%) 50ML SYRG IV PRN (17:15)
[2023-09-22] MEDS: MORPHINE SULFATE INJ 2 MG/ml SYRG IV PRN (18:48)
[2023-09-22 19:25] VITALS: PULSE 96; RESP 16; O2SAT 96
[2023-09-22] MEDS: InsuLIN REG 1unit/0.01ml Soln (100units/ml) SC SCH (20:28)
[2023-09-22] MEDS: ACCU-CHEK COMFORT CURVE STRIP VI SCH (20:28)
[2023-09-23] VITALS (7 sets, daily range): BP systolic 111–168; BP diastolic 64–124; PULSE 91–105; RESP 17–20; TEMP 36.7; O2SAT 97–99
[2023-09-23] MEDS: hydrALAZINE HCL 20 MG/ML VL IV PRN (02:39)
[2023-09-23] MEDS ORDERED: BUSP5TAB51 PO (03:37)
[2023-09-23] MEDS ORDERED: HYDR1SYP3 PO (03:37)
[2023-09-24 08:31] LABS: Hepatitis B Surface Antigen Negative (Negative)
[2023-09-24 08:52] LABS: Hepatitis C Antibody Negative (Negative)
== END 2023-09-23 16:00 | disposition home or self-care (01) | DRG 420 ==
LOC: EDSEX 16:01 → ER 16:01 → EDBD 16:01 → TELE 23:51 → CENTRAL 09-22 23:11
PROVIDERS: ADMIT Nurse Practitioner Family; ATTEND Nurse Practitioner Family
DX: E11.10 Type 2 diabetes mellitus with ketoacidosis without coma (principal); G93.41 Metabolic encephalopathy; D64.9 Anemia, unspecified; I10 Essential (primary) hypertension; J45.909 Unspecified asthma, uncomplicated; K21.9 Gastro-esophageal reflux disease without esophagitis; F17.210 Nicotine dependence, cigarettes, uncomplicated; Z88.6 Allergy status to analgesic agent; Z83.3 Family history of diabetes mellitus; Z91.199 Patient's noncompliance with other medical treatment and regimen due to unspecified reason; Z79.4 Long term (current) use of insulin
CPT/HCPCS: 36415; 36600; 80048; 80053; 80307; 81001; 82010; 82805; 82962; 83690; 83735; 84132; 84484; 85025; 86803; 87081; 87340; G0378; J1815; J2405; J3490

== ENCOUNTER 2023-10-05 07:48 | Inpatient (IN) | payer MEDICAID ==
[~2023-10-05] VITALS: Ht 193 cm; Wt 72.8 kg
[~2023-10-05 07:48] MED LIST changes: +BUSP5TAB51 PO; -DILT120T8 PO; +HYDR1SYP3 PO; -LABE100T7 PO
[2023-10-05] MEDS: SODIUM CHLORIDE 0.9% 1,000 ML IVB ONE (08:11)
[2023-10-05] MEDS: ONDANSETRON HCL 4 MG/2 ML VIAL IV ONE (08:11)
[2023-10-05 08:25] LABS: Basophils # (auto) 0 10 ^3/uL (0-0.2); Eosinophils # (auto) 0 10 ^3/uL (0-0.8); Eosinophils % (auto) 0.3 % (0.0-7.0); Hemoglobin 12.6 g/dL (13.5-17.5); Lymphocytes # (auto) 1.1 10 ^3/uL (0.4-5.4); Nucleated Red Blood Cells % 0.1 %; White Blood Cell 4.8 10^3/uL (4.4-10.8)
[2023-10-05 08:26] LABS: Basophils % (auto) 0.6 % (0.0-2.0); Hematocrit 39.3 % (41.0-53.0); Lymphocytes % (auto) 23.7 % (10.0-50.0); Mean Corpuscular Hemoglobin 23.7 pg (28.0-32.0); Mean Corpuscular Volume 74.1 fL (80.0-100.0); Monocytes # (auto) 0.2 10 ^3/uL (0-1.3); Monocytes % (auto) 5.1 % (0.0-12.0); Neutrophils # (auto) 3.3 10 ^3/uL (1.6-8.6); Neutrophils % (auto) 70.3 % (37.0-80.0); Red Blood Cells 5.31 10^6/uL (4.5-5.90); Red Cell Distribution Width 18.8 % (11.8-14.3)
[2023-10-05 08:27] LABS: Base Excess -16.8 mmol/L (-2.0-2.0)
[2023-10-05 08:45] LABS: Alanine Aminotransferase 45 U/L (7-40); Albumin 4.3 g/dL (3.2-4.8); Alkaline Phosphatase 150 U/L (46-116); Anion Gap 24 (5-15); Aspartate Aminotransferase 36 U/L (13-40); BUN/Creatinine Ratio 23.8 (10.0-20.0); Blood Urea Nitrogen 29 mg/dL (9-23); Calcium 10.2 mg/dL (8.7-10.4); Carbon Dioxide 11 mmol/L (20-30); Chloride 100 mmol/L (98-107); Magnesium 1.9 mg/dL (1.6-2.6); Potassium 5.4 mmol/L (3.5-5.1); Sodium 135 mmol/L (136-145)
[2023-10-05 08:46] LABS: Bilirubin, Total 0.6 mg/dL (0.2-1.0); Total Protein 6.8 g/dL (5.7-8.2)
[2023-10-05 08:47] VITALS: PULSE 115; O2SAT 96
[2023-10-05 08:48] LABS: Glucose 558 mg/dL (74-106)
[2023-10-05] MEDS ORDERED: DEXTROSE (50%) 50ML SYRG IV PRN ×2 (09:15→16:45)
[2023-10-05] MEDS: SODIUM CHLORIDE 0.9% 1,000 ML IV SCH ×2 (09:15→14:10)
[2023-10-05 09:21] LABS: Lipase 16 U/L (12-53)
[2023-10-05] MEDS: InsuLIN REG 1unit/0.01ml Soln (100units/ml) IV ONE (09:32)
[2023-10-05] MEDS: INSULIN DRIP 100 UNIT/100ML 100 ML IV SCH (09:34)
[2023-10-05] MEDS: ACCU-CHEK COMFORT CURVE STRIP VI SCH ×2 (11:10→20:39)
[2023-10-05 13:39] LABS: Urine Bacteria None Seen /hpf (None Seen)
[2023-10-05 13:47] LABS: Urine Blood TRACE /uL (Negative); Urine Clarity Clear (Clear); Urine Color Light-Yellow (Yellow); Urine Protein, UAD Negative (Negative); Urine Specific Gravity 1.025 (1.001-1.035); Urine Urobilinogen Normal (Negative); Urine WBC <1 /hpf (0 - 3)
[2023-10-05 13:59] LABS: Amphetamine Screen, Urine Pos (NEGATIVE); Barbiturate Scree,Urine Neg (NEGATIVE); Benzodiazephine Screen, Urine Neg (NEGATIVE); Cocaine Screen, Urine Neg (NEGATIVE)
[2023-10-05 14:00] LABS: Cannabinoid Screen, Urine Pos (NEGATIVE); Opiate Scree,Urine Neg (NEGATIVE); Phencyclidine Screen, Urine Neg (NEGATIVE)
[2023-10-05] MEDS ORDERED: MORPHINE SULFATE INJ 2 MG/ml SYRG IV PRN (14:45)
[2023-10-05] MEDS ORDERED: NITROGLYCERIN 0.4 MG SL TAB SL PRN (14:45)
[2023-10-05 15:15] LABS: Potassium 4.1 mmol/L (3.5-5.1); Sodium 140 mmol/L (136-145)
[2023-10-05] MEDS ORDERED: SODIUM CHLORIDE 0.9% 1,000 ML IV SCH (15:15)
[2023-10-05 15:16] LABS: Anion Gap 11 (5-15); Carbon Dioxide 18 mmol/L (20-30)
[2023-10-05 15:17] LABS: Calcium 8.9 mg/dL (8.7-10.4)
[2023-10-05 15:22] LABS: BUN/Creatinine Ratio 25.8 (10.0-20.0); Blood Urea Nitrogen 23 mg/dL (9-23)
[2023-10-05 15:26] LABS: Chloride 111 mmol/L (98-107); Glucose 136 mg/dL (74-106)
[2023-10-05] MEDS: InsuLIN REG 1unit/0.01ml Soln (100units/ml) SC SCH (20:42)
[2023-10-06] VITALS (42 sets, daily range): BP systolic 100–178; BP diastolic 29–111; PULSE 101–133; RESP 11–21; TEMP 98.2–98.4; O2SAT 98–100
[2023-10-06] MEDS: ONDANSETRON HCL 4 MG/2 ML VIAL IV PRN (04:09)
[2023-10-06 06:44] LABS: Eosinophils # (auto) 0 10 ^3/uL (0-0.8); Eosinophils % (auto) 0.5 % (0.0-7.0); Hemoglobin 11.2 g/dL (13.5-17.5); Monocytes # (auto) 0.4 10 ^3/uL (0-1.3); Nucleated Red Blood Cells % 0.1 %
[2023-10-06 06:59] LABS: Basophils # (auto) 0 10 ^3/uL (0-0.2); Basophils % (auto) 0.7 % (0.0-2.0); Hematocrit 34.7 % (41.0-53.0); Lymphocytes # (auto) 1.1 10 ^3/uL (0.4-5.4); Mean Corpuscular Hgb Conc. 32.3 g/dL (32.0-36.0); Mean Corpuscular Volume 74.4 fL (80.0-100.0); Monocytes % (auto) 5.6 % (0.0-12.0); Neutrophils # (auto) 5.1 10 ^3/uL (1.6-8.6); Neutrophils % (auto) 77.2 % (37.0-80.0); Red Blood Cells 4.67 10^6/uL (4.5-5.90); White Blood Cell 6.6 10^3/uL (4.4-10.8)
[2023-10-06 07:00] LABS: Alanine Aminotransferase 34 U/L (7-40); Alkaline Phosphatase 113 U/L (46-116); Anion Gap 21 (5-15); BUN/Creatinine Ratio 22.4 (10.0-20.0); Blood Urea Nitrogen 19 mg/dL (9-23); Calcium 8.9 mg/dL (8.7-10.4); Carbon Dioxide 15 mmol/L (20-30); Chloride 104 mmol/L (98-107); Glucose 176 mg/dL (74-106); Potassium 4.4 mmol/L (3.5-5.1); Sodium 140 mmol/L (136-145)
[2023-10-06 07:01] LABS: Albumin 3.5 g/dL (3.2-4.8)
[2023-10-06 07:02] LABS: Aspartate Aminotransferase 19 U/L (13-40); Bilirubin, Total 0.5 mg/dL (0.2-1.0); Total Protein 5.7 g/dL (5.7-8.2)
[2023-10-06] MEDS: SODIUM CHLORIDE 0.9% 1,000 ML IV STA (09:39)
[2023-10-06] MEDS: SODIUM CHLORIDE 0.9% 1,000 ML IV SCH (10:30)
[2023-10-06] MEDS: cefTRIAXone 1GM/50ML D5W 50 ML IV ONE (10:33)
[2023-10-06] MEDS: PANTOPRAZOLE 40 MG/10 ML VIAL INJ IV ONE (10:35)
[2023-10-06] MEDS ORDERED: DEXTROSE (50%) 50ML SYRG IV PRN (12:15)
[2023-10-06 12:33] LABS: Anion Gap 18 (5-15); Carbon Dioxide 16 mmol/L (20-30); Chloride 106 mmol/L (98-107); Potassium 4.2 mmol/L (3.5-5.1); Sodium 140 mmol/L (136-145)
[2023-10-06 12:34] LABS: Calcium 9.4 mg/dL (8.7-10.4)
[2023-10-06 12:39] LABS: BUN/Creatinine Ratio 15.8 (10.0-20.0); Blood Urea Nitrogen 15 mg/dL (9-23); Glucose 200 mg/dL (74-106)
[2023-10-06] MEDS: SODIUM CHLORIDE 0.9% 250 ML IV ONE (14:29)
[2023-10-06] MEDS: ACCU-CHEK COMFORT CURVE STRIP VI SCH (15:00)
[2023-10-06] MEDS: SPIRONOLACTONE 25 MG TAB PO ONE (16:00)
[2023-10-06] MEDS: INSULIN DRIP 100 UNIT/100ML 100 ML IV SCH (16:27)
[2023-10-06] MEDS: ALBUMIN 25% 100 ML IV SCH (16:38)
[2023-10-06 18:30] LABS: Chloride 105 mmol/L (98-107); Potassium 4.1 mmol/L (3.5-5.1); Sodium 142 mmol/L (136-145)
[2023-10-06 18:31] LABS: Anion Gap 26 (5-15); Calcium 9.7 mg/dL (8.7-10.4); Carbon Dioxide 11 mmol/L (20-30)
[2023-10-06 18:36] LABS: BUN/Creatinine Ratio 13.4 (10.0-20.0); Blood Urea Nitrogen 16 mg/dL (9-23); Glucose 290 mg/dL (74-106)
[2023-10-06] MEDS: D5W 5% 1,000 ML IV SCH (21:30)
[2023-10-06] MEDS: HYDROcodone-ACET 5/325MG TAB PO PRN (21:36)
[2023-10-06] MEDS: D5W/SOD CHLO 0.9% 1,000 ML IV SCH (21:42)
[2023-10-06] MEDS: hydrALAZINE HCL 20 MG/ML VL ONE (22:17)
[2023-10-06] MEDS: hydrALAZINE HCL 20 MG/ML VL IV ONE (22:19)
[2023-10-06] MEDS ORDERED: ENOXAPARIN SOD 30 MG/0.3 ML SYRINGE SC ONE (22:30)
[2023-10-06] MEDS: ENOXAPARIN SOD 40 MG/0.4 ML SYRINGE SC ONE (23:38)
[2023-10-07] VITALS (24 sets, daily range): BP systolic 111–154; BP diastolic 60–108; PULSE 86–118; RESP 10–18; TEMP 97.8–99.2; O2SAT 92–100
[2023-10-07 00:32] LABS: Anion Gap 18 (5-15); Carbon Dioxide 16 mmol/L (20-30); Chloride 106 mmol/L (98-107); Potassium 5.5 mmol/L (3.5-5.1); Sodium 140 mmol/L (136-145)
[2023-10-07 00:33] LABS: Calcium 9.2 mg/dL (8.7-10.4)
[2023-10-07 00:38] LABS: BUN/Creatinine Ratio 13.2 (10.0-20.0); Blood Urea Nitrogen 14 mg/dL (9-23); Magnesium 1.7 mg/dL (1.6-2.6)
[2023-10-07 00:41] LABS: Glucose 145 mg/dL (74-106)
[2023-10-07 05:11] LABS: Basophils # (auto) 0 10 ^3/uL (0-0.2); Basophils % (auto) 0.6 % (0.0-2.0); Eosinophils # (auto) 0 10 ^3/uL (0-0.8); Lymphocytes # (auto) 1.5 10 ^3/uL (0.4-5.4); Red Cell Distribution Width 19.4 % (11.8-14.3)
[2023-10-07 05:15] LABS: Eosinophils % (auto) 0.2 % (0.0-7.0); Hemoglobin 11.5 g/dL (13.5-17.5); Mean Corpuscular Hgb Conc. 32.7 g/dL (32.0-36.0); Mean Corpuscular Volume 73.1 fL (80.0-100.0); Monocytes # (auto) 0.5 10 ^3/uL (0-1.3); Monocytes % (auto) 7.6 % (0.0-12.0); Neutrophils # (auto) 4.4 10 ^3/uL (1.6-8.6); Neutrophils % (auto) 68.6 % (37.0-80.0); Red Blood Cells 4.78 10^6/uL (4.5-5.90); White Blood Cell 6.4 10^3/uL (4.4-10.8)
[2023-10-07 05:22] LABS: Chloride 105 mmol/L (98-107); Sodium 141 mmol/L (136-145)
[2023-10-07 05:23] LABS: Anion Gap 19 (5-15); Calcium 9.3 mg/dL (8.7-10.4); Carbon Dioxide 17 mmol/L (20-30)
[2023-10-07 05:28] LABS: BUN/Creatinine Ratio 15.9 (10.0-20.0); Blood Urea Nitrogen 17 mg/dL (9-23); Glucose 203 mg/dL (74-106)
[2023-10-07] MEDS: PNEUMOCOCCAL VACC POLYS 25 MCG/0.5 ML VIAL IM ONE (07:30)
[2023-10-07] MEDS: NIFEdipine ER 30 MG TAB PO ONE (08:46)
[2023-10-07] MEDS: cefTRIAXone 1GM/50ML D5W 50 ML IV SCH (09:52)
[2023-10-07] MEDS: NIFEdipine ER 30 MG TAB PO SCH (09:54)
[2023-10-07] MEDS: PANTOPRAZOLE 40 MG/10 ML VIAL INJ IV SCH (09:54)
[2023-10-07] MEDS ORDERED: ENOXAPARIN SOD 30 MG/0.3 ML SYRINGE SC SCH (10:00)
[2023-10-07] MEDS ORDERED: SPIRONOLACTONE 25 MG TAB PO SCH (10:00)
[2023-10-07] MEDS ORDERED: DEXTROSE (50%) 50ML SYRG IV PRN ×2 (11:00→19:00)
[2023-10-07] MEDS: INSULIN DRIP 100 UNIT/100ML 100 ML IV SCH ×3 (11:00→18:15)
[2023-10-07] MEDS: ACCU-CHEK COMFORT CURVE STRIP VI SCH (11:53)
[2023-10-07 14:39] LABS: Chloride 105 mmol/L (98-107); Potassium 3.2 mmol/L (3.5-5.1); Sodium 136 mmol/L (136-145)
[2023-10-07 14:40] LABS: Anion Gap 8 (5-15); Calcium 9.1 mg/dL (8.7-10.4); Carbon Dioxide 23 mmol/L (20-30)
[2023-10-07 14:45] LABS: BUN/Creatinine Ratio 10.7 (10.0-20.0); Blood Urea Nitrogen 11 mg/dL (9-23); Glucose 178 mg/dL (74-106)
[2023-10-07] MEDS ORDERED: D5W 5% 1,000 ML IV SCH (14:45)
[2023-10-07] MEDS: D5W/SOD CHL 0.45%/KCL 20MEQ 1,000 ML IV ONE (16:45)
[2023-10-07 18:24] LABS: Chloride 104 mmol/L (98-107); Potassium 3.2 mmol/L (3.5-5.1); Sodium 137 mmol/L (136-145)
[2023-10-07 18:25] LABS: Anion Gap 9 (5-15); Carbon Dioxide 24 mmol/L (20-30)
[2023-10-07 18:30] LABS: BUN/Creatinine Ratio 7.7 (10.0-20.0); Blood Urea Nitrogen 8 mg/dL (9-23); Glucose 154 mg/dL (74-106)
[2023-10-07] MEDS: InsuLIN REG 1unit/0.01ml Soln (100units/ml) SC ONE (19:49)
[2023-10-07] MEDS: INSULIN LANTUS (GLARGINE) 1 /0.01ml (100units/ml) SC SCH (19:50)
[2023-10-07] MEDS: POTASSIUM EFFERVESENT TAB 25 MEQ PO ONE (19:59)
[2023-10-07] MEDS ORDERED: ENOXAPARIN SOD 40 MG/0.4 ML SYRINGE SC SCH (21:00)
[2023-10-08] VITALS (18 sets, daily range): BP systolic 113–185; BP diastolic 74–130; PULSE 81–113; RESP 10–25; TEMP 97.8–98.3; O2SAT 97–100
[2023-10-08] MEDS: ACCU-CHEK COMFORT CURVE STRIP VI SCH (00:01)
[2023-10-08] MEDS: InsuLIN REG 1unit/0.01ml Soln (100units/ml) SC SCH (00:01)
[2023-10-08 04:56] LABS: Basophils # (auto) 0.1 10 ^3/uL (0-0.2); Eosinophils # (auto) 0 10 ^3/uL (0-0.8); Lymphocytes # (auto) 1.5 10 ^3/uL (0.4-5.4); Monocytes # (auto) 0.3 10 ^3/uL (0-1.3); Red Blood Cells 5.04 10^6/uL (4.5-5.90); Red Cell Distribution Width 18.8 % (11.8-14.3)
[2023-10-08 05:00] LABS: Basophils % (auto) 1.7 % (0.0-2.0); Eosinophils % (auto) 1.3 % (0.0-7.0); Hematocrit 36.6 % (41.0-53.0); Lymphocytes % (auto) 39.8 % (10.0-50.0); Mean Corpuscular Hemoglobin 23.8 pg (28.0-32.0); Mean Corpuscular Hgb Conc. 32.8 g/dL (32.0-36.0); Mean Corpuscular Volume 72.6 fL (80.0-100.0); Monocytes % (auto) 7.2 % (0.0-12.0); Neutrophils # (auto) 1.9 10 ^3/uL (1.6-8.6); Nucleated Red Blood Cells % 0.3 %; White Blood Cell 3.7 10^3/uL (4.4-10.8)
[2023-10-08 05:12] LABS: Chloride 107 mmol/L (98-107); Potassium 3.6 mmol/L (3.5-5.1); Sodium 140 mmol/L (136-145)
[2023-10-08 05:13] LABS: Anion Gap 9 (5-15); Carbon Dioxide 24 mmol/L (20-30)
[2023-10-08 05:18] LABS: BUN/Creatinine Ratio 7.5 (10.0-20.0); Blood Urea Nitrogen 7 mg/dL (9-23); Glucose 250 mg/dL (74-106)
[2023-10-08] MEDS ORDERED: MORPHINE SULFATE INJ 2 MG/ml SYRG IV PRN (13:30)
[2023-10-08] MEDS: MORPHINE SULFATE INJ 2 MG/ml SYRG IV PRN ×2 (13:45→22:44)
[2023-10-08] MEDS: hydrALAZINE HCL 20 MG/ML VL IV PRN (14:30)
[2023-10-08] MEDS: Glucerna Carbsteady SHAKE Vanilla 8oz PO SCH (18:00)
[2023-10-08] MEDS: METOPROLOL TARTRATE 25 MG TAB PO SCH (18:29)
[2023-10-08] MEDS: traZODone HCL 50 MG TAB PO SCH (22:13)
[2023-10-08] MEDS: hydrOXYzine HCL 10 MG TAB PO SCH (22:16)
[2023-10-08] MEDS: MUPIROCIN 2% OINT 15gm or 22gm FOR MRSA NARES EACHNOSTRI SCH (22:17)
[2023-10-08] MEDS: busPIRone HCL 10 MG TAB PO SCH (22:18)
[2023-10-09] VITALS (12 sets, daily range): BP systolic 109–148; BP diastolic 69–110; PULSE 76–98; RESP 12–19; TEMP 97.2–98.9; O2SAT 98–100
[2023-10-09 04:50] LABS: Basophils # (auto) 0 10 ^3/uL (0-0.2); Lymphocytes # (auto) 1.8 10 ^3/uL (0.4-5.4); Mean Corpuscular Hgb Conc. 32.8 g/dL (32.0-36.0); Monocytes # (auto) 0.3 10 ^3/uL (0-1.3); White Blood Cell 3.5 10^3/uL (4.4-10.8)
[2023-10-09 04:52] LABS: Basophils % (auto) 1.1 % (0.0-2.0); Eosinophils # (auto) 0.1 10 ^3/uL (0-0.8); Eosinophils % (auto) 1.8 % (0.0-7.0); Hematocrit 35.9 % (41.0-53.0); Hemoglobin 11.8 g/dL (13.5-17.5); Lymphocytes % (auto) 52.2 % (10.0-50.0); Mean Corpuscular Hemoglobin 23.7 pg (28.0-32.0); Mean Corpuscular Volume 72.2 fL (80.0-100.0); Monocytes % (auto) 9.8 % (0.0-12.0); Neutrophils # (auto) 1.2 10 ^3/uL (1.6-8.6); Neutrophils % (auto) 35.1 % (37.0-80.0); Red Blood Cells 4.98 10^6/uL (4.5-5.90); Red Cell Distribution Width 18.2 % (11.8-14.3)
[2023-10-09 05:09] LABS: Alanine Aminotransferase 20 U/L (7-40); Albumin 3.6 g/dL (3.2-4.8); Alkaline Phosphatase 99 U/L (46-116); Anion Gap 5 (5-15); Aspartate Aminotransferase < 8 U/L (13-40); BUN/Creatinine Ratio 18.1 (10.0-20.0); Bilirubin, Total 0.4 mg/dL (0.2-1.0); Blood Urea Nitrogen 13 mg/dL (9-23); Calcium 9.2 mg/dL (8.7-10.4); Carbon Dioxide 28 mmol/L (20-30); Chloride 106 mmol/L (98-107); Potassium 3.6 mmol/L (3.5-5.1); Sodium 139 mmol/L (136-145); Total Protein 5.8 g/dL (5.7-8.2)
[2023-10-09 05:27] LABS: Glucose 140 mg/dL (74-106)
[2023-10-09] MEDS ORDERED: MUPI2OIN2 EX (15:33)
[2023-10-10 01:00] VITALS: BP 126/76; PULSE 103; RESP 18; TEMP 98; O2SAT 100
[2023-10-10 05:00] VITALS: BP 122/70; PULSE 82; RESP 18; TEMP 97.5; O2SAT 100
[2023-10-10 08:00] VITALS: RESP 18; O2SAT 99
== END 2023-10-10 08:45 | disposition home or self-care (01) | DRG 420 ==
LOC: EDBD 07:48 → ER 07:52 → TELE 14:48 → TELE-WESTW 10-06 02:52 → DOU IN ICU 10-06 14:51 → EAST 10-09 05:02
PROVIDERS: ADMIT Internal Medicine Geriatric Medicine; ATTEND Internal Medicine Geriatric Medicine
PROC: 05H933Z Insertion of Infusion Device into Right Brachial Vein, Percutaneous Approach (ICD-10-PCS; principal; 2023-10-06)
PROC: B54MZZA Ultrasonography of Right Upper Extremity Veins, Guidance (ICD-10-PCS; 2023-10-06)
DX: E10.10 Type 1 diabetes mellitus with ketoacidosis without coma (principal); G93.41 Metabolic encephalopathy; K83.8 Other specified diseases of biliary tract; E86.0 Dehydration; I10 Essential (primary) hypertension; K21.9 Gastro-esophageal reflux disease without esophagitis; F19.10 Other psychoactive substance abuse, uncomplicated; F17.210 Nicotine dependence, cigarettes, uncomplicated; J45.909 Unspecified asthma, uncomplicated; Z22.322 Carrier or suspected carrier of Methicillin resistant Staphylococcus aureus; Z88.6 Allergy status to analgesic agent; Z91.199 Patient's noncompliance with other medical treatment and regimen due to unspecified reason; Z82.49 Family history of ischemic heart disease and other diseases of the circulatory system; Z79.899 Other long term (current) drug therapy; E87.6 Hypokalemia
CPT/HCPCS: 36415; 36600; 71045; 76700; 80048; 80053; 80307; 81001; 82010; 82140; 82805; 82962; 83690; 83735; 83930; 84100; 84132; 85025; 87081; 93005; 96361; 96365; 96375; 99291; G0378; J1815; J2405; J2470; P9047

== ENCOUNTER 2023-11-10 22:20 | Inpatient (IN) | payer MEDICAID ==
[~2023-11-10] VITALS: Ht 182.9 cm; Wt 70.0 kg
[~2023-11-10 22:20] MED LIST changes: +HYDR10SY18 PO; -HYDR1SYP3 PO; +MUPI2OIN2 EX
[2023-11-10] MEDS ORDERED: DEXTROSE (50%) 50ML SYRG IV PRN (22:45)
[2023-11-10 23:01] LABS: Base Excess -13.3 mmol/L (-2.0-3.0)
[2023-11-10 23:02] LABS: Basophils # (auto) 0.1 10 ^3/uL (0-0.2); Basophils % (auto) 0.6 % (0.0-2.0); Eosinophils # (auto) 0 10 ^3/uL (0-0.8); Hematocrit 36.9 % (41.0-53.0); Hemoglobin 11.5 g/dL (13.5-17.5); Lymphocytes % (auto) 9.4 % (10.0-50.0); Mean Corpuscular Hemoglobin 23.7 pg (28.0-32.0); Mean Corpuscular Hgb Conc. 31.2 g/dL (32.0-36.0); Monocytes # (auto) 0.8 10 ^3/uL (0-1.3); Monocytes % (auto) 7.9 % (0.0-12.0); Neutrophils # (auto) 8.3 10 ^3/uL (1.6-8.6); Neutrophils % (auto) 82.1 % (37.0-80.0); Platelet Count (auto) 402 10^3/uL (140-450); Red Blood Cells 4.86 10^6/uL (4.5-5.90); Red Cell Distribution Width 18.9 % (11.8-14.3); White Blood Cell 10.1 10^3/uL (4.4-10.8)
[2023-11-10 23:27] LABS: Alanine Aminotransferase 27 U/L (7-40); Albumin 4.6 g/dL (3.2-4.8); Alkaline Phosphatase 215 U/L (46-116); Anion Gap 28 (5-15); Aspartate Aminotransferase 16 U/L (13-40); BUN/Creatinine Ratio 20.7 (10.0-20.0); Bilirubin, Total 0.5 mg/dL (0.2-1.0); Blood Alcohol < 3.0 mg/dL (<10); Blood Urea Nitrogen 40 mg/dL (9-23); Calcium 9.9 mg/dL (8.7-10.4); Carbon Dioxide 11 mmol/L (20-30); Chloride 96 mmol/L (98-107); Magnesium 2.6 mg/dL (1.6-2.6); Phosphorus 6.5 mg/dL (2.4-5.1); Potassium 4.6 mmol/L (3.5-5.1); Sodium 135 mmol/L (136-145); Total Protein 7.9 g/dL (5.7-8.2)
[2023-11-10 23:45] VITALS: PULSE 108; O2SAT 99
[2023-11-10] MEDS: ONDANSETRON HCL 4 MG/2 ML VIAL IV ONE (23:50)
[2023-11-10] MEDS: INSULIN LANTUS (GLARGINE) 1 /0.01ml (100units/ml) SC ONE (23:51)
[2023-11-10] MEDS: InsuLIN REG 1unit/0.01ml Soln (100units/ml) IV ONE (23:52)
[2023-11-10] MEDS: SODIUM CHLORIDE 0.9% 1,000 ML IV SCH (23:54)
[2023-11-11 00:17] LABS: Urine Bacteria None Seen /hpf (None Seen)
[2023-11-11 00:18] LABS: Glucose 601 mg/dL (74-106)
[2023-11-11] MEDS: PIPERACILLIN-TAZO 4.5GM 100 ML IV ONE (00:40)
[2023-11-11] MEDS: ACCU-CHEK COMFORT CURVE STRIP VI SCH ×3 (00:45→17:00)
[2023-11-11 00:48] LABS: Urine Blood TRACE /uL (Negative); Urine Clarity Clear (Clear); Urine Color Light-Yellow (Yellow); Urine Hyaline Cast FEW /lpf (0 - 2); Urine Protein, UAD Negative (Negative); Urine Urobilinogen Normal (Negative); Urine WBC 1 /hpf (0 - 3)
[2023-11-11 01:23] LABS: Amphetamine Screen, Urine Neg (NEGATIVE); Barbiturate Scree,Urine Neg (NEGATIVE); Benzodiazephine Screen, Urine Neg (NEGATIVE); Cannabinoid Screen, Urine Neg (NEGATIVE); Cocaine Screen, Urine Neg (NEGATIVE); Opiate Scree,Urine Neg (NEGATIVE); Phencyclidine Screen, Urine Neg (NEGATIVE)
[2023-11-11] MEDS ORDERED: DOCUSATE SOD 100 MG CAP PO PRN (01:30)
[2023-11-11] MEDS ORDERED: HYDROmorphone HCL 2 MG/ML VL/or syr IV PRN (01:30)
[2023-11-11 01:47] LABS: Creatinine, Urine 46.01 mg/dL (30.0-125.0)
[2023-11-11] MEDS: INSULIN DRIP 100 UNIT/100ML 100 ML IV SCH ×2 (02:58→05:07)
[2023-11-11 04:23] LABS: Eosinophils # (auto) 0 10 ^3/uL (0-0.8); Monocytes # (auto) 0.6 10 ^3/uL (0-1.3)
[2023-11-11 04:27] LABS: Basophils # (auto) 0.1 10 ^3/uL (0-0.2); Basophils % (auto) 0.7 % (0.0-2.0); Hematocrit 35.5 % (41.0-53.0); Hemoglobin 10.9 g/dL (13.5-17.5); Lymphocytes # (auto) 0.8 10 ^3/uL (0.4-5.4); Lymphocytes % (auto) 7.7 % (10.0-50.0); Mean Corpuscular Hemoglobin 24.1 pg (28.0-32.0); Mean Corpuscular Hgb Conc. 30.8 g/dL (32.0-36.0); Mean Corpuscular Volume 78.3 fL (80.0-100.0); Monocytes % (auto) 5.9 % (0.0-12.0); Neutrophils # (auto) 8.7 10 ^3/uL (1.6-8.6); Neutrophils % (auto) 85.7 % (37.0-80.0); Platelet Count (auto) 362 10^3/uL (140-450); Red Blood Cells 4.53 10^6/uL (4.5-5.90); Red Cell Distribution Width 18.9 % (11.8-14.3); White Blood Cell 10.2 10^3/uL (4.4-10.8)
[2023-11-11] MEDS ORDERED: DEXTROSE (50%) 50ML SYRG IV PRN ×2 (04:45→13:45)
[2023-11-11] MEDS: ONDANSETRON HCL 4 MG/2 ML VIAL IV PRN (05:03)
[2023-11-11] MEDS: SODIUM CHLORIDE 0.9% 1,000 ML IV SCH ×2 (05:04→09:31)
[2023-11-11 07:07] LABS: Chloride 104 mmol/L (98-107); Potassium 4.3 mmol/L (3.5-5.1); Sodium 140 mmol/L (136-145)
[2023-11-11 07:08] LABS: Anion Gap 26 (5-15); Carbon Dioxide 10 mmol/L (20-30)
[2023-11-11 07:09] LABS: Calcium 8.8 mg/dL (8.7-10.4)
[2023-11-11 07:13] LABS: BUN/Creatinine Ratio 20.5 (10.0-20.0); Blood Urea Nitrogen 38 mg/dL (9-23)
[2023-11-11 07:24] LABS: Glucose 516 mg/dL (74-106)
[2023-11-11] MEDS: SODIUM CHLOR 0.9% PF (SALINE LOCK) 10ML VIAL/SYR IV SCH (07:26)
[2023-11-11 07:40] VITALS: RESP 15; O2SAT 98
[2023-11-11 07:40] LABS: COVID19 ANTIGEN SOFIA FIA NEGATIVE (NEGATIVE)
[2023-11-11 07:41] LABS: Rapid Influenza A Negative (Negative); Rapid Influenza B Negative (Negative)
[2023-11-11 08:00] VITALS: PULSE 82; RESP 20; O2SAT 98
[2023-11-11 08:06] LABS: Lactic Acid w/Reflex 2.7 mmol/L (0.4-2.0)
[2023-11-11] MEDS: LACTATED RINGER'S 1,000 ML IV ONE (09:30)
[2023-11-11] MEDS: PANTOPRAZOLE 40 MG/10 ML VIAL INJ IV SCH (11:05)
[2023-11-11 11:16] LABS: Anion Gap 13 (5-15); Carbon Dioxide 21 mmol/L (20-30); Chloride 113 mmol/L (98-107)
[2023-11-11 11:17] LABS: Calcium 9.2 mg/dL (8.7-10.4)
[2023-11-11 11:22] LABS: BUN/Creatinine Ratio 23.7 (10.0-20.0); Blood Urea Nitrogen 33 mg/dL (9-23)
[2023-11-11 11:37] LABS: Glucose 139 mg/dL (74-106); Sodium 147 mmol/L (136-145)
[2023-11-11] MEDS: D5W 5% 1,000 ML IV SCH (11:48)
[2023-11-11] MEDS: INSULIN LANTUS (GLARGINE) 1 /0.01ml (100units/ml) SC SCH (12:21)
[2023-11-11 15:53] VITALS: BP 164/103; PULSE 118; RESP 16; TEMP 97.5; O2SAT 99
[2023-11-11 16:09] VITALS: BP 164/105; PULSE 118; RESP 18; TEMP 97.5; O2SAT 100
[2023-11-11 17:00] VITALS: BP 143/97; PULSE 118; RESP 18; TEMP 97.8; O2SAT 98
[2023-11-11] MEDS: InsuLIN REG 1unit/0.01ml Soln (100units/ml) SC SCH (17:47)
[2023-11-11] MEDS: amLODIPine BESYLATE 5 MG TAB PO ONE (17:48)
[2023-11-11 17:58] LABS: Chloride 107 mmol/L (98-107); Potassium 4.3 mmol/L (3.5-5.1); Sodium 139 mmol/L (136-145)
[2023-11-11 17:59] LABS: Calcium 9.3 mg/dL (8.7-10.4)
[2023-11-11 18:04] LABS: BUN/Creatinine Ratio 18.7 (10.0-20.0); Blood Urea Nitrogen 23 mg/dL (9-23)
[2023-11-11 18:09] LABS: Glucose 259 mg/dL (74-106)
[2023-11-11 18:14] LABS: Anion Gap 16 (5-15); Carbon Dioxide 16 mmol/L (20-30)
[2023-11-11 21:00] VITALS: BP 140/84; PULSE 116; RESP 20; TEMP 98.4; O2SAT 97
[2023-11-12] VITALS (7 sets, daily range): BP systolic 132–154; BP diastolic 82–105; PULSE 100–113; RESP 18–20; TEMP 98.1–98.8; O2SAT 97–100
[2023-11-12 06:37] LABS: Hemoglobin 10.8 g/dL (13.5-17.5); Lymphocytes # (auto) 1.7 10 ^3/uL (0.4-5.4); Monocytes # (auto) 0.7 10 ^3/uL (0-1.3)
[2023-11-12 06:42] LABS: Basophils # (auto) 0.1 10 ^3/uL (0-0.2); Basophils % (auto) 0.8 % (0.0-2.0); Eosinophils # (auto) 0 10 ^3/uL (0-0.8); Eosinophils % (auto) 0.4 % (0.0-7.0); Hematocrit 32.3 % (41.0-53.0); Lymphocytes % (auto) 22.9 % (10.0-50.0); Mean Corpuscular Hemoglobin 24.6 pg (28.0-32.0); Mean Corpuscular Hgb Conc. 33.3 g/dL (32.0-36.0); Mean Corpuscular Volume 73.8 fL (80.0-100.0); Monocytes % (auto) 8.9 % (0.0-12.0); Neutrophils # (auto) 5.1 10 ^3/uL (1.6-8.6); Nucleated Red Blood Cells % 0.1 %; Platelet Count (auto) 368 10^3/uL (140-450); Red Blood Cells 4.38 10^6/uL (4.5-5.90); Red Cell Distribution Width 18.5 % (11.8-14.3); White Blood Cell 7.6 10^3/uL (4.4-10.8)
[2023-11-12 06:44] LABS: Anion Gap 7 (5-15); Carbon Dioxide 26 mmol/L (20-30); Chloride 106 mmol/L (98-107); Potassium 3.8 mmol/L (3.5-5.1); Sodium 139 mmol/L (136-145)
[2023-11-12 06:45] LABS: Calcium 9.7 mg/dL (8.7-10.4)
[2023-11-12 06:50] LABS: Blood Urea Nitrogen 16 mg/dL (9-23); Triglycerides 80 mg/dL (< 150)
[2023-11-12 06:51] LABS: LDL Cholesterol 54 mg/dL (< 100)
[2023-11-12 06:52] LABS: Cholesterol 174 mg/dL (< 200); HDL Cholesterol 92 mg/dL (40-59)
[2023-11-12 06:53] LABS: Glucose 135 mg/dL (74-106)
[2023-11-12] MEDS: amLODIPine BESYLATE 5 MG TAB PO SCH (09:41)
[2023-11-12 10:25] LABS: Chloride 107 mmol/L (98-107); Potassium 4.6 mmol/L (3.5-5.1); Sodium 137 mmol/L (136-145)
[2023-11-12 10:26] LABS: Anion Gap 7 (5-15); Calcium 9.6 mg/dL (8.7-10.4); Carbon Dioxide 23 mmol/L (20-30)
[2023-11-12 10:31] LABS: BUN/Creatinine Ratio 11.7 (10.0-20.0); Blood Urea Nitrogen 11 mg/dL (9-23); Glucose 148 mg/dL (74-106)
[2023-11-12] MEDS: SODIUM CHLORIDE 0.9% 1,000 ML IV SCH ×2 (11:39→18:32)
[2023-11-12] MEDS: SUCRALFATE 1 GM TAB PO SCH (11:39)
[2023-11-12] MEDS: TETANUS-DIPTH-ACEL PERTUSSIS 0.5ML SYR Tdap IM ONE (11:43)
[2023-11-12] MEDS ORDERED: DEXTROSE (50%) 50ML SYRG IV PRN (14:45)
[2023-11-12 14:55] LABS: Free T3 4.14 pg/mL (2.3-4.2)
[2023-11-12 14:56] LABS: Free T4 (Free Thyroxine) 1.87 ng/dL (0.89-1.76)
[2023-11-12 16:38] LABS: Chloride 104 mmol/L (98-107); Potassium 4.6 mmol/L (3.5-5.1)
[2023-11-12 16:39] LABS: Anion Gap 4 (5-15); Carbon Dioxide 24 mmol/L (20-30)
[2023-11-12 16:40] LABS: Calcium 9.3 mg/dL (8.7-10.4); Sodium 132 mmol/L (136-145)
[2023-11-12 16:44] LABS: BUN/Creatinine Ratio 8.7 (10.0-20.0); Blood Urea Nitrogen 9 mg/dL (9-23)
[2023-11-12 16:48] LABS: Glucose 382 mg/dL (74-106)
[2023-11-12] MEDS: ACCU-CHEK COMFORT CURVE STRIP VI SCH (17:00)
[2023-11-12] MEDS: LISINOPRIL 5 MG TAB PO ONE ×2 (17:46→18:28)
[2023-11-12] MEDS: ACETAMINOPHEN 325 MG TAB PO PRN (17:46)
[2023-11-12] MEDS ORDERED: HYDROcodone-ACET 10/325MG TAB PO PRN (18:15)
[2023-11-12] MEDS: INSULIN LANTUS (GLARGINE) 1 /0.01ml (100units/ml) SC ONE (18:24)
[2023-11-12] MEDS: InsuLIN REG 1unit/0.01ml Soln (100units/ml) SC SCH ×2 (18:26→21:12)
[2023-11-12 19:04] LABS: % Iron Saturation 26.1 % (20-55)
[2023-11-12] MEDS: traZODone HCL 50 MG TAB PO SCH (21:04)
[2023-11-13 05:00] VITALS: BP 115/79; PULSE 85; RESP 17; TEMP 97.6; O2SAT 100
[2023-11-13 06:46] LABS: Alanine Aminotransferase 18 U/L (7-40); Albumin 4.3 g/dL (3.2-4.8); Alkaline Phosphatase 168 U/L (46-116); Anion Gap 6 (5-15); Aspartate Aminotransferase 11 U/L (13-40); BUN/Creatinine Ratio 13.2 (10.0-20.0); Bilirubin, Total 0.5 mg/dL (0.2-1.0); Blood Urea Nitrogen 9 mg/dL (9-23); Calcium 9.7 mg/dL (8.7-10.4); Carbon Dioxide 27 mmol/L (20-30); Chloride 106 mmol/L (98-107); Glucose 77 mg/dL (74-106); Potassium 3.6 mmol/L (3.5-5.1); Sodium 139 mmol/L (136-145); Total Protein 7.2 g/dL (5.7-8.2)
[2023-11-13 06:47] LABS: Basophils # (auto) 0 10 ^3/uL (0-0.2); Eosinophils # (auto) 0 10 ^3/uL (0-0.8); Hemoglobin 11.7 g/dL (13.5-17.5); Monocytes # (auto) 0.5 10 ^3/uL (0-1.3); Neutrophils # (auto) 2.3 10 ^3/uL (1.6-8.6); White Blood Cell 4.3 10^3/uL (4.4-10.8)
[2023-11-13 06:51] LABS: Basophils % (auto) 1.1 % (0.0-2.0); Eosinophils % (auto) 0.8 % (0.0-7.0); Hematocrit 34.9 % (41.0-53.0); Lymphocytes # (auto) 1.3 10 ^3/uL (0.4-5.4); Lymphocytes % (auto) 31.7 % (10.0-50.0); Mean Corpuscular Hemoglobin 24.8 pg (28.0-32.0); Mean Corpuscular Hgb Conc. 33.4 g/dL (32.0-36.0); Mean Corpuscular Volume 74.2 fL (80.0-100.0); Neutrophils % (auto) 54.4 % (37.0-80.0); Nucleated Red Blood Cells % 0.2 %; Platelet Count (auto) 323 10^3/uL (140-450); Red Cell Distribution Width 17.9 % (11.8-14.3)
[2023-11-13 09:00] VITALS: BP 149/103; PULSE 103; RESP 18; TEMP 98.1; O2SAT 99
[2023-11-13] MEDS: LISINOPRIL 20 MG TAB PO SCH (09:00)
[2023-11-13] MEDS: busPIRone HCL 10 MG TAB PO SCH (09:00)
[2023-11-13] MEDS ORDERED: LISINOPRIL 5 MG TAB PO SCH (10:00)
[2023-11-13 13:00] VITALS: BP 134/91; PULSE 96; RESP 20; TEMP 98; O2SAT 100
[2023-11-13] MEDS ORDERED: INSU100I49 SC (13:38)
[2023-11-13] MEDS ORDERED: INSLANTI SC (13:38)
[2023-11-13] MEDS ORDERED: AUG875T PO (13:38)
[2023-11-13] MEDS ORDERED: MUPI2CRE17 EX (15:54)
[2023-11-13 17:00] VITALS: BP 111/87; PULSE 98; RESP 20; TEMP 97.9; O2SAT 100
[2023-11-13 18:31] VITALS: BP 111/87; PULSE 98; RESP 20; TEMP 97.9; O2SAT 100
[2023-11-13] MEDS ORDERED: INSULIN LANTUS (GLARGINE) 1 /0.01ml (100units/ml) SC SCH (22:00)
[2023-11-14 11:40] LABS: Thyrotropin Receptor Antibody 2.82 IU/L (0.00-1.75)
== END 2023-11-13 20:12 | disposition home or self-care (01) | DRG 420 ==
LOC: EDUNIT# 22:20 → EDBD 22:20 → ER 22:20 → TELE 11-11 01:27 → TELE-CENTR 11-11 15:59 → CENTRAL 11-12 01:33
PROVIDERS: ADMIT Internal Medicine; ATTEND Internal Medicine
DX: E10.11 Type 1 diabetes mellitus with ketoacidosis with coma (principal); N17.0 Acute kidney failure with tubular necrosis; G93.41 Metabolic encephalopathy; F17.210 Nicotine dependence, cigarettes, uncomplicated; E03.9 Hypothyroidism, unspecified; D50.9 Iron deficiency anemia, unspecified; E86.0 Dehydration; K21.9 Gastro-esophageal reflux disease without esophagitis; J45.909 Unspecified asthma, uncomplicated; I10 Essential (primary) hypertension; F19.10 Other psychoactive substance abuse, uncomplicated; J06.9 Acute upper respiratory infection, unspecified; Z82.49 Family history of ischemic heart disease and other diseases of the circulatory system; Z88.6 Allergy status to analgesic agent; Z91.199 Patient's noncompliance with other medical treatment and regimen due to unspecified reason; Y92.89 Other specified places as the place of occurrence of the external cause; T63.301A Toxic effect of unspecified spider venom, accidental (unintentional), initial encounter
CPT/HCPCS: 36415; 36600; 70450; 71045; 74176; 76536; 80048; 80053; 80061; 80307; 80320; 81001; 82010; 82570; 82728; 82805; 82962; 83036; 83540; 83550; 83605; 83735; 83930; 84100; 84300; 84439; 84443; 84481; 85025; 85045; 86376; 87081; 87426; 87804; 90715; 93005; 99291; G0378; J1815; J2405; J2470; J2543

== ENCOUNTER 2023-11-26 23:37 | Inpatient (IN) | payer MEDICAID ==
[~2023-11-26] VITALS: Ht 190.5 cm; Wt 63.0 kg
[~2023-11-26 23:37] MED LIST changes: +AUG875T PO; +INSU100I49 SC; +MUPI2CRE17 EX
[2023-11-27] MEDS: SODIUM CHLORIDE 0.9% 2,000 ML IV ONE (00:02)
[2023-11-27 00:52] LABS: Basophils # (auto) 0.2 10 ^3/uL (0-0.2); Eosinophils # (auto) 0 10 ^3/uL (0-0.8); Lymphocytes # (auto) 0.4 10 ^3/uL (0.4-5.4); Monocytes # (auto) 0.3 10 ^3/uL (0-1.3)
[2023-11-27 00:54] LABS: Basophils % (auto) 1.4 % (0.0-2.0); Hematocrit 41.3 % (41.0-53.0); Hemoglobin 11.5 g/dL (13.5-17.5); Lymphocytes % (auto) 3.2 % (10.0-50.0); Mean Corpuscular Hemoglobin 24.3 pg (28.0-32.0); Mean Corpuscular Hgb Conc. 27.8 g/dL (32.0-36.0); Mean Corpuscular Volume 87.4 fL (80.0-100.0); Monocytes % (auto) 2.3 % (0.0-12.0); Neutrophils # (auto) 11.9 10 ^3/uL (1.6-8.6); Neutrophils % (auto) 93.1 % (37.0-80.0); Platelet Count (auto) 292 10^3/uL (140-450); Red Blood Cells 4.72 10^6/uL (4.5-5.90); Red Cell Distribution Width 19.1 % (11.8-14.3); White Blood Cell 12.8 10^3/uL (4.4-10.8)
[2023-11-27 01:10] LABS: Alanine Aminotransferase 33 U/L (7-40); Albumin 4.1 g/dL (3.2-4.8); Alkaline Phosphatase 195 U/L (46-116); Anion Gap 36.00001 (5-15); Aspartate Aminotransferase 24 U/L (13-40); BUN/Creatinine Ratio 18.8 (10.0-20.0); Bilirubin, Total 0.2 mg/dL (0.2-1.0); Blood Urea Nitrogen 42 mg/dL (9-23); Calcium 8.6 mg/dL (8.7-10.4); Chloride 80 mmol/L (98-107); Potassium 5.3 mmol/L (3.5-5.1); Sodium 126 mmol/L (136-145); Total Protein 6.8 g/dL (5.7-8.2)
[2023-11-27] MEDS: InsuLIN REG 1unit/0.01ml Soln (100units/ml) IV ONE (01:20)
[2023-11-27 01:40] LABS: Carbon Dioxide < 10 mmol/L (20-30); Glucose 1238 mg/dL (74-106)
[2023-11-27] MEDS: SODIUM BICARB 8.4% 50Meq/50ml SYR Vial IV ONE (01:45)
[2023-11-27 01:59] LABS: Base Excess -21.9 mmol/L (-2.0-3.0)
[2023-11-27] MEDS ORDERED: DEXTROSE (50%) 50ML SYRG IV PRN ×2 (02:00→20:45)
[2023-11-27] MEDS: INSULIN DRIP 100 UNIT/100ML 100 ML IV SCH ×3 (02:00→16:34)
[2023-11-27 02:12] LABS: Urine Bacteria None Seen /hpf (None Seen)
[2023-11-27 02:39] LABS: Urine Blood Negative /uL (Negative); Urine Clarity Clear (Clear); Urine Color Colorless (Yellow); Urine Protein, UAD Negative (Negative); Urine Specific Gravity 1.025 (1.001-1.035); Urine Urobilinogen Normal (Negative); Urine WBC 1 /hpf (0 - 3)
[2023-11-27] MEDS: ACCU-CHEK COMFORT CURVE STRIP VI SCH (02:48)
[2023-11-27 04:42] LABS: Amphetamine Screen, Urine Pos (NEGATIVE); Barbiturate Scree,Urine Neg (NEGATIVE); Benzodiazephine Screen, Urine Neg (NEGATIVE); Cannabinoid Screen, Urine Neg (NEGATIVE); Cocaine Screen, Urine Neg (NEGATIVE); Opiate Scree,Urine Neg (NEGATIVE); Phencyclidine Screen, Urine Neg (NEGATIVE)
[2023-11-27 10:30] LABS: Base Excess 2.7 mmol/L (-2.0-3.0)
[2023-11-27 10:57] LABS: Basophils # (auto) 0 10 ^3/uL (0-0.2); Basophils % (auto) 0.2 % (0.0-2.0); Eosinophils # (auto) 0 10 ^3/uL (0-0.8); Eosinophils % (auto) 0.1 % (0.0-7.0); Hematocrit 34.1 % (41.0-53.0); Hemoglobin 11.3 g/dL (13.5-17.5); Lymphocytes # (auto) 1.5 10 ^3/uL (0.4-5.4); Lymphocytes % (auto) 10.7 % (10.0-50.0); Mean Corpuscular Hemoglobin 24.2 pg (28.0-32.0); Mean Corpuscular Hgb Conc. 33.1 g/dL (32.0-36.0); Mean Corpuscular Volume 73.1 fL (80.0-100.0); Monocytes # (auto) 0.7 10 ^3/uL (0-1.3); Monocytes % (auto) 5.4 % (0.0-12.0); Neutrophils # (auto) 11.3 10 ^3/uL (1.6-8.6); Neutrophils % (auto) 83.6 % (37.0-80.0); Platelet Count (auto) 306 10^3/uL (140-450); Red Blood Cells 4.66 10^6/uL (4.5-5.90); White Blood Cell 13.5 10^3/uL (4.4-10.8)
[2023-11-27 11:04] LABS: Alanine Aminotransferase 27 U/L (7-40); Alkaline Phosphatase 166 U/L (46-116); Anion Gap 14 (5-15); Aspartate Aminotransferase 20 U/L (13-40); BUN/Creatinine Ratio 24.2 (10.0-20.0); Bilirubin, Total 0.2 mg/dL (0.2-1.0); Carbon Dioxide 27 mmol/L (20-30); Total Protein 6.6 g/dL (5.7-8.2)
[2023-11-27 11:05] LABS: Blood Urea Nitrogen 31 mg/dL (9-23); Chloride 108 mmol/L (98-107); Glucose 157 mg/dL (74-106); Potassium 3.1 mmol/L (3.5-5.1); Sodium 149 mmol/L (136-145)
[2023-11-27] MEDS ORDERED: D5W/SOD CHL 0.45% 1,000 ML IV SCH (12:30)
[2023-11-27] MEDS ORDERED: ONDANSETRON HCL 4 MG/2 ML VIAL IV PRN (12:30)
[2023-11-27] MEDS ORDERED: MORPHINE SULFATE INJ 2 MG/ml SYRG IV PRN (12:30)
[2023-11-27] MEDS ORDERED: NITROGLYCERIN 0.4 MG SL TAB SL PRN (12:30)
[2023-11-27] MEDS: D5W/SOD CHL 0.45%/KCL 20MEQ 1,000 ML IV SCH (13:49)
[2023-11-27] MEDS: POTASSIUM CHL 20MEQ/100ML 100 ML IV ONE (13:52)
[2023-11-27 15:40] LABS: Basophils # (auto) 0.1 10 ^3/uL (0-0.2); Eosinophils # (auto) 0 10 ^3/uL (0-0.8); Hemoglobin 11.1 g/dL (13.5-17.5); Lymphocytes # (auto) 1.5 10 ^3/uL (0.4-5.4); Nucleated Red Blood Cells % 0.1 %; Red Cell Distribution Width 18.4 % (11.8-14.3)
[2023-11-27 15:43] LABS: Basophils % (auto) 0.6 % (0.0-2.0); Eosinophils % (auto) 0.1 % (0.0-7.0); Hematocrit 34.1 % (41.0-53.0); Lymphocytes % (auto) 11.4 % (10.0-50.0); Mean Corpuscular Hemoglobin 23.9 pg (28.0-32.0); Mean Corpuscular Hgb Conc. 32.6 g/dL (32.0-36.0); Mean Corpuscular Volume 73.3 fL (80.0-100.0); Monocytes # (auto) 0.7 10 ^3/uL (0-1.3); Monocytes % (auto) 5.4 % (0.0-12.0); Neutrophils # (auto) 10.9 10 ^3/uL (1.6-8.6); Neutrophils % (auto) 82.5 % (37.0-80.0); Platelet Count (auto) 263 10^3/uL (140-450); Red Blood Cells 4.65 10^6/uL (4.5-5.90); White Blood Cell 13.2 10^3/uL (4.4-10.8)
[2023-11-27 15:48] LABS: Chloride 105 mmol/L (98-107); Potassium 3.5 mmol/L (3.5-5.1); Sodium 144 mmol/L (136-145)
[2023-11-27 15:49] LABS: Anion Gap 12 (5-15); Carbon Dioxide 27 mmol/L (20-30)
[2023-11-27 15:54] LABS: BUN/Creatinine Ratio 21.4 (10.0-20.0); Blood Urea Nitrogen 25 mg/dL (9-23); Glucose 204 mg/dL (74-106)
[2023-11-28] MEDS: InsuLIN REG 1unit/0.01ml Soln (100units/ml) SC SCH ×2 (00:50→16:27)
[2023-11-28 04:12] LABS: Basophils # (auto) 0.1 10 ^3/uL (0-0.2); Basophils % (auto) 0.5 % (0.0-2.0); Eosinophils # (auto) 0 10 ^3/uL (0-0.8); Mean Corpuscular Volume 74.3 fL (80.0-100.0); Neutrophils # (auto) 13.9 10 ^3/uL (1.6-8.6)
[2023-11-28 04:15] LABS: Hematocrit 37.5 % (41.0-53.0); Lymphocytes # (auto) 1.4 10 ^3/uL (0.4-5.4); Lymphocytes % (auto) 8.9 % (10.0-50.0); Mean Corpuscular Hemoglobin 23.9 pg (28.0-32.0); Mean Corpuscular Hgb Conc. 32.1 g/dL (32.0-36.0); Monocytes # (auto) 0.5 10 ^3/uL (0-1.3); Monocytes % (auto) 3.2 % (0.0-12.0); Neutrophils % (auto) 87.4 % (37.0-80.0); Platelet Count (auto) 249 10^3/uL (140-450); Red Blood Cells 5.04 10^6/uL (4.5-5.90); Red Cell Distribution Width 18.7 % (11.8-14.3); White Blood Cell 15.9 10^3/uL (4.4-10.8)
[2023-11-28 04:32] LABS: Alanine Aminotransferase 22 U/L (7-40); Albumin 3.7 g/dL (3.2-4.8); Alkaline Phosphatase 158 U/L (46-116); Anion Gap 9 (5-15); Aspartate Aminotransferase 16 U/L (13-40); BUN/Creatinine Ratio 17.6 (10.0-20.0); Bilirubin, Total 0.2 mg/dL (0.2-1.0); Blood Urea Nitrogen 21 mg/dL (9-23); Calcium 8.9 mg/dL (8.7-10.4); Carbon Dioxide 26 mmol/L (20-30); Chloride 108 mmol/L (98-107); Glucose 259 mg/dL (74-106); Potassium 3.7 mmol/L (3.5-5.1); Sodium 143 mmol/L (136-145); Total Protein 6.4 g/dL (5.7-8.2)
[2023-11-28 08:52] VITALS: PULSE 113; RESP 16; O2SAT 96
[2023-11-28 09:42] VITALS: BP 122/72; PULSE 110; PULSE 76; RESP 18; RESP 20; TEMP 98.5; O2SAT 94; O2SAT 97
[2023-11-28] MEDS: PANTOPRAZOLE 40 MG/10 ML VIAL INJ IV SCH (11:05)
[2023-11-28] MEDS: busPIRone HCL 10 MG TAB PO SCH (11:06)
[2023-11-28] MEDS: HYDROcodone-ACET 5/325MG TAB PO PRN (11:07)
[2023-11-28 13:00] VITALS: BP 109/69; PULSE 102; RESP 17; TEMP 98.1; O2SAT 98
[2023-11-28] MEDS ORDERED: DEXTROSE (50%) 50ML SYRG IV PRN (13:15)
[2023-11-28] MEDS: INSULIN LANTUS (GLARGINE) 1 /0.01ml (100units/ml) SC ONE (14:44)
[2023-11-28] MEDS: ACCU-CHEK COMFORT CURVE STRIP VI SCH ×2 (16:22)
[2023-11-28 16:51] VITALS: BP 135/92; PULSE 99; RESP 20; TEMP 98; O2SAT 100
[2023-11-28 20:00] VITALS: PULSE 101
[2023-11-28] MEDS: MORPHINE SULFATE INJ 2 MG/ml SYRG IV PRN (20:39)
[2023-11-28 21:00] VITALS: BP 147/102; PULSE 105; RESP 20; TEMP 98.4; O2SAT 100
[2023-11-28] MEDS: INSULIN LANTUS (GLARGINE) 1 /0.01ml (100units/ml) SC SCH (22:17)
[2023-11-29 01:00] VITALS: BP 121/91; PULSE 97; RESP 18; TEMP 98; O2SAT 99
[2023-11-29 05:00] VITALS: BP 120/82; PULSE 95; RESP 16; TEMP 98.3; O2SAT 98
[2023-11-29 07:38] LABS: Basophils # (auto) 0 10 ^3/uL (0-0.2); Basophils % (auto) 0.4 % (0.0-2.0); Eosinophils # (auto) 0 10 ^3/uL (0-0.8); Eosinophils % (auto) 0.1 % (0.0-7.0); Hematocrit 32.9 % (41.0-53.0); Hemoglobin 10.9 g/dL (13.5-17.5); Lymphocytes # (auto) 1.6 10 ^3/uL (0.4-5.4); Lymphocytes % (auto) 27.4 % (10.0-50.0); Mean Corpuscular Hemoglobin 24.3 pg (28.0-32.0); Mean Corpuscular Hgb Conc. 33.1 g/dL (32.0-36.0); Mean Corpuscular Volume 73.5 fL (80.0-100.0); Monocytes # (auto) 0.4 10 ^3/uL (0-1.3); Monocytes % (auto) 6.7 % (0.0-12.0); Neutrophils # (auto) 3.7 10 ^3/uL (1.6-8.6); Neutrophils % (auto) 65.4 % (37.0-80.0); Nucleated Red Blood Cells % 0.1 %; Platelet Count (auto) 190 10^3/uL (140-450); Red Blood Cells 4.47 10^6/uL (4.5-5.90); Red Cell Distribution Width 18.8 % (11.8-14.3); White Blood Cell 5.7 10^3/uL (4.4-10.8)
[2023-11-29 07:48] LABS: Alanine Aminotransferase 17 U/L (7-40); Albumin 3.3 g/dL (3.2-4.8); Alkaline Phosphatase 132 U/L (46-116); Anion Gap 3 (5-15); Aspartate Aminotransferase 16 U/L (13-40); BUN/Creatinine Ratio 17.4 (10.0-20.0); Bilirubin, Total 0.3 mg/dL (0.2-1.0); Blood Urea Nitrogen 15 mg/dL (9-23); Calcium 8.8 mg/dL (8.7-10.4); Carbon Dioxide 29 mmol/L (20-30); Chloride 109 mmol/L (98-107); Glucose 166 mg/dL (74-106); Magnesium 1.9 mg/dL (1.6-2.6); Sodium 141 mmol/L (136-145); Total Protein 5.6 g/dL (5.7-8.2)
[2023-11-29 08:00] VITALS: PULSE 89; RESP 17; O2SAT 100
[2023-11-29 09:00] VITALS: BP 134/89; PULSE 89; RESP 17; TEMP 98.6; O2SAT 100
[2023-11-29] MEDS ORDERED: TRAZ1TAB12 PO (09:18)
[2023-11-29] MEDS ORDERED: INSLANTI SC (09:18)
[2023-11-29] MEDS ORDERED: QUET50TA PO (09:22)
[2023-11-29] MEDS ORDERED: INSLISPI SC (09:22)
[2023-11-29] MEDS ORDERED: PANT40TA2 PO (09:22)
[2023-11-29] MEDS ORDERED: BUPR75TA89 GT (09:26)
[2023-11-29 12:12] VITALS: BP 134/89; PULSE 89; RESP 17; TEMP 98.6; O2SAT 100
== END 2023-11-29 14:46 | disposition home or self-care (01) | DRG 420 ==
LOC: ER 23:37 → EDSEX 23:37 → EDBD 23:37 → TELE 11-27 12:39 → TELE-CENTR 11-28 09:11
PROVIDERS: ADMIT Registered Nurse General Practice; ATTEND Internal Medicine Geriatric Medicine
DX: E10.10 Type 1 diabetes mellitus with ketoacidosis without coma (principal); N17.0 Acute kidney failure with tubular necrosis; R65.11 Systemic inflammatory response syndrome (SIRS) of non-infectious origin with acute organ dysfunction; F41.9 Anxiety disorder, unspecified; E87.5 Hyperkalemia; E86.0 Dehydration; J45.909 Unspecified asthma, uncomplicated; E87.1 Hypo-osmolality and hyponatremia; I10 Essential (primary) hypertension; F17.210 Nicotine dependence, cigarettes, uncomplicated; K21.9 Gastro-esophageal reflux disease without esophagitis; Z88.6 Allergy status to analgesic agent; Z79.4 Long term (current) use of insulin; Z91.199 Patient's noncompliance with other medical treatment and regimen due to unspecified reason; Z79.899 Other long term (current) drug therapy; R63.6 Underweight; Z68.1 Body mass index [BMI] 19.9 or less, adult
CPT/HCPCS: 36415; 36600; 73130; 80048; 80053; 80307; 81001; 82010; 82805; 82962; 83735; 85025; 87081; 97163; 99291; G0378; J1815; J2470; J3480

== ENCOUNTER 2023-12-01 03:14 | Inpatient (IN) | payer MEDICAID ==
[~2023-12-01] VITALS: Ht 185.4 cm; Wt 71.7 kg
[~2023-12-01 03:14] MED LIST changes: -AUG875T PO; +BUPR75TA89 GT; -HYDR10SY18 PO; +INSLISPI SC; +PANT40TA2 PO; +QUET50TA PO
[2023-12-01 03:56] LABS: Basophils # (auto) 0 10 ^3/uL (0-0.2); Eosinophils # (auto) 0 10 ^3/uL (0-0.8); Mean Corpuscular Hgb Conc. 29.1 g/dL (32.0-36.0); Monocytes # (auto) 0.2 10 ^3/uL (0-1.3); Nucleated Red Blood Cells % 0.1 %; White Blood Cell 3.9 10^3/uL (4.4-10.8)
[2023-12-01 03:58] LABS: Basophils % (auto) 0.6 % (0.0-2.0); Eosinophils % (auto) 0.1 % (0.0-7.0); Hematocrit 45.5 % (41.0-53.0); Hemoglobin 13.3 g/dL (13.5-17.5); Lymphocytes # (auto) 0.6 10 ^3/uL (0.4-5.4); Lymphocytes % (auto) 15.1 % (10.0-50.0); Mean Corpuscular Hemoglobin 24.3 pg (28.0-32.0); Mean Corpuscular Volume 83.4 fL (80.0-100.0); Monocytes % (auto) 4.5 % (0.0-12.0); Neutrophils # (auto) 3.1 10 ^3/uL (1.6-8.6); Neutrophils % (auto) 79.7 % (37.0-80.0); Platelet Count (auto) 184 10^3/uL (140-450); Red Blood Cells 5.46 10^6/uL (4.5-5.90); Red Cell Distribution Width 18.5 % (11.8-14.3)
[2023-12-01 04:17] LABS: BUN/Creatinine Ratio 11.3 (10.0-20.0); Blood Urea Nitrogen 17 mg/dL (9-23); Magnesium 2.5 mg/dL (1.6-2.6)
[2023-12-01 04:19] LABS: Alanine Aminotransferase 36 U/L (7-40); Albumin 4.3 g/dL (3.2-4.8); Aspartate Aminotransferase 59 U/L (13-40); Bilirubin, Total 0.2 mg/dL (0.2-1.0); Phosphorus 6.5 mg/dL (2.4-5.1); Total Protein 7.4 g/dL (5.7-8.2)
[2023-12-01 04:20] LABS: Potassium 5.5 mmol/L (3.5-5.1)
[2023-12-01 04:23] LABS: Anion Gap 23.00001 (5-15); Calcium 9.5 mg/dL (8.7-10.4)
[2023-12-01 04:28] LABS: Alkaline Phosphatase 209 U/L (46-116); Lipase 46 U/L (12-53)
[2023-12-01 04:39] LABS: Chloride 92 mmol/L (98-107); Sodium 125 mmol/L (136-145)
[2023-12-01 04:40] LABS: Carbon Dioxide < 10 mmol/L (20-30); Glucose 643 mg/dL (74-106)
[2023-12-01 05:15] VITALS: PULSE 90; RESP 17; O2SAT 100
[2023-12-01] MEDS ORDERED: DEXTROSE (50%) 50ML SYRG IV PRN ×2 (05:15→16:45)
[2023-12-01] MEDS: SODIUM CHLORIDE 0.9% 2,000 ML IV ONE (05:51)
[2023-12-01] MEDS: INSULIN LANTUS (GLARGINE) 1 /0.01ml (100units/ml) SC ONE (05:58)
[2023-12-01] MEDS: INSULIN DRIP 100 UNIT/100ML 100 ML IV SCH (06:00)
[2023-12-01] MEDS: ACCU-CHEK COMFORT CURVE STRIP VI SCH ×2 (06:09→20:06)
[2023-12-01 06:38] LABS: Urine Bacteria None Seen /hpf (None Seen)
[2023-12-01] MEDS: SODIUM CHLORIDE 0.9% 1,000 ML IV SCH ×3 (07:15→10:53)
[2023-12-01 08:08] LABS: Urine Blood Negative /uL (Negative); Urine Clarity Clear (Clear); Urine Protein, UAD Negative (Negative); Urine Specific Gravity 1.023 (1.001-1.035); Urine Urobilinogen Normal (Negative); Urine WBC <1 /hpf (0 - 3)
[2023-12-01 08:10] LABS: Urine Color Straw (Yellow)
[2023-12-01 08:15] LABS: Potassium 5.4 mmol/L (3.5-5.1)
[2023-12-01 08:17] LABS: Calcium 8.8 mg/dL (8.7-10.4)
[2023-12-01 08:21] LABS: BUN/Creatinine Ratio 15.7 (10.0-20.0); Blood Urea Nitrogen 22 mg/dL (9-23)
[2023-12-01 08:25] LABS: Sodium 131 mmol/L (136-145)
[2023-12-01 08:37] LABS: Glucose 520 mg/dL (74-106)
[2023-12-01 08:57] LABS: Chloride 97 mmol/L (98-107)
[2023-12-01 08:59] LABS: Anion Gap 24.00001 (5-15)
[2023-12-01 09:13] LABS: Carbon Dioxide < 10 mmol/L (20-30)
[2023-12-01] MEDS: SODIUM BICARB 8.4% 50Meq/50ml SYR Vial IV ONE ×2 (09:50→19:54)
[2023-12-01] MEDS: SODIUM BICARB 50mEq/50ml Vial 50 ML in SOD CHL 0.45% 1,000 ML IV SCH (10:00)
[2023-12-01] MEDS ORDERED: MORPHINE SULFATE INJ 2 MG/ml SYRG IV PRN (11:15)
[2023-12-01] MEDS ORDERED: NITROGLYCERIN 0.4 MG SL TAB SL PRN (11:15)
[2023-12-01] MEDS ORDERED: HYDROcodone-ACET 5/325MG TAB PO PRN (11:15)
[2023-12-01] MEDS: HYDROcodone-ACET 10/325MG TAB PO SCH (11:35)
[2023-12-01 11:57] LABS: Potassium 4.9 mmol/L (3.5-5.1); Sodium 138 mmol/L (136-145)
[2023-12-01 11:58] LABS: Anion Gap 18 (5-15); Calcium 8.3 mg/dL (8.7-10.4); Carbon Dioxide 11 mmol/L (20-30)
[2023-12-01] MEDS: MUPIROCIN 2% OINT 15gm or 22gm EACHNOSTRI SCH (12:00)
[2023-12-01 12:03] LABS: Blood Urea Nitrogen 17 mg/dL (9-23)
[2023-12-01 12:07] LABS: Chloride 109 mmol/L (98-107); Glucose 169 mg/dL (74-106)
[2023-12-01 16:15] LABS: Chloride 111 mmol/L (98-107); Potassium 4.3 mmol/L (3.5-5.1); Sodium 139 mmol/L (136-145)
[2023-12-01 16:16] LABS: Anion Gap 10 (5-15); Carbon Dioxide 18 mmol/L (20-30)
[2023-12-01 16:17] LABS: Calcium 8.4 mg/dL (8.7-10.4)
[2023-12-01 16:22] LABS: BUN/Creatinine Ratio 15.3 (10.0-20.0); Blood Urea Nitrogen 15 mg/dL (9-23); Glucose 94 mg/dL (74-106)
[2023-12-01] MEDS: SOD CHL 0.45% 1,000 ML IV SCH (17:00)
[2023-12-01 17:19] LABS: Magnesium 1.8 mg/dL (1.6-2.6)
[2023-12-01 17:20] LABS: Phosphorus 2.1 mg/dL (2.4-5.1)
[2023-12-01 17:34] LABS: Creatinine, Urine 20.71 mg/dL (30.0-125.0)
[2023-12-01] MEDS: QUEtiapine FUMARATE 25 MG TAB PO SCH (18:35)
[2023-12-01] MEDS: traZODone HCL 50 MG TAB PO SCH (18:35)
[2023-12-01 20:00] VITALS: PULSE 96; RESP 17; O2SAT 94
[2023-12-01] MEDS: InsuLIN REG 1unit/0.01ml Soln (100units/ml) SC SCH (20:04)
[2023-12-01] MEDS ORDERED: MUPIROCIN CALCIUM 2% EX SCH (22:00)
[2023-12-02 06:55] LABS: Alanine Aminotransferase 21 U/L (7-40); Albumin 3.3 g/dL (3.2-4.8); Alkaline Phosphatase 135 U/L (46-116); Anion Gap 12 (5-15); Aspartate Aminotransferase 14 U/L (13-40); BUN/Creatinine Ratio 11.3 (10.0-20.0); Bilirubin, Total < 0.2 mg/dL (0.2-1.0); Blood Urea Nitrogen 12 mg/dL (9-23); Calcium 8.4 mg/dL (8.7-10.4); Carbon Dioxide 20 mmol/L (20-30); Chloride 106 mmol/L (98-107); Glucose 184 mg/dL (74-106); Potassium 3.8 mmol/L (3.5-5.1); Sodium 138 mmol/L (136-145)
[2023-12-02 06:56] LABS: Total Protein 5.4 g/dL (5.7-8.2)
[2023-12-02 07:30] VITALS: PULSE 99; RESP 15; O2SAT 100
[2023-12-02] MEDS: ONDANSETRON HCL 4 MG/2 ML VIAL IV PRN (08:11)
[2023-12-02 08:19] LABS: Basophils # (auto) 0 10 ^3/uL (0-0.2); Basophils % (auto) 0.6 % (0.0-2.0); Eosinophils # (auto) 0 10 ^3/uL (0-0.8); Eosinophils % (auto) 0.6 % (0.0-7.0); Hematocrit 32.8 % (41.0-53.0); Lymphocytes # (auto) 1.8 10 ^3/uL (0.4-5.4); Mean Corpuscular Hemoglobin 24.2 pg (28.0-32.0); Mean Corpuscular Hgb Conc. 33.4 g/dL (32.0-36.0); Mean Corpuscular Volume 72.5 fL (80.0-100.0); Monocytes # (auto) 0.4 10 ^3/uL (0-1.3); Monocytes % (auto) 7.1 % (0.0-12.0); Neutrophils # (auto) 3.3 10 ^3/uL (1.6-8.6); Neutrophils % (auto) 58.7 % (37.0-80.0); Nucleated Red Blood Cells % 0.1 %; Platelet Count (auto) 141 10^3/uL (140-450); Red Blood Cells 4.53 10^6/uL (4.5-5.90); Red Cell Distribution Width 17.8 % (11.8-14.3); White Blood Cell 5.6 10^3/uL (4.4-10.8)
[2023-12-02] MEDS: MORPHINE SULFATE INJ 2 MG/ml SYRG IV PRN (08:22)
[2023-12-02] MEDS ORDERED: INSULIN LANTUS (GLARGINE) 1 /0.01ml (100units/ml) SC SCH (10:00)
[2023-12-02] MEDS: ENOXAPARIN SOD 40 MG/0.4 ML SYRINGE SC SCH (11:11)
[2023-12-02] MEDS: PANTOPRAZOLE 40 MG TAB PO SCH (11:13)
[2023-12-02] MEDS: buPROPion HCL 75 MG TAB PO SCH (11:13)
[2023-12-02] MEDS: busPIRone HCL 10 MG TAB PO SCH (11:13)
[2023-12-02 12:34] LABS: Chloride 105 mmol/L (98-107); Potassium 3.9 mmol/L (3.5-5.1); Sodium 134 mmol/L (136-145)
[2023-12-02 12:35] LABS: Anion Gap 8 (5-15); Carbon Dioxide 21 mmol/L (20-30)
[2023-12-02 12:36] LABS: Calcium 8.2 mg/dL (8.7-10.4)
[2023-12-02 12:40] LABS: Blood Urea Nitrogen 9 mg/dL (9-23)
[2023-12-02 12:41] LABS: Glucose 329 mg/dL (74-106)
[2023-12-02] MEDS: INSULIN LANTUS (GLARGINE) 1 /0.01ml (100units/ml) SC ONE (16:08)
[2023-12-02 17:14] VITALS: PULSE 99; RESP 19; O2SAT 97
[2023-12-02 17:42] VITALS: BP 127/78; PULSE 90; RESP 15; TEMP 98.5; O2SAT 99
[2023-12-02] MEDS: ACETAMINOPHEN 325 MG TAB PO PRN (18:20)
[2023-12-02 20:00] VITALS: PULSE 85; PULSE 96; RESP 17; O2SAT 97
[2023-12-02 21:00] VITALS: BP 138/82; PULSE 85; RESP 17; TEMP 98.2; O2SAT 98
[2023-12-02] MEDS: INSULIN LANTUS (GLARGINE) 1 /0.01ml (100units/ml) SC SCH (22:03)
[2023-12-03] VITALS (7 sets, daily range): BP systolic 132–155; BP diastolic 73–104; PULSE 87–96; RESP 16–18; TEMP 98.1–98.8; O2SAT 96–99
[2023-12-03] MEDS ORDERED: HYDROcodone-ACET 10/325MG TAB PO PRN (00:45)
[2023-12-03 07:48] LABS: Basophils # (auto) 0 10 ^3/uL (0-0.2); Eosinophils # (auto) 0 10 ^3/uL (0-0.8); Hemoglobin 11.4 g/dL (13.5-17.5); Lymphocytes # (auto) 1.2 10 ^3/uL (0.4-5.4); Monocytes # (auto) 0.5 10 ^3/uL (0-1.3); Neutrophils # (auto) 2.5 10 ^3/uL (1.6-8.6); Neutrophils % (auto) 58.4 % (37.0-80.0); White Blood Cell 4.3 10^3/uL (4.4-10.8)
[2023-12-03 07:50] LABS: Basophils % (auto) 0.2 % (0.0-2.0); Eosinophils % (auto) 0.9 % (0.0-7.0); Mean Corpuscular Hemoglobin 24.2 pg (28.0-32.0); Mean Corpuscular Hgb Conc. 32.5 g/dL (32.0-36.0); Mean Corpuscular Volume 74.4 fL (80.0-100.0); Monocytes % (auto) 11.5 % (0.0-12.0); Nucleated Red Blood Cells % 0.3 %; Platelet Count (auto) 199 10^3/uL (140-450); Red Cell Distribution Width 18.1 % (11.8-14.3)
[2023-12-03 08:03] LABS: Alanine Aminotransferase 18 U/L (7-40); Albumin 3.3 g/dL (3.2-4.8); Alkaline Phosphatase 128 U/L (46-116); Anion Gap 7 (5-15); Aspartate Aminotransferase 16 U/L (13-40); BUN/Creatinine Ratio 8.6 (10.0-20.0); Blood Urea Nitrogen 7 mg/dL (9-23); Calcium 8.8 mg/dL (8.7-10.4); Carbon Dioxide 23 mmol/L (20-30); Chloride 109 mmol/L (98-107); Magnesium 1.7 mg/dL (1.6-2.6); Potassium 3.8 mmol/L (3.5-5.1); Sodium 139 mmol/L (136-145)
[2023-12-03 08:04] LABS: Bilirubin, Total < 0.2 mg/dL (0.2-1.0); Glucose 146 mg/dL (74-106); Total Protein 5.5 g/dL (5.7-8.2)
[2023-12-03] MEDS: LOSARTAN POTASSIUM 50 MG TAB PO ONE (13:50)
[2023-12-03] MEDS ORDERED: BUSP5TAB51 PO (13:51)
[2023-12-03] MEDS ORDERED: LANC-347 XX (13:52)
[2023-12-03] MEDS ORDERED: INSU100I4 SC (13:52)
[2023-12-03] MEDS ORDERED: QUET50TA PO (13:52)
[2023-12-03] MEDS ORDERED: INSUINJ37 SC (13:52)
[2023-12-03] MEDS ORDERED: BLOO1KIT60 XX (13:52)
[2023-12-04] MEDS ORDERED: LOSARTAN POTASSIUM 50 MG TAB PO SCH (10:00)
== END 2023-12-03 18:00 | disposition home or self-care (01) | DRG 420 ==
LOC: ER 03:14 → EDBD 03:14 → OVERFLOW 11:03 → TELE-CENTR 12-02 17:06
PROVIDERS: ADMIT Nurse Practitioner Family; ATTEND Hospitalist
DX: E10.10 Type 1 diabetes mellitus with ketoacidosis without coma (principal); N17.0 Acute kidney failure with tubular necrosis; E86.0 Dehydration; E87.5 Hyperkalemia; F32.A Depression, unspecified; J45.909 Unspecified asthma, uncomplicated; I10 Essential (primary) hypertension; K21.9 Gastro-esophageal reflux disease without esophagitis; F17.210 Nicotine dependence, cigarettes, uncomplicated; Z79.4 Long term (current) use of insulin; Z88.6 Allergy status to analgesic agent; Z82.49 Family history of ischemic heart disease and other diseases of the circulatory system; Z79.899 Other long term (current) drug therapy; Z91.199 Patient's noncompliance with other medical treatment and regimen due to unspecified reason
CPT/HCPCS: 36415; 36600; 80048; 80053; 81001; 82010; 82570; 82805; 82962; 83605; 83690; 83735; 83930; 84100; 84300; 85025; 93005; 99291; G0378; J1815; J2405

== ENCOUNTER 2023-12-13 17:04 | Emergency (ER) | payer MEDICAID ==
[~2023-12-13] VITALS: Ht 190.5 cm; Wt 75.7 kg
[~2023-12-13 17:04] MED LIST changes: +BLOO1KIT60 XX; -INSLANTI SC; -INSLISPI SC; +INSU100I4 SC; -INSU100I49 SC; +INSUINJ37 SC; +LANC-347 XX; -MUPI2CRE17 EX; -MUPI2OIN2 EX
[2023-12-13 18:57] VITALS: BP 133/92; PULSE 105; RESP 20; TEMP 98.3; O2SAT 98
[2023-12-13] MEDS ORDERED: SODIUM CHLORIDE 0.9% 1,000 ML IV ONE (19:30)
[2023-12-13] MEDS ORDERED: VANCOMYCIN 1GM/250ML 200 ML IV ONE (19:30)
[2023-12-13] MEDS ORDERED: cefTRIAXone SOD 1,000 MG VL IM ONE (19:45)
[2023-12-13] MEDS: cefTRIAXone SOD 1,000 MG VL IM ONE (21:17)
== END 2023-12-13 21:20 | disposition home or self-care (01) ==
LOC: ER 17:04
DX: S61.210D Laceration without foreign body of right index finger without damage to nail, subsequent encounter (principal); L08.9 Local infection of the skin and subcutaneous tissue, unspecified; E10.9 Type 1 diabetes mellitus without complications; F17.210 Nicotine dependence, cigarettes, uncomplicated; I10 Essential (primary) hypertension; J45.909 Unspecified asthma, uncomplicated; K21.9 Gastro-esophageal reflux disease without esophagitis; F12.10 Cannabis abuse, uncomplicated; F15.10 Other stimulant abuse, uncomplicated; Z79.899 Other long term (current) drug therapy; Z88.6 Allergy status to analgesic agent; X58.XXXA Exposure to other specified factors, initial encounter; Y93.89 Activity, other specified; Y92.89 Other specified places as the place of occurrence of the external cause; Y99.8 Other external cause status
CPT/HCPCS: 73140; 96372; 99283; J0696

== ENCOUNTER 2023-12-15 16:57 | Inpatient (IN) | payer MEDICAID ==
[~2023-12-15] VITALS: Ht 185.4 cm; Wt 73.8 kg
[2023-12-15 17:00] VITALS: RESP 25; O2SAT 98
[2023-12-15] MEDS ORDERED: DEXTROSE (50%) 50ML SYRG IV PRN (17:15)
[2023-12-15 17:28] LABS: Urine Bacteria None Seen /hpf (None Seen); Urine Blood Negative /uL (Negative); Urine Clarity Turbid (Clear); Urine Color Dark-Yellow (Yellow); Urine Protein, UAD TRACE (Negative); Urine Urobilinogen Normal (Negative); Urine WBC None Seen /hpf (0 - 3); Urine pH 5.5 (5.0-9.0)
[2023-12-15] MEDS: SODIUM CHLORIDE 0.9% 1,000 ML IV ONE (17:29)
[2023-12-15 17:35] LABS: Basophils # (auto) 0.1 10 ^3/uL (0-0.2); Eosinophils # (auto) 0 10 ^3/uL (0-0.8); Red Cell Distribution Width 19.3 % (11.8-14.3)
[2023-12-15 17:36] LABS: Basophils % (auto) 0.6 % (0.0-2.0); Hematocrit 37.1 % (41.0-53.0); Lymphocytes # (auto) 0.6 10 ^3/uL (0.4-5.4); Mean Corpuscular Hemoglobin 23.8 pg (28.0-32.0); Mean Corpuscular Hgb Conc. 29.6 g/dL (32.0-36.0); Mean Corpuscular Volume 80.3 fL (80.0-100.0); Monocytes # (auto) 0.3 10 ^3/uL (0-1.3); Monocytes % (auto) 3.4 % (0.0-12.0); Neutrophils # (auto) 8.5 10 ^3/uL (1.6-8.6); Nucleated Red Blood Cells % 0.1 %; Platelet Count (auto) 465 10^3/uL (140-450); Red Blood Cells 4.62 10^6/uL (4.5-5.90); White Blood Cell 9.4 10^3/uL (4.4-10.8)
[2023-12-15] MEDS: InsuLIN REG 1unit/0.01ml Soln (100units/ml) IV ONE (17:36)
[2023-12-15] MEDS: INSULIN LANTUS (GLARGINE) 1 /0.01ml (100units/ml) SC ONE (17:36)
[2023-12-15] MEDS: INSULIN DRIP 100 UNIT/100ML 100 ML IV SCH (17:43)
[2023-12-15] MEDS: SODIUM CHLORIDE 0.9% 250 ML IV ONE (17:52)
[2023-12-15 17:54] LABS: Alanine Aminotransferase 91 U/L (7-40); Albumin 3.9 g/dL (3.2-4.8); Alkaline Phosphatase 217 U/L (46-116); Anion Gap 28.00001 (5-15); Aspartate Aminotransferase 50 U/L (13-40); BUN/Creatinine Ratio 20.8 (10.0-20.0); Blood Urea Nitrogen 31 mg/dL (9-23); Chloride 94 mmol/L (98-107); Sodium 132 mmol/L (136-145)
[2023-12-15 17:55] LABS: Bilirubin, Total < 0.2 mg/dL (0.2-1.0); Total Protein 6.4 g/dL (5.7-8.2)
[2023-12-15 18:03] LABS: Potassium 5.7 mmol/L (3.5-5.1)
[2023-12-15 18:04] LABS: Carbon Dioxide < 10 mmol/L (20-31); Glucose 824 mg/dL (74-106)
[2023-12-15 18:19] LABS: Magnesium 2.6 mg/dL (1.6-2.6)
[2023-12-15 18:20] LABS: Phosphorus 8.1 mg/dL (2.4-5.1)
[2023-12-15 19:33] VITALS: PULSE 110; RESP 18; O2SAT 97
[2023-12-15] MEDS: SODIUM BICARB 8.4% 50Meq/50ml SYR Vial IV ONE (21:15)
[2023-12-15] MEDS ORDERED: ONDANSETRON HCL 4 MG/2 ML VIAL IV PRN (22:15)
[2023-12-15] MEDS ORDERED: MORPHINE SULFATE INJ 2 MG/ml SYRG IV PRN (22:15)
[2023-12-15] MEDS ORDERED: NITROGLYCERIN 0.4 MG SL TAB SL PRN (22:15)
[2023-12-15] MEDS ORDERED: DOCUSATE SOD 100 MG CAP PO PRN (22:15)
[2023-12-15] MEDS: SODIUM CHLORIDE 0.9% 1,000 ML IV SCH (22:29)
[2023-12-15] MEDS: cefTRIAXone 1GM/50ML D5W 50 ML IV ONE (22:29)
[2023-12-15] MEDS: D5W/SOD CHLO 0.9% 1,000 ML IV SCH (22:45)
[2023-12-16 04:23] LABS: Basophils # (auto) 0.1 10 ^3/uL (0-0.2); Basophils % (auto) 0.8 % (0.0-2.0); Eosinophils # (auto) 0 10 ^3/uL (0-0.8); Lymphocytes # (auto) 1.8 10 ^3/uL (0.4-5.4); Neutrophils # (auto) 7.1 10 ^3/uL (1.6-8.6); Nucleated Red Blood Cells % 0.1 %
[2023-12-16 04:29] LABS: Alanine Aminotransferase 64 U/L (7-40); Albumin 3.3 g/dL (3.2-4.8); Alkaline Phosphatase 153 U/L (46-116); Anion Gap 9 (5-15); Aspartate Aminotransferase 27 U/L (13-40); BUN/Creatinine Ratio 18.3 (10.0-20.0); Blood Urea Nitrogen 17 mg/dL (9-23); Calcium 8.2 mg/dL (8.7-10.4); Carbon Dioxide 24 mmol/L (20-31); Sodium 143 mmol/L (136-145)
[2023-12-16 04:30] LABS: Bilirubin, Total 0.2 mg/dL (0.2-1.0); Hematocrit 28.4 % (41.0-53.0); Hemoglobin 9.5 g/dL (13.5-17.5); Lymphocytes % (auto) 18.7 % (10.0-50.0); Mean Corpuscular Hemoglobin 24.2 pg (28.0-32.0); Mean Corpuscular Hgb Conc. 33.5 g/dL (32.0-36.0); Mean Corpuscular Volume 72.3 fL (80.0-100.0); Monocytes # (auto) 0.7 10 ^3/uL (0-1.3); Monocytes % (auto) 6.9 % (0.0-12.0); Neutrophils % (auto) 73.6 % (37.0-80.0); Platelet Count (auto) 398 10^3/uL (140-450); Red Blood Cells 3.93 10^6/uL (4.5-5.90); Red Cell Distribution Width 18.7 % (11.8-14.3); Total Protein 5.4 g/dL (5.7-8.2); White Blood Cell 9.7 10^3/uL (4.4-10.8)
[2023-12-16 04:32] LABS: Potassium 3.4 mmol/L (3.5-5.1)
[2023-12-16 04:33] LABS: Chloride 110 mmol/L (98-107)
[2023-12-16] MEDS: DEXTROSE (50%) 50ML SYRG IV PRN (04:40)
[2023-12-16 04:44] LABS: Glucose 40 mg/dL (74-106)
[2023-12-16] MEDS: InsuLIN REG 1unit/0.01ml Soln (100units/ml) SC SCH (05:15)
[2023-12-16] MEDS: ACCU-CHEK COMFORT CURVE STRIP VI SCH (05:24)
[2023-12-16 07:30] VITALS: PULSE 94; RESP 14; O2SAT 100
[2023-12-16] MEDS: cefTRIAXone 1GM/50ML D5W 50 ML IV SCH (09:08)
[2023-12-16] MEDS: PANTOPRAZOLE 40 MG/10 ML VIAL INJ IV SCH (09:08)
[2023-12-16] MEDS: HYDROcodone-ACET 5/325MG TAB PO PRN (09:09)
[2023-12-16] MEDS: POTASSIUM CHL 20MEQ/100ML 100 ML IV ONE (12:11)
[2023-12-16 13:34] LABS: Amphetamine Screen, Urine Neg (NEGATIVE); Barbiturate Scree,Urine Neg (NEGATIVE)
[2023-12-16 13:35] LABS: Benzodiazephine Screen, Urine Neg (NEGATIVE); Cannabinoid Screen, Urine Neg (NEGATIVE); Cocaine Screen, Urine Neg (NEGATIVE); Opiate Scree,Urine Neg (NEGATIVE); Phencyclidine Screen, Urine Neg (NEGATIVE)
[2023-12-16] MEDS: ACETAMINOPHEN 325 MG TAB PO PRN (20:23)
[2023-12-16 22:45] VITALS: BP 127/83; PULSE 95; RESP 22; TEMP 98; O2SAT 99
[2023-12-17] VITALS (7 sets, daily range): BP systolic 110–134; BP diastolic 70–90; PULSE 86–97; RESP 17–22; TEMP 97.8–98.9; O2SAT 99–100
[2023-12-17] MEDS ORDERED: DEXTROSE (50%) 50ML SYRG IV PRN (07:00)
[2023-12-17] MEDS: INSULIN LANTUS (GLARGINE) 1 /0.01ml (100units/ml) SC SCH (07:12)
[2023-12-17] MEDS: ACCU-CHEK COMFORT CURVE STRIP VI SCH (08:00)
[2023-12-17] MEDS: InsuLIN REG 1unit/0.01ml Soln (100units/ml) SC SCH (10:05)
[2023-12-17] MEDS ORDERED: CEPH250C PO (15:04)
[2023-12-17 15:39] LABS: Basophils # (auto) 0 10 ^3/uL (0-0.2); Eosinophils # (auto) 0 10 ^3/uL (0-0.8); Eosinophils % (auto) 0.5 % (0.0-7.0); Lymphocytes # (auto) 1.1 10 ^3/uL (0.4-5.4); Monocytes # (auto) 0.3 10 ^3/uL (0-1.3); Neutrophils # (auto) 2.4 10 ^3/uL (1.6-8.6); White Blood Cell 3.8 10^3/uL (4.4-10.8)
[2023-12-17 15:41] LABS: Basophils % (auto) 0.4 % (0.0-2.0); Hematocrit 34.4 % (41.0-53.0); Hemoglobin 11.2 g/dL (13.5-17.5); Mean Corpuscular Hemoglobin 23.4 pg (28.0-32.0); Mean Corpuscular Hgb Conc. 32.5 g/dL (32.0-36.0); Mean Corpuscular Volume 72.2 fL (80.0-100.0); Neutrophils % (auto) 64.1 % (37.0-80.0); Nucleated Red Blood Cells % 0.4 %; Platelet Count (auto) 364 10^3/uL (140-450); Red Blood Cells 4.77 10^6/uL (4.5-5.90); Red Cell Distribution Width 18.7 % (11.8-14.3)
[2023-12-17 15:52] LABS: Anion Gap 6 (5-15); Calcium 8.4 mg/dL (8.7-10.4); Carbon Dioxide 25 mmol/L (20-31); Chloride 106 mmol/L (98-107); Potassium 3.9 mmol/L (3.5-5.1); Sodium 137 mmol/L (136-145)
[2023-12-17 15:58] LABS: BUN/Creatinine Ratio 8.9 (10.0-20.0); Glucose 162 mg/dL (74-106)
[2023-12-17 15:59] LABS: Blood Urea Nitrogen 7 mg/dL (9-23)
[2023-12-17 16:01] LABS: % Iron Saturation 20.6 % (20-55)
[2023-12-17 16:02] LABS: Free T3 1.31 pg/mL (2.3-4.2)
[2023-12-17 16:03] LABS: Ferritin 32.2 ng/mL (22-322); Free T4 (Free Thyroxine) 0.81 ng/dL (0.89-1.76)
== END 2023-12-17 19:40 | disposition home or self-care (01) | DRG 420 ==
LOC: EDBD 16:57 → ER 16:57 → EDUNIT# 16:57 → TELE 22:18 → TELE-EAST 12-16 22:45 → EAST 12-17 03:32
PROVIDERS: ADMIT Internal Medicine; ATTEND Internal Medicine
DX: E10.10 Type 1 diabetes mellitus with ketoacidosis without coma (principal); N17.0 Acute kidney failure with tubular necrosis; G93.41 Metabolic encephalopathy; J81.1 Chronic pulmonary edema; E87.1 Hypo-osmolality and hyponatremia; D50.9 Iron deficiency anemia, unspecified; F17.210 Nicotine dependence, cigarettes, uncomplicated; N39.0 Urinary tract infection, site not specified; E86.0 Dehydration; R74.01 Elevation of levels of liver transaminase levels; J45.909 Unspecified asthma, uncomplicated; K21.9 Gastro-esophageal reflux disease without esophagitis; F32.A Depression, unspecified; I10 Essential (primary) hypertension; E87.5 Hyperkalemia; Z88.6 Allergy status to analgesic agent
CPT/HCPCS: 36415; 36600; 71045; 80048; 80053; 80307; 81001; 82010; 82306; 82607; 82728; 82805; 82962; 83036; 83540; 83550; 83735; 83930; 84100; 84439; 84443; 84481; 84484; 85025; 87081; 87493; 99291; 99292; G0378; J1815; J2470; J3480

== ENCOUNTER 2024-02-03 19:56 | Inpatient (IN) | payer MEDICAID ==
[~2024-02-03] VITALS: Ht 190.5 cm; Wt 80.0 kg
[~2024-02-03 19:56] MED LIST changes: +CEPH250C PO
--- NOTE | 2024-02-03 20:23 | ED.PDOC ---
History of Present Illness HPI Comments 23 y/o M, with a Hx of asthma, chronic bowel incontinence, DM I w/neuropathy, DKA, frequent ED visits, GERD, HTN, and polysubstance abuse, is BIBA for c/o sternal chest, diffused abdominal, and bilateral leg pain and diarrhea, today. Per EMS report, patient endorses on sudden and unprovoked onset of symptoms, this afternoon, with an 8/10 aching pain that worsens with respirations and pressure placed over pain locations. Patient was found on scene with a blood glucose reading of "HI," with known Hx of previous ED visits for DKA in the past. Patient's remaining vitals were stated to have been stable and within normal limits. Patient was also reported to endorse compliancy with his medic ations. Denies having any weakness, dizziness, nausea, vomiting, urinary symptoms, or other associated symptoms or modifiers at this time. Chief Complaint: Chest Pain Time Seen by MD: 20:05 Primary Care Provider: JL Reviewed Notes: Nurses Notes, Med Surg Rn Notes, Medications, Allergies Allergies: Coded Allergies: Ibuprofen (Verified Allergy, Intermediate, 09/15/23) Home Meds Active Scripts Cephalexin (KEFLEX CAPSULE) 250 Mg Cp, 2 CAP PO BID for 5 Days, #28 CAP Prov:AL CONTEH RESIDENT 12/17/23 Blood Glucose Monitoring Suppl (D-Care Glucometer Kit/Glu W/Device) 1 Kit Kit, KIT XX TIDWM, #1 Prov:CIRA JONES MD 12/03/23 Lancets (Freestyle Lancets) Lancets Mis, BOTTLE XX AC, #120 Prov:CIRA JONES MD 12/03/23 Insulin Lispro (Humalog Kwikpen) 100 Unit/Ml Inj, 10 UNIT SC TIDWM, #30 INJ Prov:CIRA JONES MD 12/03/23 Insulin Glargine (Lantus Solostar) 100 Unit/Ml Inj, 30 UNIT SC QAM, #60 INJ Prov:CIRA JONES MD 12/03/23 Quetiapine Fumerate (Seroquel) 50 Mg Tab, 1 TAB PO QPM, #30 TAB 0 Refills Prov:CIRA JONES MD 12/03/23 Buspirone Hcl (Buspirone Hcl) 5 Mg Tab, 1 TAB PO DAILY, #30 TAB Prov:CIRA JONES MD 12/03/23 Bupropion Hcl (WELLBUTRIN TABLET) 75 Mg Tb, 75 MG GT DAILY, #30 TAB Prov:LANDON MCNEAL MD 11/29/23 Pantoprazole Sodium Sesquihydr (Protonix) 40 Mg Tab, 40 MG PO DAILY, #30 TAB Prov:LNADON MCNEAL MD 11/29/23 Blood Glucose Monitoring Suppl (Blood Glucose System Spencer) System Kit, UNIT XX, #1 Prov:YESSICA PETTY MD 10/27/21 Reported Medications Trazodone Hcl (Trazodone Hcl) 150 Mg Tab, 125 MG PO, MG 04/13/23 Hydrocodone-Acetaminophen (Hydrocodone Bitartrate/AC 10-325 mg) 1 Tab Tab, 1 TAB PO, TAB 04/13/23 Information Source: Patient, Emergency Med Personnel Mode of Arrival: EMS Severity: Moderate Timing: Hours Duration: Since onset Prehospital treatment: 12 Lead EKG, Accucheck, Retail Loss Prevention Officer Past Medical History PAST MEDICAL HISTORY: Asthma, Depression, DM (type I w/neuropathy), GERD, HTN Past Medical History (Other): chronic bowel incontinence Surgical History: Denies all surgeries Family History Family History: Unknown Social History Smoker: Cigarettes Alcohol: Occasionally Drugs: Marijuana, Methamphetamine Lives In: Home Constitutional: denies: chills, diaphoresis, fatigue, fever, malaise, sweats, weakness, others EENTM: denies: blurred vision, double vision, ear bleeding, ear discharge, ear drainage, ear pain, ear ringing, eye pain, eye redness, hearing loss, mouth pain, mouth swelling, nasal discharge, nose bleeding, nose congestion, nose pain, photophobia, tearing, throat pain, throat swelling, voice changes, others Respiratory: denies: cough, hemoptysis, orthopnea, SOB at rest, shortness of breath, SOB with excertion, stridor, wheezing, others Cardiovascular: reports: chest pain; denies: dizzy spells, diaphoresis, Dyspnea on exertion, edema, irregular heart beat, left arm pain, lightheadedness, palpitations, PND, syncope, others Gastrointestinal: reports: abdominal pain, diarrhea; denies: abdomen distended, blood streaked bowels, constipated, dysphagia, difficulty swallowing, hematemesis, melena, nausea, poor appetite, poor fluid intake, rectal bleeding, rectal pain, vomiting, others Genitourinary: denies: burning, dysuria, flank pain, frequency, hematuria, in continence, penile discharge, penile sore, pain, testicle pain, testicle swelling, urgency, others Neurological: denies: dizziness, fainting, headache, left sided numbness, left sided weakness, numbness, paresthesia, pre-existing deficit, right sided numbness, right sided weakness, seizure, speech problems, tingling, tremors, weakness, others Musculoskeletal: reports: others (bilateral leg pain ); denies: back pain, gout, joint pain, joint swelling, muscle pain, muscle stiffness, neck pain Integumetry: denies: bruises, change in color, change in hair/nails, dryness, laceration, lesions, lumps, rash, wounds, others Allergic/Immunocompromised: denies: Difficulty Healing, Frequent Infections, Hives, Itching, others Hematologic/Lymphatic: denies: anemia, blood clots, easy bleeding, easy bruising, swollen glands, others Endocrine: denies: excessive hunger, excessive sweating, excessive thirst, excessive urination, flushing, intolerance to cold, intolerance to heat, unexplained weight gain, unexplained weight loss, others Psychiatric: denies: anxiety, bipolar disorder, depression, hopeless, panic disorder, schizophrenia, sleepless, suicidal, others All Other Systems: Reviewed and Negative Physical Exam General Appearance: Cachectic, Moderate Distress, Normal HEENT: Normal ENT Inspection, Pharynx Normal, TMs Normal Neck: Full Range of Motion, Non-Tender, Normal, Normal Inspection Respiratory: Chest Non-Tender, Lungs Clear, No Accessory Muscle Use, No Respiratory Distress, Normal Breath Sounds Cardiovascular: No Edema, No JVD, No Murmur, No Gallop, Normal Peripheral Pulses, Tachycardia Breast Exam: Deferred Gastrointestinal: No Organomegaly, Non Tender, No Pulsatile Mass, Soft Genitalia: Deferred Pelvic: Deferred Rectal: Deferred Extremities: No calf tenderness, Normal capillary refill, Normal inspection, Normal range of motion, Non-tender, No pedal edema Musculoskeletal : Apperance: Normal Neurologic: Alert, mock up builder II-XII nml as Tested, No Motor Deficits, Normal Affect, Normal Mood, No Sensory Deficits Cerebellar Function: Normal Reflexes: Normal Skin: Dry, Normal Color, Warm Lymphatic: No Adenopathy Was a procedure done? Was a procedure done?: No EKG EKG : Pulse Rate (adult): 108 Hypertrophy: LILLIAN Comments sinus tachycardia, early repolarization Differential Dx Considerations may include: CO, ACS, costochondritis, pericarditis, gastritis, gastroenteritis, angina, viral syndrome, DKA, hyperglycemia X-Ray, Labs, Meds, VS Vital Signs Date Time Temp Pulse Resp B/P (MAP) Pulse Ox O2 Delivery O2 Flow Rate FiO2 02/03/24 20:05 98.4 110 16 106/60 (75) 98 02/03/24 19:57 108 Lab Test 02/03/24 20:41 02/03/24 20:40 Range/Units Blood Gas Specimen Type Venous Blood Gas Sample Site Other Blood Gas Patient Temperature 37.0 Arterial Blood Date Drawn [id number] Jabari Test N/a Venous Blood pH 7.199 *L 7.320-7.430 Venous Blood pCO2 at Patient Temp 20.7 L 38.0-54.0 mmHg Venous Blood pO2 at Patient Temp 53.9 H 23.0-48.0 mmHg Venous Blood HCO3 7.9 L 22.0-29.0 mmol/L Venous Blood Base Excess -18.0 L -2.0-3.0 mmol/L Blood Gas Modality Room air Blood Gas Spontaneous Rate 26 FiO2 % 21.0 Blood Gas Critical Value Read Back Yes Blood Gas Notified Whom Md felix bear Blood Gas Notified Time [id number] Blood Gas Notified By Kyle green White Blood Count 5.9 4.4-10.8 10^3/uL Red Blood Count 5.31 4.5-5.90 10^6/uL Hemoglobin 12.4 L 13.5-17.5 g/dL Hematocrit 41.0 41.0-53.0 % Mean Corpuscular Volume 77.2 L 80.0-100.0 fL Mean Corpuscular Hemoglobin 23.4 L 28.0-32.0 pg Mean Corpuscular Hemoglobin Concent 30.2 L 32.0-36.0 g/dL Red Cell Distribution Width 19.1 H 11.8-14.3 % Platelet Count 294 140-450 10^3/uL Mean Platelet Volume 7.6 6.9-10.8 fL Neutrophils (%) (Auto) 68.5 37.0-80.0 % Lymphocytes (%) (Auto) 25.5 10.0-50.0 % Monocytes (%) (Auto) 4.3 0.0-12.0 % Eosinophils (%) (Auto) 0.2 0.0-7.0 % Basophils (%) (Auto) 1.5 0.0-2.0 % Neutrophils # (Auto) 4.0 1.6-8.6 10 ^3/uL Lymphocytes # (Auto) 1.5 0.4-5.4 10 ^3/uL Monocytes # (Auto) 0.3 0-1.3 10 ^3/uL Eosinophils # (Auto) 0 0-0.8 10 ^3/uL Basophils # (Auto) 0.1 0-0.2 10 ^3/uL Nucleated Red Blood Cells 0.2 % Sodium Level 124 L 136-145 mmol/L Potassium Level 5.2 H 3.5-5.1 mmol/L Chloride Level 90 L 98-107 mmol/L Carbon Dioxide Level < 10 *L 20-31 mmol/L Anion Gap 24.50524 H 5-15 Blood Urea Nitrogen 21 9-23 mg/dL Creatinine 1.49 H 0.700-1.30 mg/dL Glomerular Filtration Rate Calc 68 >90 mL/min BUN/Creatinine Ratio 14.1 10.0-20.0 Serum Glucose 705 *H 74-106 mg/dL Lactic Acid Level 2.4 *H 0.4-2.0 mmol/L Calcium Level 9.9 8.7-10.4 mg/dL Magnesium Level 2.7 H 1.6-2.6 mg/dL Total Bilirubin 0.3 0.2-1.0 mg/dL Aspartate Amino Transferase (AST) 43 H 13-40 U/L Alanine Aminotransferase (ALT) 127 H 7-40 U/L Alkaline Phosphatase 189 H 46-116 U/L Total Protein 7.4 5.7-8.2 g/dL Albumin 4.2 3.2-4.8 g/dL Beta-Hydroxybutyric Acid > 4.500 H < 0.4 mmol/L Current Medications Medications (Trade) Dose Ordered Sig/Duncan Route Start Time Stop Time Status Last Admin Sodium Chloride 1,000 ml @ 1,000 mls/hr Q1H ONCE IVB 02/03/24 20:30 02/03/24 21:29 DC 02/03/24 21:[address] [address] Ph: [phone] DIAGNOSTIC IMAGING Diagnostic Imaging Report : [id number] Signed PATIENT: ALDA CRESPO ACCT: [id number] UNIT: [id number] : 2000 LOC: ER ROOM / BED: / AGE / SEX: 23 / M ADM STATUS: REG ER SERVICE 16 ORDERING PHYSICIAN: OBDULIO BEAR MD PROCEDURE(s): CXRP - CHEST PORTABLE REASON: chest pain ORDER NUMBER(s): [id number], ACCESSION NUMBER(s): [id number] CHEST RADIOGRAPH Indication: chest pain Technique: Single frontal view of the chest was obtained Comparison: XY CHEST PORTABLE on DOS: 12/16/23, XY CHEST PORTABLE on DOS: 12/15/23, XY CHEST XRAY 1 VIEW on DOS: 11/11/23 FINDINGS: Lines and Tubes: None Lungs: Clear Pleura: No effusion. No pneumothorax. Cardiomediastinal contours: Unremarkable Bones: Unremarkable IMPRESSION: 1. Clear lungs. ATED BY: ANNI NAIDU DO DICTATED DATE/TIME: 02/03/242100 SIGNED BY: ANNI NAIDU DO SIGNED DATE/TIME: 02/03/242100 CC: Time of 1ST Reevaluation: 20:35 Reevaluation 1ST: Unchanged Time of 2ND Reevaluation: 21:41 Reevaluation 2ND: Unchanged Patient Education/Counseling: Diagnosis, Treatment Family Education/Counseling: No Family Present Comments I independently interpreted and reviewed the EKG, lab findings, and Chest xray findings Departure 1 Departure Time of Disposition: 21:41 Impression: Primary Impression: DKA (diabetic ketoacidosis) Additional Impressions: Dehydration Diabetes mellitus, insulin dependent (IDDM), uncontrolled Disposition: 09 ADMITTED INPATIENT Admit to: ICU Condition: Critical Critical Care Note Critical Care Time?: Yes (45 min-critical care time only) Critical care comment: due to the real possibility of patient's condition deteriorating, his care requires my highest attention and readiness to intervene. i assessed the patient, ordered the proper tests and treatments, reassessed him for response, formulated a plan, discussed it with medical personnel, and consultants,. total time include more than 50% face to face contact and does not include any procedures Stability Stability form required: No Heart Score Heart Score: Heart Score Response (Comments) Value History Slightly Suspicious 0 EKG Repolarization Disturb 1 Age <45 0 Risk Factors 1 or 2 risk factors 1 Troponin Normal limit 0 Total 2 I personally scribed for OBDULIO BEAR MD ([email or web address]) on 02/03/24 at 20:22. Electronically submitted by Onel Olivera ([email or web address]). I personally scribed for OBDULIO BEAR MD ([email or web address]) on 02/03/24 at 21:15. Electronically submitted by Onel Olivera ([email or web address]). OBDULIO BEAR MD Feb 03, 2024 20:22
--- NOTE | 2024-02-03 21:04 | DVH ---
CHEST RADIOGRAPH Indication: chest pain Technique: Single frontal view of the chest was obtained Comparison: XY CHEST PORTABLE on DOS: 12/16/23, XY CHEST PORTABLE on DOS: 12/15/23, XY CHEST XRAY 1 VIE W on DOS: 11/11/23 FINDINGS: Lines and Tubes: None Lungs: Clear Pleura: No effusion. No pneumothorax. Cardiomediastinal contours: Unremarkable Bones: Unremarkable IMPRESSION: 1. Clear lungs.
[2024-02-03] MEDS: SODIUM CHLORIDE 0.9% 1,000 ML IVB ONE (21:22)
[2024-02-03 21:28] LABS: Alanine Aminotransferase 127 U/L (7-40); Albumin 4.2 g/dL (3.2-4.8); Alkaline Phosphatase 189 U/L (46-116); Anion Gap 24.00001 (5-15); Aspartate Aminotransferase 43 U/L (13-40); BUN/Creatinine Ratio 14.1 (10.0-20.0); Blood Urea Nitrogen 21 mg/dL (9-23); Calcium 9.9 mg/dL (8.7-10.4); Chloride 90 mmol/L (98-107); Magnesium 2.7 mg/dL (1.6-2.6); Potassium 5.2 mmol/L (3.5-5.1); Sodium 124 mmol/L (136-145)
[2024-02-03 21:29] LABS: Bilirubin, Total 0.3 mg/dL (0.2-1.0); Total Protein 7.4 g/dL (5.7-8.2)
[2024-02-03 21:31] LABS: Basophils # (auto) 0.1 10 ^3/uL (0-0.2); Basophils % (auto) 1.5 % (0.0-2.0); Eosinophils # (auto) 0 10 ^3/uL (0-0.8); Eosinophils % (auto) 0.2 % (0.0-7.0); Hemoglobin 12.4 g/dL (13.5-17.5); Lymphocytes # (auto) 1.5 10 ^3/uL (0.4-5.4); Lymphocytes % (auto) 25.5 % (10.0-50.0); Mean Corpuscular Hemoglobin 23.4 pg (28.0-32.0); Mean Corpuscular Hgb Conc. 30.2 g/dL (32.0-36.0); Mean Corpuscular Volume 77.2 fL (80.0-100.0); Monocytes # (auto) 0.3 10 ^3/uL (0-1.3); Monocytes % (auto) 4.3 % (0.0-12.0); Neutrophils % (auto) 68.5 % (37.0-80.0); Nucleated Red Blood Cells % 0.2 %; Platelet Count (auto) 294 10^3/uL (140-450); Red Blood Cells 5.31 10^6/uL (4.5-5.90); Red Cell Distribution Width 19.1 % (11.8-14.3); White Blood Cell 5.9 10^3/uL (4.4-10.8)
[2024-02-03 21:38] LABS: Carbon Dioxide < 10 mmol/L (20-31); Glucose 705 mg/dL (74-106); Lactic Acid w/Reflex 2.4 mmol/L (0.4-2.0)
[2024-02-03] MEDS: ONDANSETRON HCL 4 MG/2 ML VIAL IV ONE (21:47)
[2024-02-03] MEDS: MORPHINE SULFATE 4 MG/ML SYR/VIAL IV ONE (21:48)
[2024-02-03] MEDS ORDERED: DEXTROSE (50%) 50ML SYRG IV PRN ×2 (22:15→22:30)
[2024-02-03] MEDS ORDERED: MORPHINE SULFATE INJ 2 MG/ml SYRG IV PRN (22:30)
[2024-02-03] MEDS ORDERED: TEMAZEPAM 15 MG CAP PO PRN (22:30)
[2024-02-03] MEDS ORDERED: ONDANSETRON HCL 4 MG/2 ML VIAL IV PRN (22:30)
[2024-02-03] MEDS: ACCU-CHEK COMFORT CURVE STRIP VI SCH ×2 (22:30→22:48)
[2024-02-03] MEDS ORDERED: NITROGLYCERIN 0.4 MG SL TAB SL PRN (22:30)
[2024-02-03] MEDS: INSULIN DRIP 100 UNIT/100ML 100 ML IV SCH ×2 (22:30)
[2024-02-03] MEDS: INSULIN LANTUS (GLARGINE) 1 /0.01ml (100units/ml) SC ONE (22:53)
[2024-02-03] MEDS: SODIUM CHLORIDE 0.9% 1,000 ML IV ONE (23:40)
[2024-02-03 23:50] LABS: Chloride 94 mmol/L (98-107); Potassium 5.5 mmol/L (3.5-5.1); Sodium 128 mmol/L (136-145)
[2024-02-03 23:53] LABS: Calcium 9.2 mg/dL (8.7-10.4)
[2024-02-03 23:58] LABS: BUN/Creatinine Ratio 20.4 (10.0-20.0)
[2024-02-04 00:12] LABS: Anion Gap 24.00001 (5-15); Blood Urea Nitrogen 32 mg/dL (9-23); Carbon Dioxide < 10 mmol/L (20-31); Glucose 697 mg/dL (74-106)
[2024-02-04] MEDS: SODIUM CHLORIDE 0.9% 1,000 ML IV SCH ×2 (01:00→04:30)
[2024-02-04 01:25] LABS: Base Excess -16.5 mmol/L (-2.0-3.0)
--- NOTE | 2024-02-04 01:36 | DVHHP2 ---
History of Present Illness Reason for Visit: Nausea and vomiting History of Present Illness 23-year-old male presents for evaluation of nausea and vomiting. Patient reports a one day history of diffuse abdominal pain with associated nausea and vomiting. Denies fever or diarrhea. No cardiac or respiratory complaints. Patient reports being compliant with his diabetic medications. Past Medical History Asthma, diabetes mellitus, hypertension and depression Past Surgical History Denies Family History Noncontributory Review of Systems Review of Systems Review of systems are currently negative otherwise addressed in HPI. Allergies: Coded Allergies: Ibuprofen (Verified Allergy, Intermediate, 09/15/23) Medications Current Medications Medications Dose Ordered Sig/Duncan Route Start Time Stop Time Status Last Admin Dose Admin Insulin Human (Reg)/Sodium Chloride 100 ml @ 0.5 mls/hr Q24H IV 02/03/24 22:15 02/03/24 22:30 6 MLS/HR Diagnostic Test (Pha) 1 strip Q90MIN 02/03/24 22:30 Dextrose 50 ml PRN PRN IV 02/03/24 22:15 Sodium Chloride 1,000 ml @ 250 mls/hr Q4H IV 02/04/24 02:30 02/04/24 04:29 02/04/24 01:00 250 MLS/HR Sodium Chloride 1,000 ml @ 150 mls/hr Q6H40M IV 02/04/24 04:30 Insulin Human (Reg)/Sodium Chloride 100 ml @ 0.5 mls/hr Q24H IV 02/03/24 22:30 Dextrose 50 ml UD PRN IV 02/03/24 22:30 Diagnostic Test (Pha) 1 strip Q90MIN 02/03/24 22:30 02/04/24 01:00 1 STRIP Insulin Glargine 15 units DAILY SC 02/04/24 10:00 Temazepam 15 mg QHSP PRN PO 02/03/24 22:30 Ondansetron HCl 4 mg Q4HP PRN IV 02/03/24 22:30 Nitroglycerin 0.4 mg Q5MINP PRN SL 02/03/24 22:30 Morphine Sulfate 2 mg Q30M PRN IV 02/03/24 22:30 Exam Vital Signs Vital Signs Date Time Temp Pulse Resp B/P (MAP) Pulse Ox O2 Delivery O2 Flow Rate FiO2 02/03/24 22:20 103 14 93/45 02/03/24 21:00 Room Air* 0 21 02/03/24 20:05 98.4 98 Exam Gen: 23-year-old male in mild distress Skin: Warm, dry, normal color and texture, no rash. HEENT: Normocephalic atraumatic, mucous membranes moist and pink. Neck: Cervical and supraclavicular nodes normal without enlargement, trachea is midline, thyroid gland is normal without masses. Pulmonary: Clear to auscultation and percussion bilaterally. Cardiac: Regular rate and rhythm. No murmur Abdomen: Soft, nontender, nondistended, bowel sounds present all 4 quadrants, no guarding, no rigidity, no organomegaly. Extremities: No cyanosis, clubbing, no edema Neuro: Cranial nerves II through XII grossly intact, normal affect and speech, no focal motor deficits. Labs/Xrays ORDERING PHYSICIAN: OBDULIO BEAR MD PROCEDURE(s): CXRP - CHEST PORTABLE REASON: chest pain ORDER NUMBER(s): [id number], ACCESSION NUMBER(s): [id number] CHEST RADIOGRAPH Indication: chest pain Technique: Single frontal view of the chest was obtained Comparison: XY CHEST PORTABLE on DOS: 12/16/23, XY CHEST PORTABLE on DOS: 12/15/23, XY CHEST XRAY 1 VIEW on DOS: 11/11/23 FINDINGS: Lines and Tubes: None Lungs: Clear Pleura: No effusion. No pneumothorax. Cardiomediastinal contours: Unremarkable Bones: Unremarkable IMPRESSION: 1. Clear lungs. Labs Test 02/04/24 01:03 02/04/24 01:02 02/03/24 23:25 02/03/24 22:44 Range/Units Blood Gas Specimen Type Arterial Blood Gas Sample Site Right radial Blood Gas Patient Temperature 37.0 Arterial Blood Date Drawn Arterial Blood pH 7.237 *L 7.350-7.450 Arterial Blood Partial Pressure CO2 21.8 L 35.0-48.0 mmHg Arterial Blood Partial Pressure O2 103.7 83.0-108.0 mmHg Arterial Blood HCO3 9.1 L 21.0-28.0 mmol/L Arterial Blood Oxygen Saturation 97.5 94.0-98.0 % Arterial Blood Base Excess -16.5 L -2.0-3.0 mmol/L Arterial Blood Oxyhemoglobin 96.8 94.0-98.0 % Arterial Blood Carboxyhemoglobin 0.2 L 0.5-1.5 % Arterial Blood Methemoglobin 0.5 0.0-1.5 % Jabari Test Yes Blood Gas Total Hemoglobin 11.80 L 13.5-17.5 g/dL Blood Gas Modality Room air Blood Gas Spontaneous Rate 24 FiO2 % 21.0 Blood Gas Critical Value Read Back yes Blood Gas Notified Whom yenny kim Blood Gas Notified Time [id number] Blood Gas Notified By autocad technician megan green POC Glucose 396 H 70-106 mg/dl Sodium Level 128 L 136-145 mmol/L Potassium Level 5.5 H 3.5-5.1 mmol/L Chloride Level 94 L 98-107 mmol/L Carbon Dioxide Level < 10 *L 20-31 mmol/L Anion Gap 24.64244 H 5-15 Blood Urea Nitrogen 32 #H 9-23 mg/dL Creatinine 1.57 H 0.700-1.30 mg/dL Glomerular Filtration Rate Calc 64 >90 mL/min BUN/Creatinine Ratio 20.4 H 10.0-20.0 Serum Glucose 697 *H 74-106 mg/dL Serum Osmolality 333 H 278-298 mOsm/kg Calcium Level 9.2 8.7-10.4 mg/dL Lactic Acid Level 2.0 0.4-2.0 mmol/L Test 02/03/24 20:41 02/03/24 20:40 Range/Units Venous Blood pH 7.199 *L 7.320-7.430 Venous Blood pCO2 at Patient Temp 20.7 L 38.0-54.0 mmHg Venous Blood pO2 at Patient Temp 53.9 H 23.0-48.0 mmHg Venous Blood HCO3 7.9 L 22.0-29.0 mmol/L Venous Blood Base Excess -18.0 L -2.0-3.0 mmol/L White Blood Count 5.9 4.4-10.8 10^3/uL Red Blood Count 5.31 4.5-5.90 10^6/uL Hemoglobin 12.4 L 13.5-17.5 g/dL Hematocrit 41.0 41.0-53.0 % Mean Corpuscular Volume 77.2 L 80.0-100.0 fL Mean Corpuscular Hemoglobin 23.4 L 28.0-32.0 pg Mean Corpuscular Hemoglobin Concent 30.2 L 32.0-36.0 g/dL Red Cell Distribution Width 19.1 H 11.8-14.3 % Platelet Count 294 140-450 10^3/uL Mean Platelet Volume 7.6 6.9-10.8 fL Neutrophils (%) (Auto) 68.5 37.0-80.0 % Lymphocytes (%) (Auto) 25.5 10.0-50.0 % Monocytes (%) (Auto) 4.3 0.0-12.0 % Eosinophils (%) (Auto) 0.2 0.0-7.0 % Basophils (%) (Auto) 1.5 0.0-2.0 % Neutrophils # (Auto) 4.0 1.6-8.6 10 ^3/uL Lymphocytes # (Auto) 1.5 0.4-5.4 10 ^3/uL Monocytes # (Auto) 0.3 0-1.3 10 ^3/uL Eosinophils # (Auto) 0 0-0.8 10 ^3/uL Basophils # (Auto) 0.1 0-0.2 10 ^3/uL Nucleated Red Blood Cells 0.2 % Magnesium Level 2.7 H 1.6-2.6 mg/dL Total Bilirubin 0.3 0.2-1.0 mg/dL Aspartate Amino Transferase (AST) 43 H 13-40 U/L Alanine Aminotransferase (ALT) 127 H 7-40 U/L Alkaline Phosphatase 189 H 46-116 U/L Total Protein 7.4 5.7-8.2 g/dL Albumin 4.2 3.2-4.8 g/dL Beta-Hydroxybutyric Acid > 4.500 H < 0.4 mmol/L Assessment/Plan Assessment/Plan Assessment Diabetic ketoacidosis Acute dehydration Electrolyte imbalance Acute kidney injury Plan Admit the patient to [facility] to the hospitalist DKA protocol NPO Continue treatment per orders. Total critical care time excluding procedures performed this 50 minutes. Plan discussed with: Patient My Orders Orders - BRYAN KIM Procedure Category Date Status Time Sodium Chloride 0.9% PHA 02/04/24 In Process 02:30 Sodium Chloride 0.9% PHA 02/04/24 In Process 04:30 Insulin Drip 100 PHA 02/03/24 In Process Unit/100ml (Myxredlin 22:30 Dextrose 50% Syringe PHA 02/03/24 In Process 22:30 Glucose Blood PHA 02/03/24 In Process (Accu-Chek Comfort 22:30 Basic Metabolic Panel LAB 02/04/24 Logged 04:26 Basic Metabolic Panel LAB 02/04/24 Logged 10:26 Basic Metabolic Panel LAB 02/04/24 Logged 16:26 Neurological KARAN 02/03/24 In Process Assessment 22:26 Vs/Hemodynamics KARAN 02/03/24 In Process 22:26 Insulin Lantus PHA 02/04/24 In Process (Glargine) (Lantus) 10:00 Abg W/ Co-Ox RT 02/04/24 Logged 01:00 Admit ADMIT 02/03/24 Transmitted 22:26 Temazepam (Restoril) PHA 02/03/24 In Process 22:30 Ondansetron Hcl PHA 02/03/24 In Process (Zofran) 22:30 Complete Blood Count LAB 02/04/24 Logged 04:00 Comprehensive LAB 02/04/24 Logged Metabolic Panel 04:00 Npo (Nothing By DIET 02/04/24 Transmitted Mouth) Diet Breakfast Condition: Critical KARAN 02/03/24 In Process 22:26 Bedrest With Bathroom KARAN 02/03/24 In Process Privileg 22:26 Nitroglycerin PHA 02/03/24 In Process Sublingual (Ntrostat 22:30 Morphine Sulfate PHA 02/03/24 In Process Injection 22:30 Stat Ekg For Chest KARAN 02/03/24 In Process Pain 22:26 Notify Md Of Changes KARAN 02/03/24 In Process From Base 22:26 Aircraft Layout Worker For KARAN 02/03/24 In Process 24 Hours 22:26 Emergency Dysrhythmia KARAN 02/03/24 In Process Protocol 22:26 Rhythm Strips Once KARAN 02/03/24 In Process Every Shift 22:26 Oxygen By Nasal RT 02/03/24 Transmitted Cannula 22:26 Date of Service: Feb 03, 2024 Billing Provider: BRYAN KIM Common Visit Codes: [id number] CARE 30-74 MIN BRYAN KIM Feb 04, 2024 01:36
[2024-02-04 06:29] LABS: Basophils # (auto) 0.1 10 ^3/uL (0-0.2); Basophils % (auto) 0.9 % (0.0-2.0); Eosinophils # (auto) 0 10 ^3/uL (0-0.8); Monocytes # (auto) 0.5 10 ^3/uL (0-1.3); Red Cell Distribution Width 18.5 % (11.8-14.3); White Blood Cell 6.7 10^3/uL (4.4-10.8)
[2024-02-04 06:31] LABS: Eosinophils % (auto) 0.4 % (0.0-7.0); Hematocrit 33.9 % (41.0-53.0); Hemoglobin 11.1 g/dL (13.5-17.5); Lymphocytes % (auto) 30.5 % (10.0-50.0); Mean Corpuscular Hemoglobin 23.9 pg (28.0-32.0); Mean Corpuscular Hgb Conc. 32.7 g/dL (32.0-36.0); Mean Corpuscular Volume 73.3 fL (80.0-100.0); Monocytes % (auto) 6.9 % (0.0-12.0); Neutrophils # (auto) 4.1 10 ^3/uL (1.6-8.6); Neutrophils % (auto) 61.3 % (37.0-80.0); Nucleated Red Blood Cells % 0.1 %; Platelet Count (auto) 298 10^3/uL (140-450); Red Blood Cells 4.63 10^6/uL (4.5-5.90)
--- NOTE | 2024-02-04 06:57 | ECG ---
[facility] Test Date: 2024-02-03 Test Time: 19:57:41 Pat Name: ALDA CRESPO Department: ER Room: 0217T Gender: M Front Desk Admin: : 2000 Requested By: OBDULIO BEAR Order Number: [id number] Reading MD: Kirk Mcgraw Measurements Intervals [place] Rate: 108 P: 73 LA: 155 QRS: 81 QRSD: 71 T: 58 QT: 347 QTc: 465 Interpretive Statements Sinus tachycardia LILLIAN, consider biatrial enlargement Electronically Signed On 02-05-2024 8:26:08 PST by Kirk Mcgraw Please click the below link to view image of tracing.
[2024-02-04 07:04] LABS: Alanine Aminotransferase 106 U/L (7-40); Alkaline Phosphatase 157 U/L (46-116); Anion Gap 13 (5-15); Aspartate Aminotransferase 24 U/L (13-40); BUN/Creatinine Ratio 19.6 (10.0-20.0); Blood Urea Nitrogen 20 mg/dL (9-23); Carbon Dioxide 18 mmol/L (20-31); Potassium 4.2 mmol/L (3.5-5.1); Sodium 139 mmol/L (136-145)
[2024-02-04 07:05] VITALS: PULSE 93; RESP 12; O2SAT 98
[2024-02-04 07:05] LABS: Bilirubin, Total 0.2 mg/dL (0.2-1.0); Total Protein 6.6 g/dL (5.7-8.2)
[2024-02-04 07:06] LABS: Chloride 108 mmol/L (98-107); Glucose 133 mg/dL (74-106)
[2024-02-04 08:11] LABS: Urine Bacteria None Seen /hpf (None Seen)
[2024-02-04 08:35] LABS: Amphetamine Screen, Urine Neg (NEGATIVE)
[2024-02-04 08:36] LABS: Barbiturate Scree,Urine Neg (NEGATIVE); Benzodiazephine Screen, Urine Neg (NEGATIVE); Cannabinoid Screen, Urine Neg (NEGATIVE); Cocaine Screen, Urine Neg (NEGATIVE); Opiate Scree,Urine Neg (NEGATIVE); Phencyclidine Screen, Urine Neg (NEGATIVE)
[2024-02-04 08:55] LABS: Urine Blood Negative /uL (Negative); Urine Clarity Clear (Clear); Urine Color Light-Yellow (Yellow); Urine Mucus FEW (None Seen); Urine Protein, UAD Negative (Negative); Urine Specific Gravity 1.024 (1.001-1.035); Urine Urobilinogen Normal (Negative); Urine WBC 2 /hpf (0 - 3)
[2024-02-04] MEDS: INSULIN LANTUS (GLARGINE) 1 /0.01ml (100units/ml) SC SCH ×2 (10:13→21:08)
[2024-02-04 11:02] LABS: Chloride 108 mmol/L (98-107); Potassium 4.5 mmol/L (3.5-5.1); Sodium 140 mmol/L (136-145)
[2024-02-04 11:03] LABS: Anion Gap 15 (5-15); Calcium 8.9 mg/dL (8.7-10.4); Carbon Dioxide 17 mmol/L (20-31)
[2024-02-04 11:08] LABS: BUN/Creatinine Ratio 22.2 (10.0-20.0); Blood Urea Nitrogen 22 mg/dL (9-23); Glucose 153 mg/dL (74-106)
[2024-02-04] MEDS ORDERED: DEXTROSE (50%) 50ML SYRG IV PRN (11:15)
[2024-02-04] MEDS: ACCU-CHEK COMFORT CURVE STRIP VI SCH (11:30)
--- NOTE | 2024-02-04 11:47 | DVHPN2 ---
Subjective The patient is seen and examined at bedside. Doing better. Less nausea or vomiting. Reviewed: Care Plan, H&P, Labs, Medications, Previous Orders, Radiology Changes from previous H/P or p: No Changes Objective Vitals Vital Signs Date Time Temp Pulse Resp B/P (MAP) Pulse Ox O2 Delivery O2 Flow Rate FiO2 02/04/24 10:00 106 10 144/95 (111) 100 02/04/24 07:05 Room Air* 0 21 02/03/24 22:00 97.9 97.9 Intake/Output Intake and Output 02/04/24 07:00 Intake Total 2150 ml Balance 2150 ml Intake IV Total 2150 ml General Appearance: Alert, Cooperative, No acute distress HEENT: Atraumatic, PERRLA, EOMI, Mucous membr. moist/pink Neck: Supple Lungs: Clear to auscultation, Normal air movement Cardiovascular: Regular rate, Normal S1, Normal S2, No murmurs, Gallops, Rubs Abdomen: Normal bowel sounds, Soft, No tenderness Neuro: Cranial nerves 3-12 NL Psych/Mental Status: Mental status NL Medications Current Medications Medications Dose Ordered Sig/Duncan Route Start Time Stop Time Status Last Admin Dose Admin Insulin Human (Reg)/Sodium Chloride 100 ml @ 0.5 mls/hr Q24H IV 02/03/24 22:15 02/03/24 22:30 6 MLS/HR Diagnostic Test (Pha) 1 strip Q90MIN 02/03/24 22:30 Dextrose 50 ml PRN PRN IV 02/03/24 22:15 Sodium Chloride 1,000 ml @ 150 mls/hr Q6H40M IV 02/04/24 04:30 02/04/24 11:15 150 MLS/HR Insulin Human (Reg)/Sodium Chloride 100 ml @ 0.5 mls/hr Q24H IV 02/03/24 22:30 Dextrose 50 ml UD PRN IV 02/03/24 22:30 Diagnostic Test (Pha) 1 strip Q90MIN 02/03/24 22:30 02/04/24 10:35 1 STRIP Insulin Glargine 15 units DAILY SC 02/04/24 10:00 02/04/24 10:13 15 UNITS Temazepam 15 mg QHSP PRN PO 02/03/24 22:30 Ondansetron HCl 4 mg Q4HP PRN IV 02/03/24 22:30 Nitroglycerin 0.4 mg Q5MINP PRN SL 02/03/24 22:30 Morphine Sulfate 2 mg Q30M PRN IV 02/03/24 22:30 Diagnostic Test (Pha) 1 strip ACHS 02/04/24 11:30 UNV Insulin Human Regular HS SC 02/04/24 22:00 UNV Insulin Human Regular AC SC 02/04/24 11:30 UNV Dextrose 50 ml UD PRN IV 02/04/24 11:15 UNV Insulin Glargine 20 units HS SC 02/04/24 22:00 UNV Laboratory Results Laboratory Tests 02/04/24 06:07 02/04/24 10:39 Chemistry Test 02/03/24 20:40 02/03/24 23:25 02/04/24 06:07 02/04/24 10:39 Albumin 4.2 g/dL (3.2-4.8) 4.0 g/dL (3.2-4.8) Calcium Level 9.9 mg/dL (8.7-10.4) 9.2 mg/dL (8.7-10.4) 9.0 mg/dL (8.7-10.4) 8.9 mg/dL (8.7-10.4) Magnesium Level 2.7 mg/dL (1.6-2.6) H Total Protein 7.4 g/dL (5.7-8.2) 6.6 g/dL (5.7-8.2) LFT Test 02/03/24 20:40 02/04/24 06:07 Alanine Aminotransferase (ALT) 127 U/L (7-40) H 106 U/L (7-40) H Alkaline Phosphatase 189 U/L (46-116) H 157 U/L (46-116) H Aspartate Amino Transferase (AST) 43 U/L (13-40) H 24 U/L (13-40) Total Bilirubin 0.3 mg/dL (0.2-1.0) 0.2 mg/dL (0.2-1.0) Urinalysis Test 02/04/24 07:59 Urine Color Light-yellow (Yellow) Urine Clarity Clear (Clear) Urine pH 5.0 (5.0-9.0) Urine Specific [place] 1.024 (1.001-1.035) Urine Protein Negative (Negative) Urine Ketones 3+ (Negative) H Urine Blood Negative /uL (Negative) Urine Nitrite Negative (Negative) Urine Bilirubin Negative (Negative) Urine Urobilinogen Normal mg/dL (Negative) Urine Leukocyte Esterase Negative /uL (Negative) Urine RBC <1 /hpf (0 - 3) Urine WBC 2 /hpf (0 - 3) Urine Squamous Epithelial Cells None seen /hpf (<5) Urine Bacteria None seen /hpf (None Seen) Urine Mucus Few (None Seen) Urine Glucose 4+ mg/dL (Normal) H Blood Gas Results Test 02/03/24 20:41 02/04/24 01:03 FiO2 % 21.0 21.0 Arterial Blood pH 7.237 (7.350-7.450) Labs and/or images reviewed: Labs reviewed by me Assessment/Plan Assessment/Plan Diabetic ketoacidosis Acute dehydration Electrolyte imbalance Acute kidney injury Continuing current management. Since the patient gap is closed I am going to stop the insulin drip. Continuing IV fluid. Continuing replace electrolytes. Continuing to monitor kidney function. I am going to start the patient on sliding scale insulin regular insulin, moderate scale. I am also going to start the patient on Lantus 20 units subQ q.h.s.. I am will start the patient on carb controlled diet. Plan discussed with: Patient My Orders Orders - MARY REID MD Procedure Category Date Status Time Glucose Blood PHA 02/04/24 Logged (Accu-Chek Comfort 11:30 Insulin R (Human) PHA 02/04/24 Logged (Insulin R) 22:00 Insulin R (Human) PHA 02/04/24 Logged (Insulin R) 11:30 Dextrose 50% Syringe PHA 02/04/24 Logged 11:15 Transfer Orders XFER 02/04/24 Transmitted 11:03 Consistent DIET 02/04/24 Transmitted Carb(Ccho)Diabetes Lunch Insulin Lantus PHA 02/04/24 Logged (Glargine) (Lantus) 22:00 Date of Service: Feb 04, 2024 Billing Provider: MARY REID MD Common Visit Codes: [id number] INP/OBS CARE(HIGH) MARY REID MD Feb 04, 2024 11:47
[2024-02-04] MEDS: InsuLIN REG 1unit/0.01ml Soln (100units/ml) SC SCH ×2 (12:41→21:09)
[2024-02-04] MEDS: HYDROcodone-ACET 5/325MG TAB PO PRN (13:49)
[2024-02-04 18:55] VITALS: BP 141/99; PULSE 98; RESP 20; TEMP 98; O2SAT 99
[2024-02-04 20:00] VITALS: PULSE 99
[2024-02-04 20:09] LABS: Chloride 107 mmol/L (98-107); Sodium 136 mmol/L (136-145)
[2024-02-04 20:10] LABS: Anion Gap 8 (5-15); Calcium 9.1 mg/dL (8.7-10.4); Carbon Dioxide 21 mmol/L (20-31)
[2024-02-04 20:15] LABS: BUN/Creatinine Ratio 13.6 (10.0-20.0); Blood Urea Nitrogen 15 mg/dL (9-23); Glucose 200 mg/dL (74-106)
[2024-02-04 21:00] VITALS: BP 141/99; PULSE 98; RESP 20; TEMP 98; O2SAT 99
[2024-02-05] VITALS (7 sets, daily range): BP systolic 114–149; BP diastolic 46–92; PULSE 82–99; RESP 14–20; TEMP 97.7–98.6; O2SAT 99–100
[2024-02-05] MEDS ORDERED: HYDROcodone-ACET 10/325MG TAB PO PRN (10:45)
--- NOTE | 2024-02-05 11:26 | DVHPN2 ---
Subjective The patient is seen and examined at bedside. Better today. No nausea or vomiting. Reviewed: Care Plan, H&P, Labs, Medications, Previous Orders, Radiology Changes from previous H/P or p: No Changes Objective Vitals Vital Signs Date Time Temp Pulse Resp B/P (MAP) Pulse Ox O2 Delivery O2 Flow Rate FiO2 02/05/24 08:00 Room Air* 0 21 02/05/24 05:00 98.6 93 20 128/80 (96) 99 98.6 Intake/Output Intake and Output 02/05/24 07:00 Intake Total 2645 ml Output Total 652 ml Balance 1993 ml Intake Oral 1670 ml IV Total 975 ml Output Urine Total 650 ml Stool Total 2 ml # Voids 2 General Appearance: Alert, Oriented X3, Cooperative, No acute distress HEENT: Atraumatic, PERRLA, EOMI, Mucous membr. moist/pink Neck: Supple Lungs: Clear to auscultation, Normal air movement Cardiovascular: Regular rate, Normal S1, Normal S2, No murmurs, Gallops, Rubs Abdomen: Normal bowel sounds, Soft, No tenderness Neuro: Cranial nerves 3-12 NL Psych/Mental Status: Mental status NL Medications Current Medications Medications Dose Ordered Sig/Duncan Route Start Time Stop Time Status Last Admin Dose Admin Sodium Chloride 1,000 ml @ 150 mls/hr Q6H40M IV 02/04/24 04:30 02/05/24 01:06 150 MLS/HR Temazepam 15 mg QHSP PRN PO 02/03/24 22:30 Ondansetron HCl 4 mg Q4HP PRN IV 02/03/24 22:30 Nitroglycerin 0.4 mg Q5MINP PRN SL 02/03/24 22:30 Morphine Sulfate 2 mg Q30M PRN IV 02/03/24 22:30 Diagnostic Test (Pha) 1 strip ACHS 02/04/24 11:30 02/05/24 05:59 1 STRIP Insulin Human Regular HS SC 02/04/24 22:00 02/04/24 21:09 4 UNITS Insulin Human Regular AC SC 02/04/24 11:30 02/05/24 06:13 9 UNITS Dextrose 50 ml UD PRN IV 02/04/24 11:15 Insulin Glargine 20 units HS SC 02/04/24 22:00 11/25/24 21:08 20 UNITS Acetaminophen/ Hydrocodone Bitart 1 tab Q4HP PRN PO 02/05/24 11:30 Laboratory Results Laboratory Tests 02/04/24 06:07 02/04/24 19:35 Chemistry Test 02/04/24 19:35 Calcium Level 9.1 mg/dL (8.7-10.4) Urinalysis Test 02/04/24 07:59 Urine Color Light-yellow (Yellow) Urine Clarity Clear (Clear) Urine pH 5.0 (5.0-9.0) Urine Specific [place] 1.024 (1.001-1.035) Urine Protein Negative (Negative) Urine Ketones 3+ (Negative) H Urine Blood Negative /uL (Negative) Urine Nitrite Negative (Negative) Urine Bilirubin Negative (Negative) Urine Urobilinogen Normal mg/dL (Negative) Urine Leukocyte Esterase Negative /uL (Negative) Urine RBC <1 /hpf (0 - 3) Urine WBC 2 /hpf (0 - 3) Urine Squamous Epithelial Cells None seen /hpf (<5) Urine Bacteria None seen /hpf (None Seen) Urine Mucus Few (None Seen) Urine Glucose 4+ mg/dL (Normal) H Microbiology Microbiology Date/Time Source Procedure Growth Status 02/03/24 22:44 Blood Blood Culture - Preliminary NO GROWTH AFTER 24 HOURS OF INCUBATION. Resulted Labs and/or images reviewed: Labs reviewed by me Assessment/Plan Assessment/Plan Diabetic ketoacidosis Acute dehydration Electrolyte imbalance Acute kidney injury Continuing current management. Continuing IV fluid. Continuing sliding scale insulin. Continuing with Lantus. Encouraged the patient to be out of bed and ambulate. I am going to monitor kidney function. Replace electrolytes as needed. Discharge planning Plan discussed with: Patient My Orders Orders - MARY REID MD Procedure Category Date Status Time * Wound Consult CONS 02/04/24 Transmitted Clostridium Difficile MICHELLE 02/05/24 Uncollected Toxin 09:02 Hydrocodone-Acet PHA 02/05/24 In Process 10/325mg Tab ([place] 11:30 Date of Service: Feb 05, 2024 Billing Provider: MARY REID MD Common Visit Codes: [id number] INP/OBS CARE(HIGH) MARY REID MD Feb 05, 2024 11:26
[2024-02-05] MEDS: HYDROcodone-ACET 10/325MG TAB PO PRN (11:46)
[2024-02-05] MEDS: Glucerna Carbsteady SHAKE Vanilla 8oz PO SCH (18:00)
[2024-02-05] MEDS ORDERED: Ensure HIGH Protein Chocolate 8oz Bottle PO SCH (18:00)
[2024-02-05] MEDS: QUEtiapine FUMARATE 25 MG TAB PO SCH (21:46)
[2024-02-05] MEDS: GABAPENTIN 300 MG CAP PO SCH (21:46)
[2024-02-05] MEDS: INSULIN LANTUS (GLARGINE) 1 /0.01ml (100units/ml) SC SCH (22:07)
[2024-02-05] MEDS: traZODone HCL 50 MG TAB PO SCH (22:08)
[2024-02-06] VITALS (7 sets, daily range): BP systolic 115–155; BP diastolic 83–122; PULSE 67–92; RESP 16–20; TEMP 97.8–100; O2SAT 100
[2024-02-06] MEDS ORDERED: INSUINJ37 SC (12:01)
[2024-02-06] MEDS ORDERED: INSU100I4 SC (12:02)
--- NOTE | 2024-02-06 13:10 | DVHDS2 ---
Discharge Summary Date of Admission Feb 03, 2024 at 22:40 Date of Discharge: Feb 06, 2024 Admitting Diagnosis Diabetic ketoacidosis Labs/Diagnostic Data: Laboratory Results Test 02/06/24 06:25 02/04/24 22:26 02/04/24 19:35 02/04/24 07:59 POC Glucose 193 mg/dl (70-106) Sodium Level 136 mmol/L (136-145) Potassium Level 4.0 mmol/L (3.5-5.1) Chloride Level 107 mmol/L (98-107) Carbon Dioxide Level 21 mmol/L (20-31) Anion Gap 8 (5-15) Blood Urea Nitrogen 15 mg/dL (9-23) Creatinine 1.10 mg/dL (0.700-1.30) Glomerular Filtration Rate Calc 97 mL/min (>90) BUN/Creatinine Ratio 13.6 (10.0-20.0) Serum Glucose 200 mg/dL (74-106) Calcium Level 9.1 mg/dL (8.7-10.4) Urine Color Light-yellow (Yellow) Urine Clarity Clear (Clear) Urine pH 5.0 (5.0-9.0) Urine Specific [place] 1.024 (1.001-1.035) Urine Protein Negative (Negative) Urine Ketones 3+ (Negative) Urine Blood Negative /uL (Negative) Urine Nitrite Negative (Negative) Urine Bilirubin Negative (Negative) Urine Urobilinogen Normal mg/dL (Negative) Urine Leukocyte Esterase Negative /uL (Negative) Urine RBC <1 /hpf (0 - 3) Urine WBC 2 /hpf (0 - 3) Urine Squamous Epithelial Cells None seen /hpf (<5) Urine Bacteria None seen /hpf (None Seen) Urine Mucus Few (None Seen) Urine Glucose 4+ mg/dL (Normal) Urine Opiates Screen Neg (NEGATIVE) Urine Fentanyl Screen Neg (NEGATIVE) Urine Barbiturates Screen Neg (NEGATIVE) Urine Phencyclidine Screen Neg (NEGATIVE) Urine Amphetamines Screen Neg (NEGATIVE) Urine Benzodiazepines Screen Neg (NEGATIVE) Urine Cocaine Screen Neg (NEGATIVE) Urine Cannabinoids Screen Neg (NEGATIVE) Test 02/04/24 06:07 02/04/24 01:03 02/03/24 23:25 02/03/24 22:44 White Blood Count 6.7 10^3/uL (4.4-10.8) Red Blood Count 4.63 10^6/uL (4.5-5.90) Hemoglobin 11.1 g/dL (13.5-17.5) Hematocrit 33.9 % (41.0-53.0) Mean Corpuscular Volume 73.3 fL (80.0-100.0) Mean Corpuscular Hemoglobin 23.9 pg (28.0-32.0) Mean Corpuscular Hemoglobin Concent 32.7 g/dL (32.0-36.0) Red Cell Distribution Width 18.5 % (11.8-14.3) Platelet Count 298 10^3/uL (140-450) Mean Platelet Volume 6.7 fL (6.9-10.8) Neutrophils (%) (Auto) 61.3 % (37.0-80.0) Lymphocytes (%) (Auto) 30.5 % (10.0-50.0) Monocytes (%) (Auto) 6.9 % (0.0-12.0) Eosinophils (%) (Auto) 0.4 % (0.0-7.0) Basophils (%) (Auto) 0.9 % (0.0-2.0) Neutrophils # (Auto) 4.1 10 ^3/uL (1.6-8.6) Lymphocytes # (Auto) 2.0 10 ^3/uL (0.4-5.4) Monocytes # (Auto) 0.5 10 ^3/uL (0-1.3) Eosinophils # (Auto) 0 10 ^3/uL (0-0.8) Basophils # (Auto) 0.1 10 ^3/uL (0-0.2) Nucleated Red Blood Cells 0.1 % Total Bilirubin 0.2 mg/dL (0.2-1.0) Aspartate Amino Transferase (AST) 24 U/L (13-40) Alanine Aminotransferase (ALT) 106 U/L (7-40) Alkaline Phosphatase 157 U/L (46-116) Total Protein 6.6 g/dL (5.7-8.2) Albumin 4.0 g/dL (3.2-4.8) Blood Gas Specimen Type Arterial Blood Gas Sample Site Right radial Blood Gas Patient Temperature 37.0 Arterial Blood Date Drawn Arterial Blood pH 7.237 (7.350-7.450) Arterial Blood Partial Pressure CO2 21.8 mmHg (35.0-48.0) Arterial Blood Partial Pressure O2 103.7 mmHg (83.0-108.0) Arterial Blood HCO3 9.1 mmol/L (21.0-28.0) Arterial Blood Oxygen Saturation 97.5 % (94.0-98.0) Arterial Blood Base Excess -16.5 mmol/L (-2.0-3.0) Arterial Blood Oxyhemoglobin 96.8 % (94.0-98.0) Arterial Blood Carboxyhemoglobin 0.2 % (0.5-1.5) Arterial Blood Methemoglobin 0.5 % (0.0-1.5) Jabari Test Yes Blood Gas Total Hemoglobin 11.80 g/dL (13.5-17.5) Blood Gas Modality Room air Blood Gas Spontaneous Rate 24 FiO2 % 21.0 Blood Gas Critical Value Read Back yes Blood Gas Notified Whom test preparation tutor rob [place] Blood Gas Notified Time [id number] Blood Gas Notified By supervisor underwriting clerks megan green Serum Osmolality 333 mOsm/kg (278-298) Lactic Acid Level 2.0 mmol/L (0.4-2.0) Test 02/03/24 20:41 02/03/24 20:40 Venous Blood pH 7.199 (7.320-7.430) Venous Blood pCO2 at Patient Temp 20.7 mmHg (38.0-54.0) Venous Blood pO2 at Patient Temp 53.9 mmHg (23.0-48.0) Venous Blood HCO3 7.9 mmol/L (22.0-29.0) Venous Blood Base Excess -18.0 mmol/L (-2.0-3.0) Magnesium Level 2.7 mg/dL (1.6-2.6) Beta-Hydroxybutyric Acid > 4.500 mmol/L (< 0.4) Other Laboratory Tests 02/04/24 19:35 02/04/24 06:07 Brief Hx & Hospital Course: History of Present Illness 23-year-old male presents for evaluation of nausea and vomiting. Patient reports a one day history of diffuse abdominal pain with associated nausea and vomiting. Denies fever or diarrhea. No cardiac or respiratory complaints. Patient reports being compliant with his diabetic medications. Course of hospitalization: Patient was transitioned from insulin drip to regular insulin sliding scale and long-acting insulin. Patient has been given IV hydration. He was now tolerating p.o. intake without any difficulties. Sugars have been stabilized. Long discussion made with the patient regarding his multiple admissions for DKA. All questions answered. Patient will be discharged home and continue his current diabetic regimen. Physical examination General: Alert and Oriented x3. No acute distress. Well-nourished. Eyes: EOMI. Anicteric. HENT: Moist mucous membranes. Lungs: Clear to auscultation bilaterally. No accessory muscle use. Cardiovascular: Regular rate and rhythm. No murmur. No JVD. Abdomen: Soft, non-tender and non-distended. No palpable masses. Extremities: No edema. Non-tender. Skin: No rashes or lesions. Warm. Neurologic: No focal neurological deficits. CN II-XII grossly intact, but not individually tested. Psychiatric: Cooperative. Appropriate mood and affect. Total time spent with patient discussing and formulating plan of care: 35 minutes. This medical document was created using an electronic medical record system with [employer] dictation system. Although this document has been carefully reviewed, there may still be some phonetic and typographical errors. These areas are purely typographical due to imperfections of the software programs, and do not reflect any compromise in the patient's medical care. Condition at Discharge: Fair Final Diagnosis/Problems List Diabetic ketoacidosis Secondary Diagnosis: Diabetes mellitus Medication noncompliance Acute kidney injury, probable vasomotor nephropathy Discharge Disposition: Home Discharge Instruct/Medications Diet: Consistent carbohydrate Activity: No Restrictions, As Tolerated Follow Up/Referral: PCP in 1-2 weeks Medications: Continue all previous home medication 36 Discharge Statement: "Patient was advised to return to the ER or call 911 if any headaches, dizziness, shortness of breath, chest pain, abdominal pain, bleeding, fevers, or worsening of medical condition. Patient was counseled about treatment plan, medications, possible side effects, patientverbalized understanding. All questions were answered to the best of my ability. This discharge took greater then 30 minutes in planning, reviewing documentation, counseling the patient, and discussing with other team members." ASSESSMENT ASSESSMENT Assessment Diabetic ketoacidosis Date of Service: Feb 06, 2024 Billing Provider: YONATHAN KINGSLEY NP Common Visit Codes: [id number] DISCH DAY >30min YONATHAN KINGSLEY NP Feb 06, 2024 13:10
[2024-02-07 09:40] LABS: Hepatitis B Surface Antigen Negative (Negative); Hepatitis C Antibody Negative (Negative)
== END 2024-02-06 19:00 | disposition home or self-care (01) | DRG 420 ==
LOC: ER 19:56 → EDBD 19:56 → TELE 22:40 → TELE-CENTR 02-04 17:58
PROVIDERS: ADMIT Nurse Practitioner; ATTEND Nurse Practitioner Acute Care
DX: E10.10 Type 1 diabetes mellitus with ketoacidosis without coma (principal); N17.0 Acute kidney failure with tubular necrosis; E10.40 Type 1 diabetes mellitus with diabetic neuropathy, unspecified; E86.0 Dehydration; K21.9 Gastro-esophageal reflux disease without esophagitis; I10 Essential (primary) hypertension; F17.210 Nicotine dependence, cigarettes, uncomplicated; J45.909 Unspecified asthma, uncomplicated; Z79.4 Long term (current) use of insulin; Z88.6 Allergy status to analgesic agent; Z91.199 Patient's noncompliance with other medical treatment and regimen due to unspecified reason; Z79.899 Other long term (current) drug therapy
CPT/HCPCS: 36415; 36600; 71045; 80048; 80053; 80307; 81001; 82010; 82805; 82962; 83605; 83735; 83930; 85025; 86803; 87040; 87340; 93005; 99291; G0378; J1815; J2405

== ENCOUNTER 2024-03-09 16:28 | Inpatient (IN) | payer MEDICAID ==
[~2024-03-09] VITALS: Ht 182.9 cm; Wt 70.0 kg
[~2024-03-09 16:28] MED LIST changes: +ALLO100T PO; +BUPR-133 PO; -CEPH250C PO; +ERGO500086 PO; +GABA-1250 PO; +INSLANTI SC; +LISI10TA34 PO; +QUET100T47 PO; +TIZA4CAP PO
--- NOTE | 2024-03-09 18:15 | ED.PDOC ---
History of Present Illness HPI Comments 24 y/o M, with a Hx of asthma, DM, GERD, and HTN, is BIBA for c/o hyperglycemia, abdominal pain, nausea, and vomiting, today. Per EMS report, patient endorses on unprovoked and sudden onset of 9/10 non-radiating, diffused abdominal pain w/nausea and vomiting, this morning. On scene, he was commented to have been found with a blood glucose of 543. Upon arrival to ED, patient is a poor historian and quite to answer questions. He has no reported polyphagia, polydysuria, polydipsia, weakness, hematemesis, or other associated symptoms or modifiers at this time. Chief Complaint: Nausea/Vomiting Time Seen by MD: 17:00 Primary Care Provider: JL Reviewed Notes: Nurses Notes, Medications, Allergies Allergies: Coded Allergies: Ibuprofen (Verified Allergy, Intermediate, 09/15/23) Home Meds Active Scripts Insulin Lispro (Humalog Kwikpen) 100 Unit/Ml Inj, 10 UNIT SC TIDWM, #30 INJ Prov:YONATHAN KINGSLEY [employer] 02/06/24 Insulin Glargine (Lantus Solostar) 100 Unit/Ml Inj, 30 UNIT SC QAM for 30 Days, #60 INJ Prov:YONATHAN KINGSLEY NP 02/06/24 Blood Glucose Monitoring Suppl (D-Care Glucometer Kit/Glu W/Device) 1 Kit Kit, KIT XX TIDWM, #1 Prov:CIRA JONES MD 12/03/23 Lancets (Freestyle Lancets) Lancets Mis, BOTTLE XX AC, #120 Prov:CIRA JONES MD 12/03/23 Quetiapine Fumerate (Seroquel) 50 Mg Tab, 1 TAB PO QPM, #30 TAB 0 Refills Prov:CIRA JONES MD 12/03/23 Buspirone Hcl (Buspirone Hcl) 5 Mg Tab, 1 TAB PO DAILY, #30 TAB Prov:CIRA JONES MD 12/03/23 Bupropion Hcl (WELLBUTRIN TABLET) 75 Mg Tb, 75 MG GT DAILY, #30 TAB Prov:LANDON MCNEAL MD 11/29/23 Pantoprazole Sodium Sesquihydr (Protonix) 40 Mg Tab, 40 MG PO DAILY, #30 TAB Prov:LANDON MCNEAL MD 11/29/23 Blood Glucose Monitoring Suppl (Blood Glucose System [place]) System Kit, UNIT XX, #1 Prov:YESSICA PETTY MD 10/27/21 Reported Medications Trazodone Hcl (Trazodone Hcl) 150 Mg Tab, 125 MG PO, MG 04/13/23 Hydrocodone-Acetaminophen (Hydrocodone Bitartrate/AC 10-325 mg) 1 Tab Tab, 1 TAB PO, TAB 04/13/23 Information Source: Patient Mode of Arrival: EMS Severity: Moderate Timing: Hours Duration: Since onset Prehospital treatment: 12 Lead EKG, Accucheck, Volunteer Services Supervisor Past Medical History PAST MEDICAL HISTORY: Asthma, Depression, DM, GERD, HTN Surgical History: Denies all surgeries Family History Family History: Unknown Family History (Other): x Social History Smoker: Cigarettes Alcohol: Occasionally Drugs: Marijuana, Methamphetamine Lives In: Home Gastrointestinal: reports: abdominal pain, nausea, vomiting Endocrine: reports: others (hyperglycemia ) All Other Systems: Reviewed and Negative (negative unless otherwise stated above or in HPI) Physical Exam General Appearance: No Apparent Distress, Normal, Other (lethargic, quite to answer) HEENT: Normal ENT Inspection, Pharynx Normal, TMs Normal Neck: Full Range of Motion, Non-Tender, Normal, Normal Inspection Respiratory: Chest Non-Tender, Lungs Clear, No Accessory Muscle Use, No Respira tory Distress, Normal Breath Sounds Cardiovascular: No Edema, No JVD, No Murmur, No Gallop, Normal Peripheral Pulses, Regular Rate/Rhythm Breast Exam: Deferred Gastrointestinal: Diffuse (tenderness), No Organomegaly, No Pulsatile Mass, Normal Bowel Sounds, Soft, Tenderness (diffused) Genitalia: Deferred Pelvic: Deferred Rectal: Deferred Extremities: No calf tenderness, Normal capillary refill, Normal inspection, Normal range of motion, Non-tender, No pedal edema Musculoskeletal : Apperance: Normal Neurologic: Alert, primary health organisation manager II-XII nml as Tested, No Motor Deficits, Normal Affect, Normal Mood, No Sensory Deficits Cerebellar Function: Normal Reflexes: Normal Skin: Dry, Normal Color, Warm Lymphatic: No Adenopathy Was a procedure done? Was a procedure done?: No Differential Dx Considerations may include: hyperglycemia, gastritis, gastroenteritis, spoiled food, UTI, acute abdomen X-Ray, Labs, Meds, VS Vital Signs Date Time Temp Pulse Resp B/P (MAP) Pulse Ox O2 Delivery O2 Flow Rate FiO2 03/09/24 20:00 99.1 111 14 95/42 (59) 100 99.1 03/09/24 19:30 Room Air* 0 21 03/09/24 18:48 113 16 99 Room Air* 0 21 03/09/24 18:48 99.1 113 16 113/51 (71) 99 99.1 03/09/24 16:37 97.9 109 14 129/83 (98) 100 Lab Test 03/09/24 20:14 03/09/24 20:12 Range/Units POC Glucose > 600 *H 70-106 mg/dl White Blood Count 9.1 4.4-10.8 10^3/uL Red Blood Count 5.33 4.5-5.90 10^6/uL Hemoglobin 13.0 L 13.5-17.5 g/dL Hematocrit 43.1 41.0-53.0 % Mean Corpuscular Volume 80.8 80.0-100.0 fL Mean Corpuscular Hemoglobin 24.4 L 28.0-32.0 pg Mean Corpuscular Hemoglobin Concent 30.2 L 32.0-36.0 g/dL Red Cell Distribution Width 21.7 H 11.8-14.3 % Platelet Count 323 140-450 10^3/uL Mean Platelet Volume 7.6 6.9-10.8 fL Neutrophils (%) (Auto) 87.7 H 37.0-80.0 % Lymphocytes (%) (Auto) 7.2 L 10.0-50.0 % Monocytes (%) (Auto) 4.8 0.0-12.0 % Eosinophils (%) (Auto) 0.0 0.0-7.0 % Basophils (%) (Auto) 0.3 0.0-2.0 % Neutrophils # (Auto) 7.9 1.6-8.6 10 ^3/uL Lymphocytes # (Auto) 0.7 0.4-5.4 10 ^3/uL Monocytes # (Auto) 0.4 0-1.3 10 ^3/uL Eosinophils # (Auto) 0 0-0.8 10 ^3/uL Basophils # (Auto) 0 0-0.2 10 ^3/uL Nucleated Red Blood Cells 0.0 % Sodium Level Pending Potassium Level Pending Chloride Level Pending Carbon Dioxide Level Pending Anion Gap Pending Blood Urea Nitrogen Pending Creatinine Pending Glomerular Filtration Rate Calc Pending BUN/Creatinine Ratio Pending Serum Glucose Pending Calcium Level Pending Total Bilirubin Pending Aspartate Amino Transferase (AST) Pending Alanine Aminotransferase (ALT) Pending Alkaline Phosphatase Pending Total Protein Pending Albumin Pending Lipase Pending Current Medications Medications (Trade) Dose Ordered Sig/Duncan Route Start Time Stop Time Status Last Admin Ondansetron HCl (Zofran) 4 mg ONCE ONCE IV 03/09/24 19:30 03/09/24 19:31 DC 03/09/24 19:29 Sodium Chloride 1,000 ml @ 1,000 mls/hr Q1H ONCE IV 03/09/24 20:30 03/09/24 21:29 03/09/24 20:31 X-Ray, Labs, Meds, VS Comment ABG shows patient was in DKA Insulin drip to be started Patient will be admitted for DKA Time of 1ST Reevaluation: 17:30 Reevaluation 1ST: Unchanged Patient Education/Counseling: Diagnosis, Treatment Family Education/Counseling: No Family Present Departure 1 Departure Time of Disposition: 20:51 Impression: Primary Impression: Diabetic ketoacidosis Qualified Codes: E10.10 - Type 1 diabetes mellitus with ketoacidosis without coma Additional Impression: Nonadherence to medication Disposition: 09 ADMITTED INPATIENT Condition: Guarded Critical Care Note Critical Care Time?: No Stability Stability form required: No Heart Score Heart Score: Heart Score Response (Comments) Value History N/A 0 EKG N/A 0 Age N/A 0 Risk Factors N/A 0 Troponin N/A 0 Total 0 I personally scribed for LARRY GASCA ([email or web address]) on 03/09/24 at 18:15. Electronically submitted by Onel Olivera ([email or web address]). LARRY GASCA Mar 09, 2024 18:15
--- NOTE | 2024-03-09 18:38 | DVH ---
Exam: CT CT AB PEL WO CON-NO ORAL OR IV History: abd pain Comparison Study: None available at time of dictation. TECHNIQUE: Multidetector CT of the abdomen and pelvis without contrast. Axial, coronal and sagittal m ultiplanar reformats were obtained from the axial data set by the technologist. Radiation Dose Information: CT Dose: CTDI volume is 10.8 mGy. Dose-length product is 657.95 mGy*cm FINDINGS: The lung bases are clear. Partially visualized heart is unremarkable. Mild hepatomegaly. Otherwise, liver, spleen, gallbladder, and adrenal glands unremarkable. Limited e valuation of the pancreas. Mild yzjry-kufhimd-bmzf-left hydroureteronephrosis with significant distention of the urinary bladder up to the level of the upper vertebral body of L5. Prostate measures 3.3 x 4 x 3.2 cm. Mild wall thickening of the distal esophagus. Mild gastric wall thickening.. Small bowel loops unrema rkable. Appendix is unremarkable. Large bowel is unremarkable. No evidence of intraperitoneal free air or free fluid. No evidence of aortic aneurysm. No significant lymphadenopathy. Mild mesenteric edema. Nonspecific foci of calcification of the superior right scrotal sac. Soft tissues otherwise unremarka ble. No destructive osseous lesions are noted. IMPRESSION: Limited evaluation due to motion artifact and noncontrast imaging. Mild wall thickening of the distal esophagus. Correlate for esophagitis. Mild gastric wall thickening which may be due to inadequate distention/gastritis. Mild nonspecific mesenteric edema. Mild hgnpr-sdxebut-asop-left hydroureteronephrosis with significant distention of the urinary bladder up to the level of the upper vertebral body of L5.
[2024-03-09 18:48] VITALS: PULSE 113; RESP 16; O2SAT 99
[2024-03-09] MEDS: ONDANSETRON HCL 4 MG/2 ML VIAL IV ONE (19:29)
[2024-03-09] MEDS: ONDANSETRON HCL 4 MG/2 ML VIAL ONE (19:32)
--- NOTE | 2024-03-09 20:14 | DVH ---
CHEST RADIOGRAPH Indication: pain Technique: Single frontal view of the chest was obtained Comparison: XY CHEST PORTABLE on DOS: 02/03/24, XY CHEST PORTABLE on DOS: 12/16/23, XY CHEST PORTABLE on DOS: 12/15/23 FINDINGS: Lines and Tubes: None Lungs: No focal consolidation. Pleura: No effusion. No pneumothorax. Cardiomediastinal contours: Unremarkable Bones: No acute osseous abnormality. IMPRESSION: 1. No acute cardiopulmonary disease.
[2024-03-09 20:26] LABS: Basophils # (auto) 0 10 ^3/uL (0-0.2); Eosinophils # (auto) 0 10 ^3/uL (0-0.8); Mean Corpuscular Hemoglobin 24.4 pg (28.0-32.0); Neutrophils # (auto) 7.9 10 ^3/uL (1.6-8.6); Platelet Count (auto) 323 10^3/uL (140-450); White Blood Cell 9.1 10^3/uL (4.4-10.8)
[2024-03-09 20:27] LABS: Basophils % (auto) 0.3 % (0.0-2.0); Hematocrit 43.1 % (41.0-53.0); Lymphocytes # (auto) 0.7 10 ^3/uL (0.4-5.4); Lymphocytes % (auto) 7.2 % (10.0-50.0); Mean Corpuscular Hgb Conc. 30.2 g/dL (32.0-36.0); Mean Corpuscular Volume 80.8 fL (80.0-100.0); Monocytes # (auto) 0.4 10 ^3/uL (0-1.3); Monocytes % (auto) 4.8 % (0.0-12.0); Neutrophils % (auto) 87.7 % (37.0-80.0); Red Blood Cells 5.33 10^6/uL (4.5-5.90); Red Cell Distribution Width 21.7 % (11.8-14.3)
[2024-03-09] MEDS: SODIUM CHLORIDE 0.9% 1,000 ML IV ONE (20:31)
[2024-03-09 20:43] LABS: Albumin 4.4 g/dL (3.2-4.8); Anion Gap 32.00001 (5-15); Aspartate Aminotransferase 27 U/L (13-40); BUN/Creatinine Ratio 20.7 (10.0-20.0); Bilirubin, Total 0.4 mg/dL (0.2-1.0); Calcium 9.7 mg/dL (8.7-10.4); Chloride 99 mmol/L (98-107); Lipase 20 U/L (12-53); Potassium 5.1 mmol/L (3.5-5.1); Sodium 141 mmol/L (136-145); Total Protein 7.3 g/dL (5.7-8.2)
[2024-03-09 20:46] LABS: Alanine Aminotransferase 57 U/L (7-40); Alkaline Phosphatase 197 U/L (46-116); Blood Urea Nitrogen 35 mg/dL (9-23)
[2024-03-09 20:50] LABS: Carbon Dioxide < 10 mmol/L (20-31); Glucose 668 mg/dL (74-106)
[2024-03-09] MEDS ORDERED: DEXTROSE (50%) 50ML SYRG IV PRN (21:00)
[2024-03-09 21:11] LABS: Base Excess -17.3 mmol/L (-2.0-3.0)
[2024-03-09] MEDS: SODIUM CHLORIDE 0.9% 1,000 ML IV SCH (21:19)
[2024-03-09] MEDS: ACCU-CHEK COMFORT CURVE STRIP VI SCH (21:25)
[2024-03-09] MEDS: INSULIN LANTUS (GLARGINE) 1 /0.01ml (100units/ml) SC ONE (21:26)
[2024-03-09] MEDS: INSULIN DRIP 100 UNIT/100ML 100 ML IV SCH (21:27)
[2024-03-10] VITALS (14 sets, daily range): BP systolic 110–163; BP diastolic 66–111; PULSE 103–115; RESP 12–21; TEMP 98.2–98.8; O2SAT 97–100
[2024-03-10 00:35] LABS: Urine Bacteria None Seen /hpf (None Seen)
[2024-03-10 01:00] LABS: Urine Blood TRACE /uL (Negative); Urine Clarity Clear (Clear); Urine Color Light-Yellow (Yellow); Urine Protein, UAD TRACE (Negative); Urine Specific Gravity 1.025 (1.001-1.035); Urine Squamous Epithelial Cell None Seen /hpf (<5); Urine Urobilinogen Normal (Negative); Urine WBC <1 /hpf (0 - 3)
[2024-03-10] MEDS: SODIUM CHLORIDE 0.9% 1,000 ML IV SCH (01:00)
[2024-03-10] MEDS ORDERED: SODIUM CHLORIDE 0.9% 1,000 ML IV SCH (03:00)
--- NOTE | 2024-03-10 03:20 | DVHHPRES ---
History of Present Illness Resident Creating Document: NICOLA HA RESIDENT History of Present Illness This is a 24-year-old male with past medical history of bronchial asthma, GERD, type 1 diabetes mellitus presented to the ED with a chief complaint of hyperglycemia and abdominal pain for 1 day prior to this admission. Discharge that abdominal pain started 1 days ago which was spasmodic in nature, 8/10, continuous nonradiating and without any aggravating or relieving factors and associated with nausea and vomiting. Patient did not mentioned any history of missed insulin melatonin admission blood sugar was more than 600. The patient admitted frequently in this hospital with a complaint of hyperglycemia. The patient denies chest pain, shortness of breath, cough, dysuria, hematuria or any change in bowel and bladder movement. Past Medical History Bronchial asthma, GERD, type 1 diabetes mellitus Past Surgical History None Family History None Past Social History Lives alone Nonsmoker, nonalcoholic and polysubstance abuse disorder Review of Systems Constitutional: No: Fever, Chills, Sweats, Weakness, Malaise, Other Eyes: No: Pain, Vision change, Conjunctivae inflammation, Eyelid inflammation, Other, Redness ENT: No: Ear pain, Ear discharge, Nose pain, Nose discharge, Nose congestion, Mouth pain, Mouth swelling, Throat pain, Throat swelling, Other Respiratory: No: Cough, Dry, Shortness of breath, SOB with excertion, Wheezing, Hemoptysis, Pleuritic Pain, Sputum, Wheezing, Other Cardiovascular: No: Chest Pain, Palpitations, Orthopnea, Paroxysmal Noc. Dyspnea, Edema, Lt Headedness, Other Gastrointestinal: Nausea, Vomiting, Abdominal Pain, Diarrhea; No: Constipation, Melena, Hematochezia, Other Genitourinary: No Dysuria, No Frequency, No Incontinence, No Hematuria, No Retention, No Other Musculoskeletal: No: other, neck pain, shoulder pain, arm pain, back pain, hand pain, leg pain, foot pain Skin: No: Rash, Lesions, Jaundice, Bruising, Other Neurological: No: Weakness, Numbness, Incoordination, Change in speech, Confusion, Seizures, Other Allergies: Coded Allergies: Ibuprofen (Verified Allergy, Intermediate, 09/15/23) Medications Current Medications Medications Dose Ordered Sig/Duncan Route Start Time Stop Time Status Last Admin Dose Admin Sodium Chloride 1,000 ml @ 150 mls/hr [id number] IV 03/10/24 03:00 Insulin Human (Reg)/Sodium Chloride 100 ml @ 0.5 mls/hr Q24H IV 03/09/24 21:00 03/09/24 21:27 6 MLS/HR Dextrose 50 ml UD PRN IV 03/09/24 21:00 Diagnostic Test (Pha) 1 strip Q90MIN 03/09/24 21:00 03/10/24 03:00 1 STRIP Exam Vital Signs Vital Signs Date Time Temp Pulse Resp B/P (MAP) Pulse Ox O2 Delivery O2 Flow Rate FiO2 03/10/24 02:00 116 17 119/64 (82) 93 03/10/24 01:00 99.1 99.1 03/09/24 19:30 Room Air* 0 21 Exam Physical examination: General Appearance: Alert, Oriented X3, Cooperative, mild distress HEENT: Atraumatic, PERRLA, EOMI, Mucous membrane dry Respiratory: Clear to auscultation, Normal air movement Cardiovascular: Regular rate, Normal S1, Normal S2, No murmurs, no chest wall tenderness Abdominal: Normal bowel sounds, Soft, No tenderness, No hepatospenomegaly, No masses Extremities: No clubbing, No cyanosis, No edema, Normal pulses, No tenderness/swelling Skin: No rashes, No breakdown, No significant lesion Neuro: Normal gait, Normal speech, Strength at 5/5 X4 ext, Normal tone, Sensation intact, grossly intact cranial nerves Psych/Mental Status: Mental status NL, Mood NL Labs/Xrays Labs Test 03/10/24 02:56 03/10/24 02:55 03/10/24 00:00 03/09/24 20:38 Range/Units POC Glucose 161 H 70-106 mg/dl Urine Color Light-yellow Yellow Urine Clarity Clear Clear Urine pH 5.0 5.0-9.0 Urine Specific [place] 1.025 1.001-1.035 Urine Protein Trace H Negative Urine Ketones 4+ H Negative Urine Blood Trace H Negative /uL Urine Nitrite Negative Negative Urine Bilirubin Negative Negative Urine Urobilinogen Normal Negative mg/dL Urine Leukocyte Esterase Negative Negative /uL Urine RBC 1 0 - 3 /hpf Urine WBC <1 0 - 3 /hpf Urine Squamous Epithelial Cells None seen <5 /hpf Urine Bacteria None seen None Seen /hpf Urine Glucose 4+ H Normal mg/dL Blood Gas Specimen Type Arterial Blood Gas Sample Site Right radial Blood Gas Patient Temperature 37.0 Arterial Blood Date Drawn [id number] Arterial Blood pH 7.272 L 7.350-7.450 Arterial Blood Partial Pressure CO2 15.6 *L 35.0-48.0 mmHg Arterial Blood Partial Pressure O2 126.0 H 83.0-108.0 mmHg Arterial Blood HCO3 7.0 L 21.0-28.0 mmol/L Arterial Blood Oxygen Saturation 97.9 94.0-98.0 % Arterial Blood Base Excess -17.3 L -2.0-3.0 mmol/L Arterial Blood Oxyhemoglobin 96.9 94.0-98.0 % Arterial Blood Carboxyhemoglobin 0.5 0.5-1.5 % Arterial Blood Methemoglobin 0.5 0.0-1.5 % Jabari Test Yes Blood Gas Total Hemoglobin 13.20 L 13.5-17.5 g/dL Blood Gas Modality Room air FiO2 % 21.0 Specimen Drawn By Florina sarmiento graduate student instructor Blood Gas Critical Value Read Back yes Blood Gas Notified Whom ramone Foster np Blood Gas Notified Time [id number] Blood Gas Notified By Florina sarmiento graduate student instructor Test 03/09/24 20:12 Range/Units White Blood Count 9.1 4.4-10.8 10^3/uL Red Blood Count 5.33 4.5-5.90 10^6/uL Hemoglobin 13.0 L 13.5-17.5 g/dL Hematocrit 43.1 41.0-53.0 % Mean Corpuscular Volume 80.8 80.0-100.0 fL Mean Corpuscular Hemoglobin 24.4 L 28.0-32.0 pg Mean Corpuscular Hemoglobin Concent 30.2 L 32.0-36.0 g/dL Red Cell Distribution Width 21.7 H 11.8-14.3 % Platelet Count 323 140-450 10^3/uL Mean Platelet Volume 7.6 6.9-10.8 fL Neutrophils (%) (Auto) 87.7 H 37.0-80.0 % Lymphocytes (%) (Auto) 7.2 L 10.0-50.0 % Monocytes (%) (Auto) 4.8 0.0-12.0 % Eosinophils (%) (Auto) 0.0 0.0-7.0 % Basophils (%) (Auto) 0.3 0.0-2.0 % Neutrophils # (Auto) 7.9 1.6-8.6 10 ^3/uL Lymphocytes # (Auto) 0.7 0.4-5.4 10 ^3/uL Monocytes # (Auto) 0.4 0-1.3 10 ^3/uL Eosinophils # (Auto) 0 0-0.8 10 ^3/uL Basophils # (Auto) 0 0-0.2 10 ^3/uL Nucleated Red Blood Cells 0.0 % Magnesium Level 2.6 1.6-2.6 mg/dL Total Bilirubin 0.4 0.2-1.0 mg/dL Aspartate Amino Transferase (AST) 27 13-40 U/L Alanine Aminotransferase (ALT) 57 H 7-40 U/L Alkaline Phosphatase 197 H 46-116 U/L Total Protein 7.3 5.7-8.2 g/dL Albumin 4.4 3.2-4.8 g/dL Lipase 20 12-53 U/L Beta-Hydroxybutyric Acid > 4.500 H < 0.4 mmol/L Assessment/Plan Assessment/Plan Assessment and plan: # Diabetic ketoacidosis - Admitted in LESLIE status - On admission blood sugar was more than 600, elevated anion gap and beta hydroxybutyric acid - IV normal saline 2L bolus given followed by IV normal saline per protocol for DKA - Insulin drip as per protocol algorithm 1 - Check BMP q.4 hours - Continue insulin drip until the gap is closed and bicarb is more than 15 - IV dextrose 5% and reduce the dose of the insulin 0.05 units/hr on blood sugar less than 250 - IV potassium when potassium is less than 4. - Merge with subcutaneous and insulin drip for 2 hours before discontinuing this insulin drip. - Monitor the BMP # ANGELINA likely hemodynamically mediated/VMN - Patient was given 2 L bolus IV normal saline - Monitor BMP # History of GERD - CT abdomen pelvis revealed thickening of the distal esophagus wall esophagitis and mild gastritis - IV Protonix 40 mg daily # Transaminitis without hyperbilirubinemia - Monitor CMP Goal of care discussed with the patient for more than 20 minutes full code Plan discussed with Dr. Toro Plan discussed with: Patient, Other My Orders Orders - NICOLA HA RESIDENT Procedure Category Date Status Time Admit ADMIT 03/09/24 Transmitted 22:53 Basic Metabolic Panel LAB 03/09/24 In Process 03:00 Date of Service: Mar 09, 2024 Billing Provider: ROJELIO TORO MD Common Visit Codes: [id number] INP/OBS CARE (HIGH) BLOSSOMPHILIPPENICOLA RESIDENT Mar 10, 2024 03:20 ROJELIO TORO MD Mar 11, 2024 10:47
[2024-03-10 03:34] LABS: Potassium 3.7 mmol/L (3.5-5.1)
[2024-03-10 03:35] LABS: Anion Gap 18 (5-15); Calcium 9.1 mg/dL (8.7-10.4)
[2024-03-10 03:40] LABS: BUN/Creatinine Ratio 19.9 (10.0-20.0)
[2024-03-10 03:48] LABS: Blood Urea Nitrogen 28 mg/dL (9-23); Carbon Dioxide 18 mmol/L (20-31); Chloride 116 mmol/L (98-107); Glucose 164 mg/dL (74-106); Sodium 152 mmol/L (136-145)
[2024-03-10] MEDS: D5W 5% 1,000 ML IV SCH (04:14)
[2024-03-10 04:21] LABS: Cannabinoid Screen, Urine Neg (NEGATIVE)
[2024-03-10] MEDS: INSULIN DRIP 100 UNIT/100ML 100 ML IV SCH ×2 (04:21→14:15)
[2024-03-10 04:34] LABS: Amphetamine Screen, Urine Pos (NEGATIVE); Barbiturate Scree,Urine Neg (NEGATIVE); Benzodiazephine Screen, Urine Neg (NEGATIVE); Cocaine Screen, Urine Neg (NEGATIVE); Opiate Scree,Urine Neg (NEGATIVE); Phencyclidine Screen, Urine Neg (NEGATIVE)
[2024-03-10 09:36] LABS: Potassium 3.8 mmol/L (3.5-5.1)
[2024-03-10 09:37] LABS: Anion Gap 16 (5-15); Carbon Dioxide 21 mmol/L (20-31)
[2024-03-10 09:38] LABS: Calcium 8.9 mg/dL (8.7-10.4)
[2024-03-10 09:42] LABS: Chloride 114 mmol/L (98-107); Sodium 151 mmol/L (136-145)
[2024-03-10 09:43] LABS: BUN/Creatinine Ratio 18.6 (10.0-20.0)
[2024-03-10 09:47] LABS: Blood Urea Nitrogen 24 mg/dL (9-23); Glucose 204 mg/dL (74-106)
[2024-03-10] MEDS: PANTOPRAZOLE 40 MG/10 ML VIAL INJ IV SCH (10:08)
--- NOTE | 2024-03-10 11:16 | DVHPN2 ---
Subjective Patient continues to be encephalopathic. Reviewed: Care Plan, H&P, Labs, Medications Changes from previous H/P or p: No Changes General: Per HPI Eyes: No Pain, No Vision change, No Conjunctivae inflammation, No Eyelid inflammation, No Other, No Redness ENT: No Ear pain, No Ear discharge, No Nose pain, No Nose discharge, No Nose congestion, No Mouth pain, No Mouth swelling, No Throat pain, No Throat swelling, No Other Cardiovascular: No Chest Pain, No Palpitations, No Orthopnea, No Paroxysmal Noc. Dyspnea, No Edema, No Lt Headedness, No Other Respiratory: No Cough, No Dry, No Shortness of breath, No SOB with excertion, No Wheezing, No Hemoptysis, No Pleuritic Pain, No Sputum, No Other Gastrointestinal: Nausea, Vomiting, Abdominal Pain, Diarrhea; No Constipation, No Melena, No Hematochezia, No Other Genitourinary: No Dysuria, No Frequency, No Incontinence, No Hematuria, No Retention, No Other Musculoskeletal: No other, No neck pain, No shoulder pain, No arm pain, No back pain, No hand pain, No leg pain, No foot pain Skin: No Rash, No Lesions, No Jaundice, No Bruising, No Other Objective Vitals Vital Signs Date Time Temp Pulse Resp B/P (MAP) Pulse Ox O2 Delivery O2 Flow Rate FiO2 03/10/24 11:00 109 18 149/105 (120) 100 03/10/24 10:45 98.4 98.4 03/10/24 09:18 Room Air* 0 21 Intake/Output Intake and Output 03/10/24 07:00 Intake Total 4000 ml Balance 4000 ml Intake IV Total 4000 ml General Appearance: moderate distress, Other (Encephalopathic) HEENT: Atraumatic, PERRLA Cardiovascular: Normal S1, Normal S2 Abdomen: Normal bowel sounds, Soft, No tenderness Musculoskeletal: Normal sensory function, Normal motor function Psych/Mental Status: Other (Encephalopathic) Medications Current Medications Medications Dose Ordered Sig/Duncan Route Start Time Stop Time Status Last Admin Dose Admin Dextrose 50 ml UD PRN IV 03/09/24 21:00 Diagnostic Test (Pha) 1 strip Q90MIN 03/09/24 21:00 03/10/24 10:47 1 STRIP Pantoprazole Sodium 40 mg DAILY IV 03/10/24 10:00 03/10/24 10:08 40 MG Insulin Human (Reg)/Sodium Chloride 100 ml @ 0.05 mls/hr Q24H IV 03/10/24 04:00 03/10/24 04:21 1 MLS/HR Dextrose 1,000 ml @ 125 mls/hr Q8H IV 03/10/24 04:00 03/10/24 04:14 125 MLS/HR Lorazepam 1 mg Q6HP PRN IV 03/10/24 10:30 Laboratory Results Laboratory Tests 03/09/24 20:12 03/10/24 08:56 Chemistry Test 03/09/24 20:12 03/10/24 02:56 03/10/24 08:56 Albumin 4.4 g/dL (3.2-4.8) Calcium Level 9.7 mg/dL (8.7-10.4) 9.1 mg/dL (8.7-10.4) 8.9 mg/dL (8.7-10.4) Magnesium Level 2.6 mg/dL (1.6-2.6) Total Protein 7.3 g/dL (5.7-8.2) Lipid panel Test 03/09/24 20:12 Lipase 20 U/L (12-53) LFT Test 03/09/24 20:12 Alanine Aminotransferase (ALT) 57 U/L (7-40) H Alkaline Phosphatase 197 U/L (46-116) H Aspartate Amino Transferase (AST) 27 U/L (13-40) Total Bilirubin 0.4 mg/dL (0.2-1.0) HgA1c, TSH Test 03/10/24 08:56 Hemoglobin A1c 13.2 % A1C (<5.7) H Urinalysis Test 03/10/24 00:00 Urine Color Light-yellow (Yellow) Urine Clarity Clear (Clear) Urine pH 5.0 (5.0-9.0) Urine Specific [place] 1.025 (1.001-1.035) Urine Protein Trace (Negative) H Urine Ketones 4+ (Negative) H Urine Blood Trace /uL (Negative) H Urine Nitrite Negative (Negative) Urine Bilirubin Negative (Negative) Urine Urobilinogen Normal mg/dL (Negative) Urine Leukocyte Esterase Negative /uL (Negative) Urine RBC 1 /hpf (0 - 3) Urine WBC <1 /hpf (0 - 3) Urine Squamous Epithelial Cells None seen /hpf (<5) Urine Bacteria None seen /hpf (None Seen) Urine Glucose 4+ mg/dL (Normal) H Blood Gas Results Test 03/09/24 20:38 Arterial Blood pH 7.272 (7.350-7.450) FiO2 % 21.0 Labs and/or images reviewed: Labs reviewed by me, Image(s) reviewed by me Assessment/Plan Assessment/Plan Impression: -toxic metabolic encephalopathy -diabetes mellitus -illicit drug use with positive UDS: Amphetamines -diabetic ketoacidosis -dehydration -history of GERD Plan: -continue IV fluids -continue regular insulin sliding scale -electrolyte replacement as needed -serial BMP -SCDs, ppi -continue NPO status Critical care time spent with patient discussing and formulating plan of care: 40 minutes. This does not include time spent performing procedures. This medical document was created using an electronic medical record system with [employer] dictation system. Although this document has been carefully reviewed, there may still be some phonetic and typographical errors. These areas are purely typographical due to imperfections of the software programs, and do not reflect any compromise in the patient's medical care. Plan discussed with: Patient, Other (RN) My Orders Orders - YONATHAN KINGSLEY NP Procedure Category Date Status Time Basic Metabolic Panel LAB 03/10/24 Logged 14:00 Magnesium LAB 03/10/24 Logged 14:00 Phosphorus LAB 03/10/24 Logged 14:00 Lorazepam 2mg/Ml Inj PHA 03/10/24 In Process (Ativan Inj) 10:30 Basic Metabolic Panel LAB 03/11/24 Verified 04:00 Mrsa Screen MICHELLE 03/10/24 Logged 10:51 Date of Service: Mar 10, 2024 Billing Provider: YONATHAN KINGSLEY NP Common Visit Codes: [id number] CARE 30-74 MIN YONATHAN KINGSLEY NP Mar 10, 2024 11:16
[2024-03-10] MEDS ORDERED: DEXTROSE (50%) 50ML SYRG IV PRN ×2 (14:15→15:00)
[2024-03-10 14:29] LABS: Sodium 144 mmol/L (136-145)
[2024-03-10 14:30] LABS: Anion Gap 9 (5-15); Carbon Dioxide 24 mmol/L (20-31)
[2024-03-10 14:33] LABS: Calcium 8.7 mg/dL (8.7-10.4); Chloride 111 mmol/L (98-107); Potassium 3.3 mmol/L (3.5-5.1)
[2024-03-10 14:35] LABS: BUN/Creatinine Ratio 19.5 (10.0-20.0); Blood Urea Nitrogen 23 mg/dL (9-23)
[2024-03-10 14:36] LABS: Magnesium 2.2 mg/dL (1.6-2.6)
[2024-03-10 14:37] LABS: Glucose 354 mg/dL (74-106); Phosphorus 1.4 mg/dL (2.4-5.1)
[2024-03-10] MEDS: ACCU-CHEK COMFORT CURVE STRIP VI SCH ×2 (15:27→15:57)
[2024-03-10] MEDS: INSULIN LANTUS (GLARGINE) 1 /0.01ml (100units/ml) SC SCH (15:56)
[2024-03-10] MEDS: InsuLIN REG 1unit/0.01ml Soln (100units/ml) SC SCH (15:56)
[2024-03-10] MEDS ORDERED: FERR325T20 PO (16:16)
[2024-03-10] MEDS: POTASSIUM CHLORIDE 40 MEQ in SOD CHL 0.45% 1,000 ML IV SCH (17:03)
[2024-03-11] VITALS (11 sets, daily range): BP systolic 113–169; BP diastolic 78–122; PULSE 89–110; RESP 12–22; TEMP 98.2–99.1; O2SAT 96–100
[2024-03-11 08:11] LABS: Basophils # (auto) 0 10 ^3/uL (0-0.2); Basophils % (auto) 0.4 % (0.0-2.0); Eosinophils # (auto) 0 10 ^3/uL (0-0.8); Monocytes # (auto) 0.6 10 ^3/uL (0-1.3)
[2024-03-11 08:14] LABS: Eosinophils % (auto) 0.4 % (0.0-7.0); Hematocrit 38.2 % (41.0-53.0); Lymphocytes % (auto) 25.3 % (10.0-50.0); Mean Corpuscular Hemoglobin 24.5 pg (28.0-32.0); Mean Corpuscular Hgb Conc. 31.4 g/dL (32.0-36.0); Mean Corpuscular Volume 77.9 fL (80.0-100.0); Monocytes % (auto) 7.2 % (0.0-12.0); Neutrophils # (auto) 5.3 10 ^3/uL (1.6-8.6); Neutrophils % (auto) 66.7 % (37.0-80.0); Nucleated Red Blood Cells % 0.1 %; Platelet Count (auto) 277 10^3/uL (140-450); Red Blood Cells 4.91 10^6/uL (4.5-5.90); White Blood Cell 7.9 10^3/uL (4.4-10.8)
[2024-03-11 08:21] LABS: Red Cell Distribution Width 21.4 % (11.8-14.3)
[2024-03-11 08:26] LABS: Anion Gap 8 (5-15); Calcium 8.8 mg/dL (8.7-10.4); Carbon Dioxide 25 mmol/L (20-31)
[2024-03-11 08:29] LABS: Chloride 109 mmol/L (98-107); Potassium 3.7 mmol/L (3.5-5.1); Sodium 142 mmol/L (136-145)
[2024-03-11 08:31] LABS: BUN/Creatinine Ratio 8.7 (10.0-20.0); Blood Urea Nitrogen 9 mg/dL (9-23)
[2024-03-11 08:33] LABS: Glucose 112 mg/dL (74-106)
[2024-03-11] MEDS: LORazepam 2MG/ML-1ML VIAL IV PRN (09:45)
--- NOTE | 2024-03-11 10:09 | DVHPN2 ---
Subjective Patient reports that does not feel too good. Does not elaborate. Reviewed: Care Plan, H&P, Labs, Medications Changes from previous H/P or p: No Changes General: Per HPI Eyes: No Pain, No Vision change, No Conjunctivae inflammation, No Eyelid inflammation, No Other, No Redness ENT: No Ear pain, No Ear discharge, No Nose pain, No Nose discharge, No Nose congestion, No Mouth pain, No Mouth swelling, No Throat pain, No Throat swelling, No Other Cardiovascular: No Chest Pain, No Palpitations, No Orthopnea, No Paroxysmal Noc. Dyspnea, No Edema, No Lt Headedness, No Other Respiratory: No Cough, No Dry, No Shortness of breath, No SOB with excertion, No Wheezing, No Hemoptysis, No Pleuritic Pain, No Sputum, No Other Gastrointestinal: Nausea, Vomiting, Abdominal Pain, Diarrhea; No Constipation, No Melena, No Hematochezia, No Other Genitourinary: No Dysuria, No Frequency, No Incontinence, No Hematuria, No Retention, No Other Musculoskeletal: No other, No neck pain, No shoulder pain, No arm pain, No back pain, No hand pain, No leg pain, No foot pain Skin: No Rash, No Lesions, No Jaundice, No Bruising, No Other Objective Vitals Vital Signs Date Time Temp Pulse Resp B/P (MAP) Pulse Ox O2 Delivery O2 Flow Rate FiO2 03/11/24 05:00 98.4 102 20 142/89 (106) 99 98.4 03/10/24 20:00 Room Air* 0 21 Intake/Output Intake and Output 03/11/24 07:00 Intake Total 2104 ml Output Total 1400 ml Balance 704 ml Intake Oral 450 ml IV Total 1654 ml Output Urine Total 1400 ml # Voids 2 General Appearance: Alert, Oriented X3, mild distress HEENT: Atraumatic, PERRLA Cardiovascular: Normal S1, Normal S2 Abdomen: Normal bowel sounds, Soft, No tenderness Musculoskeletal: Normal sensory function, Normal motor function Psych/Mental Status: Other (Encephalopathic) Medications Current Medications Medications Dose Ordered Sig/Duncan Route Start Time Stop Time Status Last Admin Dose Admin Pantoprazole Sodium 40 mg DAILY IV 03/10/24 10:00 03/11/24 09:44 40 MG Lorazepam 1 mg Q6HP PRN IV 03/10/24 10:30 03/11/24 09:45 1 MG Dextrose 50 ml PRN PRN IV 03/10/24 14:15 Diagnostic Test (Pha) 1 strip IQ4HR 03/10/24 16:00 03/11/24 09:42 1 STRIP Insulin Human Regular IQ4HR SC 03/10/24 16:00 03/11/24 09:50 3 UNITS Dextrose 50 ml UD PRN IV 03/10/24 15:00 Potassium Chloride 40 meq/ Sodium Chloride 1,020 ml @ 100 mls/hr [id number] IV 03/10/24 15:00 03/11/24 06:08 100 MLS/HR Insulin Glargine 20 units DAILY@1000 SC 03/10/24 15:00 03/11/24 09:44 20 UNITS Laboratory Results Laboratory Tests 03/11/24 06:32 Chemistry Test 03/10/24 14:00 03/11/24 06:32 Calcium Level 8.7 mg/dL (8.7-10.4) 8.8 mg/dL (8.7-10.4) Magnesium Level 2.2 mg/dL (1.6-2.6) Phosphorus Level 1.4 mg/dL (2.4-5.1) L Urinalysis Test 03/10/24 00:00 Urine Color Light-yellow (Yellow) Urine Clarity Clear (Clear) Urine pH 5.0 (5.0-9.0) Urine Specific [place] 1.025 (1.001-1.035) Urine Protein Trace (Negative) H Urine Ketones 4+ (Negative) H Urine Blood Trace /uL (Negative) H Urine Nitrite Negative (Negative) Urine Bilirubin Negative (Negative) Urine Urobilinogen Normal mg/dL (Negative) Urine Leukocyte Esterase Negative /uL (Negative) Urine RBC 1 /hpf (0 - 3) Urine WBC <1 /hpf (0 - 3) Urine Squamous Epithelial Cells None seen /hpf (<5) Urine Bacteria None seen /hpf (None Seen) Urine Glucose 4+ mg/dL (Normal) H Labs and/or images reviewed: Labs reviewed by me, Image(s) reviewed by me Assessment/Plan Assessment/Plan Impression: -toxic metabolic encephalopathy -diabetes mellitus -illicit drug use with positive UDS: Amphetamines -diabetic ketoacidosis -dehydration -history of GERD Plan: Events: Heart rate improving. Blood sugars improving. -continue IV fluids -continue regular insulin sliding scale -electrolyte replacement as needed -serial BMP -SCDs, ppi -consistent carbohydrate diet -transfer to Medical/Surgical unit Total time spent with patient discussing and formulating plan of care: 35 minutes. This medical document was created using an electronic medical record system with [employer] dictation system. Although this document has been carefully reviewed, there may still be some phonetic and typographical errors. These areas are purely typographical due to imperfections of the software programs, and do not reflect any compromise in the patient's medical care. Plan discussed with: Patient, Other (RN) My Orders Orders - YONATHAN KINGSLEY NP Procedure Category Date Status Time Lorazepam 2mg/Ml Inj PHA 03/10/24 In Process (Ativan Inj) 10:30 Mrsa Screen MICHELLE 03/10/24 In Process 10:51 Dextrose 50% Syringe PHA 03/10/24 In Process 14:15 Glucose Blood PHA 03/10/24 In Process (Accu-Chek Comfort 16:00 Insulin R (Human) PHA 03/10/24 In Process (Insulin R) 16:00 Dextrose 50% Syringe PHA 03/10/24 In Process 15:00 Sod Chl 0.45% PHA 03/10/24 In Process (Sodi... W/Potassium 15:00 Insulin Lantus PHA 03/10/24 In Process (Glargine) (Lantus) 15:00 Consistent DIET 03/10/24 Transmitted Carb(Ccho)Diabetes Dinner Transfer Orders XFER 03/10/24 Transmitted 14:53 Complete Blood Count LAB 03/11/24 In Process 04:00 Rbc Morphology LAB 03/11/24 In Process 06:32 Date of Service: Mar 11, 2024 Billing Provider: YONATHAN KINGSLEY NP Common Visit Codes: [id number] INP/OBS CARE(HIGH) YONATHAN KINGSLEY NP Mar 11, 2024 10:09
[2024-03-11] MEDS ORDERED: ONDANSETRON HCL 4 MG/2 ML VIAL IV PRN (10:15)
[2024-03-11] MEDS ORDERED: DEXTROSE (50%) 50ML SYRG IV PRN (10:15)
[2024-03-11 10:57] LABS: Anisocytosis Slight; Hypochromia Slight; Platelet Estimate Adequate
[2024-03-11] MEDS: ACCU-CHEK COMFORT CURVE STRIP VI SCH (12:26)
[2024-03-11] MEDS: InsuLIN REG 1unit/0.01ml Soln (100units/ml) SC SCH (12:35)
[2024-03-11] MEDS ORDERED: hydrALAZINE HCL 20 MG/ML VL IV PRN (13:00)
[2024-03-11] MEDS: ACETAMINOPHEN 325 MG TAB PO PRN (14:58)
[2024-03-12 01:00] VITALS: BP 124/80; PULSE 98; RESP 19; TEMP 98.9; O2SAT 100
[2024-03-12 06:58] LABS: Chloride 103 mmol/L (98-107); Potassium 4.5 mmol/L (3.5-5.1)
[2024-03-12 06:59] LABS: Anion Gap 7 (5-15); Carbon Dioxide 24 mmol/L (20-31)
[2024-03-12 07:00] LABS: Calcium 9.3 mg/dL (8.7-10.4)
[2024-03-12 07:02] LABS: Sodium 134 mmol/L (136-145)
[2024-03-12 07:04] LABS: BUN/Creatinine Ratio 11.6 (10.0-20.0); Blood Urea Nitrogen 11 mg/dL (9-23)
[2024-03-12 07:29] LABS: Glucose 272 mg/dL (74-106)
[2024-03-12 07:30] VITALS: PULSE 96
[2024-03-12 08:50] VITALS: BP 153/107; PULSE 92; RESP 18; TEMP 98.3; O2SAT 99
[2024-03-12] MEDS ORDERED: INSU100I4 SC (09:03)
[2024-03-12] MEDS ORDERED: INSLANTI SC (09:03)
[2024-03-12] MEDS: amLODIPine BESYLATE 5 MG TAB PO SCH (09:30)
--- NOTE | 2024-03-12 10:00 | DVHDS2 ---
Discharge Summary Date of Admission Mar 09, 2024 at 22:53 Date of Discharge: Mar 12, 2024 Admitting Diagnosis Diabetic ketoacidosis Labs/Diagnostic Data: Laboratory Results Test 03/12/24 09:09 03/12/24 05:15 03/11/24 06:32 03/10/24 14:00 POC Glucose 284 mg/dl (70-106) Sodium Level 134 mmol/L (136-145) Potassium Level 4.5 mmol/L (3.5-5.1) Chloride Level 103 mmol/L (98-107) Carbon Dioxide Level 24 mmol/L (20-31) Anion Gap 7 (5-15) Blood Urea Nitrogen 11 mg/dL (9-23) Creatinine 0.95 mg/dL (0.700-1.30) Glomerular Filtration Rate Calc 115 mL/min (>90) BUN/Creatinine Ratio 11.6 (10.0-20.0) Serum Glucose 272 mg/dL (74-106) Calcium Level 9.3 mg/dL (8.7-10.4) White Blood Count 7.9 10^3/uL (4.4-10.8) Red Blood Count 4.91 10^6/uL (4.5-5.90) Hemoglobin 12.0 g/dL (13.5-17.5) Hematocrit 38.2 % (41.0-53.0) Mean Corpuscular Volume 77.9 fL (80.0-100.0) Mean Corpuscular Hemoglobin 24.5 pg (28.0-32.0) Mean Corpuscular Hemoglobin Concent 31.4 g/dL (32.0-36.0) Red Cell Distribution Width 21.4 % (11.8-14.3) Platelet Count 277 10^3/uL (140-450) Mean Platelet Volume 6.8 fL (6.9-10.8) Neutrophils (%) (Auto) 66.7 % (37.0-80.0) Lymphocytes (%) (Auto) 25.3 % (10.0-50.0) Monocytes (%) (Auto) 7.2 % (0.0-12.0) Eosinophils (%) (Auto) 0.4 % (0.0-7.0) Basophils (%) (Auto) 0.4 % (0.0-2.0) Neutrophils # (Auto) 5.3 10 ^3/uL (1.6-8.6) Lymphocytes # (Auto) 2.0 10 ^3/uL (0.4-5.4) Monocytes # (Auto) 0.6 10 ^3/uL (0-1.3) Eosinophils # (Auto) 0 10 ^3/uL (0-0.8) Basophils # (Auto) 0 10 ^3/uL (0-0.2) Nucleated Red Blood Cells 0.1 % Platelet Estimate Adequate Hypochromasia (manual) Slight Anisocytosis (manual) Slight Microcytosis Slight Phosphorus Level 1.4 mg/dL (2.4-5.1) Magnesium Level 2.2 mg/dL (1.6-2.6) Test 03/10/24 08:56 03/10/24 00:00 03/09/24 20:38 03/09/24 20:12 Hemoglobin A1c 13.2 % A1C (<5.7) Urine Color Light-yellow (Yellow) Urine Clarity Clear (Clear) Urine pH 5.0 (5.0-9.0) Urine Specific [place] 1.025 (1.001-1.035) Urine Protein Trace (Negative) Urine Ketones 4+ (Negative) Urine Blood Trace /uL (Negative) Urine Nitrite Negative (Negative) Urine Bilirubin Negative (Negative) Urine Urobilinogen Normal mg/dL (Negative) Urine Leukocyte Esterase Negative /uL (Negative) Urine RBC 1 /hpf (0 - 3) Urine WBC <1 /hpf (0 - 3) Urine Squamous Epithelial Cells None seen /hpf (<5) Urine Bacteria None seen /hpf (None Seen) Urine Glucose 4+ mg/dL (Normal) Urine Opiates Screen Neg (NEGATIVE) Urine Fentanyl Screen Neg (NEGATIVE) Urine Barbiturates Screen Neg (NEGATIVE) Urine Phencyclidine Screen Neg (NEGATIVE) Urine Amphetamines Screen Pos (NEGATIVE) Urine Benzodiazepines Screen Neg (NEGATIVE) Urine Cocaine Screen Neg (NEGATIVE) Urine Cannabinoids Screen Neg (NEGATIVE) Blood Gas Specimen Type Arterial Blood Gas Sample Site Right radial Blood Gas Patient Temperature 37.0 Arterial Blood Date Drawn [id number] Arterial Blood pH 7.272 (7.350-7.450) Arterial Blood Partial Pressure CO2 15.6 mmHg (35.0-48.0) Arterial Blood Partial Pressure O2 126.0 mmHg (83.0-108.0) Arterial Blood HCO3 7.0 mmol/L (21.0-28.0) Arterial Blood Oxygen Saturation 97.9 % (94.0-98.0) Arterial Blood Base Excess -17.3 mmol/L (-2.0-3.0) Arterial Blood Oxyhemoglobin 96.9 % (94.0-98.0) Arterial Blood Carboxyhemoglobin 0.5 % (0.5-1.5) Arterial Blood Methemoglobin 0.5 % (0.0-1.5) Jabari Test Yes Blood Gas Total Hemoglobin 13.20 g/dL (13.5-17.5) Blood Gas Modality Room air FiO2 % 21.0 Specimen Drawn By Florina sarmiento rrt Blood Gas Critical Value Read Back yes Blood Gas Notified Whom ramone Foster np Blood Gas Notified Time [id number] Blood Gas Notified By Florina sarmiento rrt Total Bilirubin 0.4 mg/dL (0.2-1.0) Aspartate Amino Transferase (AST) 27 U/L (13-40) Alanine Aminotransferase (ALT) 57 U/L (7-40) Alkaline Phosphatase 197 U/L (46-116) Total Protein 7.3 g/dL (5.7-8.2) Albumin 4.4 g/dL (3.2-4.8) Lipase 20 U/L (12-53) Beta-Hydroxybutyric Acid > 4.500 mmol/L (< 0.4) Other Laboratory Tests 03/12/24 05:15 03/11/24 06:32 Brief Hx & Hospital Course: History of Present Illness This is a 24-year-old male with past medical history of bronchial asthma, GERD, type 1 diabetes mellitus presented to the ED with a chief complaint of hyperglycemia and abdominal pain for 1 day prior to this admission. Discharge that abdominal pain started 1 days ago which was spasmodic in nature, 10/19, continuous nonradiating and without any aggravating or relieving factors and associated with nausea and vomiting. Patient did not mentioned any history of missed insulin melatonin admission blood sugar was more than 600. The patient admitted frequently in this hospital with a complaint of hyperglycemia. The patient denies chest pain, shortness of breath, cough, dysuria, hematuria or any change in bowel and bladder movement. Course of hospitalization: Patient was treated with insulin drip per protocol. Patient was transitioned to Lantus and regular insulin sliding scale with blood sugars controlled. Patient was also given aggressive IV hydration as well as electrolyte replete. Patient was tolerating oral intake. Patient was requesting to be discharged home. Home diabetic medications reviewed, provide a refill with both Lantus as well as short-acting insulin. He will follow up with his PCP in 1-2 weeks. All questions answered. Physical examination General: Alert and Oriented x3. No acute distress. Well-nourished. Eyes: EOMI. Anicteric. HENT: Moist mucous membranes. Lungs: Clear to auscultation bilaterally. No accessory muscle use. Cardiovascular: Regular rate and rhythm. No murmur. No JVD. Abdomen: Soft, non-tender and non-distended. No palpable masses. Extremities: No edema. Non-tender. Skin: No rashes or lesions. Warm. Neurologic: No focal neurological deficits. CN II-XII grossly intact, but not individually tested. Psychiatric: Cooperative. Appropriate mood and affect. Total time spent with patient discussing and formulating plan of care: 35 minutes. This medical document was created using an electronic medical record system with [employer] dictation system. Although this document has been carefully reviewed, there may still be some phonetic and typographical errors. These areas are purely typographical due to imperfections of the software programs, and do not reflect any compromise in the patient's medical care. Condition at Discharge: Guarded Final Diagnosis/Problems List DKA Secondary Diagnosis: -toxic metabolic encephalopathy -diabetes mellitus -illicit drug use with positive UDS: Amphetamines -dehydration -history of GERD Discharge Disposition: Home Discharge Instruct/Medications Diet: Consistent carbohydrate Activity: No Restrictions, As Tolerated Follow Up/Referral: Pcp in 1 week Medications: Continue all home medications 36 Discharge Statement: "Patient was advised to return to the ER or call 911 if any headaches, dizziness, shortness of breath, chest pain, abdominal pain, bleeding, fevers, or worsening of medical condition. Patient was counseled about treatment plan, medications, possible side effects, patientverbalized understanding. All questions were answered to the best of my ability. This discharge took greater then 30 minutes in planning, reviewing documentation, counseling the patient, and discussing with other team members." ASSESSMENT ASSESSMENT Assessment DKA Date of Service: Mar 12, 2024 Billing Provider: SALBINO,MCMANUS OPTICAL COATING TECHNICIAN Common Visit Codes: 01643-QBR/OBS DISCH DAY >30min YONATHAN KINGSLEY OPTICAL COATING TECHNICIAN Mar 12, 2024 10:00
--- NOTE | 2024-03-12 10:26 | ECG ---
[facility] Test Date: 2024-03-12 Test Time: 08:16:57 Pat Name: ALDA CRESPO Department: Room: [facility] A Gender: M Highway Worker: raissa : 2000 Requested By: YONATHAN KINGSLEY Order Number: [id number] Reading MD: Ronna Aguirre Measurements Intervals [place] Rate: 93 P: 62 MS: 155 QRS: 61 QRSD: 73 T: 72 QT: 352 QTc: 438 Interpretive Statements Sinus rhythm ST elev probable normal early repol pattern Electronically Signed On 03-12-2024 21:22:43 PST by Ronna Aguirre Please click the below link to view image of tracing.
[2024-03-12 12:50] VITALS: BP 145/108; PULSE 89; RESP 18; TEMP 97.8; O2SAT 98
[2024-03-12 13:04] VITALS: BP 146/50; PULSE 70; RESP 18; TEMP 98.2; O2SAT 98
== END 2024-03-12 13:44 | disposition home or self-care (01) | DRG 420 ==
LOC: EDUNIT# 16:28 → EDBD 16:28 → ER 16:28 → TELE 22:53 → CATH ICU 03-10 10:49 → TELE-WESTW 03-11 02:56
PROVIDERS: ADMIT Internal Medicine; ATTEND Nurse Practitioner Acute Care
DX: E10.10 Type 1 diabetes mellitus with ketoacidosis without coma (principal); G92.8 Other toxic encephalopathy; E86.0 Dehydration; F17.210 Nicotine dependence, cigarettes, uncomplicated; F15.10 Other stimulant abuse, uncomplicated; F12.10 Cannabis abuse, uncomplicated; I10 Essential (primary) hypertension; F32.A Depression, unspecified; R74.01 Elevation of levels of liver transaminase levels; J45.909 Unspecified asthma, uncomplicated; K21.9 Gastro-esophageal reflux disease without esophagitis; Z88.6 Allergy status to analgesic agent; Z79.899 Other long term (current) drug therapy; Z79.4 Long term (current) use of insulin; Z91.148 Patient's other noncompliance with medication regimen for other reason
CPT/HCPCS: 36415; 36600; 71045; 74176; 80048; 80053; 80307; 81001; 82010; 82805; 82962; 83036; 83690; 83735; 84100; 85025; 87081; 93005; G0378; J1815; J2405; J2470

== ENCOUNTER 2024-04-05 11:22 | Inpatient (IN) | payer MEDICAID ==
[~2024-04-05] VITALS: Ht 182.9 cm; Wt 83.2 kg
[~2024-04-05 11:22] MED LIST changes: -BLOO1KIT60 XX; -BLOOKIT79 XX; -BUPR75TA89 GT; +FERR325T20 PO; -INSUINJ37 SC; -LANC-347 XX; -QUET50TA PO
[2024-04-05 11:57] VITALS: PULSE 78; RESP 18; O2SAT 98
[2024-04-05] MEDS: InsuLIN REG 1unit/0.01ml Soln (100units/ml) IV ONE (12:00)
[2024-04-05] MEDS: SODIUM CHLORIDE 0.9% 2,000 ML IV ONE (12:26)
--- NOTE | 2024-04-05 12:26 | ED.PDOC ---
History of present illness HPI Comments 24y M who presents to the ED via EMS for chief complaint of hyperglycemia. Pt states he has been having high blood sugar for unknown time and called EMS. EMS arrived on scene and states after checking blood sugar, it read HIGH x2 and brought to the ED. In the ED, pt had accu check checked x 2 and both times, it read HIGH. Pt otherwise denies any other symptoms in the ED. Pt in the ED, appears be confused and not answering questions. Pt has been to [facility] multiple times for similar complaints. Pt denies any other symptoms at this time. Chief Complaint: Hyperglycemia Time Seen by MD: 12:10 Primary Care Provider: JL History of present illness: Nurses Notes, Support Team Assoc Notes Allergies: Coded Allergies: Ibuprofen (Verified Allergy, Intermediate, 09/15/23) Home Meds Active Scripts Insulin Glargine (Lantus) 100 Unit/Ml Inj, 35 UNIT SC QAM for 28 Days, #10 INJ ADMINISTER 35 UNITS UNDER THE SKIN IN THE MORNING. MAX 35 UNITS PER DAY UNDER THE SKIN DAILY 30 DAYS. Prov:YONATHAN KINGSLEY GAMBLING BROKER 03/12/24 Insulin Lispro (Humalog Kwikpen) 100 Unit/Ml Inj, 10 UNIT SC TIDWM, #30 INJ Prov:YONATHAN KINGSLEY [employer]BLING BROKER 03/12/24 Buspirone Hcl (Buspirone Hcl) 5 Mg Tab, 1 TAB PO DAILY, #30 TAB Prov:CIRA JONES MD 12/03/23 Reported Medications Ferrous Sulfate (Ferosul) 325 Mg Tab, 1 TAB PO 3XW for 84 Days, #36 TAKE 1 TABLET BY MOUTH 3 TIMES A WEEK. 03/10/24 Tizanidine Hydrochloride (Zanaflex) 4 Mg Cap, 2 MG PO DAILY for 30 Days, #30 03/10/24 Ergocalciferol (Vitamin D (Ergocalciferol) 50,000 Unit Cap, 1 CAP PO QWEEKLY for 28 Days, #4 03/10/24 Gabapentin (Gabapentin) 300 Mg Cap, 1 CAP PO TID for 30 Days, #90 03/10/24 Lisinopril (Lisinopril) 10 Mg Tab, 1 TAB PO DAILY for 30 Days, #30 03/10/24 Allopurinol (Allopurinol) 100 Mg Tab, 1 TAB PO DAILY for 30 Days, #30 03/10/24 Quetiapine Fumerate (QUETIAPINE FUMARATE) 100 Mg Tab, 25 MG PO DAILY for 30 Days, #30 03/10/24 Pantoprazole Sodium Sesquihydr (Protonix) 40 Mg Tab, 1 TAB PO BID for 30 Days, #60 03/10/24 Bupropion Hcl (Bupropion Hcl Er) 150 Mg Tab, 100 MG PO DAILY for 30 Days, #30 03/10/24 Trazodone Hcl (Trazodone Hcl) 150 Mg Tab, 1 TAB PO QPM for 30 Days, #30 04/13/23 Hydrocodone-Acetaminophen (Hydrocodone Bitartrate/AC 10-325 mg) 1 Tab Tab, 1 TAB PO, TAB 04/13/23 Information Source: Patient, Emergency Med Personnel Mode of Arrival: EMS Brought in by: EMS Past Medical History PAST MEDICAL HISTORY: Asthma, Depression, DM, GERD, HTN Surgical History: Denies all surgeries Family History Family History: Unknown Family History (Other): x Social History Smoker: Cigarettes Alcohol: Occasionally Drugs: Marijuana, Methamphetamine Lives In: Home Constitutional: reports: weakness; denies: chills, diaphoresis, fatigue, fever, malaise, sweats, others EENTM: denies: blurred vision, double vision, ear bleeding, ear discharge, ear drainage, ear pain, ear ringing, eye pain, eye redness, hearing loss, mouth pain, mouth swelling, nasal discharge, nose bleeding, nose congestion, nose pain, photophobia, tearing, throat pain, throat swelling, voice changes, others Respiratory: denies: cough, hemoptysis, orthopnea, SOB at rest, shortness of breath, SOB with excertion, stridor, wheezing, others Cardiovascular: denies: chest pain, dizzy spells, diaphoresis, Dyspnea on exertion, edema, irregular heart beat, left arm pain, lightheadedness, palpitations, PND, syncope, others Gastrointestinal: denies: abdomen distended, abdominal pain, blood streaked bowels, constipated, diarrhea, dysphagia, difficulty swallowing, hematemesis, melena, nausea, poor appetite, poor fluid intake, rectal bleeding, rectal pain, vomiting, others Genitourinary: denies: burning, dysuria, flank pain, frequency, hematuria, incontinence, penile discharge, penile sore, pain, testicle pain, testicle swelling, urgency, others Neurological: denies: dizziness, fainting, headache, left sided numbness, left sided weakness, numbness, paresthesia, pre-existing deficit, right sided nu mbness, right sided weakness, seizure, speech problems, tingling, tremors, weakness, others Musculoskeletal: denies: back pain, gout, joint pain, joint swelling, muscle pain, muscle stiffness, neck pain, others Integumetry: denies: bruises, change in color, change in hair/nails, dryness, laceration, lesions, lumps, rash, wounds, others Allergic/Immunocompromised: denies: Difficulty Healing, Frequent Infections, Hives, Itching, others Hematologic/Lymphatic: denies: anemia, blood clots, easy bleeding, easy bruising, swollen glands, others Endocrine: reports: others; denies: excessive hunger, excessive sweating, excessive thirst, excessive urination, flushing, intolerance to cold, intolerance to heat, unexplained weight gain, unexplained weight loss Psychiatric: denies: anxiety, bipolar disorder, depression, hopeless, panic disorder, schizophrenia, sleepless, suicidal, others All Other Systems: Reviewed and Negative Physical Exam General Appearance: Moderate Distress HEENT: Normal ENT Inspection, Pharynx Normal, TMs Normal Neck: Full Range of Motion, Non-Tender, Normal, Normal Inspection Respiratory: Respiratory Distress, Other (+ kussmaul respirations) Cardiovascular: No Edema, Tachycardia Breast Exam: Deferred Gastrointestinal: No Organomegaly, Non Tender, No Pulsatile Mass, Normal Bowel Sounds, Soft Genitalia: Deferred Pelvic: Deferred Rectal: Deferred Extremities: No calf tenderness, Normal capillary refill, Normal inspection, Normal range of motion, Non-tender, No pedal edema Musculoskeletal : Apperance: Normal Neurologic: Alert, rope tow operator II-XII nml as Tested, No Motor Deficits, Normal Affect, Normal Mood, No Sensory Deficits Cerebellar Function: Normal Reflexes: Normal Skin: Dry, Normal Color, Warm Lymphatic: No Adenopathy Was a procedure done? Was a procedure done?: No Differential Diagnosis (DM) Differential Diagnosis: Dehydration, DKA, Electrolyte Abnormality, Encephalopathy, Hyperglycemia X-Ray, Labs, Meds, VS Vital Signs Date Time Temp Pulse Resp B/P (MAP) Pulse Ox O2 Delivery O2 Flow Rate FiO2 04/05/24 13:47 80 18 118/75 (89) 98 04/05/24 11:58 98.1 78 18 122/78 (93) 98 98.1 04/05/24 11:57 78 18 98 Room Air* 0 21 04/05/24 11:23 97.8 78 26 100/56 (71) 100 Lab Test 04/05/24 13:08 04/05/24 13:06 04/05/24 11:35 04/05/24 11:32 Range/Units White Blood Count 12.6 H 4.4-10.8 10^3/uL Red Blood Count 5.49 4.5-5.90 10^6/uL Hemoglobin 13.4 L 13.5-17.5 g/dL Hematocrit 45.1 41.0-53.0 % Mean Corpuscular Volume 82.1 80.0-100.0 fL Mean Corpuscular Hemoglobin 24.5 L 28.0-32.0 pg Mean Corpuscular Hemoglobin Concent 29.8 L 32.0-36.0 g/dL Red Cell Distribution Width 18.2 H 11.8-14.3 % Platelet Count 208 140-450 10^3/uL Mean Platelet Volume 8.5 6.9-10.8 fL Neutrophils (%) (Auto) 82.1 H 37.0-80.0 % Lymphocytes (%) (Auto) 13.3 10.0-50.0 % Monocytes (%) (Auto) 1.3 0.0-12.0 % Eosinophils (%) (Auto) 0.3 0.0-7.0 % Basophils (%) (Auto) 3.0 H 0.0-2.0 % Neutrophils # (Auto) 10.3 H 1.6-8.6 10 ^3/uL Lymphocytes # (Auto) 1.7 0.4-5.4 10 ^3/uL Monocytes # (Auto) 0.2 0-1.3 10 ^3/uL Eosinophils # (Auto) 0 0-0.8 10 ^3/uL Basophils # (Auto) 0.4 H 0-0.2 10 ^3/uL Nucleated Red Blood Cells 0.3 % Platelet Estimate Pending Sodium Level 121 L 136-145 mmol/L Potassium Level 5.1 3.5-5.1 mmol/L Chloride Level 82 L 98-107 mmol/L Carbon Dioxide Level < 10 *L 20-31 mmol/L Anion Gap 29.75740 H 5-15 Blood Urea Nitrogen 39 H 9-23 mg/dL Creatinine 2.36 H 0.700-1.30 mg/dL Glomerular Filtration Rate Calc 39 >90 mL/min BUN/Creatinine Ratio 16.5 10.0-20.0 Serum Glucose 945 *H 74-106 mg/dL Calcium Level 8.3 L 8.7-10.4 mg/dL Phosphorus Level Pending Magnesium Level 2.8 H 1.6-2.6 mg/dL Total Bilirubin 0.2 0.2-1.0 mg/dL Aspartate Amino Transferase (AST) 52 H 13-40 U/L Alanine Aminotransferase (ALT) 56 H 7-40 U/L Alkaline Phosphatase 194 H 46-116 U/L Total Protein 7.4 5.7-8.2 g/dL Albumin 4.6 3.2-4.8 g/dL Beta-Hydroxybutyric Acid Pending Blood Gas Specimen Type Venous Blood Gas Sample Site Vbg - n/a Blood Gas Patient Temperature 37.0 Arterial Blood Date Drawn [id number] Jabari Test Yes Venous Blood pH 6.943 *L 7.320-7.430 Venous Blood pCO2 at Patient Temp 22.4 L 38.0-54.0 mmHg Venous Blood pO2 at Patient Temp 66.1 H 23.0-48.0 mmHg Venous Blood HCO3 4.7 L 22.0-29.0 mmol/L Venous Blood Base Excess -26.4 L -2.0-3.0 mmol/L Blood Gas Modality Room air FiO2 % 21.0 Blood Gas Critical Value Read Back Yes Blood Gas Notified Whom Dr. felix bear Blood Gas Notified Time [id number] Blood Gas Notified By POC Glucose > 600 *H > 600 *H 70-106 mg/dl Current Medications Medications (Trade) Dose Ordered Sig/Duncan Route Start Time Stop Time Status Last Admin Sodium Chloride 2,000 ml @ 1,000 mls/hr Q2H ONCE IV 04/05/24 12:00 04/05/24 13:59 04/05/24 12:26 Insulin Human Regular (InsuLIN R) 10 units ONCE ONCE IV 04/05/24 12:00 04/05/24 12:01 DC 04/05/24 12:00 Insulin Human (Reg)/Sodium Chloride 100 ml @ 0.5 mls/hr Q24H IV 04/05/24 13:00 04/05/24 13:00 Time of 1ST Reevaluation: 12:40 Reevaluation 1ST: Unchanged Time of 2ND Reevaluation: 13:53 Reevaluation 2ND: Unchanged Patient Education/Counseling: Diagnosis, Treatment Family Education/Counseling: No Family Present Departure 1 Departure Time of Disposition: 13:52 Impression: Primary Impression: Diabetic nephropathy associated with type 1 diabetes mellitus Additional Impression: DKA (diabetic ketoacidosis) Disposition: ADMITTED INPATIENT Admit to: ICU Condition: Guarded Discharged With: Self Critical Care Note Critical Care Time?: Yes (45 min-critical care time only) Critical care comment: Total critical care time: Approximately 36 minutes Due to a high probability of clinically significant, life threatening deterioration, the patient required my highest level of preparedness to intervene emergently and I personally spent this critical care time directly and personally managing the patient. This critical care time included obtaining a history; examining the patient; pulse oximetry; ordering and review of studies; arranging urgent treatment with development of a management plan; evaluation of patient's response to treatment; frequent reassessment; and, discussions with other providers. This critical care time was performed to assess and manage the high probability of imminent, life-threatening deterioration that could result in multi-organ failure. It was exclusive of separately billable procedures and treating other patients. Stability Stability form required: No Heart Score Heart Score: Heart Score Response (Comments) Value History N/A 0 EKG N/A 0 Age N/A 0 Risk Factors N/A 0 Troponin N/A 0 Total 0 I personally scribed for OBDULIO BEAR MD ([email or web address]) on 04/05/24 at 12:26. Electronically submitted by Chayo Ro ([email or web address]). OBDULIO BEAR MD Apr 05, 2024 12:26
[2024-04-05] MEDS ORDERED: DEXTROSE (50%) 50ML SYRG IV PRN (13:00)
[2024-04-05] MEDS: INSULIN DRIP 100 UNIT/100ML 100 ML IV SCH (13:00)
[2024-04-05] MEDS: ACCU-CHEK COMFORT CURVE STRIP VI SCH (13:30)
[2024-04-05 13:39] LABS: Albumin 4.6 g/dL (3.2-4.8); Anion Gap 29.00001 (5-15); BUN/Creatinine Ratio 16.5 (10.0-20.0); Potassium 5.1 mmol/L (3.5-5.1)
[2024-04-05 13:40] LABS: Basophils # (auto) 0.4 10 ^3/uL (0-0.2); Eosinophils # (auto) 0 10 ^3/uL (0-0.8); Eosinophils % (auto) 0.3 % (0.0-7.0); Hematocrit 45.1 % (41.0-53.0); Hemoglobin 13.4 g/dL (13.5-17.5); Lymphocytes # (auto) 1.7 10 ^3/uL (0.4-5.4); Lymphocytes % (auto) 13.3 % (10.0-50.0); Mean Corpuscular Hemoglobin 24.5 pg (28.0-32.0); Mean Corpuscular Hgb Conc. 29.8 g/dL (32.0-36.0); Mean Corpuscular Volume 82.1 fL (80.0-100.0); Monocytes # (auto) 0.2 10 ^3/uL (0-1.3); Monocytes % (auto) 1.3 % (0.0-12.0); Neutrophils # (auto) 10.3 10 ^3/uL (1.6-8.6); Neutrophils % (auto) 82.1 % (37.0-80.0); Nucleated Red Blood Cells % 0.3 %; Platelet Count (auto) 208 10^3/uL (140-450); Red Blood Cells 5.49 10^6/uL (4.5-5.90); Red Cell Distribution Width 18.2 % (11.8-14.3); Total Protein 7.4 g/dL (5.7-8.2); White Blood Cell 12.6 10^3/uL (4.4-10.8)
[2024-04-05 13:47] LABS: Alanine Aminotransferase 56 U/L (7-40); Alkaline Phosphatase 194 U/L (46-116); Aspartate Aminotransferase 52 U/L (13-40); Blood Urea Nitrogen 39 mg/dL (9-23); Chloride 82 mmol/L (98-107); Sodium 121 mmol/L (136-145)
[2024-04-05 13:48] LABS: Bilirubin, Total 0.2 mg/dL (0.2-1.0); Calcium 8.3 mg/dL (8.7-10.4); Magnesium 2.8 mg/dL (1.6-2.6)
[2024-04-05 13:49] LABS: Carbon Dioxide < 10 mmol/L (20-31); Glucose 945 mg/dL (74-106)
[2024-04-05 14:16] LABS: Anisocytosis Slight; Hypochromia Slight; Platelet Estimate Adequate
[2024-04-05 15:04] LABS: Urine Bacteria None Seen /hpf (None Seen)
[2024-04-05 15:12] LABS: Urine Blood 1+ /uL (Negative); Urine Budding Yeast OCCASIONAL /hpf (None Seen); Urine Clarity Clear (Clear); Urine Color Light-Yellow (Yellow); Urine Hyaline Cast FEW /lpf (0 - 2); Urine Protein, UAD TRACE (Negative); Urine Specific Gravity 1.022 (1.001-1.035); Urine Squamous Epithelial Cell FEW /hpf (<5); Urine Urobilinogen Normal (Negative); Urine WBC < 1 /HPF (0-3)
[2024-04-05 15:25] LABS: Cannabinoid Screen, Urine Neg (NEGATIVE)
[2024-04-05 15:28] LABS: Amphetamine Screen, Urine Neg (NEGATIVE); Barbiturate Scree,Urine Neg (NEGATIVE); Benzodiazephine Screen, Urine Neg (NEGATIVE); Cocaine Screen, Urine Neg (NEGATIVE); Opiate Scree,Urine Neg (NEGATIVE); Phencyclidine Screen, Urine Neg (NEGATIVE)
[2024-04-05] MEDS: SODIUM CHLORIDE 0.9% 1,000 ML IV SCH (16:17)
[2024-04-05] MEDS ORDERED: hydrALAZINE HCL 20 MG/ML VL IV PRN (19:00)
[2024-04-05] MEDS ORDERED: DOCUSATE SOD 100 MG CAP PO PRN (19:00)
[2024-04-05 19:36] LABS: Potassium 4.1 mmol/L (3.5-5.1)
[2024-04-05 19:37] LABS: Anion Gap 27.00001 (5-15)
[2024-04-05 19:42] LABS: BUN/Creatinine Ratio 19.2 (10.0-20.0)
[2024-04-05 19:45] LABS: Blood Urea Nitrogen 34 mg/dL (9-23); Calcium 8.2 mg/dL (8.7-10.4); Chloride 97 mmol/L (98-107); Glucose 385 mg/dL (74-106); Sodium 134 mmol/L (136-145)
[2024-04-05 19:48] LABS: Carbon Dioxide < 10 mmol/L (20-31)
[2024-04-05] MEDS: D5W/SOD CHLO 0.9% 1,000 ML IV ONE (20:41)
[2024-04-05] MEDS: SODIUM BICARB 8.4% 50Meq/50ml SYR Vial IV ONE (20:42)
[2024-04-05 21:59] LABS: Base Excess -10.2 mmol/L (-2.0-3.0)
[2024-04-05] MEDS: ONDANSETRON HCL 4 MG/2 ML VIAL IV PRN (22:18)
[2024-04-05] MEDS: MORPHINE SULFATE INJ 2 MG/ml SYRG IV PRN (22:19)
--- NOTE | 2024-04-05 23:06 | DVHHP2 ---
History of Present Illness Reason for Visit: Diabetic ketoacidosis History of Present Illness The patient is a 24-year-old male with past medical history of DM, asthma, depression, GERD, and hypertension presented to [facility] ED with complaint of hyperglycemia. Patient reports having high blood glucose for unknown time, so he called EMS. When EMS arrived on the scene, patient appears to be confused, blood sugar reading high x2, and was given IV fluid normal saline and insulin EN route to our facility ED. Patient was seen and evaluated in the ED, laboratory data shows WBC 12.6, platelets 208, sodium 121, potassium 5.1, BUN 29, creatinine 2.36, GFR 39, glucose 945, anion gap 29.00, calcium 8.3, phosphorus 10.5, acetone 4.500, magnesium 2.8, AST 52, ALT 56. Patient was started on insulin drip, please see medication orders section in the computer. On my assessment, patient denied chest pain, no headache, no dizziness, no diaphoresis, currently on oxygen, no loss of consciousness, nausea, no vomiting, no fever, no chills. Patient was admitted for further evaluation and medical management. Past Medical History Asthma, Depression, DM, GERD, HTN Past Surgical History Denies all surgeries Family History Reviewed, noncontributory to the management of this case. Past Social History Patient lives at home, smokes cigarettes, drinks alcohol occasionally, uses methamphetamine and marijuana. Review of Systems Constitutional: Yes: Weakness; No: Fever, Chills, Sweats, Malaise, Other Eyes: No: Pain, Vision change, Conjunctivae inflammation, Eyelid inflammation, Other, Redness ENT: No: Ear pain, Ear discharge, Nose pain, Nose discharge, Nose congestion, Mouth pain, Mouth swelling, Throat pain, Throat swelling, Other Respiratory: No: Cough, Dry, Shortness of breath, SOB with excertion, Wheezing, Hemoptysis, Pleuritic Pain, Sputum, Wheezing, Other Cardiovascular: No: Chest Pain, Palpitations, Orthopnea, Paroxysmal Noc. Dyspnea, Edema, Lt Headedness, Other Gastrointestinal: No: Nausea, Vomiting, Abdominal Pain, Diarrhea, Constipation, Melena, Hematochezia, Other Genitourinary: No Dysuria, No Frequency, No Incontinence, No Hematuria, No Retention, No Other Musculoskeletal: No: other, neck pain, shoulder pain, arm pain, back pain, hand pain, leg pain, foot pain Skin: No: Rash, Lesions, Jaundice, Bruising, Other Neurological: No: Weakness, Numbness, Incoordination, Change in speech, Confusion, Seizures, Other Allergies: Coded Allergies: Ibuprofen (Verified Allergy, Intermediate, 09/15/23) Medications Current Medications Medications Dose Ordered Sig/Duncan Route Start Time Stop Time Status Last Admin Dose Admin Insulin Human (Reg)/Sodium Chloride 100 ml @ 0.5 mls/hr Q24H IV 04/05/24 13:00 04/05/24 13:00 4 MLS/HR Dextrose 50 ml UD PRN IV 04/05/24 13:00 Diagnostic Test (Pha) 1 strip Q90MIN 04/05/24 13:30 04/05/24 20:28 1 STRIP Hydralazine HCl 10 mg Q6HP PRN IV 04/05/24 19:00 Acetaminophen/ Hydrocodone Bitart 1 tab Q4HP PRN PO 04/05/24 19:00 Ondansetron HCl 4 mg Q4HP PRN IV 04/05/24 19:00 04/05/24 22:18 4 MG Docusate Sodium 100 mg BIDPRN PRN PO 04/05/24 19:00 Acetaminophen 650 mg Q6HP PRN PO 04/05/24 19:00 Morphine Sulfate 2 mg Q6HPRN PRN IV 04/05/24 22:00 04/05/24 22:19 2 MG Exam Vital Signs Vital Signs Date Time Temp Pulse Resp B/P (MAP) Pulse Ox O2 Delivery O2 Flow Rate FiO2 04/05/24 23:00 117 22 118/69 (85) 94 04/05/24 22:00 97.7 97.7 04/05/24 11:57 Room Air* 0 21 General Appearance: Alert, Oriented X3, Cooperative, No acute distress HEENT: Atraumatic, PERRLA, EOMI, Mucous membr. moist/pink Respiratory: Clear to auscultation, Normal air movement Cardiovascular: Regular rate, Normal S1, Normal S2, No murmurs Abdominal: Normal bowel sounds, Soft, No tenderness, No hepatospenomegaly, No masses Extremities: No clubbing, No cyanosis, No edema, Normal pulses, No tenderness/swelling Skin: No rashes, No breakdown, No significant lesion Neuro: Normal speech, Normal tone, Sensation intact, Cranial nerves 3-12 NL, Reflexes 2+, Other (Generalized weakness) Psych/Mental Status: Mental status NL, Mood NL Labs/Xrays Labs Test 04/05/24 21:57 04/05/24 21:48 04/05/24 19:16 04/05/24 15:00 Range/Units POC Glucose 257 H 70-106 mg/dl Blood Gas Specimen Type Arterial Blood Gas Sample Site Left radial Blood Gas Patient Temperature 37.0 Arterial Blood Date Drawn [id number] Arterial Blood pH 7.406 7.350-7.450 Arterial Blood Partial Pressure CO2 19.8 *L 35.0-48.0 mmHg Arterial Blood Partial Pressure O2 96.5 83.0-108.0 mmHg Arterial Blood HCO3 12.2 L 21.0-28.0 mmol/L Arterial Blood Oxygen Saturation 97.3 94.0-98.0 % Arterial Blood Base Excess -10.2 L -2.0-3.0 mmol/L Arterial Blood Oxyhemoglobin 96.5 94.0-98.0 % Arterial Blood Carboxyhemoglobin 0.3 L 0.5-1.5 % Arterial Blood Methemoglobin 0.5 0.0-1.5 % Jabari Test Modified Blood Gas Total Hemoglobin 12.80 L 13.5-17.5 g/dL Blood Gas Modality Room air FiO2 % 21.0 Blood Gas Critical Value Read Back Yes Blood Gas Notified Whom Edgardo paul np Blood Gas Notified Time [id number] Blood Gas Notified By Letty kurtz rrt Sodium Level 134 #L 136-145 mmol/L Potassium Level 4.1 3.5-5.1 mmol/L Chloride Level 97 #L 98-107 mmol/L Carbon Dioxide Level < 10 *L 20-31 mmol/L Anion Gap 27.93534 H 5-15 Blood Urea Nitrogen 34 H 9-23 mg/dL Creatinine 1.77 H 0.700-1.30 mg/dL Glomerular Filtration Rate Calc 55 >90 mL/min BUN/Creatinine Ratio 19.2 10.0-20.0 Serum Glucose 385 #H 74-106 mg/dL Serum Osmolality 330 H 278-298 mOsm/kg Calcium Level 8.2 L 8.7-10.4 mg/dL Urine Color Light-yellow Yellow Urine Clarity Clear Clear Urine pH 5.0 5.0-9.0 Urine Specific [place] 1.022 1.001-1.035 Urine Protein Trace H Negative Urine Ketones 3+ H Negative Urine Blood 1+ H Negative /uL Urine Nitrite Negative Negative Urine Bilirubin Negative Negative Urine Urobilinogen Normal Negative mg/dL Urine Leukocyte Esterase Negative Negative /uL Urine RBC 1 0 - 3 /hpf Urine Microscopic WBC < 1 0-3 /HPF Urine Squamous Epithelial Cells Few <5 /hpf Urine Bacteria None seen None Seen /hpf Urine Hyaline Casts Few 0 - 2 /lpf Urine Yeast (Budding) Occasional None Seen /hpf Urine Glucose 4+ H Normal mg/dL Urine Opiates Screen Neg NEGATIVE Urine Fentanyl Screen Neg NEGATIVE Urine Barbiturates Screen Neg NEGATIVE Urine Phencyclidine Screen Neg NEGATIVE Urine Amphetamines Screen Neg NEGATIVE Urine Benzodiazepines Screen Neg NEGATIVE Urine Cocaine Screen Neg NEGATIVE Urine Cannabinoids Screen Neg NEGATIVE Test 04/05/24 13:08 04/05/24 13:06 Range/Units White Blood Count 12.6 H 4.4-10.8 10^3/uL Red Blood Count 5.49 4.5-5.90 10^6/uL Hemoglobin 13.4 L 13.5-17.5 g/dL Hematocrit 45.1 41.0-53.0 % Mean Corpuscular Volume 82.1 80.0-100.0 fL Mean Corpuscular Hemoglobin 24.5 L 28.0-32.0 pg Mean Corpuscular Hemoglobin Concent 29.8 L 32.0-36.0 g/dL Red Cell Distribution Width 18.2 H 11.8-14.3 % Platelet Count 208 140-450 10^3/uL Mean Platelet Volume 8.5 6.9-10.8 fL Neutrophils (%) (Auto) 82.1 H 37.0-80.0 % Lymphocytes (%) (Auto) 13.3 10.0-50.0 % Monocytes (%) (Auto) 1.3 0.0-12.0 % Eosinophils (%) (Auto) 0.3 0.0-7.0 % Basophils (%) (Auto) 3.0 H 0.0-2.0 % Neutrophils # (Auto) 10.3 H 1.6-8.6 10 ^3/uL Lymphocytes # (Auto) 1.7 0.4-5.4 10 ^3/uL Monocytes # (Auto) 0.2 0-1.3 10 ^3/uL Eosinophils # (Auto) 0 0-0.8 10 ^3/uL Basophils # (Auto) 0.4 H 0-0.2 10 ^3/uL Nucleated Red Blood Cells 0.3 % Platelet Estimate Adequate Hypochromasia (manual) Slight Anisocytosis (manual) Slight Phosphorus Level 10.5 H 2.4-5.1 mg/dL Magnesium Level 2.8 H 1.6-2.6 mg/dL Total Bilirubin 0.2 0.2-1.0 mg/dL Aspartate Amino Transferase (AST) 52 H 13-40 U/L Alanine Aminotransferase (ALT) 56 H 7-40 U/L Alkaline Phosphatase 194 H 46-116 U/L Total Protein 7.4 5.7-8.2 g/dL Albumin 4.6 3.2-4.8 g/dL Beta-Hydroxybutyric Acid > 4.500 H < 0.4 mmol/L Venous Blood pH 6.943 *L 7.320-7.430 Venous Blood pCO2 at Patient Temp 22.4 L 38.0-54.0 mmHg Venous Blood pO2 at Patient Temp 66.1 H 23.0-48.0 mmHg Venous Blood HCO3 4.7 L 22.0-29.0 mmol/L Venous Blood Base Excess -26.4 L -2.0-3.0 mmol/L Assessment/Plan Assessment/Plan DKA (diabetic ketoacidosis) Generalized weakness Acute renal injury Elevated liver enzymes Electrolyte imbalance Diabetic nephropathy associated with type 1 diabetes mellitus Plan 1. Admit to intensive care unit 2. Breathing treatment 3. Pain control management 4. Management of fluids and electrolytes 5. Consultation for hospitalist 6. Diagnostic tests chest x-ray 7. DVT prophylaxis on SCDs 8. Repeat labs CBC, CMP in a.m. 9. Continue with current medical management 10. Treatment plan discussed with patient and RN. Patient verbalized understanding. Plan discussed with: Patient, Other (RN) My Orders Orders - ANTONIETTA PAUL DNP Procedure Category Date Status Time Hydralazine Injection PHA 04/05/24 In Process (Apresoline Inject 19:00 Consistent DIET 04/06/24 Transmitted Carb(Ccho)Diabetes Breakfast Allergies KARAN 04/05/24 In Process 18:58 Code Status CODE 04/05/24 Transmitted 18:58 Oxygen Per Hour RT 04/05/24 Transmitted 18:58 Hydrocodone-Acet PHA 04/05/24 In Process 5/325mg Tab ([place] 19:00 Ondansetron Hcl PHA 04/05/24 In Process (Zofran) 19:00 Docusate Sodium PHA 04/05/24 In Process Capsule (Colace 19:00 Complete Blood Count LAB 04/06/24 Verified 04:00 Comprehensive LAB 04/06/24 Verified Metabolic Panel 04:00 Condition: Serious KARAN 04/05/24 In Process 18:58 Acetaminophen Tablet PHA 04/05/24 In Process (Tylenol Tablet) 19:00 Bedrest With Bathroom KARAN 04/05/24 In Process Privileg 18:58 Sequential KARAN 04/05/24 In Process Compression Device *[facility] CONS 04/05/24 Transmitted -[place] 20:20 D5w/Sod Chlo 0.9% PHA 04/05/24 In Process (D5w Ns 0.9%) 20:30 Abg W/ Co-Ox RT 04/05/24 Logged 22:00 Morphine Sulfate PHA 04/05/24 In Process Injection 22:00 Admit ADMIT 04/05/24 Verified 23:05 Nitroglycerin LOCATED WITHIN [facility] 04/05/24 Verified Sublingual (Ntrostat 23:15 Morphine Sulfate PHA 04/05/24 Verified Injection 23:15 Notify Md Of Changes [facility] 04/05/24 Verified From Base 23:05 Block Captain For [facility] 04/05/24 Verified 24 Hours 23:05 Emergency Dysrhythmia [facility] 04/05/24 Verified Protocol 23:05 Rhythm Strips Once [facility] 04/05/24 Verified Every Shift 23:05 Oxygen By Nasal RT 04/05/24 Verified Cannula 23:05 Problem List: (1) DKA (diabetic ketoacidosis) (2) Generalized weakness (3) Electrolyte imbalance (4) Acute renal injury (5) Elevated liver enzymes (6) Diabetic nephropathy associated with type 1 diabetes mellitus Date of Service: Apr 05, 2024 Billing Provider: ANTONIETTA PAUL DNP Common Visit Codes: [id number] INP/OBS CARE (HIGH) ANTONIETTA PAUL DNP Apr 05, 2024 23:06
[2024-04-05] MEDS ORDERED: NITROGLYCERIN 0.4 MG SL TAB SL PRN (23:15)
[2024-04-05] MEDS ORDERED: MORPHINE SULFATE INJ 2 MG/ml SYRG IV PRN (23:15)
[2024-04-06] VITALS (13 sets, daily range): BP systolic 111–150; BP diastolic 56–96; PULSE 104–116; RESP 11–20; O2SAT 90–99
[2024-04-06 01:21] LABS: Chloride 105 mmol/L (98-107); Potassium 3.9 mmol/L (3.5-5.1); Sodium 141 mmol/L (136-145)
[2024-04-06 01:22] LABS: Anion Gap 19 (5-15)
[2024-04-06 01:27] LABS: BUN/Creatinine Ratio 21.6 (10.0-20.0)
[2024-04-06 01:28] LABS: Blood Urea Nitrogen 32 mg/dL (9-23); Calcium 8.5 mg/dL (8.7-10.4); Carbon Dioxide 17 mmol/L (20-31); Glucose 244 mg/dL (74-106)
[2024-04-06 06:37] LABS: Basophils # (auto) 0 10 ^3/uL (0-0.2); Eosinophils # (auto) 0 10 ^3/uL (0-0.8); Eosinophils % (auto) 0.1 % (0.0-7.0); Hemoglobin 12.6 g/dL (13.5-17.5); Neutrophils # (auto) 6.9 10 ^3/uL (1.6-8.6); Nucleated Red Blood Cells % 0.1 %; White Blood Cell 8.6 10^3/uL (4.4-10.8)
[2024-04-06 06:42] LABS: Basophils % (auto) 0.3 % (0.0-2.0); Hematocrit 38.5 % (41.0-53.0); Lymphocytes # (auto) 0.9 10 ^3/uL (0.4-5.4); Lymphocytes % (auto) 9.9 % (10.0-50.0); Mean Corpuscular Hemoglobin 24.5 pg (28.0-32.0); Mean Corpuscular Hgb Conc. 32.6 g/dL (32.0-36.0); Mean Corpuscular Volume 75.1 fL (80.0-100.0); Monocytes # (auto) 0.9 10 ^3/uL (0-1.3); Monocytes % (auto) 10.2 % (0.0-12.0); Neutrophils % (auto) 79.5 % (37.0-80.0); Platelet Count (auto) 205 10^3/uL (140-450); Red Blood Cells 5.13 10^6/uL (4.5-5.90); Red Cell Distribution Width 17.9 % (11.8-14.3)
[2024-04-06 06:59] LABS: Anion Gap 18 (5-15); Chloride 106 mmol/L (98-107); Potassium 3.7 mmol/L (3.5-5.1); Sodium 142 mmol/L (136-145)
[2024-04-06 07:00] LABS: Total Protein 6.4 g/dL (5.7-8.2)
[2024-04-06 07:08] LABS: Alanine Aminotransferase 41 U/L (7-40); Alkaline Phosphatase 138 U/L (46-116); Aspartate Aminotransferase < 8 U/L (13-40); Blood Urea Nitrogen 29 mg/dL (9-23); Calcium 8.6 mg/dL (8.7-10.4); Carbon Dioxide 18 mmol/L (20-31); Glucose 267 mg/dL (74-106)
[2024-04-06 07:11] LABS: Bilirubin, Total 0.2 mg/dL (0.2-1.0)
--- NOTE | 2024-04-06 09:13 | DVHINCON2 ---
Date of service: Apr 06, 2024 Referring Physician Pierce Paul, nurse practitioner Reason for Consultation Acute kidney injury History of Present Illness Patient is 24-year-old male with past medical history significant for Asthma, Depression, uncontrolled DM, chronic kidney disease GERD, and HTN is admitted for elevated blood sugar patient found to have diabetic ketoacidosis. Nephrology is consulted for acute kidney injury Past Medical History PAST MEDICAL HISTORY: Asthma, Depression, uncontrolled DM, Chronic Kidney Disea se GERD, HTN Past Surgical History Surgical History: Denies all surgeries Allergies: Coded Allergies: Ibuprofen (Verified Allergy, Intermediate, 09/15/23) Home Meds Active Scripts Insulin Glargine (Lantus) 100 Unit/Ml Inj, 35 UNIT SC QAM for 28 Days, #10 INJ ADMINISTER 35 UNITS UNDER THE SKIN IN THE MORNING. MAX 35 UNITS PER DAY UNDER THE SKIN DAILY 30 DAYS. Prov:YONATHAN KINGSLEY CIRCULAR SHEAR OPERATOR 03/12/24 Insulin Lispro (Humalog Kwikpen) 100 Unit/Ml Inj, 10 UNIT SC TIDWM, #30 INJ Prov:YONATHAN KINGSLEY NP 03/12/24 Buspirone Hcl (Buspirone Hcl) 5 Mg Tab, 1 TAB PO DAILY, #30 TAB Prov:CIRA JONES MD 12/03/23 Reported Medications Ferrous Sulfate (Ferosul) 325 Mg Tab, 1 TAB PO 3XW for 84 Days, #36 TAKE 1 TABLET BY MOUTH 3 TIMES A WEEK. 03/10/24 Tizanidine Hydrochloride (Zanaflex) 4 Mg Cap, 2 MG PO DAILY for 30 Days, #30 03/10/24 Ergocalciferol (Vitamin D (Ergocalciferol) 50,000 Unit Cap, 1 CAP PO QWEEKLY for 28 Days, #4 03/10/24 Gabapentin (Gabapentin) 300 Mg Cap, 1 CAP PO TID for 30 Days, #90 03/10/24 Lisinopril (Lisinopril) 10 Mg Tab, 1 TAB PO DAILY for 30 Days, #30 03/10/24 Allopurinol (Allopurinol) 100 Mg Tab, 1 TAB PO DAILY for 30 Days, #30 03/10/24 Quetiapine Fumerate (QUETIAPINE FUMARATE) 100 Mg Tab, 25 MG PO DAILY for 30 Days, #30 03/10/24 Pantoprazole Sodium Sesquihydr (Protonix) 40 Mg Tab, 1 TAB PO BID for 30 Days, #60 03/10/24 Bupropion Hcl (Bupropion Hcl Er) 150 Mg Tab, 100 MG PO DAILY for 30 Days, #30 03/10/24 Trazodone Hcl (Trazodone Hcl) 150 Mg Tab, 1 TAB PO QPM for 30 Days, #30 04/13/23 Hydrocodone-Acetaminophen (Hydrocodone Bitartrate/AC 10-325 mg) 1 Tab Tab, 1 TAB PO, TAB 04/13/23 Current Medications Current Medications Medications (Trade) Dose Ordered Sig/Duncan Route PRN Reason Start Time Stop Time Status Last Admin Sodium Chloride 1,000 ml @ 150 mls/hr Q6H40M IV 04/05/24 19:00 04/05/24 20:22 DC 04/05/24 16:17 Insulin Human (Reg)/Sodium Chloride 100 ml @ 0.5 mls/hr Q24H IV 04/05/24 13:00 04/05/24 13:00 Dextrose 50 ml UD PRN IV SEE CURRENT ALGORITHM or SCALE 04/05/24 13:00 Diagnostic Test (Pha) (Accu-Chek Comfort Curve T) 1 strip Q90MIN 04/05/24 13:30 04/06/24 08:29 Hydralazine HCl (Apresoline Injection) 10 mg Q6HP PRN IV SBP>150 04/05/24 19:00 Acetaminophen/ Hydrocodone Bitart ([place] 5/325MG Tab) 1 tab Q4HP PRN PO MODERATE PAIN (4-6 PAIN SCALE) 04/05/24 19:00 Ondansetron HCl (Zofran) 4 mg Q4HP PRN IV NAUSEA / VOMITING 04/05/24 19:00 04/06/24 01:56 Docusate Sodium (Colace Capsule) 100 mg BIDPRN PRN PO FOR CONSTIPATION 04/05/24 19:00 Acetaminophen (Tylenol Tablet) 650 mg Q6HP PRN PO PAIN SCALE 1-3 OR TEMP>100.4 04/05/24 19:00 Morphine Sulfate 2 mg Q6HPRN PRN IV SEVERE PAIN (7-10 PAIN SCALE) 04/05/24 22:00 04/05/24 22:19 Nitroglycerin (Ntrostat Sublingual) 0.4 mg Q5MINP PRN SL FOR CHEST PAIN 04/05/24 23:15 Morphine Sulfate 2 mg Q30M PRN IV FOR CHEST PAIN 04/05/24 23:15 Family History: Hypertension G8 MOTHER Review of Systems All 12 item review of systems reviewed with the patient nonsignificant except what is mentioned in the history of present illness H&P Exam Vital Signs/I&O Vital Sign Date Time Temp Pulse Resp B/P (MAP) Pulse Ox O2 Delivery O2 Flow Rate FiO2 04/06/24 08:00 18 98 Room Air* 0 21 04/06/24 07:00 111 150/96 (114) 04/06/24 06:00 98.0 98.0 Intake and Output 04/05/24 04/06/24 19:00 07:00 Intake Total 2320 ml 1337.5 ml Balance 2320 ml 1337.5 ml Intake IV Total 2320 ml 1337.5 ml Physical Exam Patient is awake alert Lungs clear to auscultation bilaterally Cardiac exam regular rate and rhythm GI soft nontender was normal Extremities no clubbing cyanosis or edema Neuro nonfocal Labs/Diagnostic Data Labs/Diagnostic Data Laboratory Tests Test 04/06/24 08:16 04/06/24 06:53 04/06/24 06:15 04/06/24 05:32 Range/Units POC Glucose 234 H 259 H 237 H 70-106 mg/dl White Blood Count 8.6 # 4.4-10.8 10^3/uL Red Blood Count 5.13 4.5-5.90 10^6/uL Hemoglobin 12.6 L 13.5-17.5 g/dL Hematocrit 38.5 #L 41.0-53.0 % Mean Corpuscular Volume 75.1 #L 80.0-100.0 fL Mean Corpuscular Hemoglobin 24.5 L 28.0-32.0 pg Mean Corpuscular Hemoglobin Concent 32.6 32.0-36.0 g/dL Red Cell Distribution Width 17.9 H 11.8-14.3 % Platelet Count 205 140-450 10^3/uL Mean Platelet Volume 7.2 6.9-10.8 fL Neutrophils (%) (Auto) 79.5 37.0-80.0 % Lymphocytes (%) (Auto) 9.9 L 10.0-50.0 % Monocytes (%) (Auto) 10.2 0.0-12.0 % Eosinophils (%) (Auto) 0.1 0.0-7.0 % Basophils (%) (Auto) 0.3 0.0-2.0 % Neutrophils # (Auto) 6.9 1.6-8.6 10 ^3/uL Lymphocytes # (Auto) 0.9 0.4-5.4 10 ^3/uL Monocytes # (Auto) 0.9 0-1.3 10 ^3/uL Eosinophils # (Auto) 0 0-0.8 10 ^3/uL Basophils # (Auto) 0 0-0.2 10 ^3/uL Nucleated Red Blood Cells 0.1 % Sodium Level 142 136-145 mmol/L Potassium Level 3.7 3.5-5.1 mmol/L Chloride Level 106 98-107 mmol/L Carbon Dioxide Level 18 L 20-31 mmol/L Anion Gap 18 H 5-15 Blood Urea Nitrogen 29 H 9-23 mg/dL Creatinine 1.45 H 0.700-1.30 mg/dL Glomerular Filtration Rate Calc 69 >90 mL/min BUN/Creatinine Ratio 20.0 10.0-20.0 Serum Glucose 267 H 74-106 mg/dL Calcium Level 8.6 L 8.7-10.4 mg/dL Total Bilirubin 0.2 0.2-1.0 mg/dL Aspartate Amino Transferase (AST) < 8 L 13-40 U/L Alanine Aminotransferase (ALT) 41 H 7-40 U/L Alkaline Phosphatase 138 H 46-116 U/L Total Protein 6.4 5.7-8.2 g/dL Albumin 4.0 3.2-4.8 g/dL Test 04/06/24 04:06 04/06/24 02:27 04/06/24 00:58 04/06/24 00:52 Range/Units POC Glucose 229 H 243 H 213 H 70-106 mg/dl Sodium Level 141 # 136-145 mmol/L Potassium Level 3.9 3.5-5.1 mmol/L Chloride Level 105 98-107 mmol/L Carbon Dioxide Level 17 L 20-31 mmol/L Anion Gap 19 H 5-15 Blood Urea Nitrogen 32 H 9-23 mg/dL Creatinine 1.48 H 0.700-1.30 mg/dL Glomerular Filtration Rate Calc 68 >90 mL/min BUN/Creatinine Ratio 21.6 H 10.0-20.0 Serum Glucose 244 #H 74-106 mg/dL Calcium Level 8.5 L 8.7-10.4 mg/dL Test 04/05/24 23:35 04/05/24 21:57 04/05/24 21:48 04/05/24 20:26 Range/Units POC Glucose 242 H 257 H 275 H 70-106 mg/dl Blood Gas Specimen Type Arterial Blood Gas Sample Site Left radial Blood Gas Patient Temperature 37.0 Arterial Blood Date Drawn [id number] Arterial Blood pH 7.406 7.350-7.450 Arterial Blood Partial Pressure CO2 19.8 *L 35.0-48.0 mmHg Arterial Blood Partial Pressure O2 96.5 83.0-108.0 mmHg Arterial Blood HCO3 12.2 L 21.0-28.0 mmol/L Arterial Blood Oxygen Saturation 97.3 94.0-98.0 % Arterial Blood Base Excess -10.2 L -2.0-3.0 mmol/L Arterial Blood Oxyhemoglobin 96.5 94.0-98.0 % Arterial Blood Carboxyhemoglobin 0.3 L 0.5-1.5 % Arterial Blood Methemoglobin 0.5 0.0-1.5 % Jabari Test Modified Blood Gas Total Hemoglobin 12.80 L 13.5-17.5 g/dL Blood Gas Modality Room air FiO2 % 21.0 Blood Gas Critical Value Read Back Yes Blood Gas Notified Whom Edgardo paul np Blood Gas Notified Time [id number] Blood Gas Notified By Letty kurtz rrt Test 04/05/24 19:58 04/05/24 19:16 04/05/24 18:33 04/05/24 17:04 Range/Units POC Glucose 291 H 386 H 570 *H 70-106 mg/dl Sodium Level 134 #L 136-145 mmol/L Potassium Level 4.1 3.5-5.1 mmol/L Chloride Level 97 #L 98-107 mmol/L Carbon Dioxide Level < 10 *L 20-31 mmol/L Anion Gap 27.79174 H 5-15 Blood Urea Nitrogen 34 H 9-23 mg/dL Creatinine 1.77 H 0.700-1.30 mg/dL Glomerular Filtration Rate Calc 55 >90 mL/min BUN/Creatinine Ratio 19.2 10.0-20.0 Serum Glucose 385 #H 74-106 mg/dL Serum Osmolality 330 H 278-298 mOsm/kg Calcium Level 8.2 L 8.7-10.4 mg/dL Test 04/05/24 15:00 04/05/24 14:52 04/05/24 13:08 04/05/24 13:06 Range/Units Urine Color Light-yellow Yellow Urine Clarity Clear Clear Urine pH 5.0 5.0-9.0 Urine Specific [place] 1.022 1.001-1.035 Urine Protein Trace H Negative Urine Ketones 3+ H Negative Urine Blood 1+ H Negative /uL Urine Nitrite Negative Negative Urine Bilirubin Negative Negative Urine Urobilinogen Normal Negative mg/dL Urine Leukocyte Esterase Negative Negative /uL Urine RBC 1 0 - 3 /hpf Urine Microscopic WBC < 1 0-3 /HPF Urine Squamous Epithelial Cells Few <5 /hpf Urine Bacteria None seen None Seen /hpf Urine Hyaline Casts Few 0 - 2 /lpf Urine Yeast (Budding) Occasional None Seen /hpf Urine Glucose 4+ H Normal mg/dL Urine Opiates Screen Neg NEGATIVE Urine Fentanyl Screen Neg NEGATIVE Urine Barbiturates Screen Neg NEGATIVE Urine Phencyclidine Screen Neg NEGATIVE Urine Amphetamines Screen Neg NEGATIVE Urine Benzodiazepines Screen Neg NEGATIVE Urine Cocaine Screen Neg NEGATIVE Urine Cannabinoids Screen Neg NEGATIVE POC Glucose > 600 *H 70-106 mg/dl White Blood Count 12.6 H 4.4-10.8 10^3/uL Red Blood Count 5.49 4.5-5.90 10^6/uL Hemoglobin 13.4 L 13.5-17.5 g/dL Hematocrit 45.1 41.0-53.0 % Mean Corpuscular Volume 82.1 80.0-100.0 fL Mean Corpuscular Hemoglobin 24.5 L 28.0-32.0 pg Mean Corpuscular Hemoglobin Concent 29.8 L 32.0-36.0 g/dL Red Cell Distribution Width 18.2 H 11.8-14.3 % Platelet Count 208 140-450 10^3/uL Mean Platelet Volume 8.5 6.9-10.8 fL Neutrophils (%) (Auto) 82.1 H 37.0-80.0 % Lymphocytes (%) (Auto) 13.3 10.0-50.0 % Monocytes (%) (Auto) 1.3 0.0-12.0 % Eosinophils (%) (Auto) 0.3 0.0-7.0 % Basophils (%) (Auto) 3.0 H 0.0-2.0 % Neutrophils # (Auto) 10.3 H 1.6-8.6 10 ^3/uL Lymphocytes # (Auto) 1.7 0.4-5.4 10 ^3/uL Monocytes # (Auto) 0.2 0-1.3 10 ^3/uL Eosinophils # (Auto) 0 0-0.8 10 ^3/uL Basophils # (Auto) 0.4 H 0-0.2 10 ^3/uL Nucleated Red Blood Cells 0.3 % Platelet Estimate Adequate Hypochromasia (manual) Slight Anisocytosis (manual) Slight Sodium Level 121 L 136-145 mmol/L Potassium Level 5.1 3.5-5.1 mmol/L Chloride Level 82 L 98-107 mmol/L Carbon Dioxide Level < 10 *L 20-31 mmol/L Anion Gap 29.59722 H 5-15 Blood Urea Nitrogen 39 H 9-23 mg/dL Creatinine 2.36 H 0.700-1.30 mg/dL Glomerular Filtration Rate Calc 39 >90 mL/min BUN/Creatinine Ratio 16.5 10.0-20.0 Serum Glucose 945 *H 74-106 mg/dL Calcium Level 8.3 L 8.7-10.4 mg/dL Phosphorus Level 10.5 H 2.4-5.1 mg/dL Magnesium Level 2.8 H 1.6-2.6 mg/dL Total Bilirubin 0.2 0.2-1.0 mg/dL Aspartate Amino Transferase (AST) 52 H 13-40 U/L Alanine Aminotransferase (ALT) 56 H 7-40 U/L Alkaline Phosphatase 194 H 46-116 U/L Total Protein 7.4 5.7-8.2 g/dL Albumin 4.6 3.2-4.8 g/dL Beta-Hydroxybutyric Acid > 4.500 H < 0.4 mmol/L Blood Gas Specimen Type Venous Blood Gas Sample Site Vbg - n/a Blood Gas Patient Temperature 37.0 Arterial Blood Date Drawn [id number] Jabari Test Yes Venous Blood pH 6.943 *L 7.320-7.430 Venous Blood pCO2 at Patient Temp 22.4 L 38.0-54.0 mmHg Venous Blood pO2 at Patient Temp 66.1 H 23.0-48.0 mmHg Venous Blood HCO3 4.7 L 22.0-29.0 mmol/L Venous Blood Base Excess -26.4 L -2.0-3.0 mmol/L Blood Gas Modality Room air FiO2 % 21.0 Blood Gas Critical Value Read Back Yes Blood Gas Notified Whom Dr. felix lantigua Blood Gas Notified Time [id number] Blood Gas Notified By Test 04/05/24 11:35 04/05/24 11:32 Range/Units POC Glucose > 600 *H > 600 *H 70-106 mg/dl Assessment Acute kidney injury superimposed Chronic Kidney Disease secondary hemodynamic mediated Diabetic ketoacidosis Uncontrolled diabetes mellitus Hyperglycemia Hypertension Proteinuria due to diabetic nephropathy Hyponatremia dilutional Recommendations Closely monitor fluid and electrolytes Avoid nephrotoxic medications Strict I&Os I agree with IV fluid hydration Insulin sliding scale Blood pressure control Check urine protein excretion We will continue to follow Patient seen and examined by myself in the ER. I discussed my plan of care with the patient and the primary care at the bedside I would like to thank Pierce for the consult, will follow up Plan discussed with: Patient JOSE MENJIVAR MD Apr 06, 2024 09:13
[2024-04-06 09:41] LABS: Magnesium 2.2 mg/dL (1.6-2.6)
[2024-04-06 09:44] LABS: Phosphorus 1.8 mg/dL (2.4-5.1)
[2024-04-06] MEDS: HYDROcodone-ACET 5/325MG TAB PO PRN (09:53)
[2024-04-06 15:28] LABS: Sodium Urine < 10 mmol/L (40-220)
[2024-04-06 15:31] LABS: Protein, Urine 137.1 mg/dL (1-14)
[2024-04-06 15:33] LABS: Creatinine, Urine 155.88 mg/dL (30.0-125.0); Urine Protein/Creatinine Ratio 0.88
[2024-04-06 18:54] LABS: Chloride 105 mmol/L (98-107); Potassium 3.5 mmol/L (3.5-5.1); Sodium 140 mmol/L (136-145)
[2024-04-06 18:55] LABS: Calcium 8.8 mg/dL (8.7-10.4)
[2024-04-06 19:00] LABS: BUN/Creatinine Ratio 17.2 (10.0-20.0); Blood Urea Nitrogen 21 mg/dL (9-23)
[2024-04-06 19:01] LABS: Glucose 147 mg/dL (74-106)
[2024-04-06 19:03] LABS: Anion Gap 10 (5-15); Carbon Dioxide 25 mmol/L (20-31)
[2024-04-06] MEDS: ACETAMINOPHEN 325 MG TAB PO PRN (20:08)
[2024-04-06] MEDS ORDERED: DEXTROSE (50%) 50ML SYRG IV PRN (22:30)
[2024-04-06] MEDS: ACCU-CHEK COMFORT CURVE STRIP VI SCH (23:55)
[2024-04-06] MEDS: InsuLIN REG 1unit/0.01ml Soln (100units/ml) SC SCH (23:58)
--- NOTE | 2024-04-07 07:39 | DVH ---
EXAM: XR Chest, 1 View CLINICAL INDICATION: diagnostics TECHNIQUE: Frontal view of the chest. COMPARISON: XY CHEST PORTABLE on DOS: 03/09/24, XY CHEST PORTABLE on DOS: 02/03/24, XY CHEST PORTAB LE on DOS: 12/16/23, XY CHEST PORTABLE on DOS: 12/15/23, XY CHEST XRAY 1 VIEW on DOS: 11/11/23 FINDINGS: LUNGS AND PLEURAL SPACES: Unremarkable. No consolidation. No pneumothorax. HEART: Unremarkable. No cardiomegaly. MEDIASTINUM: Unremarkable. Normal mediastinal contour. BONES/JOINTS: Unremarkable. No acute fracture. OTHER FINDINGS: . . IMPRESSION: No acute cardiopulmonary process.
[2024-04-07 07:55] VITALS: PULSE 93; RESP 14; O2SAT 95
[2024-04-07 10:53] VITALS: BP 145/94; PULSE 100; RESP 18; TEMP 98; O2SAT 98
[2024-04-07 11:07] VITALS: BP 145/94; PULSE 100; RESP 18; TEMP 98; O2SAT 98
[2024-04-07 12:29] VITALS: BP 118/78; PULSE 97; RESP 18; TEMP 98.1; O2SAT 98
[2024-04-07] MEDS: cefTRIAXone 1GM/50ML D5W 50 ML IV SCH (15:47)
--- NOTE | 2024-04-07 16:11 | DVHPN2 ---
Subjective Patient reporting cough, general ill feeling. Reviewed: Care Plan, H&P, Labs Changes from previous H/P or p: No Changes General: Per HPI Eyes: No Pain, No Vision change, No Conjunctivae inflammation, No Eyelid inflammation, No Other, No Redness ENT: No Ear pain, No Ear discharge, No Nose pain, No Nose discharge, No Nose congestion, No Mouth pain, No Mouth swelling, No Throat pain, No Throat swelling, No Other Cardiovascular: No Chest Pain, No Palpitations, No Orthopnea, No Paroxysmal Noc. Dyspnea, No Edema, No Lt Headedness, No Other Respiratory: No Cough, No Dry, No Shortness of breath, No SOB with excertion, No Wheezing, No Hemoptysis, No Pleuritic Pain, No Sputum, No Other Gastrointestinal: No Nausea, No Vomiting, No Abdominal Pain, No Diarrhea, No Constipation, No Melena, No Hematochezia, No Other Genitourinary: No Dysuria, No Frequency, No Incontinence, No Hematuria, No Retention, No Other Musculoskeletal: No other, No neck pain, No shoulder pain, No arm pain, No back pain, No hand pain, No leg pain, No foot pain Skin: No Rash, No Lesions, No Jaundice, No Bruising, No Other Objective Vitals Vital Signs Date Time Temp Pulse Resp B/P (MAP) Pulse Ox O2 Delivery O2 Flow Rate FiO2 04/07/24 14:07 105 13 131/91 04/07/24 12:29 98.1 98 98.1 04/07/24 07:55 Room Air* 0 21 Intake/Output Intake and Output 04/07/24 07:00 Intake Total 1231.5 ml Output Total 1750 ml Balance -518.5 ml Intake Oral 1200 ml IV Total 31.5 ml Output Urine Total 1750 ml General Appearance: Alert, Oriented X3, Cooperative, No acute distress HEENT: Atraumatic, PERRLA Neck: Carotid Bruits [place] Lungs: Other (Rhonchi in right upper) Cardiovascular: Normal S1, Normal S2 Abdomen: Normal bowel sounds, Soft, No tenderness Genitourinary: No Apparent Abnormalities Musculoskeletal: Normal sensory function, Normal motor function Extremities: Normal pulses Neuro: Normal speech Skin: Dry, Intact Psych/Mental Status: Mental status NL, Mood NL Medications Current Medications Medications Dose Ordered Sig/Duncan Route Start Time Stop Time Status Last Admin Dose Admin Hydralazine HCl 10 mg Q6HP PRN IV 04/05/24 19:00 Acetaminophen/ Hydrocodone Bitart 1 tab Q4HP PRN PO 04/05/24 19:00 04/07/24 05:45 1 TAB Ondansetron HCl 4 mg Q4HP PRN IV 04/05/24 19:00 04/07/24 07:12 4 MG Docusate Sodium 100 mg BIDPRN PRN PO 04/05/24 19:00 Acetaminophen 650 mg Q6HP PRN PO 04/05/24 19:00 04/06/24 20:08 650 MG Morphine Sulfate 2 mg Q6HPRN PRN IV 04/05/24 22:00 04/07/24 13:37 2 MG Nitroglycerin 0.4 mg Q5MINP PRN SL 04/05/24 23:15 Morphine Sulfate 2 mg Q30M PRN IV 04/05/24 23:15 Diagnostic Test (Pha) 1 strip IQ4HR 04/07/24 00:00 04/07/24 15:45 1 STRIP Insulin Human Regular IQ4HR SC 04/07/24 00:00 04/07/24 15:47 9 UNITS Dextrose 50 ml UD PRN IV 04/06/24 22:30 Doxycycline Hyclate 100 ml @ 50 mls/hr Q12H IV 04/07/24 16:00 Guaifenesin/ Dextromethorphan 10 ml Q4HP PRN PO 04/07/24 15:15 Ceftriaxone Sodium 50 ml @ 100 mls/hr DAILY@09 IV 04/07/24 15:15 04/07/24 15:47 100 MLS/HR Enteral Nutritional Formula 240 ml TIDWM PO 04/07/24 18:00 Laboratory Results Laboratory Tests 04/06/24 06:15 04/06/24 18:34 Chemistry Test 04/06/24 18:34 Calcium Level 8.8 mg/dL (8.7-10.4) Urinalysis Test 04/05/24 15:00 04/06/24 15:10 Urine Color Light-yellow (Yellow) Urine Clarity Clear (Clear) Urine pH 5.0 (5.0-9.0) Urine Specific [place] 1.022 (1.001-1.035) Urine Protein Trace (Negative) H Urine Ketones 3+ (Negative) H Urine Blood 1+ /uL (Negative) H Urine Nitrite Negative (Negative) Urine Bilirubin Negative (Negative) Urine Urobilinogen Normal mg/dL (Negative) Urine Leukocyte Esterase Negative /uL (Negative) Urine RBC 1 /hpf (0 - 3) Urine Microscopic WBC < 1 /HPF (0-3) Urine Squamous Epithelial Cells Few /hpf (<5) Urine Bacteria None seen /hpf (None Seen) Urine Hyaline Casts Few /lpf (0 - 2) Urine Yeast (Budding) Occasional /hpf (None Urine Glucose 4+ mg/dL (Normal) H Urine Creatinine 155.88 mg/dL (30.0-125.0) H Urine Protein/Creatinine Ratio 0.88 Urine Sodium < 10 mmol/L (40-220) L Urine Total Protein 137.1 mg/dL (1-14) H Labs and/or images reviewed: Labs reviewed by me, Image(s) reviewed by me Assessment/Plan Assessment/Plan Impression: -rule out community-acquired pneumonia -leukocytosis, rule out sepsis -diabetic ketoacidosis -acute kidney injury, probable vasomotor nephropathy -history of amphetamine use Plan: -start antibiotic therapy with doxycycline and Rocephin -check influenza a/B, COVID-19 -continue regular insulin sliding scale -continue Lantus -repeat labs and chest x-ray in a.m. Total time spent with patient discussing and formulating plan of care: 35 minutes. This medical document was created using an electronic medical record system with [employer] dictation system. Although this document has been carefully reviewed, there may still be some phonetic and typographical errors. These areas are purely typographical due to imperfections of the software programs, and do not reflect any compromise in the patient's medical care. Plan discussed with: Patient, Other (RN) My Orders Orders - YONATHAN KINGSLEY INSURANCE CLAIM REPRESENTATIVE Procedure Category Date Status Time Rapid Influenza A&B LAB 04/07/24 Logged 15:01 Covid19 Antigen Donna LAB 04/07/24 Logged Doxycycline PHA 04/07/24 In Process 100mg/100ml 16:00 Guaifenesin-Dextromet PHA 04/07/24 In Process Liquid (Robitussin 15:15 Ceftriaxone 1gm/50ml PHA 04/07/24 In Process D5w (Rocephin) 15:15 Consistent DIET 04/07/24 Transmitted Carb(Ccho)Diabetes Dinner Nutritional PHA 04/07/24 In Process Supplements (Glucerna 18:00 Respiratory Culture MICHELLE 04/07/24 Logged W/ Gs 15:05 Date of Service: Apr 07, 2024 Billing Provider: YONATHAN KINGSLEY NP Common Visit Codes: [id number] INP/OBS CARE(HIGH) YONATHAN KINGSLEY NP Apr 07, 2024 16:10
[2024-04-07] MEDS: DOXYCYCLINE 100MG/100ML 100 ML IV SCH (16:14)
[2024-04-07 16:29] VITALS: BP 130/91; PULSE 95; RESP 13; TEMP 98; O2SAT 98
[2024-04-07] MEDS: guaiFENesin-DM 100/10mg/5ml SYR PO PRN (16:29)
--- NOTE | 2024-04-07 16:35 | DVHPN2 ---
Progress Note Date Seen: Apr 07, 2024 Has the PT tested + for MRSA If YES, has PT been informed?: No Medical Necessity Reason Pt with a Central, PICC or Fol: Yes The following are medically ne: Lubin Catheter Objective vital signs Vital Sign Date Time Temp Pulse Resp B/P (MAP) Pulse Ox O2 Delivery O2 Flow Rate FiO2 04/07/24 16:29 98.0 95 13 130/91 (104) 98 98.0 04/07/24 07:55 Room Air* 0 21 Total Intake and Output 04/06/24 04/06/24 04/07/24 15:00 23:00 07:00 Intake Total 23.5 ml 8.0 ml 1200 ml Output Total 1000 ml 750 ml Balance 23.5 ml -992.0 ml 450 ml medications Current Medications Medications Dose Ordered Sig/Duncan Route Start Time Stop Time Status Last Admin Dose Admin Hydralazine HCl 10 mg Q6HP PRN IV 04/05/24 19:00 Acetaminophen/ Hydrocodone Bitart 1 tab Q4HP PRN PO 04/05/24 19:00 04/07/24 05:45 1 TAB Ondansetron HCl 4 mg Q4HP PRN IV 04/05/24 19:00 04/07/24 07:12 4 MG Docusate Sodium 100 mg BIDPRN PRN PO 04/05/24 19:00 Acetaminophen 650 mg Q6HP PRN PO 04/05/24 19:00 04/06/24 20:08 650 MG Morphine Sulfate 2 mg Q6HPRN PRN IV 04/05/24 22:00 04/07/24 13:37 2 MG Nitroglycerin 0.4 mg Q5MINP PRN SL 04/05/24 23:15 Morphine Sulfate 2 mg Q30M PRN IV 04/05/24 23:15 Diagnostic Test (Pha) 1 strip IQ4HR 04/07/24 00:00 04/07/24 15:45 1 STRIP Insulin Human Regular IQ4HR SC 04/07/24 00:00 04/07/24 15:47 9 UNITS Dextrose 50 ml UD PRN IV 04/06/24 22:30 Doxycycline Hyclate 100 ml @ 50 mls/hr Q12H IV 04/07/24 16:00 04/07/24 16:14 50 MLS/HR Guaifenesin/ Dextromethorphan 10 ml Q4HP PRN PO 04/07/24 15:15 04/07/24 16:29 10 ML Ceftriaxone Sodium 50 ml @ 100 mls/hr DAILY@09 IV 04/07/24 15:15 04/07/24 15:47 100 MLS/HR Enteral Nutritional Formula 240 ml TIDWM PO 04/07/24 18:00 Examination: GENERAL:Normal, LUNGS:Normal, CVS:Normal, ABDOMEN:Normal laboratory and microbiology Laboratory Tests 04/06/24 18:34 04/06/24 06:15 Test 04/06/24 18:34 Range/Units Serum Glucose 147 #H 74-106 mg/dL Problem List/Assessment/Plan Problem List/Assessment/Plan Acute kidney injury superimposed Chronic Kidney Disease secondary hemodynamic mediated Diabetic ketoacidosis Uncontrolled diabetes mellitus Hyperglycemia Hypertension 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
[2024-04-07 17:42] LABS: Rapid Influenza A Negative (Negative); Rapid Influenza B Negative (Negative)
[2024-04-07 17:43] LABS: COVID19 ANTIGEN SOFIA FIA NEGATIVE (NEGATIVE)
[2024-04-07] MEDS: Glucerna Carbsteady SHAKE Vanilla 8oz PO SCH (18:00)
[2024-04-08] VITALS (9 sets, daily range): BP systolic 122–161; BP diastolic 63–127; PULSE 78–95; RESP 18–20; TEMP 97.3–99.1; O2SAT 98–99
[2024-04-08 08:40] LABS: Anion Gap 7 (5-15); Carbon Dioxide 28 mmol/L (20-31); Chloride 101 mmol/L (98-107)
[2024-04-08 08:41] LABS: Calcium 9.2 mg/dL (8.7-10.4)
[2024-04-08 08:45] LABS: Sodium 136 mmol/L (136-145)
[2024-04-08 08:46] LABS: Blood Urea Nitrogen 13 mg/dL (9-23)
[2024-04-08 08:54] LABS: Glucose 265 mg/dL (74-106)
--- NOTE | 2024-04-08 10:00 | DVHPN2 ---
Progress Note Date Seen: Apr 08, 2024 Has the PT tested + for MRSA If YES, has PT been informed?: No Medical Necessity Reason Pt with a Central, PICC or Fol: Yes The following are medically ne: Lubin Catheter Objective vital signs Vital Sign Date Time Temp Pulse Resp B/P (MAP) Pulse Ox O2 Delivery O2 Flow Rate FiO2 04/08/24 09:00 97.3 95 20 161/127 (138) 98 97.3 04/07/24 07:55 Room Air* 0 21 Total Intake and Output 04/07/24 04/07/24 04/08/24 15:00 23:00 07:00 Intake Total 720 ml 630 ml 580 ml Output Total 450 ml 810 ml Balance 270 ml -180 ml 580 ml medications Current Medications Medications Dose Ordered Sig/Duncan Route Start Time Stop Time Status Last Admin Dose Admin Hydralazine HCl 10 mg Q6HP PRN IV 04/05/24 19:00 Acetaminophen/ Hydrocodone Bitart 1 tab Q4HP PRN PO 04/05/24 19:00 04/08/24 09:01 1 TAB Ondansetron HCl 4 mg Q4HP PRN IV 04/05/24 19:00 04/07/24 07:12 4 MG Docusate Sodium 100 mg BIDPRN PRN PO 04/05/24 19:00 Acetaminophen 650 mg Q6HP PRN PO 04/05/24 19:00 04/06/24 20:08 650 MG Morphine Sulfate 2 mg Q6HPRN PRN IV 04/05/24 22:00 04/08/24 02:50 2 MG Nitroglycerin 0.4 mg Q5MINP PRN SL 04/05/24 23:15 Morphine Sulfate 2 mg Q30M PRN IV 04/05/24 23:15 Diagnostic Test (Pha) 1 strip IQ4HR 04/07/24 00:00 04/08/24 08:54 1 STRIP Insulin Human Regular IQ4HR SC 04/07/24 00:00 04/08/24 09:00 12 UNITS Dextrose 50 ml UD PRN IV 04/06/24 22:30 Doxycycline Hyclate 100 ml @ 50 mls/hr Q12H IV 04/07/24 16:00 04/08/24 04:28 50 MLS/HR Guaifenesin/ Dextromethorphan 10 ml Q4HP PRN PO 04/07/24 15:15 04/07/24 22:56 10 ML Ceftriaxone Sodium 50 ml @ 100 mls/hr DAILY@09 IV 04/07/24 15:15 04/08/24 08:54 100 MLS/HR Enteral Nutritional Formula 240 ml TIDWM PO 04/07/24 18:00 04/08/24 08:54 240 ML Examination: GENERAL:Normal, CVS:Normal, ABDOMEN:Normal laboratory and microbiology Laboratory Tests 04/08/24 07:38 04/06/24 06:15 Test 04/08/24 07:38 Range/Units Serum Glucose 265 #H 74-106 mg/dL Problem List/Assessment/Plan Problem List/Assessment/Plan Acute kidney injury superimposed Chronic Kidney Disease secondary hemodynamic mediated Diabetic ketoacidosis Uncontrolled diabetes mellitus Hyperglycemia Hypertension 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
[2024-04-08] MEDS ORDERED: VANCOMYCIN PER PHARMACY 0 MG IV SCH (12:45)
[2024-04-08] MEDS: SODIUM CHLORIDE 0.9% 1,000 ML IV SCH (13:19)
[2024-04-08] MEDS: VANCOMYCIN 1.5GM/300ML 300 ML IV ONE (13:49)
--- NOTE | 2024-04-08 13:57 | DVHPN2 ---
Subjective Patient reporting cough, general ill feeling. Reviewed: Care Plan, H&P, Labs Changes from previous H/P or p: No Changes General: Per HPI Eyes: No Pain, No Vision change, No Conjunctivae inflammation, No Eyelid inflammation, No Other, No Redness ENT: No Ear pain, No Ear discharge, No Nose pain, No Nose discharge, No Nose congestion, No Mouth pain, No Mouth swelling, No Throat pain, No Throat swelling, No Other Cardiovascular: No Chest Pain, No Palpitations, No Orthopnea, No Paroxysmal Noc. Dyspnea, No Edema, No Lt Headedness, No Other Respiratory: No Cough, No Dry, No Shortness of breath, No SOB with excertion, No Wheezing, No Hemoptysis, No Pleuritic Pain, No Sputum, No Other Gastrointestinal: No Nausea, No Vomiting, No Abdominal Pain, No Diarrhea, No Constipation, No Melena, No Hematochezia, No Other Genitourinary: No Dysuria, No Frequency, No Incontinence, No Hematuria, No Retention, No Other Musculoskeletal: No other, No neck pain, No shoulder pain, No arm pain, No back pain, No hand pain, No leg pain, No foot pain Skin: No Rash, No Lesions, No Jaundice, No Bruising, No Other Objective Vitals Vital Signs Date Time Temp Pulse Resp B/P (MAP) Pulse Ox O2 Delivery O2 Flow Rate FiO2 04/08/24 13:17 89 18 124/82 04/08/24 11:52 98 Room Air* 0 21 04/08/24 09:00 97.3 97.3 Intake/Output Intake and Output 04/08/24 07:00 Intake Total 1930 ml Output Total 1260 ml Balance 670 ml Intake Oral 1680 ml IV Total 250 ml Output Urine Total 1260 ml General Appearance: Alert, Oriented X3, Cooperative, No acute distress HEENT: Atraumatic, PERRLA Neck: Carotid Bruits [place] Lungs: Other Cardiovascular: Normal S1, Normal S2 Abdomen: Normal bowel sounds, Soft, No tenderness Genitourinary: No Apparent Abnormalities Musculoskeletal: Normal sensory function, Normal motor function Extremities: Normal pulses Neuro: Normal speech Skin: Dry, Intact Psych/Mental Status: Mental status NL, Mood NL Medications Current Medications Medications Dose Ordered Sig/Duncan Route Start Time Stop Time Status Last Admin Dose Admin Hydralazine HCl 10 mg Q6HP PRN IV 04/05/24 19:00 Acetaminophen/ Hydrocodone Bitart 1 tab Q4HP PRN PO 04/05/24 19:00 04/08/24 09:01 1 TAB Ondansetron HCl 4 mg Q4HP PRN IV 04/05/24 19:00 04/07/24 07:12 4 MG Docusate Sodium 100 mg BIDPRN PRN PO 04/05/24 19:00 Acetaminophen 650 mg Q6HP PRN PO 04/05/24 19:00 04/06/24 20:08 650 MG Morphine Sulfate 2 mg Q6HPRN PRN IV 04/05/24 22:00 04/08/24 13:17 2 MG Nitroglycerin 0.4 mg Q5MINP PRN SL 04/05/24 23:15 Morphine Sulfate 2 mg Q30M PRN IV 04/05/24 23:15 Diagnostic Test (Pha) 1 strip IQ4HR 04/07/24 00:00 04/08/24 12:22 1 STRIP Insulin Human Regular IQ4HR SC 04/07/24 00:00 04/08/24 12:57 6 UNITS Dextrose 50 ml UD PRN IV 04/06/24 22:30 Guaifenesin/ Dextromethorphan 10 ml Q4HP PRN PO 04/07/24 15:15 04/07/24 22:56 10 ML Ceftriaxone Sodium 50 ml @ 100 mls/hr DAILY@09 IV 04/07/24 15:15 04/08/24 08:54 100 MLS/HR Enteral Nutritional Formula 240 ml TIDWM PO 04/07/24 18:00 04/08/24 13:20 240 ML Insulin Glargine 15 units HS SC 04/08/24 22:00 Vancomycin HCl 0 ml @ 0 mls/hr UD IV 04/08/24 12:45 Sodium Chloride 1,000 ml @ 100 mls/hr Q10H IV 04/08/24 12:45 04/08/24 13:19 100 MLS/HR Laboratory Results Laboratory Tests 04/06/24 06:15 04/08/24 07:38 Chemistry Test 04/08/24 07:38 Calcium Level 9.2 mg/dL (8.7-10.4) Urinalysis Test 04/05/24 15:00 04/06/24 15:10 Urine Color Light-yellow (Yellow) Urine Clarity Clear (Clear) Urine pH 5.0 (5.0-9.0) Urine Specific [place] 1.022 (1.001-1.035) Urine Protein Trace (Negative) H Urine Ketones 3+ (Negative) H Urine Blood 1+ /uL (Negative) H Urine Nitrite Negative (Negative) Urine Bilirubin Negative (Negative) Urine Urobilinogen Normal mg/dL (Negative) Urine Leukocyte Esterase Negative /uL (Negative) Urine RBC 1 /hpf (0 - 3) Urine Microscopic WBC < 1 /HPF (0-3) Urine Squamous Epithelial Cells Few /hpf (<5) Urine Bacteria None seen /hpf (None Seen) Urine Hyaline Casts Few /lpf (0 - 2) Urine Yeast (Budding) Occasional /hpf (None Urine Glucose 4+ mg/dL (Normal) H Urine Creatinine 155.88 mg/dL (30.0-125.0) H Urine Protein/Creatinine Ratio 0.88 Urine Sodium < 10 mmol/L (40-220) L Urine Total Protein 137.1 mg/dL (1-14) H Microbiology Microbiology Date/Time Source Procedure Growth Status 04/07/24 16:15 Sputum Gram Stain - Final Resulted 04/07/24 16:15 Sputum Respiratory Culture - Preliminary Resulted 04/07/24 10:55 Nose MRSA Screen - Final Methicillin Resistant S.aureus Complete Labs and/or images reviewed: Labs reviewed by me, Image(s) reviewed by me Assessment/Plan Assessment/Plan Impression: -rule out community-acquired pneumonia -leukocytosis, rule out sepsis -diabetic ketoacidosis -acute kidney injury, probable vasomotor nephropathy -history of amphetamine use Plan: -events: Patient was Staph aureus preliminary on sputum culture. -continue Rocephin, stop doxycycline and add vancomycin -restart home medications for anxiety -add Protonix and Carafate -continue regular insulin sliding scale -continue Lantus -repeat labs and chest x-ray in a.m. Total time spent with patient discussing and formulating plan of care: 35 minutes. This medical document was created using an electronic medical record system with [employer] system. Although this document has been carefully reviewed, there may still be some phonetic and typographical errors. These areas are purely typographical due to imperfections of the software programs, and do not reflect any compromise in the patient's medical care. Plan discussed with: Patient, Other (RN) My Orders Orders - YONATHAN KINGSLEY NP Procedure Category Date Status Time Guaifenesin-Dextromet PHA 04/07/24 In Process Liquid (Robitussin 15:15 Ceftriaxone 1gm/50ml PHA 04/07/24 In Process D5w (Rocephin) 15:15 Consistent DIET 04/07/24 Transmitted Carb(Ccho)Diabetes Dinner Nutritional PHA 04/07/24 In Process Supplements (Glucerna 18:00 Respiratory Culture MICHELLE 04/07/24 In Process W/ Gs 15:05 Insulin Lantus PHA 04/08/24 In Process (Glargine) (Lantus) 22:00 Vancomycin Per PHA 04/08/24 In Process Pharmacy 12:45 Sodium Chloride 0.9% PHA 04/08/24 In Process 12:45 Basic Metabolic Panel LAB 04/09/24 Verified 04:00 Complete Blood Count LAB 04/09/24 Verified 04:00 Vancomycin 1.5gm/300ml PHA 04/08/24 In Process 13:00 Vancomycin,Random LAB 04/09/24 Verified 04:00 Pantoprazole Tablet PHA 04/08/24 Verified (Protonix Tablet) 22:00 Quetiapine Fumarate PHA 04/09/24 Verified Tablet (Seroquel Tab 10:00 (Nf) Buspirone Hcl PHA 04/09/24 Verified 10:00 Sucralfate Susp PHA 04/08/24 Verified (Carafate Susp) 22:00 Date of Service: Apr 08, 2024 Billing Provider: YONATHAN KINGSLEY NP Common Visit Codes: [id number] INP/OBS CARE(HIGH) YONATHAN KINGSLEY NP Apr 08, 2024 13:57
[2024-04-08] MEDS: PANTOPRAZOLE 40 MG TAB PO SCH (21:20)
[2024-04-08] MEDS: SUCRALFATE 1 GM/10 ML ORAL SUSP GT SCH (21:21)
[2024-04-08] MEDS: INSULIN LANTUS (GLARGINE) 1 /0.01ml (100units/ml) SC SCH (21:23)
[2024-04-09] VITALS (8 sets, daily range): BP systolic 136–154; BP diastolic 94–119; PULSE 81–96; RESP 12–20; TEMP 97.3–98; O2SAT 99–100
--- NOTE | 2024-04-09 05:18 | DVH ---
CHEST RADIOGRAPH Indication: pna Technique: Single frontal view of the chest was obtained COMPARISON: XY CHEST XRAY 1 VIEW on DOS: 04/07/24, XY CHEST PORTABLE on DOS: 03/09/24, XY CHEST PORTAB LE on DOS: 02/03/24, XY CHEST PORTABLE on DOS: 12/16/23, XY CHEST PORTABLE on DOS: 12/15/23 FINDINGS: Lines and Tubes: None Lungs: Diffuse increased interstitial prominence, possibly viral pneumonitis or congestion. Pleura: No effusion. No pneumothorax. Cardiomediastinal contours: Unremarkable Bones: Unremarkable IMPRESSION: No significant interval change.
[2024-04-09 06:06] LABS: Basophils # (auto) 0 10 ^3/uL (0-0.2); Basophils % (auto) 0.5 % (0.0-2.0); Eosinophils # (auto) 0.1 10 ^3/uL (0-0.8); Eosinophils % (auto) 3.1 % (0.0-7.0); Hematocrit 38.5 % (41.0-53.0); Hemoglobin 12.6 g/dL (13.5-17.5); Lymphocytes # (auto) 1.5 10 ^3/uL (0.4-5.4); Lymphocytes % (auto) 36.6 % (10.0-50.0); Mean Corpuscular Hemoglobin 24.4 pg (28.0-32.0); Mean Corpuscular Hgb Conc. 32.8 g/dL (32.0-36.0); Mean Corpuscular Volume 74.3 fL (80.0-100.0); Monocytes # (auto) 0.3 10 ^3/uL (0-1.3); Monocytes % (auto) 7.3 % (0.0-12.0); Neutrophils # (auto) 2.2 10 ^3/uL (1.6-8.6); Neutrophils % (auto) 52.5 % (37.0-80.0); Nucleated Red Blood Cells % 0.2 %; Platelet Count (auto) 189 10^3/uL (140-450); Red Blood Cells 5.19 10^6/uL (4.5-5.90); Red Cell Distribution Width 18.7 % (11.8-14.3); White Blood Cell 4.1 10^3/uL (4.4-10.8)
[2024-04-09 06:16] LABS: Anion Gap 7 (5-15); Carbon Dioxide 29 mmol/L (20-31); Chloride 100 mmol/L (98-107); Sodium 136 mmol/L (136-145)
[2024-04-09 06:18] LABS: Calcium 9.6 mg/dL (8.7-10.4)
[2024-04-09 06:22] LABS: BUN/Creatinine Ratio 17.5 (10.0-20.0); Blood Urea Nitrogen 14 mg/dL (9-23)
[2024-04-09 06:23] LABS: Glucose 299 mg/dL (74-106)
[2024-04-09] MEDS: QUEtiapine FUMARATE 25 MG TAB PO SCH (10:12)
[2024-04-09] MEDS: busPIRone HCL 10 MG TAB PO SCH (10:12)
[2024-04-09] MEDS: VANCOMYCIN 1GM/250ML KIT 250 ML IV SCH (12:27)
[2024-04-09] MEDS: LISINOPRIL 5 MG TAB PO SCH (12:41)
--- NOTE | 2024-04-09 13:20 | DVHPN2 ---
Subjective Patient reports that his cough and shortness of breath has improved. Reviewed: Care Plan, H&P, Labs Changes from previous H/P or p: Changes General: Per HPI Eyes: No Pain, No Vision change, No Conjunctivae inflammation, No Eyelid inflammation, No Other, No Redness ENT: No Ear pain, No Ear discharge, No Nose pain, No Nose discharge, No Nose congestion, No Mouth pain, No Mouth swelling, No Throat pain, No Throat swelling, No Other Cardiovascular: No Chest Pain, No Palpitations, No Orthopnea, No Paroxysmal Noc. Dyspnea, No Edema, No Lt Headedness, No Other Respiratory: No Cough, No Dry, No Shortness of breath, No SOB with excertion, No Wheezing, No Hemoptysis, No Pleuritic Pain, No Sputum, No Other Gastrointestinal: No Nausea, No Vomiting, No Abdominal Pain, No Diarrhea, No Constipation, No Melena, No Hematochezia, No Other Genitourinary: No Dysuria, No Frequency, No Incontinence, No Hematuria, No Retention, No Other Musculoskeletal: No other, No neck pain, No shoulder pain, No arm pain, No back pain, No hand pain, No leg pain, No foot pain Skin: No Rash, No Lesions, No Jaundice, No Bruising, No Other Objective Vitals Vital Signs Date Time Temp Pulse Resp B/P (MAP) Pulse Ox O2 Delivery O2 Flow Rate FiO2 04/09/24 12:41 156/106 04/09/24 09:00 97.8 92 16 100 97.8 04/09/24 08:00 Room Air* 0 21 Intake/Output Intake and Output 04/09/24 07:00 Intake Total 2125 ml Output Total 5300 ml Balance -3175 ml Intake Oral 1475 ml IV Total 650 ml Output Urine Total 5300 ml # Bowel Movements 1 General Appearance: Alert, Oriented X3, Cooperative, No acute distress HEENT: Atraumatic, PERRLA Neck: Carotid Bruits [place] Lungs: Other Cardiovascular: Normal S1, Normal S2 Abdomen: Normal bowel sounds, Soft, No tenderness Genitourinary: No Apparent Abnormalities Musculoskeletal: Normal sensory function, Normal motor function Extremities: Normal pulses Neuro: Normal speech Skin: Dry, Intact Psych/Mental Status: Mental status NL, Mood NL Medications Current Medications Medications Dose Ordered Sig/Duncan Route Start Time Stop Time Status Last Admin Dose Admin Hydralazine HCl 10 mg Q6HP PRN IV 04/05/24 19:00 Acetaminophen/ Hydrocodone Bitart 1 tab Q4HP PRN PO 04/05/24 19:00 04/08/24 21:21 1 TAB Ondansetron HCl 4 mg Q4HP PRN IV 04/05/24 19:00 04/07/24 07:12 4 MG Docusate Sodium 100 mg BIDPRN PRN PO 04/05/24 19:00 Acetaminophen 650 mg Q6HP PRN PO 04/05/24 19:00 04/06/24 20:08 650 MG Morphine Sulfate 2 mg Q6HPRN PRN IV 04/05/24 22:00 04/09/24 08:45 2 MG Nitroglycerin 0.4 mg Q5MINP PRN SL 04/05/24 23:15 Morphine Sulfate 2 mg Q30M PRN IV 04/05/24 23:15 Diagnostic Test (Pha) 1 strip IQ4HR 04/07/24 00:00 04/09/24 12:26 1 STRIP Insulin Human Regular IQ4HR SC 04/07/24 00:00 04/09/24 12:26 15 UNITS Dextrose 50 ml UD PRN IV 04/06/24 22:30 Guaifenesin/ Dextromethorphan 10 ml Q4HP PRN PO 04/07/24 15:15 04/08/24 21:21 10 ML Enteral Nutritional Formula 240 ml TIDWM PO 04/07/24 18:00 04/09/24 10:14 240 ML Insulin Glargine 15 units HS SC 04/08/24 22:00 04/08/24 21:23 15 UNITS Vancomycin HCl 0 ml @ 0 mls/hr UD IV 04/08/24 12:45 Pantoprazole Sodium 40 mg BID PO 04/08/24 22:00 04/09/24 10:12 40 MG Quetiapine Fumarate 25 mg DAILY PO 04/09/24 10:00 04/09/24 10:12 25 MG Buspirone HCl 5 mg DAILY PO 04/09/24 10:00 04/09/24 10:12 5 MG Sucralfate 1 gm BID@0600,2200 GT 04/08/24 22:00 04/09/24 05:20 1 GM Lisinopril 10 mg DAILY PO 04/09/24 10:15 04/09/24 12:41 10 MG Vancomycin HCl 250 ml @ 250 mls/hr Q8H IV 04/09/24 12:00 04/09/24 12:27 250 MLS/HR Laboratory Results Laboratory Tests 04/09/24 05:12 Chemistry Test 04/09/24 05:12 Calcium Level 9.6 mg/dL (8.7-10.4) Urinalysis Test 04/05/24 15:00 04/06/24 15:10 Urine Color Light-yellow (Yellow) Urine Clarity Clear (Clear) Urine pH 5.0 (5.0-9.0) Urine Specific [place] 1.022 (1.001-1.035) Urine Protein Trace (Negative) H Urine Ketones 3+ (Negative) H Urine Blood 1+ /uL (Negative) H Urine Nitrite Negative (Negative) Urine Bilirubin Negative (Negative) Urine Urobilinogen Normal mg/dL (Negative) Urine Leukocyte Esterase Negative /uL (Negative) Urine RBC 1 /hpf (0 - 3) Urine Microscopic WBC < 1 /HPF (0-3) Urine Squamous Epithelial Cells Few /hpf (<5) Urine Bacteria None seen /hpf (None Seen) Urine Hyaline Casts Few /lpf (0 - 2) Urine Yeast (Budding) Occasional /hpf (None Urine Glucose 4+ mg/dL (Normal) H Urine Creatinine 155.88 mg/dL (30.0-125.0) H Urine Protein/Creatinine Ratio 0.88 Urine Sodium < 10 mmol/L (40-220) L Urine Total Protein 137.1 mg/dL (1-14) H Microbiology Microbiology Date/Time Source Procedure Growth Status 04/07/24 16:15 Sputum Gram Stain - Final Resulted 04/07/24 16:15 Respiratory Culture - Preliminary Methicillin Resistant S.aureus Resulted 04/07/24 10:55 Nose MRSA Screen - Final Methicillin Resistant S.aureus Complete Labs and/or images reviewed: Labs reviewed by me, Image(s) reviewed by me Assessment/Plan Assessment/Plan Impression: -community-acquired pneumonia with MRSA -acute hypoxic respiratory failure -leukocytosis, rule out sepsis -diabetic ketoacidosis -acute kidney injury, probable vasomotor nephropathy -history of amphetamine use Plan: -events: No events overnight. -deescalate antibiotics to vancomycin as sole treatment -antiemetics -restart home medications for anxiety -add Protonix and Carafate -continue regular insulin sliding scale -continue Lantus -repeat labs and chest x-ray in a.m. Total time spent with patient discussing and formulating plan of care: 35 minutes. This medical document was created using an electronic medical record system with [employer] dictation system. Although this document has been carefully reviewed, there may still be some phonetic and typographical errors. These areas are purely typographical due to imperfections of the software programs, and do not reflect any compromise in the patient's medical care. Plan discussed with: Patient, Other (RN) My Orders Orders - YONATHAN KINGSLEY NP Procedure Category Date Status Time Pantoprazole Tablet PHA 04/08/24 In Process (Protonix Tablet) 22:00 Buspirone Hcl Tablet PHA 04/09/24 In Process (Buspar Tablet) 10:00 Sucralfate Susp PHA 04/08/24 In Process (Carafate Susp) 22:00 Chest Portable XY 04/09/24 Resulted 04:00 Quetiapine Fumarate PHA 04/09/24 In Process Tablet (Seroquel Tab 10:00 Lisinopril Tablet PHA 04/09/24 In Process (Zestril Tablet) 10:15 Vancomycin 1gm/250ml PHA 04/09/24 In Process Kit 12:00 Vancomycin Per KARAN 04/10/24 In Process Pharmacy Protoc 12:00 Vancomycin,Trough LAB 04/10/24 Verified 11:00 Creatinine LAB 04/10/24 Verified 04:00 Date of Service: Apr 09, 2024 Billing Provider: YONATHAN KINGSLEY NP Common Visit Codes: [id number] INP/OBS CARE(HIGH) YONATHAN KINGSLEY NP Apr 09, 2024 13:20
[2024-04-09] MEDS: InsuLIN REG 1unit/0.01ml Soln (100units/ml) SC SCH ×2 (17:19→21:19)
[2024-04-09] MEDS: ACCU-CHEK COMFORT CURVE STRIP VI SCH (17:21)
[2024-04-10] VITALS (8 sets, daily range): BP systolic 114–145; BP diastolic 75–99; PULSE 78–101; RESP 15–20; TEMP 97.6–98.7; O2SAT 95–100
[2024-04-10 10:22] LABS: Basophils # (auto) 0 10 ^3/uL (0-0.2); Basophils % (auto) 0.9 % (0.0-2.0); Eosinophils # (auto) 0.2 10 ^3/uL (0-0.8); Hemoglobin 12.4 g/dL (13.5-17.5); Lymphocytes # (auto) 1.4 10 ^3/uL (0.4-5.4); Monocytes # (auto) 0.3 10 ^3/uL (0-1.3); White Blood Cell 3.6 10^3/uL (4.4-10.8)
[2024-04-10 10:23] LABS: Chloride 101 mmol/L (98-107); Potassium 3.9 mmol/L (3.5-5.1)
[2024-04-10 10:24] LABS: Anion Gap 7 (5-15); Calcium 9.3 mg/dL (8.7-10.4); Carbon Dioxide 27 mmol/L (20-31); Eosinophils % (auto) 4.6 % (0.0-7.0); Hematocrit 37.7 % (41.0-53.0); Lymphocytes % (auto) 39.6 % (10.0-50.0); Mean Corpuscular Hemoglobin 24.6 pg (28.0-32.0); Mean Corpuscular Volume 74.5 fL (80.0-100.0); Monocytes % (auto) 7.4 % (0.0-12.0); Neutrophils # (auto) 1.7 10 ^3/uL (1.6-8.6); Neutrophils % (auto) 47.5 % (37.0-80.0); Nucleated Red Blood Cells % 0.2 %; Platelet Count (auto) 222 10^3/uL (140-450); Red Blood Cells 5.05 10^6/uL (4.5-5.90); Red Cell Distribution Width 18.3 % (11.8-14.3)
[2024-04-10 10:29] LABS: BUN/Creatinine Ratio 19.8 (10.0-20.0); Blood Urea Nitrogen 16 mg/dL (9-23)
[2024-04-10 10:47] LABS: Glucose 191 mg/dL (74-106); Sodium 135 mmol/L (136-145)
[2024-04-10] MEDS: INSULIN LANTUS (GLARGINE) 1 /0.01ml (100units/ml) SC ONE (12:02)
[2024-04-10] MEDS ORDERED: BACDST PO (12:48)
--- NOTE | 2024-04-10 13:39 | DVHDS2 ---
Discharge Summary Date of Admission Apr 05, 2024 at 23:05 Date of Discharge: Apr 10, 2024 Admitting Diagnosis Diabetic ketoacidosis Labs/Diagnostic Data: Laboratory Results Test 04/10/24 11:08 04/10/24 09:51 04/09/24 05:12 04/07/24 15:20 POC Glucose 166 mg/dl (70-106) White Blood Count 3.6 10^3/uL (4.4-10.8) Red Blood Count 5.05 10^6/uL (4.5-5.90) Hemoglobin 12.4 g/dL (13.5-17.5) Hematocrit 37.7 % (41.0-53.0) Mean Corpuscular Volume 74.5 fL (80.0-100.0) Mean Corpuscular Hemoglobin 24.6 pg (28.0-32.0) Mean Corpuscular Hemoglobin Concent 33.0 g/dL (32.0-36.0) Red Cell Distribution Width 18.3 % (11.8-14.3) Platelet Count 222 10^3/uL (140-450) Mean Platelet Volume 7.2 fL (6.9-10.8) Neutrophils (%) (Auto) 47.5 % (37.0-80.0) Lymphocytes (%) (Auto) 39.6 % (10.0-50.0) Monocytes (%) (Auto) 7.4 % (0.0-12.0) Eosinophils (%) (Auto) 4.6 % (0.0-7.0) Basophils (%) (Auto) 0.9 % (0.0-2.0) Neutrophils # (Auto) 1.7 10 ^3/uL (1.6-8.6) Lymphocytes # (Auto) 1.4 10 ^3/uL (0.4-5.4) Monocytes # (Auto) 0.3 10 ^3/uL (0-1.3) Eosinophils # (Auto) 0.2 10 ^3/uL (0-0.8) Basophils # (Auto) 0 10 ^3/uL (0-0.2) Nucleated Red Blood Cells 0.2 % Sodium Level 135 mmol/L (136-145) Potassium Level 3.9 mmol/L (3.5-5.1) Chloride Level 101 mmol/L (98-107) Carbon Dioxide Level 27 mmol/L (20-31) Anion Gap 7 (5-15) Blood Urea Nitrogen 16 mg/dL (9-23) Creatinine 0.81 mg/dL (0.700-1.30) Glomerular Filtration Rate Calc 127 mL/min (>90) BUN/Creatinine Ratio 19.8 (10.0-20.0) Serum Glucose 191 mg/dL (74-106) Calcium Level 9.3 mg/dL (8.7-10.4) Magnesium Level 2.0 mg/dL (1.6-2.6) Vancomycin Level Trough 13.6 ug/mL (5-10) Random Vancomycin Level 5.5 ug/mL (5-10) Influenza Type A Antigen Negative (Negative) Influenza Type B Antigen Negative (Negative) SARS-CoV-2 Antigen (Rapid) Negative (NEGATIVE) Test 04/06/24 15:10 04/06/24 09:43 04/06/24 06:15 04/05/24 21:48 Urine Creatinine 155.88 mg/dL (30.0-125.0) Urine Protein/Creatinine Ratio 0.88 Urine Sodium < 10 mmol/L (40-220) Urine Total Protein 137.1 mg/dL (1-14) Vitamin D 25-Hydroxy 39.2 ng/mL (30.0-100) Phosphorus Level 1.8 mg/dL (2.4-5.1) Total Bilirubin 0.2 mg/dL (0.2-1.0) Aspartate Amino Transferase (AST) < 8 U/L (13-40) Alanine Aminotransferase (ALT) 41 U/L (7-40) Alkaline Phosphatase 138 U/L (46-116) Total Protein 6.4 g/dL (5.7-8.2) Albumin 4.0 g/dL (3.2-4.8) Parathyroid Hormone (Intact) 123.9 pg/mL (18.4-80.1) Blood Gas Specimen Type Arterial Blood Gas Sample Site Left radial Blood Gas Patient Temperature 37.0 Arterial Blood Date Drawn [id number] Arterial Blood pH 7.406 (7.350-7.450) Arterial Blood Partial Pressure CO2 19.8 mmHg (35.0-48.0) Arterial Blood Partial Pressure O2 96.5 mmHg (83.0-108.0) Arterial Blood HCO3 12.2 mmol/L (21.0-28.0) Arterial Blood Oxygen Saturation 97.3 % (94.0-98.0) Arterial Blood Base Excess -10.2 mmol/L (-2.0-3.0) Arterial Blood Oxyhemoglobin 96.5 % (94.0-98.0) Arterial Blood Carboxyhemoglobin 0.3 % (0.5-1.5) Arterial Blood Methemoglobin 0.5 % (0.0-1.5) Jabari Test Modified Blood Gas Total Hemoglobin 12.80 g/dL (13.5-17.5) Blood Gas Modality Room air FiO2 % 21.0 Blood Gas Critical Value Read Back Yes Blood Gas Notified Whom Edgardo paul np Blood Gas Notified Time [id number] Blood Gas Notified By Letty kurtz rrt Test 04/05/24 19:16 04/05/24 15:00 04/05/24 13:08 04/05/24 13:06 Serum Osmolality 330 mOsm/kg (278-298) Urine Color Light-yellow (Yellow) Urine Clarity Clear (Clear) Urine pH 5.0 (5.0-9.0) Urine Specific [place] 1.022 (1.001-1.035) Urine Protein Trace (Negative) Urine Ketones 3+ (Negative) Urine Blood 1+ /uL (Negative) Urine Nitrite Negative (Negative) Urine Bilirubin Negative (Negative) Urine Urobilinogen Normal mg/dL (Negative) Urine Leukocyte Esterase Negative /uL (Negative) Urine RBC 1 /hpf (0 - 3) Urine Microscopic WBC < 1 /HPF (0-3) Urine Squamous Epithelial Cells Few /hpf (<5) Urine Bacteria None seen /hpf (None Seen) Urine Hyaline Casts Few /lpf (0 - 2) Urine Yeast (Budding) Occasional /hpf (None Urine Glucose 4+ mg/dL (Normal) Urine Opiates Screen Neg (NEGATIVE) Urine Fentanyl Screen Neg (NEGATIVE) Urine Barbiturates Screen Neg (NEGATIVE) Urine Phencyclidine Screen Neg (NEGATIVE) Urine Amphetamines Screen Neg (NEGATIVE) Urine Benzodiazepines Screen Neg (NEGATIVE) Urine Cocaine Screen Neg (NEGATIVE) Urine Cannabinoids Screen Neg (NEGATIVE) Platelet Estimate Adequate Hypochromasia (manual) Slight Anisocytosis (manual) Slight Beta-Hydroxybutyric Acid > 4.500 mmol/L (< 0.4) Venous Blood pH 6.943 (7.320-7.430) Venous Blood pCO2 at Patient Temp 22.4 mmHg (38.0-54.0) Venous Blood pO2 at Patient Temp 66.1 mmHg (23.0-48.0) Venous Blood HCO3 4.7 mmol/L (22.0-29.0) Venous Blood Base Excess -26.4 mmol/L (-2.0-3.0) Other Laboratory Tests 04/10/24 09:51 Brief Hx & Hospital Course: History of Present Illness The patient is a 24-year-old male with past medical history of DM, asthma, depression, GERD, and hypertension presented to [facility] ED with complaint of hyperglycemia. Patient reports having high blood glucose for unknown time, so he called EMS. When EMS arrived on the scene, patient appears to be confused, blood sugar reading high x2, and was given IV fluid normal saline and insulin EN route to our facility ED. Patient was seen and evaluated in the ED, laboratory data shows WBC 12.6, platelets 208, sodium 121, potassium 5.1, BUN 29, creatinine 2.36, GFR 39, glucose 945, anion gap 29.00, calcium 8.3, phosphorus 10.5, acetone 4.500, magnesium 2.8, AST 52, ALT 56. Patient was started on insulin drip, please see medication orders section in the computer. On my assessment, patient denied chest pain, no headache, no dizziness, no diaphoresis, currently on oxygen, no loss of consciousness, nausea, no vomiting, no fever, no chills. Patient was admitted for further evaluation and medical management. Course of hospitalization: Patient was found to be in respiratory distress. O2 supplementation was placed on patient. Patient was found to have pneumonia with MRSA. Patient was placed on empiric antibiotic therapy including vancomycin. Patient was respiratory status improved with O2 supplementation weaned off. Patient was blood sugars have improved also, with the patient now off of insulin drip. Patient will be discharged home with Bactrim DS one tab b.i.d. to seven days. He was instructed to follow up with his PCP in 1-2 weeks. Patient will also continue all previous home medications. Physical examination General: Alert and Oriented x3. No acute distress. Well-nourished. Eyes: EOMI. Anicteric. HENT: Moist mucous membranes. Lungs: Clear to auscultation bilaterally. No accessory muscle use. Cardiovascular: Regular rate and rhythm. No murmur. No JVD. Abdomen: Soft, non-tender and non-distended. No palpable masses. Extremities: No edema. Non-tender. Skin: No rashes or lesions. Warm. Neurologic: No focal neurological deficits. CN II-XII grossly intact, but not individually tested. Psychiatric: Cooperative. Appropriate mood and affect. Total time spent with patient discussing and formulating plan of care: 35 minutes. This medical document was created using an electronic medical record system with [employer] dictation system. Although this document has been carefully reviewed, there may still be some phonetic and typographical errors. These areas are purely typographical due to imperfections of the software programs, and do not reflect any compromise in the patient's medical care. Condition at Discharge: Fair Final Diagnosis/Problems List Diabetic ketoacidosis Secondary Diagnosis: -community-acquired pneumonia with MRSA -acute hypoxic respiratory failure -sepsis secondary to pneumonia -acute kidney injury, probable vasomotor nephropathy -history of amphetamine use Discharge Disposition: Home Discharge Instruct/Medications Diet: Consistent carbohydrate Activity: No Restrictions, As Tolerated Follow Up/Referral: PCP in one -two weeks Medications: Bactrim DS one tablet b.i.d. x7 days 36 Discharge Statement: "Patient was advised to return to the ER or call 911 if any headaches, dizziness, shortness of breath, chest pain, abdominal pain, bleeding, fevers, or worsening of medical condition. Patient was counseled about treatment plan, medications, possible side effects, patientverbalized understanding. All questions were answered to the best of my ability. This discharge took greater then 30 minutes in planning, reviewing documentation, counseling the patient, and discussing with other team members." ASSESSMENT ASSESSMENT Assessment Date of Service: Apr 10, 2024 Billing Provider: YONATHAN KINGSLEY NP Common Visit Codes: [id number] DISCH DAY >30min YONATHAN KINGSLEY NP Apr 10, 2024 13:39
[2024-04-10] MEDS ORDERED: VANCOMYCIN 1.25GM/250ML 250 ML IV SCH (20:00)
[2024-04-10] MEDS: SULFAMETHOX W/TRIMETH(800/160MG) DS TAB PO SCH (22:06)
[2024-04-10] MEDS: INSULIN LANTUS (GLARGINE) 1 /0.01ml (100units/ml) SC SCH (22:16)
[2024-04-11 05:00] VITALS: BP 127/88; PULSE 82; RESP 20; TEMP 97.8; O2SAT 100
[2024-04-11 08:00] VITALS: RESP 18
[2024-04-11 09:00] VITALS: BP 158/116; PULSE 88; RESP 16; TEMP 97.8; O2SAT 100
--- NOTE | 2024-04-11 16:59 | DVHPN2 ---
Subjective Patient reports that his cough and shortness of breath has improved. Reviewed: Care Plan, H&P, Labs Changes from previous H/P or p: No Changes General: Per HPI Eyes: No Pain, No Vision change, No Conjunctivae inflammation, No Eyelid inflammation, No Other, No Redness ENT: No Ear pain, No Ear discharge, No Nose pain, No Nose discharge, No Nose congestion, No Mouth pain, No Mouth swelling, No Throat pain, No Throat swelling, No Other Cardiovascular: No Chest Pain, No Palpitations, No Orthopnea, No Paroxysmal Noc. Dyspnea, No Edema, No Lt Headedness, No Other Respiratory: No Cough, No Dry, No Shortness of breath, No SOB with excertion, No Wheezing, No Hemoptysis, No Pleuritic Pain, No Sputum, No Other Gastrointestinal: No Nausea, No Vomiting, No Abdominal Pain, No Diarrhea, No Constipation, No Melena, No Hematochezia, No Other Genitourinary: No Dysuria, No Frequency, No Incontinence, No Hematuria, No Retention, No Other Musculoskeletal: No other, No neck pain, No shoulder pain, No arm pain, No back pain, No hand pain, No leg pain, No foot pain Skin: No Rash, No Lesions, No Jaundice, No Bruising, No Other Objective Vitals Vital Signs Date Time Temp Pulse Resp B/P (MAP) Pulse Ox O2 Delivery O2 Flow Rate FiO2 04/11/24 09:00 97.8 88 16 158/116 (130) 100 97.8 04/11/24 08:00 Room Air* 0 21 Intake/Output Intake and Output 04/11/24 07:00 Intake Total 1750 ml Output Total 3891 ml Balance -2141 ml Intake Oral 1500 ml IV Total 250 ml Output Urine Total 3891 ml # Bowel Movements 2 General Appearance: Alert, Oriented X3, Cooperative, No acute distress HEENT: Atraumatic, PERRLA Neck: Carotid Bruits [place] Lungs: Other Cardiovascular: Normal S1, Normal S2 Abdomen: Normal bowel sounds, Soft, No tenderness Genitourinary: No Apparent Abnormalities Musculoskeletal: Normal sensory function, Normal motor function Extremities: Normal pulses Neuro: Normal speech Skin: Dry, Intact Psych/Mental Status: Mental status NL, Mood NL Medications Current Medications Medications Dose Ordered Sig/Duncan Route Start Time Stop Time Status Last Admin Dose Admin Hydralazine HCl 10 mg Q6HP PRN IV 04/05/24 19:00 Acetaminophen/ Hydrocodone Bitart 1 tab Q4HP PRN PO 04/05/24 19:00 04/11/24 08:29 1 TAB Ondansetron HCl 4 mg Q4HP PRN IV 04/05/24 19:00 04/07/24 07:12 4 MG Docusate Sodium 100 mg BIDPRN PRN PO 04/05/24 19:00 Acetaminophen 650 mg Q6HP PRN PO 04/05/24 19:00 04/06/24 20:08 650 MG Morphine Sulfate 2 mg Q6HPRN PRN IV 04/05/24 22:00 04/11/24 02:24 2 MG Nitroglycerin 0.4 mg Q5MINP PRN SL 04/05/24 23:15 Morphine Sulfate 2 mg Q30M PRN IV 04/05/24 23:15 Dextrose 50 ml UD PRN IV 04/06/24 22:30 Guaifenesin/ Dextromethorphan 10 ml Q4HP PRN PO 04/07/24 15:15 04/10/24 18:36 10 ML Enteral Nutritional Formula 240 ml TIDWM PO 04/07/24 18:00 04/11/24 12:18 240 ML Pantoprazole Sodium 40 mg BID PO 04/08/24 22:00 04/11/24 08:29 40 MG Quetiapine Fumarate 25 mg DAILY PO 04/09/24 10:00 04/11/24 08:29 25 MG Buspirone HCl 5 mg DAILY PO 04/09/24 10:00 04/11/24 08:28 5 MG Sucralfate 1 gm BID@0600,2200 GT 04/08/24 22:00 04/11/24 05:52 1 GM Lisinopril 10 mg DAILY PO 04/09/24 10:15 04/11/24 08:35 10 MG Diagnostic Test (Pha) 1 strip ACHS 04/09/24 17:00 04/11/24 12:18 1 STRIP Insulin Human Regular AC SC 04/09/24 17:00 04/11/24 12:26 16 UNITS Insulin Human Regular HS SC 04/09/24 22:00 04/10/24 22:17 10 UNITS Insulin Glargine 25 units HS SC 04/10/24 22:00 04/10/24 22:16 25 UNITS Trimethoprim/ Sulfamethoxazole 1 tab Q12HR PO 04/10/24 22:00 04/11/24 08:28 1 TAB Laboratory Results Laboratory Tests 04/10/24 09:51 Urinalysis Test 04/05/24 15:00 04/06/24 15:10 Urine Color Light-yellow (Yellow) Urine Clarity Clear (Clear) Urine pH 5.0 (5.0-9.0) Urine Specific [place] 1.022 (1.001-1.035) Urine Protein Trace (Negative) H Urine Ketones 3+ (Negative) H Urine Blood 1+ /uL (Negative) H Urine Nitrite Negative (Negative) Urine Bilirubin Negative (Negative) Urine Urobilinogen Normal mg/dL (Negative) Urine Leukocyte Esterase Negative /uL (Negative) Urine RBC 1 /hpf (0 - 3) Urine Microscopic WBC < 1 /HPF (0-3) Urine Squamous Epithelial Cells Few /hpf (<5) Urine Bacteria None seen /hpf (None Seen) Urine Hyaline Casts Few /lpf (0 - 2) Urine Yeast (Budding) Occasional /hpf (None Urine Glucose 4+ mg/dL (Normal) H Urine Creatinine 155.88 mg/dL (30.0-125.0) H Urine Protein/Creatinine Ratio 0.88 Urine Sodium < 10 mmol/L (40-220) L Urine Total Protein 137.1 mg/dL (1-14) H Microbiology Microbiology Date/Time Source Procedure Growth Status 04/07/24 16:15 Sputum Gram Stain - Final Complete 04/07/24 16:15 Respiratory Culture - Final Methicillin Resistant S.aureus Complete 04/07/24 10:55 Nose MRSA Screen - Final Methicillin Resistant S.aureus Complete Labs and/or images reviewed: Labs reviewed by me, Image(s) reviewed by me Assessment/Plan Assessment/Plan Impression: -community-acquired pneumonia with MRSA -acute hypoxic respiratory failure -leukocytosis, rule out sepsis -diabetic ketoacidosis -acute kidney injury, probable vasomotor nephropathy -history of amphetamine use Plan: -events: No events overnight. Patient has been discharged. Pending placement by social service given he was now homeless. -deescalate antibiotics to vancomycin as sole treatment -antiemetics -restart home medications for anxiety -add Protonix and Carafate -continue regular insulin sliding scale -continue Lantus -repeat labs and chest x-ray in a.m. Total time spent with patient discussing and formulating plan of care: 35 minutes. This medical document was created using an electronic medical record system with [employer] dictation system. Although this document has been carefully reviewed, there may still be some phonetic and typographical errors. These areas are purely typographical due to imperfections of the software programs, and do not reflect any compromise in the patient's medical care. Plan discussed with: Patient, Other (RN) My Orders Orders - YONATHAN KINGSLEY NP Procedure Category Date Status Time Discharge DISCHARGE 04/11/24 Transmitted 13:39 Date of Service: Apr 11, 2024 Billing Provider: YONATHAN KINGSLEY NP Common Visit Codes: [id number] INP/OBS CARE(HIGH) YONATHAN KINGSLEY NP Apr 11, 2024 16:59
[2024-04-11 17:00] VITALS: BP_SYST 122; BP_SYST 130; BP_DIAS 88; BP_DIAS 90; PULSE 87; PULSE 91; RESP 16; TEMP 97.8; TEMP 98.2; O2SAT 100
[2024-04-11 20:00] VITALS: PULSE 93; RESP 20; O2SAT 100
[2024-04-11 21:00] VITALS: BP 132/88; PULSE 93; RESP 20; TEMP 98.1; O2SAT 100
[2024-04-12] VITALS (8 sets, daily range): BP systolic 106–147; BP diastolic 61–96; PULSE 86–101; RESP 12–20; TEMP 97.7–98.7; O2SAT 96–100
--- NOTE | 2024-04-12 15:53 | DVHPN2 ---
Subjective Patient reports that his cough and shortness of breath has improved. Reviewed: Care Plan, H&P, Labs Changes from previous H/P or p: No Changes General: Per HPI Eyes: No Pain, No Vision change, No Conjunctivae inflammation, No Eyelid inflammation, No Other, No Redness ENT: No Ear pain, No Ear discharge, No Nose pain, No Nose discharge, No Nose congestion, No Mouth pain, No Mouth swelling, No Throat pain, No Throat swelling, No Other Cardiovascular: No Chest Pain, No Palpitations, No Orthopnea, No Paroxysmal Noc. Dyspnea, No Edema, No Lt Headedness, No Other Respiratory: No Cough, No Dry, No Shortness of breath, No SOB with excertion, No Wheezing, No Hemoptysis, No Pleuritic Pain, No Sputum, No Other Gastrointestinal: No Nausea, No Vomiting, No Abdominal Pain, No Diarrhea, No Constipation, No Melena, No Hematochezia, No Other Genitourinary: No Dysuria, No Frequency, No Incontinence, No Hematuria, No Retention, No Other Musculoskeletal: No other, No neck pain, No shoulder pain, No arm pain, No back pain, No hand pain, No leg pain, No foot pain Skin: No Rash, No Lesions, No Jaundice, No Bruising, No Other Objective Vitals Vital Signs Date Time Temp Pulse Resp B/P (MAP) Pulse Ox O2 Delivery O2 Flow Rate FiO2 04/12/24 15:42 90 18 116/62 04/12/24 12:36 98.2 99 98.2 04/12/24 08:00 Room Air* 0 21 Intake/Output Intake and Output 04/12/24 07:00 Intake Total 1220 ml Output Total 1930 ml Balance -710 ml Intake Oral 1220 ml Output Urine Total 1930 ml # Bowel Movements 2 General Appearance: Alert, Oriented X3, Cooperative, No acute distress HEENT: Atraumatic, PERRLA Neck: Carotid Bruits [place] Lungs: Other Cardiovascular: Normal S1, Normal S2 Abdomen: Normal bowel sounds, Soft, No tenderness Genitourinary: No Apparent Abnormalities Musculoskeletal: Normal sensory function, Normal motor function Extremities: Normal pulses Neuro: Normal speech Skin: Dry, Intact Psych/Mental Status: Mental status NL, Mood NL Medications Current Medications Medications Dose Ordered Sig/Duncan Route Start Time Stop Time Status Last Admin Dose Admin Hydralazine HCl 10 mg Q6HP PRN IV 04/05/24 19:00 Acetaminophen/ Hydrocodone Bitart 1 tab Q4HP PRN PO 04/05/24 19:00 04/12/24 06:17 1 TAB Ondansetron HCl 4 mg Q4HP PRN IV 04/05/24 19:00 04/07/24 07:12 4 MG Docusate Sodium 100 mg BIDPRN PRN PO 04/05/24 19:00 Acetaminophen 650 mg Q6HP PRN PO 04/05/24 19:00 04/06/24 20:08 650 MG Morphine Sulfate 2 mg Q6HPRN PRN IV 04/05/24 22:00 04/12/24 15:42 2 MG Nitroglycerin 0.4 mg Q5MINP PRN SL 04/05/24 23:15 Morphine Sulfate 2 mg Q30M PRN IV 04/05/24 23:15 Dextrose 50 ml UD PRN IV 04/06/24 22:30 Guaifenesin/ Dextromethorphan 10 ml Q4HP PRN PO 04/07/24 15:15 04/11/24 21:39 10 ML Enteral Nutritional Formula 240 ml TIDWM PO 04/07/24 18:00 04/12/24 12:14 240 ML Pantoprazole Sodium 40 mg BID PO 04/08/24 22:00 04/12/24 09:52 40 MG Quetiapine Fumarate 25 mg DAILY PO 04/09/24 10:00 04/12/24 09:52 25 MG Buspirone HCl 5 mg DAILY PO 04/09/24 10:00 04/12/24 09:52 5 MG Sucralfate 1 gm BID@0600,2200 GT 04/08/24 22:00 04/12/24 06:16 1 GM Lisinopril 10 mg DAILY PO 04/09/24 10:15 04/12/24 09:53 10 MG Diagnostic Test (Pha) 1 strip ACHS 04/09/24 17:00 04/12/24 06:16 1 STRIP Insulin Human Regular AC SC 04/09/24 17:00 04/12/24 07:12 8 UNITS Insulin Human Regular HS SC 04/09/24 22:00 04/11/24 21:49 6 UNITS Insulin Glargine 25 units HS SC 04/10/24 22:00 04/11/24 21:48 25 UNITS Trimethoprim/ Sulfamethoxazole 1 tab Q12HR PO 04/10/24 22:00 04/12/24 09:51 1 TAB Laboratory Results Laboratory Tests 04/10/24 09:51 Urinalysis Test 04/05/24 15:00 04/06/24 15:10 Urine Color Light-yellow (Yellow) Urine Clarity Clear (Clear) Urine pH 5.0 (5.0-9.0) Urine Specific [place] 1.022 (1.001-1.035) Urine Protein Trace (Negative) H Urine Ketones 3+ (Negative) H Urine Blood 1+ /uL (Negative) H Urine Nitrite Negative (Negative) Urine Bilirubin Negative (Negative) Urine Urobilinogen Normal mg/dL (Negative) Urine Leukocyte Esterase Negative /uL (Negative) Urine RBC 1 /hpf (0 - 3) Urine Microscopic WBC < 1 /HPF (0-3) Urine Squamous Epithelial Cells Few /hpf (<5) Urine Bacteria None seen /hpf (None Seen) Urine Hyaline Casts Few /lpf (0 - 2) Urine Yeast (Budding) Occasional /hpf (None Urine Glucose 4+ mg/dL (Normal) H Urine Creatinine 155.88 mg/dL (30.0-125.0) H Urine Protein/Creatinine Ratio 0.88 Urine Sodium < 10 mmol/L (40-220) L Urine Total Protein 137.1 mg/dL (1-14) H Microbiology Microbiology Date/Time Source Procedure Growth Status 04/07/24 16:15 Sputum Gram Stain - Final Complete 04/07/24 16:15 Respiratory Culture - Final Methicillin Resistant S.aureus Complete 04/07/24 10:55 Nose MRSA Screen - Final Methicillin Resistant S.aureus Complete Labs and/or images reviewed: Labs reviewed by me, Image(s) reviewed by me Assessment/Plan Assessment/Plan * Impression: -community-acquired pneumonia with MRSA -acute hypoxic respiratory failure -leukocytosis, rule out sepsis -diabetic ketoacidosis -acute kidney injury, probable vasomotor nephropathy -history of amphetamine use Plan: -events: No events overnight. Patient has been discharged. Pending placement by social service given he was now homeless. Discharge once patient is homelessness has been addressed by social service. -deescalate antibiotics to vancomycin as sole treatment -antiemetics -restart home medications for anxiety -Protonix and Carafate -continue regular insulin sliding scale -continue Lantus Total time spent with patient discussing and formulating plan of care: 35 minutes. This medical document was created using an electronic medical record system with [employer] dictation system. Although this document has been carefully reviewed, there may still be some phonetic and typographical errors. These areas are purely typographical due to imperfections of the software programs, and do not reflect any compromise in the patient's medical care. Plan discussed with: Patient, Other (RN) Date of Service: Apr 12, 2024 Billing Provider: YONATHAN KINGSLEY NP Common Visit Codes: [id number] INP/OBS CARE(HIGH) YONATHAN KINGSLEY NP Apr 12, 2024 15:53
[2024-04-13] VITALS (8 sets, daily range): BP systolic 108–153; BP diastolic 60–96; PULSE 84–98; RESP 16–19; TEMP 98–99.1; O2SAT 94–100
--- NOTE | 2024-04-13 16:18 | DVHPN2 ---
Subjective Patient reports that his cough and shortness of breath has improved. Reviewed: Care Plan, H&P, Labs Changes from previous H/P or p: No Changes General: Per HPI Eyes: No Pain, No Vision change, No Conjunctivae inflammation, No Eyelid inflammation, No Other, No Redness ENT: No Ear pain, No Ear discharge, No Nose pain, No Nose discharge, No Nose congestion, No Mouth pain, No Mouth swelling, No Throat pain, No Throat swelling, No Other Cardiovascular: No Chest Pain, No Palpitations, No Orthopnea, No Paroxysmal Noc. Dyspnea, No Edema, No Lt Headedness, No Other Respiratory: No Cough, No Dry, No Shortness of breath, No SOB with excertion, No Wheezing, No Hemoptysis, No Pleuritic Pain, No Sputum, No Other Gastrointestinal: No Nausea, No Vomiting, No Abdominal Pain, No Diarrhea, No Constipation, No Melena, No Hematochezia, No Other Genitourinary: No Dysuria, No Frequency, No Incontinence, No Hematuria, No Retention, No Other Musculoskeletal: No other, No neck pain, No shoulder pain, No arm pain, No back pain, No hand pain, No leg pain, No foot pain Skin: No Rash, No Lesions, No Jaundice, No Bruising, No Other Objective Vitals Vital Signs Date Time Temp Pulse Resp B/P (MAP) Pulse Ox O2 Delivery O2 Flow Rate FiO2 04/13/24 13:00 98.2 84 16 119/69 (86) 99 98.2 04/13/24 08:00 Room Air* 0 21 Intake/Output Intake and Output 04/13/24 07:00 Intake Total 2710 ml Output Total 901 ml Balance 1809 ml Intake Oral 2710 ml Output Urine Total 900 ml Stool Total 1 ml # Voids 4 # Bowel Movements 2 General Appearance: Alert, Oriented X3, Cooperative, No acute distress HEENT: Atraumatic, PERRLA Neck: Carotid Bruits [place] Lungs: Other Cardiovascular: Normal S1, Normal S2 Abdomen: Normal bowel sounds, Soft, No tenderness Genitourinary: No Apparent Abnormalities Musculoskeletal: Normal sensory function, Normal motor function Extremities: Normal pulses Neuro: Normal speech Skin: Dry, Intact Psych/Mental Status: Mental status NL, Mood NL Medications Current Medications Medications Dose Ordered Sig/Duncan Route Start Time Stop Time Status Last Admin Dose Admin Hydralazine HCl 10 mg Q6HP PRN IV 04/05/24 19:00 Acetaminophen/ Hydrocodone Bitart 1 tab Q4HP PRN PO 04/05/24 19:00 04/12/24 21:36 1 TAB Ondansetron HCl 4 mg Q4HP PRN IV 04/05/24 19:00 04/07/24 07:12 4 MG Docusate Sodium 100 mg BIDPRN PRN PO 04/05/24 19:00 Acetaminophen 650 mg Q6HP PRN PO 04/05/24 19:00 04/06/24 20:08 650 MG Morphine Sulfate 2 mg Q6HPRN PRN IV 04/05/24 22:00 04/13/24 09:16 2 MG Nitroglycerin 0.4 mg Q5MINP PRN SL 04/05/24 23:15 Morphine Sulfate 2 mg Q30M PRN IV 04/05/24 23:15 Dextrose 50 ml UD PRN IV 04/06/24 22:30 Guaifenesin/ Dextromethorphan 10 ml Q4HP PRN PO 04/07/24 15:15 04/12/24 21:43 10 ML Enteral Nutritional Formula 240 ml TIDWM PO 04/07/24 18:00 04/13/24 08:00 240 ML Pantoprazole Sodium 40 mg BID PO 04/08/24 22:00 04/13/24 09:10 40 MG Quetiapine Fumarate 25 mg DAILY PO 04/09/24 10:00 04/13/24 09:14 25 MG Buspirone HCl 5 mg DAILY PO 04/09/24 10:00 04/13/24 09:10 5 MG Sucralfate 1 gm BID@0600,2200 GT 04/08/24 22:00 04/13/24 07:02 1 GM Lisinopril 10 mg DAILY PO 04/09/24 10:15 04/13/24 09:14 10 MG Diagnostic Test (Pha) 1 strip ACHS 04/09/24 17:00 04/13/24 07:02 1 STRIP Insulin Human Regular AC SC 04/09/24 17:00 04/13/24 07:43 8 UNITS Insulin Human Regular HS SC 04/09/24 22:00 04/11/24 21:49 6 UNITS Insulin Glargine 25 units HS SC 04/10/24 22:00 04/12/24 22:02 25 UNITS Trimethoprim/ Sulfamethoxazole 1 tab Q12HR PO 04/10/24 22:00 04/13/24 09:14 1 TAB Laboratory Results Laboratory Tests 04/10/24 09:51 Urinalysis Test 04/05/24 15:00 04/06/24 15:10 Urine Color Light-yellow (Yellow) Urine Clarity Clear (Clear) Urine pH 5.0 (5.0-9.0) Urine Specific [place] 1.022 (1.001-1.035) Urine Protein Trace (Negative) H Urine Ketones 3+ (Negative) H Urine Blood 1+ /uL (Negative) H Urine Nitrite Negative (Negative) Urine Bilirubin Negative (Negative) Urine Urobilinogen Normal mg/dL (Negative) Urine Leukocyte Esterase Negative /uL (Negative) Urine RBC 1 /hpf (0 - 3) Urine Microscopic WBC < 1 /HPF (0-3) Urine Squamous Epithelial Cells Few /hpf (<5) Urine Bacteria None seen /hpf (None Seen) Urine Hyaline Casts Few /lpf (0 - 2) Urine Yeast (Budding) Occasional /hpf (None Urine Glucose 4+ mg/dL (Normal) H Urine Creatinine 155.88 mg/dL (30.0-125.0) H Urine Protein/Creatinine Ratio 0.88 Urine Sodium < 10 mmol/L (40-220) L Urine Total Protein 137.1 mg/dL (1-14) H Microbiology Microbiology Date/Time Source Procedure Growth Status 04/07/24 16:15 Sputum Gram Stain - Final Complete 04/07/24 16:15 Respiratory Culture - Final Methicillin Resistant S.aureus Complete 04/07/24 10:55 Nose MRSA Screen - Final Methicillin Resistant S.aureus Complete Labs and/or images reviewed: Labs reviewed by me, Image(s) reviewed by me Assessment/Plan Assessment/Plan * Impression: -community-acquired pneumonia with MRSA -acute hypoxic respiratory failure -leukocytosis, rule out sepsis -diabetic ketoacidosis -acute kidney injury, probable vasomotor nephropathy -history of amphetamine use Plan: -events: No events overnight. Patient has been discharged. Pending placement by social service given he was now homeless. Discharge once patient is homelessness has been addressed by social service. No change in assessment/plan on 04/13/2024. Discontinue IV pain medication -continue Bactrim DS for MRSA in the sputum -antiemetics -restart home medications for anxiety -Protonix and Carafate -continue regular insulin sliding scale -continue Lantus Total time spent with patient discussing and formulating plan of care: 35 minutes. This medical document was created using an electronic medical record system with [employer] dictation system. Although this document has been carefully reviewed, there may still be some phonetic and typographical errors. These areas are purely typographical due to imperfections of the software programs, and do not reflect any compromise in the patient's medical care. Plan discussed with: Patient, Other (RN) Date of Service: Apr 13, 2024 Billing Provider: YONATHAN KINGSLEY NP Common Visit Codes: [id number] INP/OBS CARE(HIGH) OYNATHAN KINGSLEY NP Apr 13, 2024 16:18
[2024-04-14] VITALS (7 sets, daily range): BP systolic 102–135; BP diastolic 58–82; PULSE 73–108; RESP 17–22; TEMP 97.3–98; O2SAT 100
--- NOTE | 2024-04-14 11:56 | DVHPN2 ---
Subjective Patient reports that his cough and shortness of breath has improved. Reviewed: Care Plan, H&P, Labs Changes from previous H/P or p: No Changes General: Per HPI Eyes: No Pain, No Vision change, No Conjunctivae inflammation, No Eyelid inflammation, No Other, No Redness ENT: No Ear pain, No Ear discharge, No Nose pain, No Nose discharge, No Nose congestion, No Mouth pain, No Mouth swelling, No Throat pain, No Throat swelling, No Other Cardiovascular: No Chest Pain, No Palpitations, No Orthopnea, No Paroxysmal Noc. Dyspnea, No Edema, No Lt Headedness, No Other Respiratory: No Cough, No Dry, No Shortness of breath, No SOB with excertion, No Wheezing, No Hemoptysis, No Pleuritic Pain, No Sputum, No Other Gastrointestinal: No Nausea, No Vomiting, No Abdominal Pain, No Diarrhea, No Constipation, No Melena, No Hematochezia, No Other Genitourinary: No Dysuria, No Frequency, No Incontinence, No Hematuria, No Retention, No Other Musculoskeletal: No other, No neck pain, No shoulder pain, No arm pain, No back pain, No hand pain, No leg pain, No foot pain Skin: No Rash, No Lesions, No Jaundice, No Bruising, No Other Objective Vitals Vital Signs Date Time Temp Pulse Resp B/P (MAP) Pulse Ox O2 Delivery O2 Flow Rate FiO2 04/14/24 10:19 102/61 04/14/24 09:00 98.0 95 17 100 98.0 04/14/24 08:00 Room Air* 0 21 Intake/Output Intake and Output 04/14/24 07:00 Intake Total 1775 ml Output Total 1500 ml Balance 275 ml Intake Oral 1775 ml Output Urine Total 1500 ml # Voids 2 # Bowel Movements 1 General Appearance: Alert, Oriented X3, Cooperative, No acute distress HEENT: Atraumatic, PERRLA Neck: Carotid [place] Lungs: Other Cardiovascular: Normal S1, Normal S2 Abdomen: Normal bowel sounds, Soft, No tenderness Genitourinary: No Apparent Abnormalities Musculoskeletal: Normal sensory function, Normal motor function Extremities: Normal pulses Neuro: Normal speech Skin: Dry, Intact Psych/Mental Status: Mental status NL, Mood NL Medications Current Medications Medications Dose Ordered Sig/Duncan Route Start Time Stop Time Status Last Admin Dose Admin Hydralazine HCl 10 mg Q6HP PRN IV 1/25/25 19:00 Acetaminophen/ Hydrocodone Bitart 1 tab Q4HP PRN PO 04/05/24 19:00 04/13/24 17:29 1 TAB Ondansetron HCl 4 mg Q4HP PRN IV 04/05/24 19:00 04/07/24 07:12 4 MG Docusate Sodium 100 mg BIDPRN PRN PO 04/05/24 19:00 Acetaminophen 650 mg Q6HP PRN PO 04/05/24 19:00 04/06/24 20:08 650 MG Nitroglycerin 0.4 mg Q5MINP PRN SL 04/05/24 23:15 Dextrose 50 ml UD PRN IV 04/06/24 22:30 Guaifenesin/ Dextromethorphan 10 ml Q4HP PRN PO 04/07/24 15:15 04/12/24 21:43 10 ML Enteral Nutritional Formula 240 ml TIDWM PO 04/07/24 18:00 04/14/24 10:18 240 ML Pantoprazole Sodium 40 mg BID PO 04/08/24 22:00 04/14/24 10:18 40 MG Quetiapine Fumarate 25 mg DAILY PO 04/09/24 10:00 04/14/24 10:18 25 MG Buspirone HCl 5 mg DAILY PO 04/09/24 10:00 04/14/24 10:18 5 MG Sucralfate 1 gm BID@0600,2200 GT 04/08/24 22:00 04/14/24 05:42 1 GM Lisinopril 10 mg DAILY PO 04/09/24 10:15 04/14/24 10:19 10 MG Diagnostic Test (Pha) 1 strip ACHS 04/09/24 17:00 04/14/24 05:44 1 STRIP Insulin Human Regular AC SC 04/09/24 17:00 04/14/24 06:00 12 UNITS Insulin Human Regular HS SC 04/09/24 22:00 04/11/24 21:49 6 UNITS Insulin Glargine 25 units HS SC 04/10/24 22:00 04/12/24 22:02 25 UNITS Trimethoprim/ Sulfamethoxazole 1 tab Q12HR PO 04/10/24 22:00 04/14/24 10:18 1 TAB Laboratory Results Laboratory Tests 04/10/24 09:51 Urinalysis Test 04/05/24 15:00 04/06/24 15:10 Urine Color Light-yellow (Yellow) Urine Clarity Clear (Clear) Urine pH 5.0 (5.0-9.0) Urine Specific [place] 1.022 (1.001-1.035) Urine Protein Trace (Negative) H Urine Ketones 3+ (Negative) H Urine Blood 1+ /uL (Negative) H Urine Nitrite Negative (Negative) Urine Bilirubin Negative (Negative) Urine Urobilinogen Normal mg/dL (Negative) Urine Leukocyte Esterase Negative /uL (Negative) Urine RBC 1 /hpf (0 - 3) Urine Microscopic WBC < 1 /HPF (0-3) Urine Squamous Epithelial Cells Few /hpf (<5) Urine Bacteria None seen /hpf (None Seen) Urine Hyaline Casts Few /lpf (0 - 2) Urine Yeast (Budding) Occasional /hpf (None Urine Glucose 4+ mg/dL (Normal) H Urine Creatinine 155.88 mg/dL (30.0-125.0) H Urine Protein/Creatinine Ratio 0.88 Urine Sodium < 10 mmol/L (40-220) L Urine Total Protein 137.1 mg/dL (1-14) H Microbiology Microbiology Date/Time Source Procedure Growth Status 04/07/24 16:15 Sputum Gram Stain - Final Complete 04/07/24 16:15 Respiratory Culture - Final Methicillin Resistant S.aureus Complete 04/07/24 10:55 Nose MRSA Screen - Final Methicillin Resistant S.aureus Complete Labs and/or images reviewed: Labs reviewed by me, Image(s) reviewed by me Assessment/Plan Assessment/Plan * Impression: -community-acquired pneumonia with MRSA -acute hypoxic respiratory failure -leukocytosis, rule out sepsis -diabetic ketoacidosis -acute kidney injury, probable vasomotor nephropathy -history of amphetamine use Plan: -events: No events overnight. Found patient to be attempting to get food yesterday afternoon from the cafeteria. Instructed patient to go back to room as speak to dietitian over the phone. Discussed case with case management, for which they are attempting to find placement in the [place] area. -continue Bactrim DS for MRSA in the sputum -antiemetics -restart home medications for anxiety -Protonix and Carafate -continue regular insulin sliding scale -continue Lantus Total time spent with patient discussing and formulating plan of care: 35 minutes. This medical document was created using an electronic medical record system with [employer] computerized dictation system. Although this document has been carefully reviewed, there may still be some phonetic and typographical errors. These areas are purely typographical due to imperfections of the software programs, and do not reflect any compromise in the patient's medical care. Plan discussed with: Patient, Other (RN) Date of Service: Apr 14, 2024 Billing Provider: YONATHAN KINGSLEY NP Common Visit Codes: [id number] INP/OBS CARE(HIGH) YONATHAN KINGSLEY NP Apr 14, 2024 11:56
[2024-04-15 01:19] VITALS: BP 129/74; PULSE 96; RESP 20; TEMP 97.3; O2SAT 100
[2024-04-15 05:00] VITALS: BP 120/70; PULSE 87; RESP 18; TEMP 97.5; O2SAT 97
[2024-04-15 07:51] VITALS: PULSE 92; RESP 18; O2SAT 100
[2024-04-15 09:15] VITALS: BP 127/76; PULSE 90; RESP 16; TEMP 97.3; O2SAT 100
--- NOTE | 2024-04-15 13:04 | DVHPN2 ---
Subjective Denies any symptoms Reviewed: Care Plan, H&P, Labs Changes from previous H/P or p: Changes General: Per HPI Eyes: No Pain, No Vision change, No Conjunctivae inflammation, No Eyelid inflammation, No Other, No Redness ENT: No Ear pain, No Ear discharge, No Nose pain, No Nose discharge, No Nose congestion, No Mouth pain, No Mouth swelling, No Throat pain, No Throat swelling, No Other Cardiovascular: No Chest Pain, No Palpitations, No Orthopnea, No Paroxysmal Noc. Dyspnea, No Edema, No Lt Headedness, No Other Respiratory: No Cough, No Dry, No Shortness of breath, No SOB with excertion, No Wheezing, No Hemoptysis, No Pleuritic Pain, No Sputum, No Other Gastrointestinal: No Nausea, No Vomiting, No Abdominal Pain, No Diarrhea, No Constipation, No Melena, No Hematochezia, No Other Genitourinary: No Dysuria, No Frequency, No Incontinence, No Hematuria, No Retention, No Other Musculoskeletal: No other, No neck pain, No shoulder pain, No arm pain, No back pain, No hand pain, No leg pain, No foot pain Skin: No Rash, No Lesions, No Jaundice, No Bruising, No Other Objective Vitals Vital Signs Date Time Temp Pulse Resp B/P (MAP) Pulse Ox O2 Delivery O2 Flow Rate FiO2 04/15/24 10:39 127/76 04/15/24 09:15 97.3 90 16 100 97.3 04/15/24 07:51 Room Air* 0 21 Intake/Output Intake and Output 04/15/24 07:00 Intake Total 2320 ml Output Total 800 ml Balance 1520 ml Intake Oral 2320 ml Output Urine Total 800 ml # Voids 1 General Appearance: Alert, Oriented X3, Cooperative, No acute distress HEENT: Atraumatic, PERRLA Neck: Carotid Bruits [place] Lungs: Other Cardiovascular: Normal S1, Normal S2 Abdomen: Normal bowel sounds, Soft, No tenderness Genitourinary: No Apparent Abnormalities Musculoskeletal: Normal sensory function, Normal motor function Extremities: Normal pulses Neuro: Normal speech Skin: Dry, Intact Psych/Mental Status: Mental status NL, Mood NL Laboratory Results Laboratory Tests 04/10/24 09:51 Urinalysis Test 04/05/24 15:00 04/06/24 15:10 Urine Color Light-yellow (Yellow) Urine Clarity Clear (Clear) Urine pH 5.0 (5.0-9.0) Urine Specific [place] 1.022 (1.001-1.035) Urine Protein Trace (Negative) H Urine Ketones 3+ (Negative) H Urine Blood 1+ /uL (Negative) H Urine Nitrite Negative (Negative) Urine Bilirubin Negative (Negative) Urine Urobilinogen Normal mg/dL (Negative) Urine Leukocyte Esterase Negative /uL (Negative) Urine RBC 1 /hpf (0 - 3) Urine Microscopic WBC < 1 /HPF (0-3) Urine Squamous Epithelial Cells Few /hpf (<5) Urine Bacteria None seen /hpf (None Seen) Urine Hyaline Casts Few /lpf (0 - 2) Urine Yeast (Budding) Occasional /hpf (None Urine Glucose 4+ mg/dL (Normal) H Urine Creatinine 155.88 mg/dL (30.0-125.0) H Urine Protein/Creatinine Ratio 0.88 Urine Sodium < 10 mmol/L (40-220) L Urine Total Protein 137.1 mg/dL (1-14) H Microbiology Microbiology Date/Time Source Procedure Growth Status 04/07/24 16:15 Sputum Gram Stain - Final Complete 04/07/24 16:15 Respiratory Culture - Final Methicillin Resistant S.aureus Complete 04/07/24 10:55 Nose MRSA Screen - Final Methicillin Resistant S.aureus Complete Labs and/or images reviewed: Labs reviewed by me, Image(s) reviewed by me Assessment/Plan Assessment/Plan * Impression: -community-acquired pneumonia with MRSA -acute hypoxic respiratory failure -leukocytosis, rule out sepsis -diabetic ketoacidosis -acute kidney injury, probable vasomotor nephropathy -history of amphetamine use Plan: -events: Patient was found to have severe hyperglycemia yesterday afternoon with the patient admitting that he was not being compliant with a consistent carbohydrate diet. It was also found with the patient had blood sugars dropping into the 30s. Orders were placed for checking the patient was personal belongings for home medications. Patient was injecting himself with his insulin. Placement was found for the patient. Discussion was made with case management regarding patient's risk of recurrent admissions in the future with persistent noncompliance. Patient will be discharged to a facility in [place]. No new orders at this time -continue Bactrim DS for MRSA in the sputum -antiemetics -restart home medications for anxiety -Protonix and Carafate -continue regular insulin sliding scale -continue Lantus Total time spent with patient discussing and formulating plan of care: 35 minutes. This medical document was created using an electronic medical record system with [employer] dictation system. Although this document has been carefully reviewed, there may still be some phonetic and typographical errors. These areas are purely typographical due to imperfections of the software programs, and do not reflect any compromise in the patient's medical care. Plan discussed with: Patient, Other (RN) My Orders Orders - YONATHAN KINGSLEY NP Procedure Category Date Status Time Communication Order ORDERS 04/15/24 Transmitted 08:13 Sitter At Bedside ORDERS 04/15/24 Transmitted 08:13 Date of Service: Apr 15, 2024 Billing Provider: YONATHAN KINGSLEY NP Common Visit Codes: [id number] INP/OBS CARE(HIGH) YONATHAN KINGSLEY NP Apr 15, 2024 13:04
== END 2024-04-15 12:15 | disposition home or self-care (01) | DRG 720 ==
LOC: EDBD 11:22 → ER 11:22 → OVERFLOW 23:05 → TELE-EAST 04-07 21:08 → EAST 04-09 15:32
PROVIDERS: ADMIT Nurse Practitioner Family; ATTEND Nurse Practitioner Acute Care
DX: A41.02 Sepsis due to Methicillin resistant Staphylococcus aureus (principal); N17.0 Acute kidney failure with tubular necrosis; J96.01 Acute respiratory failure with hypoxia; E10.10 Type 1 diabetes mellitus with ketoacidosis without coma; J15.212 Pneumonia due to Methicillin resistant Staphylococcus aureus; E87.1 Hypo-osmolality and hyponatremia; E10.22 Type 1 diabetes mellitus with diabetic chronic kidney disease; N18.9 Chronic kidney disease, unspecified; Z20.822 Contact with and (suspected) exposure to COVID-19; F17.210 Nicotine dependence, cigarettes, uncomplicated; I12.9 Hypertensive chronic kidney disease with stage 1 through stage 4 chronic kidney disease, or unspecified chronic kidney disease; F12.90 Cannabis use, unspecified, uncomplicated; J45.909 Unspecified asthma, uncomplicated; F32.A Depression, unspecified; K21.9 Gastro-esophageal reflux disease without esophagitis; F15.90 Other stimulant use, unspecified, uncomplicated; Z88.6 Allergy status to analgesic agent; Z79.4 Long term (current) use of insulin; Z79.899 Other long term (current) drug therapy; Z82.49 Family history of ischemic heart disease and other diseases of the circulatory system
CPT/HCPCS: 36415; 36600; 71045; 80048; 80053; 80202; 80307; 81001; 82010; 82306; 82570; 82805; 82962; 83735; 83930; 83970; 84100; 84156; 84300; 85025; 87070; 87077; 87081; 87186; 87205; 87426; 87804; 96361; 96374; 96375; 99291; G0378; J1815; J2405